=== PATIENT | female | born 1940 | race Caucasian/White ===

== ENCOUNTER 2017-05-24 10:36 | Emergency (ER) | payer OTHER, MEDICARE ==
[~2017-05-24] VITALS: Ht 160 cm; Wt 55.2 kg
[~2017-05-24 10:36] MED LIST: ACET-1311 PO; ADVIN25050 INH; ALBU1AER9 PO; ATRINSX INH; ATV/1 PO; CALC-342 PO; CRG3125 PO; LCTL45 PO; LEVA1.258 INH; LSN25 PO; MOML PO; OXGN; OXYC5TAB PO; PRED10TA PO; PRT/20 PO; SENN8.6T7 PO; TIOTCAP INH; VTMB12 PO
[2017-05-24 10:39] VITALS: TEMP 36.7; Ht 160 cm; Wt 55.2 kg
[2017-05-24] MEDS ORDERED: SODIUM CHLORIDE 0.9% 500ML 500 ML IV STA (11:38)
[2017-05-24] MEDS ORDERED: ALUMINUM/MAGNESIUM SUSP 30 ML UDC PO STA (11:38)
[2017-05-24] MEDS ORDERED: ONDANSETRON INJ 2 MG/ML 2 ML VIAL IV STA (11:38)
--- NOTE | 2017-05-24 11:39 | EMERGENCY ROOM VISIT NOTE ---
History Report prepared by Kareem: [facility] Under the Supervision of: Dr. Osiel Macdonald D.O. First contact with patient: 10:46 Chief Complaint: ABDOMINAL PAIN Stated Complaint: STOMACH PAIN - BACK PAIN - HEADACHE Nursing Triage Summary: patient with low back pain and abdominal pain with weakness and head ache for three days. denies burning but has frequency and urgnecy with urination History of Present Illness The patient is a 76 year old female who presents to the Emergency Room with complaints of an intermittent headache that began 3 days prior to arrival. The patient states that the headache was a gradual onset. She states that she is experiences headache but never this severe or this long of a duration. The patient is experiencing lower abdominal pain that radiates around to the back. She is also experiencing weakness. The patient denies urinary symptoms or taking pain medication. She is on 2 liters of oxygen at home. She has a history of GERD, chronic kidney disease, and COPD. Source of History: patient Onset: 3 days [employer] Position: head Quality: other (headache) Timing: intermittent Associated Symptoms: + abdominal pain, + back pain, + weakness, No urinary symptoms Review of Systems See HPI for pertinent positives & negatives. A total of 10 systems reviewed and were otherwise negative. Past Medical & Surgical Medical Problems: (1) Acute Pancreatitis (2) Acute Pericarditis Nos (3) Anxiety State Nos (4) Behcet's Syndrome (5) Chronic respiratory failure (6) CKD (chronic kidney disease), stage III (7) Dyskinesia Of Esophagus (8) Dysphagia (9) Emphysema Nec (10) GERD (gastroesophageal reflux disease) (11) Hiatal hernia (12) History of arteritis (13) Hx of central retinal vein occlusion (14) Hx takotsubo cardiomyopathy (15) Hypertension Nos (16) Hypoxia (17) Lumbar compression fracture (18) Lumbosacral Spondylosis (19) Old Myocardial Infarct (20) Osteoarthritis (21) Osteoporosis Nos (22) Personal History Of Peptic Ulcer Disease (23) Pulmonary fibrosis (24) Rheumatoid Arthritis (25) Tobacco Use Disorder Surgical Problems: (1) H/O colonoscopy (2) H/O esophagogastroduodenoscopy (3) History of cataract surgery (4) S/P cholecystectomy (5) S/P hysterectomy Family History FH: cancer FH: gallbladder disease FH: heart disease FH: lung disease Hypertension Social History Smoking Status: Former Smoker Alcohol Use: none Drug Use: none Marital Status: Housing Status: lives with significant other Occupation Status: retired Current/Historical Medications Scheduled Calcium Carbonate-Vitamin D (Calcium 600+D), 1 TAB PO BID Carvedilol (Coreg), 6.25 MG PO BID Cyanocobalamin (Vitamin B-12), 500 MCG PO QAM Fluticasone Prop/Salmeterol (Advair Diskus 250-50 Mcg/Dose), 1 PUFF INH AMPM Home O2 Therapy (Oxygen), 2 LITERS NA CONTINOUS Pantoprazole (Protonix), 40 MG PO DAILY Sennosides-Docusate Sodium (Senokot S), 2 TAB PO HS Tiotropium [place] (Spiriva Handihaler), 1 CAP INH QAM Scheduled PRN Albuterol Sulfate (Proair Respiclick), 2 PUFFS INH Q4 PRN for SOB/Wheezing Ipratropium [place] (Atrovent 0.02% Soln), 1 VIAL INH Q4H PRN for Wheezing Lactulose (Lactulose), 30 GM PO DAILY PRN for Constipation Levalbuterol Hcl (Levalbuterol Hcl), 1.25 MG INH Q4H PRN for Wheezing Lorazepam (Ativan), 0.5 MG PO TID PRN for Anxiety/Insomnia Oxycodone Immediate Rel Tab (Roxicodone Ir), 1-2 TAB PO Q4H PRN for Severe Pain Prednisone Tab (Prednisone), 10 MG PO DAILY PRN for rescue kit [Oxycod/Apap], 1 CAP PO Q6 PRN for Pain Allergies Coded Allergies: Ranitidine (Verified Allergy, Intermediate, HIVES., 09/01/16) Conjugated Estrogens (Verified Allergy, Mild, UNKNOWN, 05/24/17) Estrogens (Verified Allergy, Mild, IRREGULAR HEART RATE, 05/24/17) Lovastatin (Verified Allergy, Unknown, UNKNOWN, 09/01/16) Zoledronic Acid (Verified Adverse Reaction, Intermediate, MUSCLE PAIN, 09/01/16) Omeprazole (Verified Adverse Reaction, Mild, ABD PAIN, 09/01/16) Quinolones (Verified Adverse Reaction, Mild, 11/28/08--ITCHY ARM, HAS HAD IN PAST W/O RXN, 09/01/16) Sulfamethoxazole w/Trimethoprim (Verified Adverse Reaction, Mild, NAUSEA/ VOMITING, 09/01/16) Physical Exam Vital Signs Date Time Temp Pulse Resp B/P (MAP) Pulse Ox O2 Delivery O2 Flow Rate FiO2 05/24/17 14:27 64 18 155/89 93 Nasal Cannula 3.0 05/24/17 13:01 65 18 174/92 93 Nasal Cannula 3.0 05/24/17 12:06 63 05/24/17 11:22 62 20 144/101 96 Nasal Cannula 3.0 05/24/17 10:39 36.7 71 18 119/69 94 Nasal Cannula 3.0 Physical Exam GENERAL: Patient is awake, alert, and in no acute distress. Patient is resting comfortably and showing no signs of anxiety EYES: The conjunctivae are clear. The pupils are round and reactive. EARS, NOSE, MOUTH AND THROAT: The nose is without any evidence of any deformity. Mucous membranes are moist tongue is midline NECK: The neck is nontender and supple. RESPIRATORY: Diminished throughout with scattered rhonchi. No tachypnea or rales. CARDIOVASCULAR: Regular rate and rhythm noted there no murmurs rubs or gallops normal S1 normal S2 GASTROINTESTINAL: The abdomen is soft. Bowel sounds are present in all quadrants. Abdomen is nontender MUSCULOSKELETAL/EXTREMITIES: There is no evidence of gross deformity full range of motion is noted in the hips and shoulders SKIN: There is no obvious evidence of any rash. There are no petechiae, pallor or cyanosis noted. NEUROLOGIC: Patient is awake alert and oriented x3 strength is symmetric patellar reflexes are 2+ bilaterally Medical Decision & Procedures ER Provider Diagnostic Interpretation: Radiology results as stated below per my review and radiologist interpretation: KUB CLINICAL HISTORY: Epigastric pain. COMPARISON STUDY: Abdominal series September 01, 2016. FINDINGS: Dextroscoliosis of the lumbar spine is incidentally noted. Bowel gas pattern is normal. Hyperdense material is noted within multiple colonic diverticula. There is a moderate amount of stool within the rectum. IMPRESSION: 1. No evidence for a bowel obstruction. 2. Moderate amount of stool within the rectum. Electronically signed by: Uriel Byers M.D. 05/24/2017 12:17 PM Dictated Date/Time: 05/24/2017 12:[address]AST CT DOSE: 638.56 mGycm HISTORY: Mental status change KINGSLEY TECHNIQUE: Multiaxial CT images of the head were performed without the use of intravenous contrast. Comparison: 09/01/2015 Findings: The paranasal sinuses and mastoid air cells are clear. The calvarium and skull base are intact. The ventricles and sulci are within normal limits. There is no mass, hematoma, midline shift, or acute infarct. Chronic small vessel changes bilaterally considered stable. No new or interval process. Impression: Chronic and age-related change. No acute process. Electronically signed by: Ramesh Gore M.D. 05/24/2017 12:52 PM Dictated Date/Time: 05/24/2017 12:51 PM CHEST ONE VIEW PORTABLE CLINICAL HISTORY: ABDOMINAL PAIN/GI pain COMPARISON STUDY: 09/01/2016 FINDINGS: Mild stable cardia megaly. Multifocal regions of pleural thickening associated with several old rib fractures left hemithorax. Mild chronic interstitial fibrotic change unaltered. No acute infiltrative process. IMPRESSION: Chronic change. No acute process. Electronically signed by: Ramesh Gore M.D. 05/24/2017 12:08 PM Dictated Date/Time: 05/24/2017 12:07 PM Laboratory Results 05/24/17 11:30 Red Blood Count 4.23, Mean Corpuscular Volume 94.1, Mean Corpuscular Hemoglobin 30.7, Mean Corpuscular Hemoglobin Concent 32.7, Mean Platelet Volume 11.2, Neutrophils (%) (Auto) 78.8, Lymphocytes (%) (Auto) 14.5, Monocytes (%) (Auto) 5.4, Eosinophils (%) (Auto) 0.7, Basophils (%) (Auto) 0.2, Neutrophils # (Auto) 12.82, Lymphocytes # (Auto) 2.36, Monocytes # (Auto) 0.88, Eosinophils # (Auto) 0.12, Basophils # (Auto) 0.03 05/24/17 11:30 Test 05/24/17 11:30 05/24/17 12:15 White Blood Count 16.28 K/uL (4.8-10.8) Red Blood Count 4.23 M/uL (4.2-5.4) Hemoglobin 13.0 g/dL (12.0-16.0) Hematocrit 39.8 % (37-47) Mean Corpuscular Volume 94.1 fL (80-100) Mean Corpuscular Hemoglobin 30.7 pg (25-34) Mean Corpuscular Hemoglobin Concent 32.7 g/dl (32-36) Platelet Count 244 K/uL (130-400) Mean Platelet Volume 11.2 fL (7.4-10.4) Neutrophils (%) (Auto) 78.8 % Lymphocytes (%) (Auto) 14.5 % Monocytes (%) (Auto) 5.4 % Eosinophils (%) (Auto) 0.7 % Basophils (%) (Auto) 0.2 % Neutrophils # (Auto) 12.82 K/uL (1.4-6.5) Lymphocytes # (Auto) 2.36 K/uL (1.2-3.4) Monocytes # (Auto) 0.88 K/uL (0.11-0.59) Eosinophils # (Auto) 0.12 K/uL (0-0.5) Basophils # (Auto) 0.03 K/uL (0-0.2) RDW Standard Deviation 45.1 fL (36.4-46.3) RDW Coefficient of Variation 13.2 % (11.5-14.5) Immature Granulocyte % (Auto) 0.4 % Immature Granulocyte # (Auto) 0.07 K/uL (0.00-0.02) Prothrombin Time 10.7 SECONDS (9.0-12.0) Prothromb Time International Ratio 1.0 (0.9-1.1) Activated Partial Thromboplast Time 25.4 SECONDS (21.0-31.0) Partial Thromboplastin Ratio 1.0 Anion Gap 5.0 mmol/L (3-11) Est Creatinine Clear Calc Drug Dose 26.8 ml/min Estimated GFR () 39.1 Estimated GFR (Non- 33.7 BUN/Creatinine Ratio 9.1 (10-20) Calcium Level 8.7 mg/dl (8.5-10.1) Total Bilirubin 0.6 mg/dl (0.2-1) Direct Bilirubin < 0.1 mg/dl (0-0.2) Aspartate Amino Transf (AST/SGOT) 9 U/L (15-37) Alanine Aminotransferase (ALT/SGPT) 13 U/L (12-78) Alkaline Phosphatase 56 U/L (45-117) Troponin I < 0.015 ng/ml (0-0.045) Total Protein 6.6 gm/dl (6.4-8.2) Albumin 3.5 gm/dl (3.4-5.0) Lipase 251 U/L (73-393) Urine Color YELLOW Urine Appearance CLEAR (CLEAR) Urine pH 7.5 (4.5-7.5) Urine Specific Deal 1.007 (1.000-1.030) Urine Protein NEG (NEG) Urine Glucose (UA) NEG (NEG) Urine Ketones NEG (NEG) Urine Occult Blood NEG (NEG) Urine Nitrite NEG (NEG) Urine Bilirubin NEG (NEG) Urine Urobilinogen NEG (NEG) Urine Leukocyte Esterase NEG (NEG) Laboratory results per my review. Medications Administered Medications (Trade) Dose Ordered Sig/Yu Route Start Time Stop Time Status Last Admin Dose Admin Morphine Sulfate (MoRPHine SULFATE INJ) 4 mg Q15M PRN IV 05/24/17 11:45 06/07/17 11:44 05/24/17 11:46 4 MG Ondansetron HCl (Zofran Inj) 4 mg NOW STAT IV 05/24/17 11:38 05/24/17 11:40 DC 05/24/17 11:46 4 MG Sodium Chloride 500 ml @ 999 mls/hr Q31M STAT IV 05/24/17 11:38 05/24/17 12:08 DC 05/24/17 11:46 999 MLS/HR Al Hydroxide/Mg Hydroxide (Maalox Susp) 30 ml NOW STAT PO 05/24/17 11:38 05/24/17 11:41 DC 05/24/17 11:46 30 ML Lidocaine HCl (Viscous Lidocaine 2% Soln) 20 ml STK-MED ONCE .ROUTE 05/24/17 13:09 05/24/17 13:10 DC 05/24/17 13:12 10 ML Al Hydroxide/Mg Hydroxide (Maalox Susp) 30 ml STK-MED ONCE .ROUTE 05/24/17 13:09 05/24/17 13:10 DC 05/24/17 13:12 30 ML ECG Indication: abdominal pain Rate (beats per minute): 61 Rhythm: normal sinus Findings: no ectopy, other (no acute ST segment abnormalities) Change: no significant change (from 07/31/16) ED Course 1134: The patient was evaluated in room C7. A complete history and physical examination were performed. 1138: Maalox Susp 30 ml PO, Sodium Chloride 500 ml @ 999 mls/hr IV, Zofran Inj 4 mg IV. 1145: Morphine Sulfate Inj 4 mg IV. 1307: GI Cocktail 24 ml PO. 1415: Upon reevaluation, the patient is hemodynamically stable. I discussed the results and treatment plan with her. She verbalized agreement of the treatment plan. She was discharged home. Medical Decision Differential diagnosis: Etiologies such as migraine headache, meningitis, sinusitis, CO exposure, ICH, SAH, infection, tumor, headache, sinus thrombosis, arterial dissection, as well as others were entertained. Medication Reconciliation: I attest that I have personally reviewed the patient' s current medications list. Patient was found to have a slightly elevated blood pressure due to circumstances. I do not believe that the patient requires hypertension monitoring. The patient is a 76-year-old female who presented to the emergency department for an evaluation of epigastric pain as well as headache. The patient states that the main reason for her visit to the emergency department today is for the headache. She had no focal neurologic deficits. She states the headache was gradual in onset. The patient did not have meningismus or fever. She also complained of epigastric pain. A review the patient's medications does reveal that she takes prednisone and I would wonder if this was the cause of her epigastric pain. Her physical exam was not consistent with an acute surgical abdomen. She was treated with pain medication in the emergency department and reevaluated multiple times. On subsequent reevaluation she was feeling much better. I discussed the patient's laboratory and radiographic studies with her. She was encouraged to rest and avoid any strenuous activity. She was also encouraged to follow-up with her primary care physician this week for reevaluation but return to the emergency department immediately if symptoms change worsen or the need arises. The patient was started on a short course of pain medication and also had an increase in her proton pump inhibitor dose. Impression Primary Impression: Acute headache Additional Impression: Epigastric abdominal pain Scribe Attestation The scribe's documentation has been prepared under my direction and personally reviewed by me in its entirety. I confirm that the note above accurately reflects all work, treatment, procedures, and medical decision making performed by me. Departure Information Dispostion Home / Self-Care Prescriptions Oxycodone Immediate Rel Tab (ROXICODONE IR) 5 Mg Tab 1-2 TAB PO Q4H Y for Severe Pain, #24 TAB Prov: Osiel Macdonald, DO 05/24/17 Pantoprazole (Protonix) 40 Mg Tab 40 MG PO DAILY, #30 TAB Prov: Osiel Macdonald, DO 05/24/17 Referrals Javy Chong M.D.([facility]) (PCP) Forms HOME CARE DOCUMENTATION FORM, IMPORTANT VISIT INFORMATION Patient Instructions Headache Pain, [facility] Additional Instructions Call your family to schedule follow-up appointment. Drink plenty clear liquids. Increase your Protonix to 40 milligrams a day. Continue all medications as prescribed. Return to the emergency apartment immediately if symptoms change worsen or the need arises. Problem Qualifiers Primary Impression: Acute headache Headache type: unspecified Intractability: not intractable Qualified Codes : R51 - Headache
[2017-05-24] MEDS ORDERED: MoRPHine SULFATE 4 MG/ML 1 ML CARP\\VIAL IV PRN (11:45)
[2017-05-24 11:50] LABS: BASO % 0.2 %; BASO ABS # 0.03 K/uL (0-0.2); COMPLETE YES; EOS % 0.7 %; HEMATOCRIT 39.8 % (37-47); IG% 0.4 %; LYMPH % 14.5 %; LYMPH ABS # 2.36 K/uL (1.2-3.4); MEAN CELL VOLUME 94.1 fL (80-100); MEAN CORPUSCULAR HEMOGLOBIN 30.7 pg (25-34); MEAN CORPUSCULAR HGB CONC 32.7 g/dl (32-36); MEAN PLATELET VOLUME 11.2 fL (7.4-10.4); MONO % 5.4 %; NEUT % 78.8 %; PLATELET COUNT 244 K/uL (130-400); RED BLOOD COUNT 4.23 M/uL (4.2-5.4); WHITE BLOOD COUNT 16.28 K/uL (4.8-10.8)
[2017-05-24 12:00] LABS: PROTHROMBIN TIME (PATIENT) 10.7 SECONDS (9.0-12.0)
[2017-05-24 12:09] LABS: ALT/SGPT 13 U/L (12-78); BLOOD UREA NITROGEN 14 mg/dl (7-18); BUN/CREATININE RATIO 9.1 (10-20); CALCIUM 8.7 mg/dl (8.5-10.1); CARBON DIOXIDE 31 mmol/L (21-32); CHLORIDE 101 mmol/L (98-107); GLUCOSE 98 mg/dl (70-99); POTASSIUM 3.8 mmol/L (3.5-5.1); SODIUM 137 mmol/L (136-145)
--- NOTE | 2017-05-24 12:10 | DIAGNOSTIC IMAGING REPORT ---
CHEST ONE VIEW PORTABLE CLINICAL HISTORY: ABDOMINAL PAIN/GI pain COMPARISON STUDY: 09/01/2016 FINDINGS: Mild stable cardia megaly. Multifocal regions of pleural thickening associated with several old rib fractures left hemithorax. Mild chronic interstitial fibrotic change unaltered. No acute infiltrative process. IMPRESSION: Chronic change. No acute process. Electronically signed by: Ramesh Gore M.D. 05/24/2017 12:08 PM Dictated Date/Time: 05/24/2017 12:07 PM
[2017-05-24 12:14] LABS: ALKALINE PHOSPHATASE 56 U/L (45-117); AST/SGOT 9 U/L (15-37)
--- NOTE | 2017-05-24 12:18 | DIAGNOSTIC IMAGING REPORT ---
KUB CLINICAL HISTORY: Epigastric pain. COMPARISON STUDY: Abdominal series September 01, 2016. FINDINGS: Dextroscoliosis of the lumbar spine is incidentally noted. Bowel gas pattern is normal. Hyperdense material is noted within multiple colonic diverticula. There is a moderate amount of stool within the rectum. IMPRESSION: 1. No evidence for a bowel obstruction. 2. Moderate amount of stool within the rectum. Electronically signed by: Uriel Byers M.D. 05/24/2017 12:17 PM Dictated Date/Time: 05/24/2017 12:15 PM
[2017-05-24 12:32] LABS: URINE APPEARANCE CLEAR (CLEAR); URINE BILIRUBIN NEG (NEG); URINE COLOR YELLOW; URINE NITRITE NEG (NEG); URINE PH 7.5 (4.5-7.5); URINE SPECIFIC GRAVITY 1.007 (1.000-1.030); UROBILINOGEN NEG (NEG)
[2017-05-24 12:37] LABS: MANUAL MICROSCOPIC REQUIRED? NO; REVIEW REQ? NO
--- NOTE | 2017-05-24 12:53 | DIAGNOSTIC IMAGING REPORT ---
HEAD CT NONCONTRAST CT DOSE: 638.56 mGycm HISTORY: Mental status change KINGSLEY TECHNIQUE: Multiaxial CT images of the head were performed without the use of intravenous contrast. Comparison: 09/01/2015 Findings: The paranasal sinuses and mastoid air cells are clear. The calvarium and skull base are intact. The ventricles and sulci are within normal limits. There is no mass, hematoma, midline shift, or acute infarct. Chronic small vessel changes bilaterally considered stable. No new or interval process. Impression: Chronic and age-related change. No acute process. Electronically signed by: Ramesh Gore M.D. 05/24/2017 12:52 PM Dictated Date/Time: 05/24/2017 12:51 PM
[2017-05-24] MEDS ORDERED: CARV6.252 PO (12:55)
[2017-05-24] MEDS ORDERED: OXGN (12:58)
[2017-05-24] MEDS ORDERED: ATV/1 PO (13:03)
[2017-05-24] MEDS ORDERED: GI COCKTAIL PO STA (13:07)
[2017-05-24] MEDS ORDERED: ALUMINUM/MAGNESIUM SUSP 30 ML UDC ONE (13:09)
[2017-05-24] MEDS ORDERED: LIDOCAINE HCL 2% VISC SOLN 20 ML UDC ONE (13:09)
[2017-05-24] MEDS ORDERED: OXYCOD/APAP PO (13:10)
[2017-05-24] MEDS ORDERED: ALBU18002 INH (13:11)
[2017-05-24] MEDS ORDERED: SPRIN/30 INH (13:12)
[2017-05-24] MEDS ORDERED: PANT40TA PO (14:15)
[2017-05-24] MEDS ORDERED: OXYC1TAB3 PO (14:15)
[2017-05-24 14:27] VITALS: BP 155/89; PULSE 64; O2SAT 93
[2017-07-03] MEDS ORDERED: PANT20TA2 PO (11:34)
[2017-07-09] MEDS ORDERED: AZIT-60 PO (19:29)
== END 2017-05-24 15:00 | disposition home or self-care (01) ==
LOC: C.EDB 10:38 → C.EDC 15:00
DX: R51 Headache (principal); R10.13 Epigastric pain; J44.9 Chronic obstructive pulmonary disease, unspecified; I12.9 Hypertensive chronic kidney disease with stage 1 through stage 4 chronic kidney disease, or unspecified chronic kidney disease; N18.3 Chronic kidney disease, stage 3 (moderate); K21.9 Gastro-esophageal reflux disease without esophagitis; Z99.81 Dependence on supplemental oxygen; Z87.891 Personal history of nicotine dependence; Z90.49 Acquired absence of other specified parts of digestive tract; Z90.710 Acquired absence of both cervix and uterus; Z98.49 Cataract extraction status, unspecified eye; Z98.890 Other specified postprocedural states; Z82.49 Family history of ischemic heart disease and other diseases of the circulatory system; Z79.899 Other long term (current) drug therapy; I25.2 Old myocardial infarction; M19.90 Unspecified osteoarthritis, unspecified site; M81.0 Age-related osteoporosis without current pathological fracture; Z87.11 Personal history of peptic ulcer disease

== ENCOUNTER 2017-07-03 10:45 | Emergency (ER) | payer OTHER, MEDICARE ==
[~2017-07-03 10:45] MED LIST changes: -ACET-1311 PO; +ALBU18002 INH; -ALBU1AER9 PO; +CARV6.252 PO; -CRG3125 PO; -LSN25 PO; -MOML PO; +OXYC1TAB3 PO; -OXYC5TAB PO; +OXYCOD/APAP PO; +PANT40TA PO; -PRT/20 PO; +SPRIN/30 INH; -TIOTCAP INH
[2017-07-03 10:56] VITALS: TEMP 36.7; Ht 160 cm
[2017-07-03] MEDS ORDERED: MoRPHine SULFATE 2 MG/ML CARP IV STA (11:16)
[2017-07-03] MEDS ORDERED: IBUPROFEN 200 MG TAB PO STA (11:16)
[2017-07-03] MEDS ORDERED: ACETAMINOPHEN 325 MG TAB PO STA (11:16)
--- NOTE | 2017-07-03 11:17 | EMERGENCY ROOM VISIT NOTE ---
History Report prepared by Kareem: Mariam Krishna Under the Supervision of: Dr. Diomedes Weaver M.D. First contact with patient: 11:01 Chief Complaint: BACK PAIN Stated Complaint: FELL YESTERDAY, BACK PAIN History of Present Illness The patient is a 76 year old white female with a past medical history of osteoarthritis, osteoporosis, pulmonary fibrosis, RA, cholecystectomy, and acid reflux. She presents to the ED with a cc of sharp right upper back pain beginning 4 days ago. The patient states that she thought she pulled a muscle and has been taking hydrocodone and Tylenol without relief of her symptoms for an extended period of time. She notes that she had an episode of a fall 2 days ago after tripping while getting out of the recliner. She hit her face on the carpet and denies any LOC and vision changes. Positive esophagus pain that feels like her reflux, nausea, constipation, and decreased appetite. Negative increased activity, lifting, SOB, chest pain, vomiting, sweating. Pt is on 2-3L of oxygen at home. She is not on any blood thinners Source of History: patient Onset: 4 days ago Position: back (upper) Quality: sharp Timing: constant Associated Symptoms: + nausea, No LOC, No diaphoresis, No chest pain, No SOB , No vomiting Note: Positive esophagus pain that feels like her reflux, constipation, and decreased appetite. Negative increased activity, lifting, vision changes. Review of Systems See HPI for pertinent positives and negatives. A total of ten systems were reviewed and were otherwise negative. Past Medical & Surgical Medical Problems: (1) Acute Pancreatitis (2) Acute Pericarditis Nos (3) Anxiety State Nos (4) Behcet's Syndrome (5) Chronic respiratory failure (6) CKD (chronic kidney disease), stage III (7) Dyskinesia Of Esophagus (8) Dysphagia (9) Emphysema Nec (10) GERD (gastroesophageal reflux disease) (11) Hiatal hernia (12) History of arteritis (13) Hx of central retinal vein occlusion (14) Hx takotsubo cardiomyopathy (15) Hypertension Nos (16) Hypoxia (17) Lumbar compression fracture (18) Lumbosacral Spondylosis (19) Old Myocardial Infarct (20) Osteoarthritis (21) Osteoporosis Nos (22) Personal History Of Peptic Ulcer Disease (23) Pulmonary fibrosis (24) Rheumatoid Arthritis (25) Tobacco Use Disorder Surgical Problems: (1) H/O colonoscopy (2) H/O esophagogastroduodenoscopy (3) History of cataract surgery (4) S/P cholecystectomy (5) S/P hysterectomy Family History FH: cancer FH: gallbladder disease FH: heart disease FH: lung disease Hypertension Social History Smoking Status: Never Smoker Alcohol Use: none Drug Use: none Marital Status: Housing Status: lives with significant other Occupation Status: retired Current/Historical Medications Scheduled Calcium Carbonate-Vitamin D (Calcium 600+D), 1 TAB PO BID Carvedilol (Coreg), 6.25 MG PO BID Cyanocobalamin (Vitamin B-12), 500 MCG PO QAM Fluticasone Prop/Salmeterol (Advair Diskus 250-50 Mcg/Dose), 1 PUFF INH AMPM Home O2 Therapy (Oxygen), 3 LITERS NA CONTINOUS Pantoprazole Sodium (Protonix), 20 MG PO BID Prednisone Tab (Prednisone), 10 MG PO DAILY Tiotropium [place] (Spiriva Handihaler), 1 CAP INH QAM Scheduled PRN Albuterol Sulfate (Proair Respiclick), 2 PUFFS INH Q4 PRN for SOB/Wheezing Ipratropium [place] (Atrovent 0.02% Soln), 1 VIAL INH Q4H PRN for Wheezing Levalbuterol Hcl (Levalbuterol Hcl), 1.25 MG INH Q4H PRN for Wheezing Oxycodone HCl (Oxycodone HCl), 2.5 MG PO Q4 PRN for Severe Pain Senna/Docusate Sod (Senokot S), 1 TAB PO UD PRN for Constipation Tramadol (Ultram), 25 MG PO Q4H PRN for Pain Allergies Coded Allergies: Ranitidine (Verified Allergy, Intermediate, HIVES., 07/03/17) Conjugated Estrogens (Verified Allergy, Mild, UNKNOWN, 07/03/17) Estrogens (Verified Allergy, Mild, IRREGULAR HEART RATE, 07/03/17) Lovastatin (Verified Allergy, Unknown, UNKNOWN, 07/03/17) Zoledronic Acid (Verified Adverse Reaction, Intermediate, MUSCLE PAIN, 07/03) Omeprazole (Verified Adverse Reaction, Mild, ABD PAIN, 07/03/17) Quinolones (Verified Adverse Reaction, Mild, 11/28/08--ITCHY ARM, HAS HAD IN PAST W/O RXN, 07/03/17) Sulfamethoxazole w/Trimethoprim (Verified Adverse Reaction, Mild, NAUSEA/ VOMITING, 07/03/17) Physical Exam Vital Signs Date Time Temp Pulse Resp B/P (MAP) Pulse Ox O2 Delivery O2 Flow Rate FiO2 07/03/17 14:00 71 16 113/80 91 07/03/17 13:12 71 16 113/80 91 Nasal Cannula 07/03/17 10:56 36.7 68 22 137/77 94 Nasal Cannula 3.0 Physical Exam GENERAL: Awake, alert, well-appearing, NAD HENT: Area of periorbital ecchymosis over right eye, not proptotic, EOM intact and without pain. Gross vision intact with glasses. EYES: Normal conjunctiva. Sclera non-icteric. NECK: Supple. No nuchal rigidity. FROM. RESPIRATORY: CTAB, no rhonchi, wheezing, crackles CARDIAC: RRR, no MRG ABDOMEN: Soft, NTND, BS+ MSK: No chest wall TTP, no LE edema. Mild reproducible right sided upper back and shoulder tend to palp, right bruising over right posterior shoulder with skin tear. NEURO: GCS 15, CN 2-12 intact, moves all 4s on command, MUR nerves intact distally to sensation and motor of the RUE. SKIN: No rash or jaundice noted. Medical Decision & Procedures ER Provider Diagnostic Interpretation: Radiology results as stated below per my review and radiologist interpretation: RIGHT SHOULDER MIN 2 VIEWS ROUTINE DISCUSSION: The bones are osteopenic. No fractures or dislocations are visualized. There are mild degenerative changes. There is underlying interstitial lung disease. IMPRESSION: No fractures or dislocations identified. Electronically signed by: Erick Orosco M.D. 07/03/2017 12:04 PM Dictated Date/Time: 07/03/2017 12:04 PM CHEST ONE VIEW PORTABLE FINDINGS: The heart remains the upper limits of normal in size. There are old left-sided rib fractures with associated pleural reaction. There is underlying interstitial thickening, most pronounced within the right upper lung zone laterally. This remain stable. There is no failure. There is no acute parenchymal consolidation.[ IMPRESSION: Stable interstitial lung disease. Stable old left-sided rib fractures. No acute findings. Electronically signed by: Erick Orosco M.D. 07/03/2017 11:54 AM Dictated Date/Time: 07/03/2017 11:[address] HEAD WITHOUT CONTRAST (CT) FINDINGS: No intra or extra-axial mass lesions are visualized. There is no CT evidence of acute cortical infarction. There is no evidence of midline shift. There is no acute hemorrhage. No calvarial fractures are visualized. There are patchy white matter hypodensities likely on a small vessel basis. There is no evidence of pathologic ventricular dilatation. There is a right maxillary sinus air-fluid level. In the setting of trauma, this could indicate an occult fracture. There is a trace right mastoid effusion. This was present on the prior examination. IMPRESSION: 1. No acute intracranial findings 2. Interval development of a right maxillary sinus air-fluid level. In the setting of trauma, this could indicate an occult fracture. 3. Small chronic right mastoid effusion Electronically signed by: Erick Orosco M.D. 07/03/2017 12:27 PM Dictated Date/Time: 07/03/2017 12:25 PM Laboratory Results 07/03/17 11:30 Red Blood Count 4.09, Mean Corpuscular Volume 94.1, Mean Corpuscular Hemoglobin 32.5, Mean Corpuscular Hemoglobin Concent 34.5, Mean Platelet Volume 11.1, Neutrophils (%) (Auto) 81.4, Lymphocytes (%) (Auto) 11.8, Monocytes (%) (Auto) 5.6, Eosinophils (%) (Auto) 0.7, Basophils (%) (Auto) 0.2, Neutrophils # (Auto) 13.85, Lymphocytes # (Auto) 2.00, Monocytes # (Auto) 0.95, Eosinophils # (Auto) 0.12, Basophils # (Auto) 0.03 07/03/17 11:30 Test 07/03/17 11:30 White Blood Count 17.00 K/uL (4.8-10.8) Red Blood Count 4.09 M/uL (4.2-5.4) Hemoglobin 13.3 g/dL (12.0-16.0) Hematocrit 38.5 % (37-47) Mean Corpuscular Volume 94.1 fL (80-100) Mean Corpuscular Hemoglobin 32.5 pg (25-34) Mean Corpuscular Hemoglobin Concent 34.5 g/dl (32-36) Platelet Count 219 K/uL (130-400) Mean Platelet Volume 11.1 fL (7.4-10.4) Neutrophils (%) (Auto) 81.4 % Lymphocytes (%) (Auto) 11.8 % Monocytes (%) (Auto) 5.6 % Eosinophils (%) (Auto) 0.7 % Basophils (%) (Auto) 0.2 % Neutrophils # (Auto) 13.85 K/uL (1.4-6.5) Lymphocytes # (Auto) 2.00 K/uL (1.2-3.4) Monocytes # (Auto) 0.95 K/uL (0.11-0.59) Eosinophils # (Auto) 0.12 K/uL (0-0.5) Basophils # (Auto) 0.03 K/uL (0-0.2) RDW Standard Deviation 46.2 fL (36.4-46.3) RDW Coefficient of Variation 13.3 % (11.5-14.5) Immature Granulocyte % (Auto) 0.3 % Immature Granulocyte # (Auto) 0.05 K/uL (0.00-0.02) Venous Blood pH 7.40 (7.36-7.41) Venous Blood Partial Pressure CO2 52 mmHg (38.0-50.0) Venous Blood Partial Pressure O2 23 mmHg Venous Blood HCO3 31 mmol/L Venous Blood Oxygen Saturation < 60.0 % Venous Blood Base Excess 5.1 mEq/L Anion Gap 5.0 mmol/L (3-11) Estimated GFR () 36.2 Estimated GFR (Non- 31.2 BUN/Creatinine Ratio 12.3 (10-20) Calcium Level 9.6 mg/dl (8.5-10.1) Troponin I < 0.015 ng/ml (0-0.045) Laboratory results reviewed by me Medications Administered Medications (Trade) Dose Ordered Sig/Yu Route Start Time Stop Time Status Last Admin Dose Admin Morphine Sulfate (MoRPHine SULFATE INJ) 2 mg NOW STAT IV 07/03/17 11:16 07/03/17 11:20 DC 07/03/17 11:30 2 MG Ibuprofen (Advil Tab) 400 mg NOW STAT PO 07/03/17 11:16 07/03/17 11:20 DC 07/03/17 11:30 400 MG Acetaminophen (Tylenol Tab) 650 mg NOW STAT PO 07/03/17 11:16 07/03/17 11:21 DC 07/03/17 11:30 650 MG Tramadol HCl (Ultram Tab) 25 mg NOW STAT PO 07/03/17 12:40 07/03/17 12:41 DC 07/03/17 13:11 25 MG ECG Indication: back/shoulder pain Rate (beats per minute): 67 Rhythm: normal sinus Findings: other (normal OR and QRS intervals, questionable Q wave in Lead 3 but not in any contiguous leads, no other STS changes or T wave inversions) ED Course 1101: The patient was evaluated in room B12. A complete history and physical exam was performed. 1240: The patient is feeling better and still has some mild pain. I discussed nasal precautions and she will go home on a short course of antibiotics. 1342: I reevaluated and updated the patient on her results. 1347: I reevaluated the patient. Discussed results and discharge instructions: She verbalized understanding and agreement. The patient is ready for discharge. Medical Decision Differential diagnosis includes pneumonia, bronchitis, MSK pain, kidney stone, ICH, fracture, sprain, strain. The patient is a 76 year old white female with a past medical history of osteoarthritis, osteoporosis, pulmonary fibrosis, RA, cholecystectomy, and acid reflux. She presents to the ED with a cc of sharp right upper back pain beginning 4 days ago. Pt has mild leukocytosis that is unchanged from 05/24, likely related to daily prednisone.. Blood gas has CO2 retention that is chronic. No respiratory acidosis. Stable CKD and urine is clear. Patient had negative CT head as well as plain films. No consolidation within the chest. Patient's pain from her chronic COPD as well as MSK pain from her recent fall. She did not have any known fracture seen on her CT head however she did have a small fluid level within the maxillary sinus. Patient does not have much pain there was no septal hematoma noted within the nasal cavity. Patient was told to practice nasal precautions to try to not to blow her nose as well as sneezing with her mouth open. Patient's EKG was fairly benign and had a negative troponin less likely to be ACS that referred chest pain. Patient is given strict follow-up, discharge, return precautions. Patient plan of care and patient was discharged home. Medication Reconcilliation Current Medication List: was personally reviewed by me Blood Pressure Screening Patient's blood pressure: Elevated blood pressure Blood pressure disposition: Elevated BP felt to be situational Impression Primary Impression: Shoulder pain, right Additional Impressions: Back pain CKD (chronic kidney disease) Leukocytosis Scribe Attestation The scribe's documentation has been prepared under my direction and personally reviewed by me in its entirety. I confirm that the note above accurately reflects all work, treatment, procedures, and medical decision making performed by me. Departure Information Dispostion Home / Self-Care Prescriptions Tramadol (Ultram) 50 Mg Tab 25 MG PO Q4H Y for Pain, #10 TAB Prov: Diomedes Weaver M.D. 07/03/17 Referrals Javy Chong M.D.([facility]) (PCP) Forms HOME CARE DOCUMENTATION FORM, IMPORTANT VISIT INFORMATION Patient Instructions Back Pain - [place], ED Mechanical Fall, ED Prevention Fall, ED Shoulder Pain [facility], Exercises Frozen Shoulder, My [facility] Additional Instructions Please return if you have any worsening or persistent symptoms not amenable to treatment. Please follow with her primary care physician. There is no fracture detected today however please observe nasal bone precautions which include no nose blowing as well as ensure that your mouth is open when you sneeze. Please also return to emergency department if you develop a swollen eye , if you're eye is sticking out for alert, or vision changes. If you develop greenish/yellow nasal drainage please return to the ER or see her primary care physician for further management. Problem Qualifiers
[2017-07-03] MEDS ORDERED: PANT20TA PO (11:34)
[2017-07-03] MEDS ORDERED: SENN-65 PO (11:39)
[2017-07-03] MEDS ORDERED: OXYC-609 PO (11:39)
[2017-07-03 11:41] LABS: VEN BLOOD GAS BASE EXCESS 5.1 mEq/L; VENOUS BLOOD GAS PCO2 52 mmHg (38.0-50.0); VENOUS BLOOD GAS PO2 23 mmHg
[2017-07-03 11:42] LABS: BASO % 0.2 %; BASO ABS # 0.03 K/uL (0-0.2); COMPLETE YES; EOS % 0.7 %; HEMATOCRIT 38.5 % (37-47); IG% 0.3 %; LYMPH % 11.8 %; MEAN CELL VOLUME 94.1 fL (80-100); MEAN CORPUSCULAR HEMOGLOBIN 32.5 pg (25-34); MEAN CORPUSCULAR HGB CONC 34.5 g/dl (32-36); MEAN PLATELET VOLUME 11.1 fL (7.4-10.4); MONO % 5.6 %; NEUT % 81.4 %; PLATELET COUNT 219 K/uL (130-400); RED BLOOD COUNT 4.09 M/uL (4.2-5.4); VEN BLD GAS O2 SATURATION < 60.0 %
[2017-07-03 11:55] LABS: BLOOD UREA NITROGEN 20 mg/dl (7-18); BUN/CREATININE RATIO 12.3 (10-20); CALCIUM 9.6 mg/dl (8.5-10.1); CARBON DIOXIDE 32 mmol/L (21-32); CHLORIDE 97 mmol/L (98-107); GLUCOSE 103 mg/dl (70-99); POTASSIUM 3.9 mmol/L (3.5-5.1); SODIUM 134 mmol/L (136-145)
--- NOTE | 2017-07-03 11:55 | DIAGNOSTIC IMAGING REPORT ---
CHEST ONE VIEW PORTABLE CLINICAL HISTORY: Right chest wall pain COMPARISON STUDY: 05/24/2017 FINDINGS: The heart remains the upper limits of normal in size. There are old left-sided rib fractures with associated pleural reaction. There is underlying interstitial thickening, most pronounced within the right upper lung zone laterally. This remain stable. There is no failure. There is no acute parenchymal consolidation.[ IMPRESSION: Stable interstitial lung disease. Stable old left-sided rib fractures. No acute findings. Electronically signed by: Erick Orosco M.D. 07/03/2017 11:54 AM Dictated Date/Time: 07/03/2017 11:53 AM
--- NOTE | 2017-07-03 12:06 | DIAGNOSTIC IMAGING REPORT ---
RIGHT SHOULDER MIN 2 VIEWS ROUTINE CLINICAL HISTORY: Right shoulder pain. Trauma. COMPARISON: None. DISCUSSION: The bones are osteopenic. No fractures or dislocations are visualized. There are mild degenerative changes. There is underlying interstitial lung disease. IMPRESSION: No fractures or dislocations identified. Electronically signed by: Erick Orosco M.D. 07/03/2017 12:04 PM Dictated Date/Time: 07/03/2017 12:04 PM
--- NOTE | 2017-07-03 12:28 | DIAGNOSTIC IMAGING REPORT ---
CT HEAD WITHOUT CONTRAST (CT) CLINICAL HISTORY: Head trauma. Ecchymosis. COMPARISON STUDY: 05/24/2017 TECHNIQUE: Axial CT of the brain is performed from the vertex to the skull base. IV contrast was not administered for this examination. A dose lowering technique was utilized adhering to the principles of ALARA. CT DOSE: 537.48 mGy.cm FINDINGS: No intra or extra-axial mass lesions are visualized. There is no CT evidence of acute cortical infarction. There is no evidence of midline shift. There is no acute hemorrhage. No calvarial fractures are visualized. There are patchy white matter hypodensities likely on a small vessel basis. There is no evidence of pathologic ventricular dilatation. There is a right maxillary sinus air-fluid level. In the setting of trauma, this could indicate an occult fracture. There is a trace right mastoid effusion. This was present on the prior examination. IMPRESSION: 1. No acute intracranial findings 2. Interval development of a right maxillary sinus air-fluid level. In the setting of trauma, this could indicate an occult fracture. 3. Small chronic right mastoid effusion Electronically signed by: Erick Orosco M.D. 07/03/2017 12:27 PM Dictated Date/Time: 07/03/2017 12:25 PM
[2017-07-03] MEDS ORDERED: TRAMADOL HCL 50 MG TAB PO STA (12:40)
[2017-07-03] MEDS ORDERED: TRAM-10 PO (13:36)
[2017-07-03 14:00] VITALS: BP 113/80; PULSE 71; O2SAT 91
== END 2017-07-03 14:07 | disposition home or self-care (01) ==
LOC: C.EDB 10:47
DX: M25.511 Pain in right shoulder (principal); M54.6 Pain in thoracic spine; N18.3 Chronic kidney disease, stage 3 (moderate); D72.829 Elevated white blood cell count, unspecified; M81.0 Age-related osteoporosis without current pathological fracture; J84.10 Pulmonary fibrosis, unspecified; J43.9 Emphysema, unspecified; J96.10 Chronic respiratory failure, unspecified whether with hypoxia or hypercapnia; M06.9 Rheumatoid arthritis, unspecified; K21.9 Gastro-esophageal reflux disease without esophagitis; I12.9 Hypertensive chronic kidney disease with stage 1 through stage 4 chronic kidney disease, or unspecified chronic kidney disease; M19.90 Unspecified osteoarthritis, unspecified site; I25.2 Old myocardial infarction; Z87.11 Personal history of peptic ulcer disease; Z91.81 History of falling; Z90.710 Acquired absence of both cervix and uterus; Z90.49 Acquired absence of other specified parts of digestive tract; Z98.49 Cataract extraction status, unspecified eye; Z98.890 Other specified postprocedural states; Z99.81 Dependence on supplemental oxygen; Z82.49 Family history of ischemic heart disease and other diseases of the circulatory system; Z79.52 Long term (current) use of systemic steroids; Z79.899 Other long term (current) drug therapy

== ENCOUNTER 2017-07-09 18:11 | Emergency (ER) | payer OTHER, MEDICARE ==
[~2017-07-09] VITALS: Ht 160 cm; Wt 54.0 kg
[~2017-07-09 18:11] MED LIST changes: -ATV/1 PO; -LCTL45 PO; +OXYC-609 PO; -OXYC1TAB3 PO; -OXYCOD/APAP PO; +PANT20TA PO; -PANT40TA PO; +SENN-65 PO; -SENN8.6T7 PO; +TRAM-10 PO
[2017-07-09 18:17] VITALS: TEMP 36.7; Ht 160 cm; Wt 54.0 kg
[2017-07-09 18:43] VITALS: O2SAT 95
--- NOTE | 2017-07-09 19:20 | EMERGENCY ROOM VISIT NOTE ---
History First contact with patient: 19:14 Chief Complaint: COUGH Stated Complaint: COUGHING UP BLOOD Nursing Triage Summary: for about 2 weeks has had "hard" cough. today coughed up some blood and is having back pain. uses o2 at home all the time. also uses nebs. History of Present Illness The patient is a 76 year old female who presents to the Emergency Room with complaints of coughing up blood. Says she developed a cough 3 weeks ago with brown blood in the mucous over the last three days ago ~ 1 teaspoon in volume. Believes that her back pain started as a result.of the coughing and persists. Has been taking hydrocodone-acetaminophen, oxycodone (rarely), tramadol ( prescription completed) at home. No SOB, still on home baseline of 3L O2 for her COPD. States she has chronic chest discomfort in esophagus area where food gets stuck since she has an anatomical variant. Still able to swallow. No fevers, or chills. But is having sweats. No abdo pain. Some nausea - associated with pain, but no vomiting. No leg swelling. Review of Systems See HPI for pertinent positives and negatives. A total of ten systems were reviewed and were otherwise negative. Past Medical/Surgical History Medical Problems: (1) Acute Pancreatitis (2) Acute Pericarditis Nos (3) Anxiety State Nos (4) Behcet's Syndrome (5) Chronic respiratory failure (6) CKD (chronic kidney disease), stage III (7) Dyskinesia Of Esophagus (8) Dysphagia (9) Emphysema Nec (10) GERD (gastroesophageal reflux disease) (11) Hiatal hernia (12) History of arteritis (13) Hx of central retinal vein occlusion (14) Hx takotsubo cardiomyopathy (15) Hypertension Nos (16) Hypoxia (17) Lumbar compression fracture (18) Lumbosacral Spondylosis (19) Old Myocardial Infarct (20) Osteoarthritis (21) Osteoporosis Nos (22) Personal History Of Peptic Ulcer Disease (23) Pulmonary fibrosis (24) Rheumatoid Arthritis (25) Tobacco Use Disorder Surgical Problems: (1) H/O colonoscopy (2) H/O esophagogastroduodenoscopy (3) History of cataract surgery (4) S/P cholecystectomy (5) S/P hysterectomy Family History FH: cancer FH: gallbladder disease FH: heart disease FH: lung disease Hypertension Social History Smoking Status: Former Smoker Alcohol Use: none Drug Use: none Marital Status: Housing Status: lives with significant other Occupation Status: retired Current/Historical Medications Scheduled Azithromycin (Zithromax), 250 MG PO MWF Calcium Carbonate-Vitamin D (Calcium 600+D), 1 TAB PO BID Carvedilol (Coreg), 6.25 MG PO BID Cholecalciferol (Vitamin D3), 2,000 UNITS PO DAILY Cyanocobalamin (Vitamin B-12), 500 MCG PO QAM Fluticasone Prop/Salmeterol (Advair Diskus 250-50 Mcg/Dose), 1 PUFF INH AMPM Home O2 Therapy (Oxygen), 3 LITERS NA CONTINOUS Nystatin (Nystatin Suspension), 1 TSP PO QID Pantoprazole Sodium (Protonix), 40 MG PO BID Prednisone Tab (Prednisone), 10 MG PO DAILY Sertraline HCl (Sertraline HCl), 50 MG PO DAILY Tiotropium [place] (Spiriva Handihaler), 1 CAP INH QAM Scheduled PRN Albuterol Sulfate (Proair Respiclick), 2 PUFFS INH Q4 PRN for SOB/Wheezing Ipratropium-Albuterol (Duoneb), 1 TREATMENT INH Q6 PRN for SOB/Wheezing Lorazepam (Ativan), 0.5-1 MG PO Q8 PRN for Anxiety Oxycodone HCl (Oxycodone HCl), 2.5 MG PO Q4 PRN for Severe Pain Polyethylene Glycol 3350 (Miralax), 17 GM PO DAILY PRN for Constipation Tramadol (Ultram), 25 MG PO Q4H PRN for Pain Physical Exam Vital Signs Date Time Temp Pulse Resp B/P (MAP) Pulse Ox O2 Delivery O2 Flow Rate FiO2 07/09/17 22:50 77 22 189/113 97 Nasal Cannula 3.0 07/09/17 22:10 68 07/09/17 21:58 77 20 189/113 98 Nasal Cannula 3.0 07/09/17 20:42 69 18 178/110 97 Nasal Cannula 3.0 07/09/17 18:53 75 07/09/17 18:43 95 2.0 07/09/17 18:41 95 Nasal Cannula 2.0 07/09/17 18:40 95 Nasal Cannula 2.0 07/09/17 18:39 84 Room Air 8/11/17 18:17 36.7 76 18 168/99 97 Nasal Cannula 3.0 Physical Exam GENERAL: Alert, well appearing, thin, sitting in bed, no acute distress, non- toxic HEAD: NC/AT. No sinus tenderness. EYES: PERRL, EOMI, normal conjunctiva OROPHARYNX: no exudate, no erythema, lips, buccal mucosa, and tongue normal and mucous membranes are dry NECK: Supple, no adenopathy, non-tender LUNGS: Clear to auscultation. Normal chest wall mechanics, good air entry. No crepitations, crackles, or wheezes HEART: No murmurs, S1 and S2 normal CHEST: No reproducible tenderness. ABDOMEN: abdomen soft, mildly tender on left lateral upper abdomen, normo- active bowel sounds, no masses, no rebound or guarding. BACK: Back is symmetrical on inspection, no deformities, no midline tenderness, no CVA tenderness, tenderness over right medial scapula. SKIN: Warm, pink, dry. No erythema, rashes, or bruising. Healing laceration on right shoulder. UPPER EXTREMITIES: Grossly normal. No pitting edema. Calves non tender. NEURO: Alert, Ox3. No focal deficits. Cranial nerves II-XII grossly intact, normal speech. PSYCH: Mood and affect appropriate. Medical Decision & Procedures ER Provider Diagnostic Interpretation: CHEST ONE VIEW PORTABLE CLINICAL HISTORY: COUGHING UP BLOOD COMPARISON STUDY: Chest radiograph July 03, 2017. FINDINGS: Emphysema is noted. Interstitial thickening is chronic. A hiatal hernia is present. There are numerous old left-sided rib fractures. No pneumothorax or pleural effusion is present. Cardiomediastinal silhouette is stable. There is no evidence of pulmonary edema. There is a possible 1.6 cm nodular right apical opacity. This was not evident on prior exam. IMPRESSION: 1. Possible 1.8 cm right apical opacity. This could reflect minimal airspace disease. Radiographic follow-up to ensure resolution is recommended to exclude a pulmonary nodule. 2. Emphysema. 3. Hiatal hernia. CT ANGIOGRAPHY OF THE CHEST, PULMONARY EMBOLUS PROTOCOL CLINICAL HISTORY: Hemoptysis. COMPARISON STUDY: Chest CT August 02, 2016. TECHNIQUE: Following IV administration of 106 mL of Optiray-320, helical axial images of the chest were obtained utilizing the pulmonary embolus protocol. Maximal intensity projections and sagittal and coronal reformats were viewed on an independent 3D workstation. IV contrast was administered without complication. A dose lowering technique was utilized adhering to the principles of ALARA. CT DOSE: 194.75 mGy.cm FINDINGS: No pulmonary emboli are identified. The heart is mildly enlarged. There is no pericardial effusion. There is a moderate sized hiatal hernia with partially intrathoracic stomach. No pneumothorax or pleural effusion is present. Severe emphysema is noted. There is no consolidation to suggest pneumonia. No suspicious pulmonary nodules are present. There are multiple old left-sided rib fractures. A severe T7 compression fracture with minimal retropulsion is new since CT of August 02, 2016 but likely subacute to chronic. Upper abdomen is unremarkable. Central airways are patent. There is minimal mucus within the tracheobronchial tree. IMPRESSION: 1. No pulmonary emboli identified. 2. No acute intrathoracic findings. 3. Severe emphysema. 4. Severe T7 compression fracture with minimal retropulsion. This is new since CT of August 02, 2016 but likely subacute to chronic. 4. Moderate sized hiatal hernia. Laboratory Results 07/09/17 20:25 Red Blood Count 4.24, Mean Corpuscular Volume 95.0, Mean Corpuscular Hemoglobin 31.4, Mean Corpuscular Hemoglobin Concent 33.0, Mean Platelet Volume 11.7, Neutrophils (%) (Auto) 66.9, Lymphocytes (%) (Auto) 25.3, Monocytes (%) (Auto) 6.9, Eosinophils (%) (Auto) 0.4, Basophils (%) (Auto) 0.1, Neutrophils # (Auto) 9.15, Lymphocytes # (Auto) 3.46, Monocytes # (Auto) 0.95, Eosinophils # (Auto) 0.05, Basophils # (Auto) 0.01 07/09/17 20:25 Test 07/09/17 20:25 White Blood Count 13.68 K/uL (4.8-10.8) Red Blood Count 4.24 M/uL (4.2-5.4) Hemoglobin 13.3 g/dL (12.0-16.0) Hematocrit 40.3 % (37-47) Mean Corpuscular Volume 95.0 fL (80-100) Mean Corpuscular Hemoglobin 31.4 pg (25-34) Mean Corpuscular Hemoglobin Concent 33.0 g/dl (32-36) Platelet Count 298 K/uL (130-400) Mean Platelet Volume 11.7 fL (7.4-10.4) Neutrophils (%) (Auto) 66.9 % Lymphocytes (%) (Auto) 25.3 % Monocytes (%) (Auto) 6.9 % Eosinophils (%) (Auto) 0.4 % Basophils (%) (Auto) 0.1 % Neutrophils # (Auto) 9.15 K/uL (1.4-6.5) Lymphocytes # (Auto) 3.46 K/uL (1.2-3.4) Monocytes # (Auto) 0.95 K/uL (0.11-0.59) Eosinophils # (Auto) 0.05 K/uL (0-0.5) Basophils # (Auto) 0.01 K/uL (0-0.2) RDW Standard Deviation 47.4 fL (36.4-46.3) RDW Coefficient of Variation 13.6 % (11.5-14.5) Immature Granulocyte % (Auto) 0.4 % Immature Granulocyte # (Auto) 0.06 K/uL (0.00-0.02) Anion Gap 7.0 mmol/L (3-11) Est Creatinine Clear Calc Drug Dose 26.8 ml/min Estimated GFR () 39.1 Estimated GFR (Non- 33.7 BUN/Creatinine Ratio 14.0 (10-20) Calcium Level 9.4 mg/dl (8.5-10.1) Total Bilirubin 0.3 mg/dl (0.2-1) Aspartate Amino Transf (AST/SGOT) 10 U/L (15-37) Alanine Aminotransferase (ALT/SGPT) 13 U/L (12-78) Alkaline Phosphatase 66 U/L (45-117) Troponin I < 0.015 ng/ml (0-0.045) Total Protein 7.0 gm/dl (6.4-8.2) Albumin 3.4 gm/dl (3.4-5.0) Globulin 3.6 gm/dl (2.5-4.0) Albumin/Globulin Ratio 0.9 (0.9-2) Medications Administered Medications (Trade) Dose Ordered Sig/Yu Route Start Time Stop Time Status Last Admin Dose Admin Ondansetron HCl (Zofran Inj) 4 mg NOW STAT IV 07/09/17 20:17 07/09/17 20:19 DC 07/09/17 20:50 4 MG Morphine Sulfate (MoRPHine SULFATE INJ) 4 mg NOW STAT IV 07/09/17 20:17 07/09/17 20:19 DC 07/09/17 20:50 4 MG ECG Indication: other (hemoptysis) Rate (beats per minute): 77 Rhythm: normal sinus Change: no significant change (24-MAY-2017) ED Course 191: The patient was evaluated in room A2. A complete history and physical exam was performed. 2017: Ordered morphine and Zofran. 2100: Reassessed, patient states she is feeling better. Medical Decision Prior records/ancillary studies reviewed. Triage Nursing notes reviewed. Additional history obtained from patient and The patient's history was concerning for hemoptysis. Differential diagnosis: Etiologies such as cardiac ischemia, aortic dissection, pulmonary embolism, pneumonia, pneumothorax, musculoskeletal, infections, pericarditis, myocarditis , esophageal rupture, gastrointestinal, as well as others were entertained. Physical examination: As above. ER treatment provided: IV morphine and IV Zofran On reassessment the patient felt better. Diagnostic interpretation by me: The electrocardiogram was negative for pathologic change. The labs revealed elevated WBC (but decreased from last week), elevated BUN and creatinine (but unchanged from 1 week ago) Imaging studies: Chest x-ray as above. CT negative for PE, but shows subacute thoracic compression fracture Consultation: By the evaluation outlined above emergent etiologies such as cardiac ischemia, aortic dissection, pulmonary embolism, pneumonia, pneumothorax, infections, pericarditis, myocarditis, gastrointestinal, as well as others were deemed relatively unlikely. The patient and her informed about the findings as listed above. All questions were answered. Return instructions were outlined and the patient was discharged in stable condition. Outpatient prescription management: Continue Azithromycin Continue current analgesia. Warned to be wary of additional Tylenol usage Referral: The patient was referred back to her primary care physician for follow-up in 2 to 3 days for a recheck of the current condition. Impression Primary Impression: Thoracic compression fracture Additional Impressions: Bronchitis Hemoptysis Departure Information Dispostion Home / Self-Care Condition GOOD Referrals Javy Chong M.D. ([facility]) (PCP) Patient Instructions My [facility] Resident Tracking Resident Involvement: Resident Care Provided Care Provided: Adult ED Problem Qualifiers
[2017-07-09] MEDS ORDERED: NYSS/ PO (19:29)
[2017-07-09] MEDS ORDERED: IPRASOL4 INH (19:29)
[2017-07-09] MEDS ORDERED: AZIT250T5 PO (19:29)
[2017-07-09] MEDS ORDERED: LORA-741 PO (19:29)
[2017-07-09] MEDS ORDERED: CHOL20005 PO (19:29)
[2017-07-09] MEDS ORDERED: ZLF/50 PO (19:29)
[2017-07-09] MEDS ORDERED: POLY335019 PO (19:30)
[2017-07-09] MEDS ORDERED: ONDANSETRON INJ 2 MG/ML 2 ML VIAL IV STA (20:17)
[2017-07-09] MEDS ORDERED: MoRPHine SULFATE 4 MG/ML 1 ML CARP\\VIAL IV STA (20:17)
--- NOTE | 2017-07-09 21:02 | DIAGNOSTIC IMAGING REPORT ---
CHEST ONE VIEW PORTABLE CLINICAL HISTORY: COUGHING UP BLOOD COMPARISON STUDY: Chest radiograph July 03, 2017. FINDINGS: Emphysema is noted. Interstitial thickening is chronic. A hiatal hernia is present. There are numerous old left-sided rib fractures. No pneumothorax or pleural effusion is present. Cardiomediastinal silhouette is stable. There is no evidence of pulmonary edema. There is a possible 1.6 cm nodular right apical opacity. This was not evident on prior exam. IMPRESSION: 1. Possible 1.8 cm right apical opacity. This could reflect minimal airspace disease. Radiographic follow-up to ensure resolution is recommended to exclude a pulmonary nodule. 2. Emphysema. 3. Hiatal hernia. Electronically signed by: Uriel Byers M.D. 07/09/2017 9:01 PM Dictated Date/Time: 07/09/2017 8:58 PM
[2017-07-09 21:17] LABS: BASO % 0.1 %; BASO ABS # 0.01 K/uL (0-0.2); COMPLETE YES; EOS % 0.4 %; HEMATOCRIT 40.3 % (37-47); IG% 0.4 %; LYMPH % 25.3 %; LYMPH ABS # 3.46 K/uL (1.2-3.4); MEAN CORPUSCULAR HEMOGLOBIN 31.4 pg (25-34); MEAN PLATELET VOLUME 11.7 fL (7.4-10.4); MONO % 6.9 %; NEUT % 66.9 %; PLATELET COUNT 298 K/uL (130-400); RED BLOOD COUNT 4.24 M/uL (4.2-5.4); WHITE BLOOD COUNT 13.68 K/uL (4.8-10.8)
[2017-07-09 21:20] LABS: ALT/SGPT 13 U/L (12-78); BLOOD UREA NITROGEN 21 mg/dl (7-18); CALCIUM 9.4 mg/dl (8.5-10.1); CARBON DIOXIDE 32 mmol/L (21-32); CHLORIDE 104 mmol/L (98-107); GLUCOSE 106 mg/dl (70-99); POTASSIUM 4.6 mmol/L (3.5-5.1); SODIUM 143 mmol/L (136-145)
[2017-07-09 21:25] LABS: ALB/GLOB RATIO 0.9 (0.9-2); ALKALINE PHOSPHATASE 66 U/L (45-117); AST/SGOT 10 U/L (15-37)
[2017-07-09] MEDS ORDERED: OPTIRAY 320 IV PRN (22:00)
--- NOTE | 2017-07-09 22:27 | DIAGNOSTIC IMAGING REPORT ---
CT ANGIOGRAPHY OF THE CHEST, PULMONARY EMBOLUS PROTOCOL CLINICAL HISTORY: Hemoptysis. COMPARISON STUDY: Chest CT August 02, 2016. TECHNIQUE: Following IV administration of 106 mL of Optiray-320, helical axial images of the chest were obtained utilizing the pulmonary embolus protocol. Maximal intensity projections and sagittal and coronal reformats were viewed on an independent 3D workstation. IV contrast was administered without complication. A dose lowering technique was utilized adhering to the principles of ALARA. CT DOSE: 194.75 mGy.cm FINDINGS: No pulmonary emboli are identified. The heart is mildly enlarged. There is no pericardial effusion. There is a moderate sized hiatal hernia with partially intrathoracic stomach. No pneumothorax or pleural effusion is present. Severe emphysema is noted. There is no consolidation to suggest pneumonia. No suspicious pulmonary nodules are present. There are multiple old left-sided rib fractures. A severe T7 compression fracture with minimal retropulsion is new since CT of August 02, 2016 but likely subacute to chronic. Upper abdomen is unremarkable. Central airways are patent. There is minimal mucus within the tracheobronchial tree. IMPRESSION: 1. No pulmonary emboli identified. 2. No acute intrathoracic findings. 3. Severe emphysema. 4. Severe T7 compression fracture with minimal retropulsion. This is new since CT of August 02, 2016 but likely subacute to chronic. 4. Moderate sized hiatal hernia. Electronically signed by: Uriel Byers M.D. 07/09/2017 10:25 PM Dictated Date/Time: 07/09/2017 10:15 PM
[2017-07-09 22:50] VITALS: BP 189/113; PULSE 77; O2SAT 97
--- NOTE | 2017-07-10 01:06 | EMERGENCY ROOM VISIT NOTE ---
History Report prepared by Kareem: Herlinda Buckner Under the Supervision of: Dr. Nazario Castro M.D. First contact with patient: 19:05 Chief Complaint: COUGH Stated Complaint: COUGHING UP BLOOD Nursing Triage Summary: for about 2 weeks has had "hard" cough. today coughed up some blood and is having back pain. uses o2 at home all the time. also uses nebs. History of Present Illness The patient is a 76 year old female who presents to the Emergency Room with complaints of persistent cough starting several weeks ago. Over the past 3 days her cough has become productive. She is coughing up a brownish bloody sputum. She is coughing up around 2 teaspoons of blood at most in a day. She denies any SOB, chest pain, fever, headache, abdominal pain, sweats, chills, or swelling in the legs. She has a history of COPD and is on oxygen at home. She was here last week with mid back pain for 3 weeks. She finished her prescription of tramadol and states that she needs more pain medications. She has a history of GERD which causes her chest pain. She denies any history of blood clots. She is not on blood thinners. Source of History: patient Onset: several weeks Position: other (global) Quality: other (cough) Timing: other (persistent) Associated Symptoms: + back pain, No fevers, No chills, No headache, No diaphoresis, No chest pain, No SOB, No abdominal pain Note: Pt denies swelling in the legs. Review of Systems See HPI for pertinent positives & negatives. A total of 10 systems reviewed and were otherwise negative. Past Medical & Surgical Medical Problems: (1) Acute Pancreatitis (2) Acute Pericarditis Nos (3) Anxiety State Nos (4) Behcet's Syndrome (5) Chronic respiratory failure (6) CKD (chronic kidney disease), stage III (7) Dyskinesia Of Esophagus (8) Dysphagia (9) Emphysema Nec (10) GERD (gastroesophageal reflux disease) (11) Hiatal hernia (12) History of arteritis (13) Hx of central retinal vein occlusion (14) Hx takotsubo cardiomyopathy (15) Hypertension Nos (16) Hypoxia (17) Lumbar compression fracture (18) Lumbosacral Spondylosis (19) Old Myocardial Infarct (20) Osteoarthritis (21) Osteoporosis Nos (22) Personal History Of Peptic Ulcer Disease (23) Pulmonary fibrosis (24) Rheumatoid Arthritis (25) Tobacco Use Disorder Surgical Problems: (1) H/O colonoscopy (2) H/O esophagogastroduodenoscopy (3) History of cataract surgery (4) S/P cholecystectomy (5) S/P hysterectomy Old medical records were reviewed. Nurse's notes were reviewed and I agree with. Family History FH: cancer FH: gallbladder disease FH: heart disease FH: lung disease Hypertension Social History Smoking Status: Former Smoker Alcohol Use: none Drug Use: none Marital Status: Housing Status: lives with significant other Occupation Status: retired Current/Historical Medications Scheduled Azithromycin (Zithromax), 250 MG PO MWF Calcium Carbonate-Vitamin D (Calcium 600+D), 1 TAB PO BID Carvedilol (Coreg), 6.25 MG PO BID Cholecalciferol (Vitamin D3), 2,000 UNITS PO DAILY Cyanocobalamin (Vitamin B-12), 500 MCG PO QAM Fluticasone Prop/Salmeterol (Advair Diskus 250-50 Mcg/Dose), 1 PUFF INH AMPM Home O2 Therapy (Oxygen), 3 LITERS NA CONTINOUS Nystatin (Nystatin Suspension), 1 TSP PO QID Pantoprazole Sodium (Protonix), 40 MG PO BID Prednisone Tab (Prednisone), 10 MG PO DAILY Sertraline HCl (Sertraline HCl), 50 MG PO DAILY Tiotropium Buckeye (Spiriva Handihaler), 1 CAP INH QAM Scheduled PRN Albuterol Sulfate (Proair Respiclick), 2 PUFFS INH Q4 PRN for SOB/Wheezing Ipratropium-Albuterol (Duoneb), 1 TREATMENT INH Q6 PRN for SOB/Wheezing Lorazepam (Ativan), 0.5-1 MG PO Q8 PRN for Anxiety Oxycodone HCl (Oxycodone HCl), 2.5 MG PO Q4 PRN for Severe Pain Polyethylene Glycol 3350 (Miralax), 17 GM PO DAILY PRN for Constipation Tramadol (Ultram), 25 MG PO Q4H PRN for Pain Allergies Coded Allergies: Ranitidine (Verified Allergy, Intermediate, HIVES., 07/09/17) Conjugated Estrogens (Verified Allergy, Mild, UNKNOWN, 07/09/17) Estrogens (Verified Allergy, Mild, IRREGULAR HEART RATE, 07/09/17) Lovastatin (Verified Allergy, Unknown, UNKNOWN, 07/09/17) Zoledronic Acid (Verified Adverse Reaction, Intermediate, MUSCLE PAIN, 10/15) Omeprazole (Verified Adverse Reaction, Mild, ABD PAIN, 07/09/17) Quinolones (Verified Adverse Reaction, Mild, 11/28/08--ITCHY ARM, HAS HAD IN PAST W/O RXN, 07/09/17) Sulfamethoxazole w/Trimethoprim (Verified Adverse Reaction, Mild, NAUSEA/ VOMITING, 07/09/17) Physical Exam Vital Signs Date Time Temp Pulse Resp B/P (MAP) Pulse Ox O2 Delivery O2 Flow Rate FiO2 07/09/17 22:50 77 22 189/113 97 Nasal Cannula 3.0 07/09/17 22:10 68 07/09/17 21:58 77 20 189/113 98 Nasal Cannula 3.0 07/09/17 20:42 69 18 178/110 97 Nasal Cannula 3.0 07/09/17 18:53 75 07/09/17 18:43 95 2.0 07/09/17 18:41 95 Nasal Cannula 2.0 07/09/17 18:40 95 Nasal Cannula 2.0 07/09/17 18:39 84 Room Air 07/09/17 18:17 36.7 76 18 168/99 97 Nasal Cannula 3.0 Physical Exam General: Chronically ill appearing older female on baseline oxygen, no respiratory distress. Normal speech HEENT: Normal cephalic atraumatic. Pupils are equal round and reactive to light. Extraocular movements are intact. Oropharynx is pink with moist mucous membranes. No swelling of the mouth lips or tongue. Neck: Supple with a midline trachea. No meningeal signs or stiffness, no JVD or bruits. No Stridor. Chest: Clear to auscultation bilaterally. No wheezes or rhonchi. No increased work of breathing. Heart: regular rate and rhythm. Abdomen: Soft nontender, nondistended without rebound guarding or rigidity. Extremities: No cyanosis clubbing or edema. No calf tenderness or assymetry Spine/Back. Non tender to palpation. No CVA tenderness. Thoracic back pain with movement. Skin: Good turgor without rashes. Neurologic exam: Cranial nerves two through 12 are intact. Motor and sensation are intact and symmetrical throughout. Medical Decision & Procedures ER Provider Diagnostic Interpretation: X-ray results as stated below per interpretation by me and the radiologist. Radiology results as stated below per my review and radiologist interpretation: CHEST ONE VIEW PORTABLE CLINICAL HISTORY: COUGHING UP BLOOD COMPARISON STUDY: Chest radiograph July 03, 2017. FINDINGS: Emphysema is noted. Interstitial thickening is chronic. A hiatal hernia is present. There are numerous old left-sided rib fractures. No pneumothorax or pleural effusion is present. Cardiomediastinal silhouette is stable. There is no evidence of pulmonary edema. There is a possible 1.6 cm nodular right apical opacity. This was not evident on prior exam. IMPRESSION: 1. Possible 1.8 cm right apical opacity. This could reflect minimal airspace disease. Radiographic follow-up to ensure resolution is recommended to exclude a pulmonary nodule. 2. Emphysema. 3. Hiatal hernia. Electronically signed by: Uriel Byers M.D. 07/09/2017 9:01 PM Dictated Date/Time: 07/09/2017 8:[address] ANGIOGRAPHY OF THE CHEST, PULMONARY EMBOLUS PROTOCOL CLINICAL HISTORY: Hemoptysis. COMPARISON STUDY: Chest CT August 02, 2016. TECHNIQUE: Following IV administration of 106 mL of Optiray-320, helical axial images of the chest were obtained utilizing the pulmonary embolus protocol. Maximal intensity projections and sagittal and coronal reformats were viewed on an independent 3D workstation. IV contrast was administered without complication. A dose lowering technique was utilized adhering to the principles of ALARA. CT DOSE: 194.75 mGy.cm FINDINGS: No pulmonary emboli are identified. The heart is mildly enlarged. There is no pericardial effusion. There is a moderate sized hiatal hernia with partially intrathoracic stomach. No pneumothorax or pleural effusion is present. Severe emphysema is noted. There is no consolidation to suggest pneumonia. No suspicious pulmonary nodules are present. There are multiple old left-sided rib fractures. A severe T7 compression fracture with minimal retropulsion is new since CT of August 02, 2016 but likely subacute to chronic. Upper abdomen is unremarkable. Central airways are patent. There is minimal mucus within the tracheobronchial tree. IMPRESSION: 1. No pulmonary emboli identified. 2. No acute intrathoracic findings. 3. Severe emphysema. 4. Severe T7 compression fracture with minimal retropulsion. This is new since CT of August 02, 2016 but likely subacute to chronic. 4. Moderate sized hiatal hernia. Electronically signed by: Uriel Byers M.D. 07/09/2017 10:25 PM Dictated Date/Time: 07/09/2017 10:15 PM Laboratory Results 07/09/17 20:25 Red Blood Count 4.24, Mean Corpuscular Volume 95.0, Mean Corpuscular Hemoglobin 31.4, Mean Corpuscular Hemoglobin Concent 33.0, Mean Platelet Volume 11.7, Neutrophils (%) (Auto) 66.9, Lymphocytes (%) (Auto) 25.3, Monocytes (%) (Auto) 6.9, Eosinophils (%) (Auto) 0.4, Basophils (%) (Auto) 0.1, Neutrophils # (Auto) 9.15, Lymphocytes # (Auto) 3.46, Monocytes # (Auto) 0.95, Eosinophils # (Auto) 0.05, Basophils # (Auto) 0.01 07/09/17 20:25 Test 07/09/17 20:25 White Blood Count 13.68 K/uL (4.8-10.8) Red Blood Count 4.24 M/uL (4.2-5.4) Hemoglobin 13.3 g/dL (12.0-16.0) Hematocrit 40.3 % (37-47) Mean Corpuscular Volume 95.0 fL (80-100) Mean Corpuscular Hemoglobin 31.4 pg (25-34) Mean Corpuscular Hemoglobin Concent 33.0 g/dl (32-36) Platelet Count 298 K/uL (130-400) Mean Platelet Volume 11.7 fL (7.4-10.4) Neutrophils (%) (Auto) 66.9 % Lymphocytes (%) (Auto) 25.3 % Monocytes (%) (Auto) 6.9 % Eosinophils (%) (Auto) 0.4 % Basophils (%) (Auto) 0.1 % Neutrophils # (Auto) 9.15 K/uL (1.4-6.5) Lymphocytes # (Auto) 3.46 K/uL (1.2-3.4) Monocytes # (Auto) 0.95 K/uL (0.11-0.59) Eosinophils # (Auto) 0.05 K/uL (0-0.5) Basophils # (Auto) 0.01 K/uL (0-0.2) RDW Standard Deviation 47.4 fL (36.4-46.3) RDW Coefficient of Variation 13.6 % (11.5-14.5) Immature Granulocyte % (Auto) 0.4 % Immature Granulocyte # (Auto) 0.06 K/uL (0.00-0.02) Anion Gap 7.0 mmol/L (3-11) Est Creatinine Clear Calc Drug Dose 26.8 ml/min Estimated GFR () 39.1 Estimated GFR (Non- 33.7 BUN/Creatinine Ratio 14.0 (10-20) Calcium Level 9.4 mg/dl (8.5-10.1) Total Bilirubin 0.3 mg/dl (0.2-1) Aspartate Amino Transf (AST/SGOT) 10 U/L (15-37) Alanine Aminotransferase (ALT/SGPT) 13 U/L (12-78) Alkaline Phosphatase 66 U/L (45-117) Troponin I < 0.015 ng/ml (0-0.045) Total Protein 7.0 gm/dl (6.4-8.2) Albumin 3.4 gm/dl (3.4-5.0) Globulin 3.6 gm/dl (2.5-4.0) Albumin/Globulin Ratio 0.9 (0.9-2) Laboratory studies as stated above per my review. Medications Administered Medications (Trade) Dose Ordered Sig/Yu Route Start Time Stop Time Status Last Admin Dose Admin Ondansetron HCl (Zofran Inj) 4 mg NOW STAT IV 07/09/17 20:17 07/09/17 20:19 DC 07/09/17 20:50 4 MG Morphine Sulfate (MoRPHine SULFATE INJ) 4 mg NOW STAT IV 07/09/17 20:17 07/09/17 20:19 DC 07/09/17 20:50 4 MG ECG Indication: back/shoulder pain Rate (beats per minute): 77 Rhythm: normal sinus Findings: no acute ischemic change, no ectopy Comparison ECG Date: 03-Jul-2017 Change: no significant change ED Course 2010: Past medical records reviewed. The patient was evaluated in room A2, and a complete history and physical examination were performed. 2017: Morphine Sulfate 4 mg IV, Zofran Inj 4 mg IV. 2233: Upon reevaluation, the patient is feeling much better. I discussed the results and treatment plan with her. She verbalized agreement of the treatment plan. The patient was discharged home. Medical Decision Differentials include, but are not limited to; pneumonia, COPD exacerbation, pneumothorax, thoracic spine abnormality, PE. This patient comes in after having thoracic back pain and right scapular pain that has been going on for quite some time. She has been coughing and has been blood tinged at times. Her doctor started her on antibiotic yesterday. She looks well on exam except for having pain. She does wear baseline oxygen. She has no hypoxemia otherwise and appears in no respiratory distress. EKG does not suggest acute coronary syndrome or arrhythmia. She has no significant anemia. We did a CAT scan of her chest and there is no pneumonia or PE or other acute abnormality with exception of age-indeterminate compression fracture. I think this is more subacute and is causing her symptoms. There is no cavitary lesions or anything to suggest tuberculosis. I told to continue antibiotics to cover the bronchitis type picture. She also has thrush and she tells me, which could also be caused a small amount of hemoptysis. She should continue use her pain medication which she says she is using Hycodan. I warned her to be careful with this and do not take with any other Tylenol products. She was feeling better after receiving IV morphine and IV Zofran. I encourage of close follow-up with her doctor Wednesday for recheck and return to ER if: increasing pain, fever or chills, worsening of symptoms, any new problems or concerns. She was happy with plan and discharged to home. Medication Reconcilliation Current Medication List: was personally reviewed by me Blood Pressure Screening Patient's blood pressure: Elevated blood pressure Blood pressure disposition: Elevated BP felt to be situational Impression Primary Impression: Thoracic compression fracture Additional Impressions: Bronchitis Hemoptysis Scribe Attestation The scribe's documentation has been prepared under my direction and personally reviewed by me in its entirety. I confirm that the note above accurately reflects all work, treatment, procedures, and medical decision making performed by me. Departure Information Dispostion Home / Self-Care Referrals Javy Chong M.D.(JAS) (PCP) Forms HOME CARE DOCUMENTATION FORM, IMPORTANT VISIT INFORMATION Patient Instructions My [facility] Additional Instructions You were seen in the ED today for back pain and coughing up some blood. Lab work done was unchanged from labs last week, and close to your baseline on review of older records. Imaging of the chest showed a compression of the thoracic vertebrae that clinically correlates with where you are feeling pain. It was negative for pneumonia and lung clot. This was reassuring. Upon discharge, we recommend you continue your pain medication as well as your antibiotics. We urge you to follow up with your PCP with regards to your symptoms within the next week. You have been examined and treated today on an emergency basis only. This is not a substitute for, or an effort to provide, complete comprehensive medical care. It is impossible to recognize and treat all injuries or illnesses in a single emergency department visit. It is therefore important that you make a follow up with your physician for close monitoring. We urge you to return to ER if similar symptoms return or if you develop worsening or persistent dizziness, vomiting, headache, fevers, chest pains, difficulty breathing, black or bloody stools, slurred speech, numbness, weakness , visual changes, or as needed. Problem Qualifiers
== END 2017-07-09 22:55 | disposition home or self-care (01) ==
LOC: C.EDB 18:12 → C.EDA 22:55
DX: S22.060A Wedge compression fracture of T7-T8 vertebra, initial encounter for closed fracture (principal); X58.XXXA Exposure to other specified factors, initial encounter; J40 Bronchitis, not specified as acute or chronic; F41.9 Anxiety disorder, unspecified; M35.2 Behcet's disease; J96.10 Chronic respiratory failure, unspecified whether with hypoxia or hypercapnia; N18.3 Chronic kidney disease, stage 3 (moderate); J43.9 Emphysema, unspecified; K21.9 Gastro-esophageal reflux disease without esophagitis; I12.9 Hypertensive chronic kidney disease with stage 1 through stage 4 chronic kidney disease, or unspecified chronic kidney disease; I25.2 Old myocardial infarction; M19.90 Unspecified osteoarthritis, unspecified site; M81.0 Age-related osteoporosis without current pathological fracture; Z87.11 Personal history of peptic ulcer disease; M06.9 Rheumatoid arthritis, unspecified; J84.10 Pulmonary fibrosis, unspecified; Z87.891 Personal history of nicotine dependence; Z90.49 Acquired absence of other specified parts of digestive tract; Z90.710 Acquired absence of both cervix and uterus; Z98.49 Cataract extraction status, unspecified eye; Z80.9 Family history of malignant neoplasm, unspecified; Z82.49 Family history of ischemic heart disease and other diseases of the circulatory system; Z79.899 Other long term (current) drug therapy; Z99.81 Dependence on supplemental oxygen

== ENCOUNTER 2019-05-29 19:18 | Inpatient (IN) ==
[2019-05-29] MEDS ORDERED: OXYCODONE HCL IR 5 MG TAB (IMMEDIATE RELEASE) PO STA (20:31)
[2019-05-29] MEDS ORDERED: ACETAMINOPHEN 1,000 MG/100 ML VIAL IV STA (20:31)
[2019-05-29 21:07] LABS: Basophils # (auto) 0.01 K/uL (0-0.2); Basophils % (auto) 0.1 %; Eosinophils # (auto) 0.09 K/uL (0-0.5); Eosinophils % (auto) 0.9 %; Hematocrit (blood only) 33.1 % (37-47); Hemoglobin 10.9 g/dL (12.0-16.0); Immature Granulocytes # (auto) 0.05 K/uL (0.00-0.02); Immature Granulocytes % (auto) 0.5 %; Lymphocytes # (auto) 1.46 K/uL (1.2-3.4); Lymphocytes % (auto) 15.1 %; Mean Corpuscular Hgb Conc 32.9 g/dL (32-36); Mean Corpuscular Volume 92.7 fL (80-100); Monocytes # (auto) 0.99 K/uL (0.11-0.59); Monocytes % (auto) 10.2 %; Neutrophils # (auto) 7.06 K/uL (1.4-6.5); Neutrophils % (auto) 73.2 %; Platelet Count 185 K/uL (130-400); RDW Standard Deviation 50.9 fL (36.4-46.3); Red Blood Count 3.57 M/uL (4.2-5.4); White Blood Count 9.66 K/uL (4.8-10.8)
[2019-05-29 21:34] LABS: Albumin Level 2.9 gm/dl (3.4-5.0); BUN Creatinine Ratio 18.4 (10-20); Calcium 8.6 mg/dl (8.5-10.1); Creatinine Clr Calc Pharmacy 23.3 ml/min; Est GFR (African American) 38.5; Est GFR (Non-African American) 33.3; Potassium 3.7 mmol/L (3.5-5.1)
[2019-05-29 21:37] LABS: Bilirubin,Total 0.4 mg/dl (0.2-1); Globulin 2.9 gm/dl (2.5-4.0); Phosphorus 2.9 mg/dl (2.5-4.9); Total Protein 5.8 gm/dl (6.4-8.2)
--- NOTE | 2019-05-29 22:45 | CT Scan Report ---
CT OF THE ABDOMEN AND PELVIS WITHOUT CONTRAST CLINICAL HISTORY: Lower back pain, bilateral hip pain, OA COMPARISON STUDY: CT of the abdomen and pelvis March 10, 2011. Abdominal series May 24, 2017. TECHNIQUE: Axial images of the abdomen and pelvis were obtained without IV contrast. Images were revi ewed in the axial, sagittal, and coronal planes. Automated exposure control was utilized for the anastacia dy. A dose lowering technique was utilized adhering to the principles of ALARA. FINDINGS: A moderate sized hiatal hernia is noted. No pneumatosis, free air or portal venous gas is p resent. Evaluation of the abdomen and pelvis is suboptimal on this unenhanced exam. Emphysema is note d within the lower lungs with mild interlobular septal thickening. Unenhanced images of liver, spleen , adrenal glands and pancreas are unremarkable. There is no biliary ductal dilatation status post cho lecystectomy. There is no hydronephrosis. A suspected cyst within lower pole of the right kidney is n oted. There is extensive colonic diverticulosis. There is mild wall thickening with minimal adjacent infiltration of the sigmoid colon. There is no free air or abscess. Numerous lower thoracic and lumba r spine compression fractures are noted. These are age-indeterminate but probably old. No lymphadenop athy. There is evidence for pelvic floor relaxation. IMPRESSION: 1. Extensive sigmoid diverticulosis with mild wall thickening and possible minimal pericolonic infilt ration. The findings are probably chronic however mild acute sigmoid diverticulitis cannot be exclude d. No free air or abscess. No bowel obstruction. 2. Numerous lower thoracic and lumbar spine compression fractures which are age-indeterminate but pro bably old. Electronically signed by: Uriel Byers M.D. 05/29/2019 10:44 PM
[2019-05-29 22:53] LABS: Appearance Urine Clear (Clear); Bacteria Urine Automated Negative (Negative); Bilirubin Urine Negative (Negative); Blood Urine 3+ (Negative); Color Urine Yellow; Epithelial Cell Urine Auto >30 /lpf (0-5); Glucose Urine UA Negative (Negative); Ketones Urine Negative (Negative); Leukocyte Esterase Urine Negative (Negative); Nitrite Urine Negative (Negative); Protein Urine Negative (Negative); RBC Urine Automated 0-4 /hpf (0-4); Specific Gravity Urine 1.018 (1.000-1.030); Urobilinogen Urine Negative (Negative)
[2019-05-29] MEDS ORDERED: LEVOFLOXACIN/D5W 750 MG/150 ML BAG IV STA (23:02)
[2019-05-29] MEDS ORDERED: metroNIDAZOLE 500 MG/100 ML BAG IV STA (23:02)
[2019-05-29] MEDS ORDERED: SODIUM CHLORIDE 0.9% 500 ML IV ONE (23:02)
--- NOTE | 2019-05-29 23:20 | Emergency Department Note ---
Entered by Matt Randle acting as a scribe for Daniel Jiang MD History of Present Illness General Chief complaint: Hip Pain Stated complaint: HIP PAIN Time Seen by Provider: 05/29/19 19:58 Source: patient and family History of Present Illness Onset (ago): hour(s) (worsening this morning) Location: back and hip Pain Consistency: + constant Maximum Pain Intensity: 10 Exacerbated By: + other (walking) Associated symptoms: + other (shoulder and neck pain) The patient is a 78 year old female who presents to the Emergency Room with complaints of constant lower back and bilateral hip pain worsening this morning. The patient reports that yesterday she developed some pain in the back of her leg while walking down steps, and today her back and hip pain worsened. Family states that the patient is normally able to climb steps and walk around the house, but today she has been afraid to walk because attempting to do so greatly exacerbates her pain. The patient denies any falls. She also reports some pain in her shoulders and neck. She states that she did not want to take her oxycodone at home because it interferes with breathing. Home Medications Home Medications Medication Instructions Recorded Confirmed Type azithromycin 250 mg PO 3XWK 02/08/19 05/29/19 History carvedilol 6.25 mg PO BID 02/08/19 05/29/19 History cyanocobalamin (vitamin B-12) 500 mcg PO DAILY 02/08/19 05/29/19 History [Vitamin B-12] fluticasone propionate 2 spray INTRANASAL DAILY 02/08/19 05/29/19 History furosemide 20 mg PO DAILY PRN 02/08/19 05/29/19 History hydrocodone-acetaminophen 1 tab PO Q6H PRN 02/08/19 05/29/19 History ipratropium-albuterol 3 ml INHALATION Q6H PRN 02/08/19 05/29/19 History lorazepam 0.5 - 1 mg PO Q8H PRN 02/08/19 05/29/19 History magnesium citrate 120 ml PO DAILY PRN 02/08/19 05/29/19 History nystatin 5 ml PO QID PRN 02/08/19 05/29/19 History pantoprazole 40 mg PO BID 02/08/19 05/29/19 History polyethylene glycol 3350 17 g PO DAILY PRN 02/08/19 05/29/19 History potassium chloride 20 meq PO DAILY 02/08/19 05/29/19 History umeclidinium [Incruse Ellipta] 1 inh INHALATION DAILY 02/08/19 05/29/19 History Saccharomyces boulardii [Florastor] 250 mg PO BID #20 cap 05/27/19 05/29/19 Rx levofloxacin 750 mg PO DAILY 5 Days #5 tab 05/27/19 05/29/19 Rx montelukast 10 mg PO DAILY 05/27/19 05/29/19 History albuterol sulfate [ProAir HFA] 2 puff INHALATION Q4H PRN 05/29/19 05/29/19 History doxycycline hyclate See Rx Instructions .ROUTE 05/29/19 05/29/19 History .COMPLEX PRN fluticasone propion-salmeterol 1 inh INHALATION BID 05/29/19 05/29/19 History [Wixela Inhub] lidocaine [Lidoderm] 1 patch TOP DAILY PRN 05/29/19 05/29/19 History prednisone 10 mg PO DAILY 05/29/19 05/29/19 History prednisone See Rx Instructions .ROUTE 05/29/19 05/29/19 History .COMPLEX PRN Allergies Allergy/AdvReac Type Severity Reaction Status Date / Time ranitidine Allergy Intermediate HIVES. Verified 05/29/19 22:10 Estrogens Allergy Mild IRREGULAR Verified 05/29/19 22:10 HEART RATE estrogens, conjugated Allergy Mild UNKNOWN Verified 05/29/19 22:10 lovastatin Allergy Unknown UNKNOWN Verified 05/29/19 22:10 zoledronic acid AdvReac Intermediate MUSCLE PAIN Verified 05/29/19 22:10 Bactrim AdvReac Mild NAUSEA/VOMI Verified 07/09/17 19:19 TING omeprazole AdvReac Mild ABD PAIN Verified 05/29/19 22:10 Quinolones AdvReac Mild 11/28/08--ITCHY Verified 05/29/19 22:10 ARM, HAS HAD IN PAST W/O RXN sulfamethoxazole AdvReac Mild NAUSEA/VOMI Verified 05/29/19 22:10 TING trimethoprim AdvReac Mild NAUSEA/VOMI Verified 05/29/19 22:10 TING Past Med/Surg History Medical History GERD (gastroesophageal reflux disease) (Chronic) CKD (chronic kidney disease), stage III (Chronic) Osteoarthritis (Chronic) Pulmonary fibrosis (Chronic) Hx of central retinal vein occlusion (Chronic) Chronic respiratory failure (Chronic) History of arteritis (Chronic) Hiatal hernia (Chronic) Thoracic compression fracture (Acute) Chronic obstructive pulmonary disease Surgical History S/P cholecystectomy (Resolved) S/P hysterectomy (Resolved) History of cataract surgery (Chronic) H/O colonoscopy (Chronic) H/O esophagogastroduodenoscopy (Chronic) Family History Other Family history non-contributory Social History Preferred Language: Faroese Bar Manager Required: No Beliefs That Will Affect Care: None marital status: Current Living Situation: Other Current Living Situation Comment: current housemate will be moving out next month current occupational status: retired Other Information That Helps Us Care for You: No Feels Safe at Home: Yes Safety Concerns: Feels Safe At This Time Smoking Status: Former smoker Do You Dip or Chew Tobacco: No Second Hand Exposure: No Tobacco Cessation Education Requested by Patient: No Hx Alcohol Use: No Hx Substance Use: No Review of Systems See HPI for pertinent positives & negatives. and A total of 10 systems reviewed and were otherwise negative Physical Exam Vital Signs Vital Signs - 24 hr 05/29/19 19:22 05/29/19 21:18 05/29/19 21:34 Temperature 36.6 C Temperature Source Oral Sepsis Recent Fever Within 48 Hours No Sepsis New/Unexplained Change in Mental Status No Sepsis Action Taken by Nursing No Action Required Pulse Rate 80 79 Pulse Rate [Right Finger] Pulse Rate from SpO2 Sensor 76 72 Respiratory Rate 22 25 H 16 Respiratory Effort / Characteristics Non-Labored Spontaneous Respiratory Depth Respiratory Pattern Regular Blood Pressure 156/95 H 177/95 H Blood Pressure [Right Arm] Blood Pressure Mean 115 122 Blood Pressure Mean [Right Arm] Blood Pressure Position [Right Arm] Pulse Oximetry 97 97 Oxygen Delivery Method Nasal Cannula Oxygen Flow Rate 3 05/29/19 21:40 05/29/19 23:38 Temperature Temperature Source Sepsis Recent Fever Within 48 Hours Sepsis New/Unexplained Change in Mental Status Sepsis Action Taken by Nursing Pulse Rate 70 Pulse Rate [Right Finger] 75 Pulse Rate from SpO2 Sensor 70 Respiratory Rate 26 H 20 Respiratory Effort / Characteristics Non-Labored Spontaneous Respiratory Depth Normal Respiratory Pattern Regular Blood Pressure Blood Pressure [Right Arm] 180/94 H Blood Pressure Mean Blood Pressure Mean [Right Arm] 122 Blood Pressure Position [Right Arm] Lying Pulse Oximetry 98 96 Oxygen Delivery Method Nasal Cannula Oxygen Flow Rate 3 GENERAL: Awake, alert, chronically ill-appearing, in no distress HENT: Normocephalic, atraumatic. Mucous membranes dry. EYES: Normal conjunctiva. Sclera non-icteric. NECK: Supple. No nuchal rigidity. FROM. No JVD. RESPIRATORY: Scant intermittent wheeze. CARDIAC: Regular rate, normal rhythm. Extremities warm and well perfused. Pulses equal. ABDOMEN: Soft, non-distended. Mild LLQ ttp. No rebound or guarding. No masses. RECTAL: Deferred. MUSCULOSKELETAL: Chest examination reveals no tenderness. The back is symmetrical on inspection without obvious abnormality. There is no CVA tenderness to palpation. No joint edema. LOWER EXTREMITIES: Discomfort in the bilateral SI joints. Calves are equal size bilaterally and non-tender. No edema. No discoloration. NEURO: Normal sensorium. No sensory or motor deficits noted. 5/5 strength and SILT x4 extremities. Normal reflexes. No clonus. SKIN: No rash or jaundice noted. Course 2011: The patient was evaluated in room B11B. A complete history and physical examination were performed. 2300: I updated the patient on results. 0: I consulted Dr. Eliane Chou Hospitalist. The patient will be reevaluated for hospitalization. Administered Medications Piperacillin Sod/Tazobactam (Sod 4.5 gm/ Dextrose) 120 mls @ 200 mls/hr IV NOW ONE; Protocol Stop: 05/30/19 03:35 Last Admin: 05/30/19 03:24 Dose: 200 mls/hr Documented by: [id number] Discontinued Medications Acetaminophen (Ofirmev) 1,000 mg in 100 mls @ 400 mls/hr IV NOW STA Stop: 05/29/19 20:45 Last Infusion: 05/29/19 21:31 Dose: 0 mls/hr Documented by: [id number] Admin: 05/29/19 21:11 Dose: 400 mls/hr Documented by: [id number] Sodium Chloride (Nss) 500 mls @ 999 mls/hr IV .Q31M ONE Stop: 05/29/19 23:32 Last Infusion: 05/30/19 00:49 Dose: 0 mls/hr Documented by: [id number] Admin: 05/29/19 23:34 Dose: 999 mls/hr Documented by: [id number] Metronidazole (Flagyl) 500 mg in 100 mls @ 100 mls/hr IV NOW STA Stop: 05/30/19 00:01 Last Infusion: 05/30/19 00:48 Dose: 0 mls/hr Documented by: [id number] Admin: 05/29/19 23:34 Dose: 100 mls/hr Documented by: [id number] Levofloxacin/Dextrose (Levaquin/D5w) 750 mg in 150 mls @ 100 mls/hr IV NOW STA Stop: 05/30/19 00:31 Last Admin: 05/30/19 01:44 Dose: Not Given Documented by: [id number] Oxycodone HCl (Roxicodone Immediate Rel) 5 mg PO NOW STA Stop: 05/29/19 20:32 Last Admin: 05/29/19 21:11 Dose: 5 mg Documented by: [id number] Medical Decision Making Differential Diagnosis Differential diagnosis includes: musculoskeletal, disc herniation, fracture, aortic disease, metastatic disease, cord compression, discitis, infection, renal colic, gastrointestinal, acute exacerbation of chronic back pain, sciatica, cauda equina, as well as others were entertained. Medical Records Attestation: I reviewed the patient's medical records. Home Medications Current Medication List: was personally reviewed by me Laboratory Data Attestation: I reviewed the patient's lab results. Result diagrams: 05/29/19 20:55 05/29/19 20:55 Lab Results 05/29/19 05/29/19 05/29/19 Range/Units 20:55 20:55 22:37 WBC 9.66 (4.8-10.8) K/uL RBC 3.57 L (4.2-5.4) M/uL Hgb 10.9 L (12.0-16.0) g/dL Hct 33.1 L (37-47) % MCV 92.7 (80-100) fL MCH 30.5 (25-34) pg MCHC 32.9 (32-36) g/dL RDW Std Deviation 50.9 H (36.4-46.3) fL RDW Coeff of Carmencita 15.0 H (11.5-14.5) % Plt Count 185 (130-400) K/uL MPV 11.0 H (7.4-10.4) fL Immature Gran % (Auto) 0.5 % Neut % (Auto) 73.2 % Lymph % (Auto) 15.1 % Dauphin % (Auto) 10.2 % Eos % (Auto) 0.9 % Baso % (Auto) 0.1 % Immature Gran # (Auto) 0.05 H (0.00-0.02) K/uL Neut # (Auto) 7.06 H (1.4-6.5) K/uL Lymph # (Auto) 1.46 (1.2-3.4) K/uL Da[place]hin # (Auto) 0.99 H (0.11-0.59) K/uL Eos # (Auto) 0.09 (0-0.5) K/uL Baso # (Auto) 0.01 (0-0.2) K/uL Sodium 141 (136-145) mmol/L Potassium 3.7 (3.5-5.1) mmol/L Chloride 105 (98-107) mmol/L Carbon Dioxide 29 (21-32) mmol/L Anion Gap 7.0 (3-11) BUN 28 H (7-18) mg/dl Creatinine 1.50 H (0.6-1.2) mg/dl Est Cr Clr Drug Dosing 23.3 ml/min Est GFR ( Amer) 38.5 Est GFR (Non-Af Amer) 33.3 BUN/Creatinine Ratio 18.4 (10-20) Glucose 79 (70-99) mg/dl Calcium 8.6 (8.5-10.1) mg/dl Phosphorus 2.9 (2.5-4.9) mg/dl Magnesium 2.0 (1.8-2.4) mg/dl Total Bilirubin 0.4 (0.2-1) mg/dl AST 16 (15-37) U/L ALT 12 (12-78) U/L Alkaline Phosphatase 48 (45-117) U/L Total Creatine Kinase 82 (26-192) U/L Total Protein 5.8 L (6.4-8.2) gm/dl Albumin 2.9 L (3.4-5.0) gm/dl Globulin 2.9 (2.5-4.0) gm/dl Albumin/Globulin Ratio 1.0 (0.9-2) Urine Color Yellow Urine Appearance Clear (Clear) Urine pH 5.0 (4.5-7.5) Ur Specific Rombauer 1.018 (1.000-1.030) Urine Protein Negative (Negative) Urine Glucose (UA) Negative (Negative) Urine Ketones Negative (Negative) Urine Blood 3+ H (Negative) Urine Nitrite Negative (Negative) Urine Bilirubin Negative (Negative) Urine Urobilinogen Negative (Negative) Ur Leukocyte Esterase Negative (Negative) Urine WBC (Auto) 1-5 (0-5) /hpf Urine RBC (Auto) 0-4 (0-4) /hpf U Hyaline Cast (Auto) 1-5 (0-5) /lpf U Epithel Cells (Auto) >30 H (0-5) /lpf Urine Bacteria (Auto) Negative (Negative) Imaging Data Radiologist's Impression: Radiology results as stated below per my review and the radiologist's interpretation: CT OF THE ABDOMEN AND PELVIS WITHOUT CONTRAST CLINICAL HISTORY: Lower back pain, bilateral hip pain, OA COMPARISON STUDY: CT of the abdomen and pelvis March 10, 2011. Abdominal series May 24, 2017. TECHNIQUE: Axial images of the abdomen and pelvis were obtained without IV contrast. Images were reviewed in the axial, sagittal, and coronal planes. Automated exposure control was utilized for the study. A dose lowering technique was utilized adhering to the principles of ALARA. FINDINGS: A moderate sized hiatal hernia is noted. No pneumatosis, free air or portal venous gas is present. Evaluation of the abdomen and pelvis is suboptimal on this unenhanced exam. Emphysema is noted within the lower lungs with mild interlobular septal thickening. Unenhanced images of liver, spleen, adrenal glands and pancreas are unremarkable. There is no biliary ductal dilatation status post cholecystectomy. There is no hydronephrosis. A suspected cyst within lower pole of the right kidney is noted. There is extensive colonic diverticulosis. There is mild wall thickening with minimal adjacent infiltration of the sigmoid colon. There is no free air or abscess. Numerous lower thoracic and lumbar spine compression fractures are noted. These are age-indeterminate but probably old. No lymphadenopathy. There is evidence for pelvic floor relaxation. IMPRESSION: 1. Extensive sigmoid diverticulosis with mild wall thickening and possible minimal pericolonic infiltration. The findings are probably chronic however mild acute sigmoid diverticulitis cannot be excluded. No free air or abscess. No bowel obstruction. 2. Numerous lower thoracic and lumbar spine compression fractures which are age- indeterminate but probably old. Electronically signed by: Uriel Byers M.D. 05/29/2019 10:44 PM Blood Pressure Blood Pressure Findings: Elevated blood pressure Blood Pressure Disposition: further management by hospitalist SHANTELLE Narrative Patient is a pleasant 78-year-old woman with a past medical history of pulmonary fibrosis, CKD who presents emergency department with worsening lower back pain for the past day and a half per hpi. Of note the patient was seen the emergency department several days ago for COPD flare treated with Levaquin and burst of prednisone instead of her daily 10 mg of chronic prednisone. On arrival the patient is no acute distress, afebrile with stable vital signs. Patient has mild SI discomfort bilaterally with no midline CTL spine tenderness or step- offs. Mild left lower abdominal tenderness without guarding. WBC within normal limits. H/H 10.9/33.3 approximately recent values. Platelets within normal limits. Chemistry without acidosis. Creatinine 1.5 similar to recent range. BUN 28 slightly elevated from prior consistent with patient's clinically dry appearance. UA negative for infection. CT abdomen pelvis demonstrates diverticulosis with mild wall thickening and pericolonic infiltration of the sigmoid colon consistent with mild acute diverticulitis. We will continue to treat patient with Levaquin to continue pulmonary coverage and add Flagyl for diverticulitis treatment. Given the patient's pain and discomfort making it difficult for patient to ambulate reasonable to admit the patient for further management. Case was discussed with Dr. Del Rio, [facility] hospitalist, who will evaluate the patient for admission. Impression & Plan Diverticulitis Discharge Plan Visit Data *Final* Discharge Date/Time: 05/30/19 01:52 Chief Complaint: Hip Pain Stated Complaint: HIP PAIN ED Provider: Daniel Jiang Discharge Problem: Diverticulitis Patient Disposition: Admitted As Inpatient Discharge Instructions Interventions: ED Discharge Assessment Last Done: 05/30/19 01:52 The scribe's documentation has been prepared under my direction and personally reviewed by me in its entirety. I confirm that the note above accurately reflects all work, treatment, procedures, and medical decision making performed by me.
[2019-05-30] MEDS ORDERED: ALBUTEROL HFA 8 GM INHALER INH PRN (02:37)
[2019-05-30] MEDS ORDERED: ONDANSETRON INJ 2 MG/ML 2 ML VIAL IV PRN (02:37)
[2019-05-30] MEDS ORDERED: FUROSEMIDE 20 MG TAB PO PRN (02:37)
[2019-05-30] MEDS ORDERED: ACETAMINOPHEN 325 MG TAB PO PRN (02:37)
[2019-05-30] MEDS ORDERED: HYDROCODONE/ACETAMOPHEN 5/325MG TAB PO PRN (02:37)
[2019-05-30] MEDS ORDERED: POLYETHYLENE (MIRALAX) 17 GM PACK PO PRN (02:37)
[2019-05-30] MEDS ORDERED: ALBUT/IPRATROP 3MG/0.5MG NEB 3 ML VIAL INH PRN (02:37)
[2019-05-30] MEDS ORDERED: PIPERACILL/TAZOBAC CONSULT ACTIVE PRN (02:37)
[2019-05-30] MEDS ORDERED: LORazepam 1 MG TAB PO PRN (02:37)
[2019-05-30] MEDS ORDERED: LIDOCAINE 5% 1 PATCH TD PRN (02:37)
[2019-05-30] MEDS ORDERED: PIPERACILLIN/TAZOBACTAM 4.5 GM in DEXTROSE 5% 100 ML IV ONE (03:00)
[2019-05-30 03:40] LABS: INR 1.1 (0.9-1.1); Prothrombin Time 10.9 Seconds (9.0-12.0)
--- NOTE | 2019-05-30 04:02 | History and Physical Report ---
DATE OF ADMISSION: 05/29/2019 CHIEF COMPLAINT: Fever, back pain. HISTORY OF PRESENT ILLNESS: This is a 78-year-old female with past medical history significant for COPD, interstitial lung disease, pulmonary hypertension, chronic respiratory failure on oxygen all the time, diastolic CHF, hypertension, GERD, chronic kidney stage III, generalized osteoarthritis, rheumatoid arthritis involving multiple joints, statin intolerance, history of vertebral fracture, long-term use of steroids, presents with severe back pain in both the buttock regions. The patient was seen in the ER on 05/27/2019 with shortness of breath, cough with some fever. She was treated with IV steroids and started on Levaquin and patient felt better and she wanted to go home. She was discharged on p.o. Levaquin and she was put on prednisone 60mg daily for 4 days. Generally, she is chronically on prednisone 10 mg daily. She says her shortness of breath and cough improved, but she still gets short of breath on exertion, and still has some dry cough. Denies any fever or chills. 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 She ambulates without any help, but she holds on things in the house. Last night, she could not sleep well and she was feeling weak and tired and today she felt a lot of pain in both the buttock regions, having difficulty ambulating, so she came to the ER. She has history of compression fractures, but imaging study showed nothing new, but CAT scan of the abdomen and pelvis is showing possible mild acute sigmoid diverticulitis. The patient is somewhat constipated, but denies any black or blood in the stools. She says since last couple of months she is having lower abdominal pain after she eats. Denies any nausea or vomiting. Normal bladder movements. No burning micturition. She says she had some swelling in the right leg but that has improved now. Denies any headaches, no blurred vision, no runny nose, no sore throat. She had some difficulty swallowing. She has to be careful with the chicken and whenever it gets stuck in throat she drinks tea to gulp it down. Currently, resting comfortably and hemodynamically stable. She was given some pain medications in the ER and currently she does not have any pain. ALLERGIES: ZANTAC, ESTROGEN, LOVASTATIN, ZOLEDRONIC ACID, BACTRIM, OMEPRAZOLE, QUINOLONES CAUSES ITCHING IN ARM BUT HAS HAD IN THE PAST WITHOUT ANY REACTION. PAST MEDICAL HISTORY: As mentioned above. PAST SURGICAL HISTORY: Colonoscopy, EGD with biopsy, injection of the eye, laparoscopic cholecystectomy with cholangiography, cataract surgeries, total hysterectomy. MEDICATIONS: The patient is on Flonase 2 sprays daily, Singulair 10 mg p.o. daily, hydrocodone/acetaminophen 5/325 mg one tablet p.o. q. 6 hours p.r.n., doxycycline rescue kit, prednisone 10 mg p.o. daily, Advair Diskus 250/50 one puff b.i.d., Incruse Ellipta 62.5 mcg inhalation 1 dose daily, Lidoderm patch daily, Ativan 0.5-1 mg p.r.n., Protonix 40 mg p.o. b.i.d., Coreg 6.25 mg p.o. b.i.d., azithromycin on Wednesday, Wednesday and Wednesday for COPD maintenance, Lasix 20 mg p.o. daily p.r.n., potassium chloride 20 mEq p.o. daily, mag citrate p.r.n., oxygen 2 liters 24 hours a day, MiraLax 17 grams p.o. daily p.r.n., cyanocobalamin 500 mcg p.o. daily, DuoNebs every 6 hours p.r.n., albuterol 2 puffs every 4 hours p.r.n. FAMILY HISTORY: Significant for father had glaucoma and lung disorder. Mother had hypertension and arthritis. Brother has arthritis and has hypertension. SOCIAL HISTORY: , recently her spouse and she is living with a woman procurement forester. Former smoker, quit in 2012, smoked average 1 pack a day for 50 years. No alcohol use, no drug use. REVIEW OF SYMPTOMS: As per HPI. Rest of review of systems negative. PHYSICAL EXAMINATION: GENERAL: The patient is old and frail, not in acute distress. VITAL SIGNS: Temperature 36.6, pulse 65, respiratory rate 18, blood pressure 114/66, oxygen 97% on 3 liters. HEENT: No pallor, no icterus. Pupils equal, round, and reactive to light. NECK: No JVD, no neck masses, no carotid bruit. CARDIOVASCULAR: S1, S2 heard, regular rate and rhythm, no murmur, no gallop. RESPIRATORY SYSTEM: Normal AP diameter. No accessory muscle use. No wheezing, no crackles. ABDOMEN: Soft, bowel sounds present. Nontender. No distention. CENTRAL NERVOUS SYSTEM: Cranial nerves II-XII grossly intact. Nonfocal. EXTREMITIES: Trace pedal edema present, more on the right side. LABORATORY DATA: WBC 9.6, hemoglobin 10.9, hematocrit 33.1, platelets 185. Sodium 141, potassium 3.7, chloride 105, bicarbonate 29, BUN 28, creatinine 1.5, serum glucose 79, calcium 8.6, phosphorus 2.9, magnesium 2, total bilirubin 0.4, AST 16, ALT 12, alkaline phosphatase 48, total creatine kinase 82. Urinalysis unremarkable. CT of abdomen and pelvis shows extensive sigmoid diverticulosis with mild wall thickening and possible minimal pericolonic infiltration. These findings are probably chronic. However, mild acute sigmoid diverticulitis, currently excluded. No free air or abscess. No bowel obstruction. Chest x-ray done on 05/27/2019 shows no acute findings. ASSESSMENT AND PLAN: This is a 78-year-old female who presents with severe back pain and found to have diverticulitis. 1.Extensive sigmoid diverticulosis on the CAT scan and possible mild diverticulitis. Currently, the patient does not have any abdominal pain, nausea, vomiting. We will place her on clear liquid diet, IV Zosyn. We will monitor medical floor and consult surgery for further recommendations. 2. Back pain. The patient's pain is mostly in the buttock regions. The patient has history of thoracic and lumbar spine compression fractures, probably old. Pain control, PT, OT. 3. History of rheumatoid arthritis on chronic prednisone. 4. History of chronic obstructive pulmonary disease, interstitial lung disease followed with pulmonary. Continue home inhalers and the patient recently was in the ER for possible chronic obstructive pulmonary disease exacerbation. The patient was discharged on high dose prednisone and Levaquin. We will change antibiotic to doxycycline and on Zosyn for diverticulitis and continue her home nebs and inhalers and also continue home dose prednisone. 5. History of diastolic congestive heart failure, on Lasix p.r.n. Currently stable. 6. Right lower extremity slight edema. We will get a Doppler to rule out a deep venous thrombosis disease. 7. Gastroesophageal reflux disease. Continue PPI. 8. Hypertension. Continue Coreg with holding parameters. 9. Chronic respiratory failure on 24 hours stay-on oxygen, 10. Chronic kidney disease stage III. Baseline creatinine around 1.5. We will follow the labs. 11. Deep venous thrombosis prophylaxis, heparin subcutaneously. 12. Disposition: Closely monitor on the medical floor. Level 1, full code. pt/ot prior to dischaerge MTDD
[2019-05-30] MEDS: INCRUSE ELLIPTA~ORDER AWAITING ACTION SCH ×3 (07:06→23:40)
[2019-05-30 07:11] LABS: Basophils # (auto) 0.01 K/uL (0-0.2); Basophils % (auto) 0.1 %; Eosinophils # (auto) 0.15 K/uL (0-0.5); Eosinophils % (auto) 1.9 %; Hematocrit (blood only) 33.1 % (37-47); Hemoglobin 10.8 g/dL (12.0-16.0); Immature Granulocytes # (auto) 0.03 K/uL (0.00-0.02); Immature Granulocytes % (auto) 0.4 %; Lymphocytes # (auto) 1.49 K/uL (1.2-3.4); Lymphocytes % (auto) 18.4 %; Mean Corpuscular Hgb Conc 32.6 g/dL (32-36); Mean Corpuscular Volume 92.2 fL (80-100); Mean Platelet Volume 10.9 fL (7.4-10.4); Monocytes # (auto) 0.76 K/uL (0.11-0.59); Monocytes % (auto) 9.4 %; Neutrophils # (auto) 5.65 K/uL (1.4-6.5); Neutrophils % (auto) 69.8 %; Platelet Count 171 K/uL (130-400); Red Blood Count 3.59 M/uL (4.2-5.4); White Blood Count 8.09 K/uL (4.8-10.8)
[2019-05-30 07:37] LABS: BUN Creatinine Ratio 16.5 (10-20); Calcium 8.5 mg/dl (8.5-10.1); Creatinine Clr Calc Pharmacy 25.1 ml/min; Est GFR (African American) 39.2; Est GFR (Non-African American) 33.8; Potassium 3.5 mmol/L (3.5-5.1)
[2019-05-30] MEDS: DOXYCYCLINE HYCLATE 100 MG CAP PO SCH ×2 (08:59→20:58)
[2019-05-30] MEDS: CARVEDILOL 6.25 MG TAB PO SCH ×2 (08:59→21:01)
[2019-05-30] MEDS: SACCHAROMYCES BOULARDII 250 MG CAP PO SCH ×2 (08:59→20:59)
[2019-05-30] MEDS: predniSONE 10 MG TABLET PO SCH (08:59)
[2019-05-30] MEDS: PIPERACILLIN/TAZOBACTAM 3.375 GM in DEXTROSE 5% 100 ML IV SCH ×3 (08:59→23:41)
[2019-05-30] MEDS: POTASSIUM CHLORIDE 20 MEQ TABCR PO SCH (08:59)
[2019-05-30] MEDS: PANTOprazole 40 MG TAB PO SCH ×2 (08:59→20:59)
[2019-05-30] MEDS: MONTELUKAST SODIUM 10 MG TABLET PO SCH (08:59)
[2019-05-30] MEDS: CYANOCOBALAMIN 500 MCG TABLET (VITAMIN B-12) PO SCH (09:00)
[2019-05-30] MEDS: FLUTICASONE PROPIONATE NA SPR 16 GM BTL SCH (09:00)
[2019-05-30] MEDS: FLUTICASONE/SALMETEROL 250/50 (ADVAIR) 14 PUFF/1 INHALER INH SCH ×2 (09:00→21:00)
[2019-05-30] MEDS: HEPARIN SOD 5,000 UNIT/0.5 ML VIAL SQ SCH ×2 (09:15→21:01)
--- NOTE | 2019-05-30 13:48 | Ultrasound Report ---
US venous doppler LE BI CLINICAL HISTORY: Leg swelling. Pain. COMPARISON STUDY: 11/19/2010 FINDINGS: Real-time and color flow Doppler imaging were performed. Flow was seen within the femoral, popliteal and calf veins with no intraluminal thrombus demonstrated. The saphenous vein is patent. IMPRESSION: No evidence of lower extremity DVT. Electronically signed by: Erick Orosco M.D. 05/30/2019 1:47 PM
--- NOTE | 2019-05-30 15:22 | Hospitalist Progress Note ---
Date of Service May 30, 2019 Assessment & Plan (1) Diverticulitis: CT abdomen /pelvis shows sigmoid diverticulitis no WBC , no fever or chills abdominal pain has resolved no diarreha or blood in stool appreciate input from Surgery recommends cont IV Abx /no indication for surgery diet advanced to full liquid today advance to low fiber diet in am as tolerated (2) Lumbar compression fracture: chronic CT of abdominal pelvis shows no acute change cont pain control PT/OT (3) CKD (chronic kidney disease), stage III: cr at baseline follow CODE STATUS : FULL CODE DISPOSITION ; medical managent in progress advance diet as tolerated Abx can be changed to oral in next 24-48 hrs as clinically improves PT/OT eval prior to DC Subjective no complain of abdominal pain no nausea no fever or chills no diarrhea or blood in stool Physical Exam Physical Exam: GENERAL: No sign of distress, HEENT: Sclera nonicteric, pink-purple bilateral equal reactive to light extraocular muscle intact Normal oral mucosa, neck: No JVD, no thyromegaly, trachea midline Lungs: Clear to auscultate, no wheeze or rales Cardiovascular: Regular S1 and S2, no murmur or gallop, no JVD, no lower extremity edema Abdomen: Soft, nontender, bowel sounds active, no hepatosplenomegaly Extremities: No rash or deformity, normal joint, Neuro: No focal neurological deficit, no dysarthria, no facial droop Psych: Alert awake oriented x3: Euthymic Skin: No rash LYMPH NODES: No cervical lymphadenopathy Results & Data Vital Signs (Past 12 Hours) Vital Signs Temp Pulse Resp BP Pulse Ox 05/30/19 15:21 37.3 C 67 20 144/78 H 98 05/30/19 07:42 36.7 C 78 18 167/87 H 95
--- NOTE | 2019-05-30 18:34 | Surgery Consultation ---
Date of Consultation May 30, 2019 Assessment & Plan (1) Diverticulitis: pt is a 78 year-old female who has been dx sigmoid diverticulitis, no abscess, now WBC, pt is doing better, IMP: sigmoid diverticulitis, agree with medical treatment, no surgical indication now, will F/U History of Present Illness Attending Physician: CHIEF COMPLAINT: Fever, back pain. HISTORY OF PRESENT ILLNESS: This is a 78-year-old female with past medical history significant for COPD, interstitial lung disease, pulmonary hypertension, chronic respiratory failure on oxygen all the time, diastolic CHF, hypertension, GERD, chronic kidney stage III, generalized osteoarthritis, rheumatoid arthritis involving multiple joints, statin intolerance, history of vertebral fracture, long-term use of steroids, presents with severe back pain in both the buttock regions. The patient was seen in the ER on 05/27/2019 with shortness of breath, cough with some fever. She was treated with IV steroids and started on Levaquin and patient felt better and she wanted to go home. She was discharged on p.o. Levaquin and she was put on prednisone 60mg daily for 4 days. Generally, she is chronically on prednisone 10 mg daily. She says her shortness of breath and cough improved, but she still gets short of breath on exertion, and still has some dry cough. Denies any fever or chills. 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 She ambulates without any help, but she holds on things in the house. Last night, she could not sleep well and she was feeling weak and tired and today she felt a lot of pain in both the buttock regions, having difficulty ambulating, so she came to the ER. She has history of compression fractures, but imaging study showed nothing new, but CAT scan of the abdomen and pelvis is showing possible mild acute sigmoid diverticulitis. The patient is somewhat constipated, but denies any black or blood in the stools. She says since last couple of months she is having lower abdominal pain after she eats. Denies any nausea or vomiting. Normal bladder movements. No burning micturition. She says she had some swelling in the right leg but that has improved now. Denies any headaches, no blurred vision, no runny nose, no sore throat. She had some difficulty swallowing. She has to be careful with the chicken and whenever it gets stuck in throat she drinks tea to gulp it down. Currently, resting comfortably and hemodynamically stable. She was given some pain medications in the ER and currently she does not have any pain. I ( Yves Fraga MD ) got a call for consult sigmoid diverticulitis, I reviewed pt's H/P with pt, now, pt said she feels better, less abdominal pain, no nausea, no vomiting, she tolerated clear diet, Allergies Allergy/AdvReac Type Severity Reaction Status Date / Time ranitidine Allergy Intermediate HIVES. Verified 05/29/19 22:10 Estrogens Allergy Mild IRREGULAR Verified 05/29/19 22:10 HEART RATE estrogens, conjugated Allergy Mild UNKNOWN Verified 05/29/19 22:10 lovastatin Allergy Unknown UNKNOWN Verified 05/29/19 22:10 zoledronic acid AdvReac Intermediate MUSCLE PAIN Verified 05/29/19 22:10 Bactrim AdvReac Mild NAUSEA/VOMI Verified 07/09/17 19:19 TING omeprazole AdvReac Mild ABD PAIN Verified 05/29/19 22:10 Quinolones AdvReac Mild 11/28/08--ITCHY Verified 05/29/19 22:10 ARM, HAS HAD IN PAST W/O RXN sulfamethoxazole AdvReac Mild NAUSEA/VOMI Verified 05/29/19 22:10 TING trimethoprim AdvReac Mild NAUSEA/VOMI Verified 05/29/19 22:10 TING Home Medications Home Medications Medication Instructions Recorded Confirmed Type azithromycin 250 mg PO 3XWK 02/08/19 05/29/19 History carvedilol 6.25 mg PO BID 02/08/19 05/29/19 History cyanocobalamin (vitamin B-12) 500 mcg PO DAILY 02/08/19 05/29/19 History [Vitamin B-12] fluticasone propionate 2 spray INTRANASAL DAILY 02/08/19 05/29/19 History furosemide 20 mg PO DAILY PRN 02/08/19 05/29/19 History hydrocodone-acetaminophen 1 tab PO Q6H PRN 02/08/19 05/29/19 History ipratropium-albuterol 3 ml INHALATION Q6H PRN 02/08/19 05/29/19 History lorazepam 0.5 - 1 mg PO Q8H PRN 02/08/19 05/29/19 History magnesium citrate 120 ml PO DAILY PRN 02/08/19 05/29/19 History nystatin 5 ml PO QID PRN 02/08/19 05/29/19 History pantoprazole 40 mg PO BID 02/08/19 05/29/19 History polyethylene glycol 3350 17 g PO DAILY PRN 02/08/19 05/29/19 History potassium chloride 20 meq PO DAILY 02/08/19 05/29/19 History umeclidinium [Incruse Ellipta] 1 inh INHALATION DAILY 02/08/19 05/29/19 History Saccharomyces boulardii [Florastor] 250 mg PO BID #20 cap 05/27/19 05/29/19 Rx levofloxacin 750 mg PO DAILY 5 Days #5 tab 05/27/19 05/29/19 Rx montelukast 10 mg PO DAILY 05/27/19 05/29/19 History albuterol sulfate [ProAir HFA] 2 puff INHALATION Q4H PRN 05/29/19 05/29/19 History doxycycline hyclate See Rx Instructions .ROUTE 05/29/19 05/29/19 History .COMPLEX PRN fluticasone propion-salmeterol 1 inh INHALATION BID 05/29/19 05/29/19 History [Wixela Inhub] lidocaine [Lidoderm] 1 patch TOP DAILY PRN 05/29/19 05/29/19 History prednisone 10 mg PO DAILY 05/29/19 05/29/19 History prednisone See Rx Instructions .ROUTE 05/29/19 05/29/19 History .COMPLEX PRN Patient History Medical History GERD (gastroesophageal reflux disease) (Chronic) CKD (chronic kidney disease), stage III (Chronic) Osteoarthritis (Chronic) Pulmonary fibrosis (Chronic) Hx of central retinal vein occlusion (Chronic) Chronic respiratory failure (Chronic) History of arteritis (Chronic) Hiatal hernia (Chronic) Thoracic compression fracture (Acute) Chronic obstructive pulmonary disease Surgical History S/P cholecystectomy (Resolved) S/P hysterectomy (Resolved) History of cataract surgery (Chronic) H/O colonoscopy (Chronic) H/O esophagogastroduodenoscopy (Chronic) Family History Other Family history non-contributory Social History Preferred Language: Greek [employer] Clergy Required: No Beliefs That Will Affect Care: None marital status: Current Living Situation: Other Current Living Situation Comment: current housemate will be moving out next month current occupational status: retired Other Information That Helps Us Care for You: No Feels Safe at Home: Yes Safety Concerns: Feels Safe At This Time Smoking Status: Former smoker Do You Dip or Chew Tobacco: No Second Hand Exposure: No Tobacco Cessation Education Requested by Patient: No Hx Alcohol Use: No Hx Substance Use: No Review of Systems Constitutional: as per Subjective / HPI Ear, Nose, Mouth, Throat: as per Subjective / HPI Respiratory: as per Subjective / HPI Cardiovascular: as per Subjective / HPI Gastrointestinal: S/P cholecystectomy Genitourinary: as per Subjective / HPI Neurologic: as per Subjective / HPI Psychiatric: as per Subjective / HPI Endocrine: as per Subjective / HPI Physical Exam Constitutional: WD/WN, vitals as above well developed and well nourished ENMT: external ear and nose normal, oropharynx normal Neck: trachea midline, no thyromegaly Respiratory: normal respiratory effort, lungs clear to auscultation Cardiovascular: RRR, no murmur, no edema Rate/Rhythm: regular rate and regular rhythm Gastrointestinal (Abdomen): soft, slightly tenderness at RLQ, no rebound pain, BS+, no distend Neurologic: patellar DTR's 2+ bilat, sensation intact Psychiatric: A+Ox3, euthymic affect Orientation: alert and oriented x 3 Results & Data Vital Signs (Past 12 Hours) Vital Signs Temp Pulse Resp BP Pulse Ox 05/30/19 15:21 37.3 C 67 20 144/78 H 98 05/30/19 07:42 36.7 C 78 18 167/87 H 95 Laboratory Results Abnormal lab results 05/29/19 05/29/19 05/29/19 Range/Units 20:55 20:55 22:37 RBC 3.57 L (4.2-5.4) M/uL Hgb 10.9 L (12.0-16.0) g/dL Hct 33.1 L (37-47) % RDW Std Deviation 50.9 H (36.4-46.3) fL RDW Coeff of Carmencita 15.0 H (11.5-14.5) % MPV 11.0 H (7.4-10.4) fL Immature Gran # (Auto) 0.05 H (0.00-0.02) K/uL Neut # (Auto) 7.06 H (1.4-6.5) K/uL [place] # (Auto) 0.99 H (0.11-0.59) K/uL BUN 28 H (7-18) mg/dl Creatinine 1.50 H (0.6-1.2) mg/dl Total Protein 5.8 L (6.4-8.2) gm/dl Albumin 2.9 L (3.4-5.0) gm/dl Urine Blood 3+ H (Negative) U Epithel Cells (Auto) >30 H (0-5) /lpf 05/30/19 05/30/19 Range/Units 06:59 06:59 RBC 3.59 L (4.2-5.4) M/uL Hgb 10.8 L (12.0-16.0) g/dL Hct 33.1 L (37-47) % RDW Std Deviation 51.0 H (36.4-46.3) fL RDW Coeff of Carmencita 15.0 H (11.5-14.5) % MPV 10.9 H (7.4-10.4) fL Immature Gran # (Auto) 0.03 H (0.00-0.02) K/uL Neut # (Auto) (1.4-6.5) K/uL [place] # (Auto) 0.76 H (0.11-0.59) K/uL BUN 24 H (7-18) mg/dl Creatinine 1.48 H (0.6-1.2) mg/dl Total Protein (6.4-8.2) gm/dl Albumin (3.4-5.0) gm/dl Urine Blood (Negative) U Epithel Cells (Auto) (0-5) /lpf Diagnostic Findings CT OF THE ABDOMEN AND PELVIS WITHOUT CONTRAST CLINICAL HISTORY: Lower back pain, bilateral hip pain, OA COMPARISON STUDY: CT of the abdomen and pelvis March 10, 2011. Abdominal series May 24, 2017. TECHNIQUE: Axial images of the abdomen and pelvis were obtained without IV contrast. Images were reviewed in the axial, sagittal, and coronal planes. Automated exposure control was utilized for the study. A dose lowering technique was utilized adhering to the principles of ALARA. FINDINGS: A moderate sized hiatal hernia is noted. No pneumatosis, free air or portal venous gas is present. Evaluation of the abdomen and pelvis is suboptimal on this unenhanced exam. Emphysema is noted within the lower lungs with mild interlobular septal thickening. Unenhanced images of liver, spleen, adrenal glands and pancreas are unremarkable. There is no biliary ductal dilatation status post cholecystectomy. There is no hydronephrosis. A suspected cyst within lower pole of the right kidney is noted. There is extensive colonic diverticulosis. There is mild wall thickening with minimal adjacent infiltration of the sigmoid colon. There is no free air or abscess. Numerous lower thoracic and lumbar spine compression fractures are noted. These are age-indeterminate but probably old. No lymphadenopathy. There is evidence for pelvic floor relaxation. IMPRESSION: 1. Extensive sigmoid diverticulosis with mild wall thickening and possible minimal pericolonic infiltration. The findings are probably chronic however mild acute sigmoid diverticulitis cannot be excluded. No free air or abscess. No bowel obstruction. 2. Numerous lower thoracic and lumbar spine compression fractures which are age- indeterminate but probably old.
[2019-05-31] MEDS: INCRUSE ELLIPTA~ORDER AWAITING ACTION SCH ×2 (07:35→15:08)
[2019-05-31] MEDS: CARVEDILOL 6.25 MG TAB PO SCH ×2 (08:17→21:11)
[2019-05-31] MEDS: SACCHAROMYCES BOULARDII 250 MG CAP PO SCH ×2 (08:17→21:11)
[2019-05-31] MEDS: FLUTICASONE/SALMETEROL 250/50 (ADVAIR) 14 PUFF/1 INHALER INH SCH ×2 (08:17→21:10)
[2019-05-31] MEDS: MONTELUKAST SODIUM 10 MG TABLET PO SCH (08:17)
[2019-05-31] MEDS: FLUTICASONE PROPIONATE NA SPR 16 GM BTL SCH (08:17)
[2019-05-31] MEDS: predniSONE 10 MG TABLET PO SCH (08:17)
[2019-05-31] MEDS: CYANOCOBALAMIN 500 MCG TABLET (VITAMIN B-12) PO SCH (08:17)
[2019-05-31] MEDS: PIPERACILLIN/TAZOBACTAM 3.375 GM in DEXTROSE 5% 100 ML IV SCH ×2 (08:17→16:03)
[2019-05-31] MEDS: POTASSIUM CHLORIDE 20 MEQ TABCR PO SCH (08:18)
[2019-05-31] MEDS: PANTOprazole 40 MG TAB PO SCH ×2 (08:18→21:12)
[2019-05-31] MEDS: HEPARIN SOD 5,000 UNIT/0.5 ML VIAL SQ SCH ×3 (08:18→21:17)
[2019-05-31] MEDS: DOXYCYCLINE HYCLATE 100 MG CAP PO SCH ×2 (08:18→21:10)
--- NOTE | 2019-05-31 11:25 | Surgery Progress Note ---
Date of Service pt is doing fine, no abdominal pain, no nausea, no vomiting, no fever, May 31, 2019 Assessment & Plan (1) Diverticulitis: pt is a 78 year-old female who has been dx sigmoid diverticulitis, no abscess, now WBC, pt is doing better, IMP: sigmoid diverticulitis, agree with medical treatment, no surgical indication now, will F/U 05/31/2019 11:24am doing fine, no abdominal pain, sign off today, please call with questions, Follow up me in 2 weeks in my clinic, [place], Subjective no complain of abdominal pain no nausea no fever or chills no diarrhea or blood in stool Physical Exam Constitutional: WD/WN, vitals as above well developed and well nourished ENMT: external ear and nose normal, oropharynx normal Neck: trachea midline, no thyromegaly Respiratory: normal respiratory effort, lungs clear to auscultation Cardiovascular: RRR, no murmur, no edema Rate/Rhythm: regular rate and regular rhythm Gastrointestinal (Abdomen): Percussion/Palpation: abdomen soft NT, ND BS +, Neurologic: patellar DTR's 2+ bilat, sensation intact Psychiatric: A+Ox3, euthymic affect Orientation: alert and oriented x 3 Results & Data Vital Signs (Past 12 Hours) Vital Signs Temp Pulse Resp BP Pulse Ox 05/31/19 07:36 36.8 C 72 18 142/98 H 97
[2019-05-31] MEDS: OXYCODONE HCL IR 5 MG TAB (IMMEDIATE RELEASE) PO PRN (12:13)
--- NOTE | 2019-05-31 17:15 | Hospitalist Progress Note ---
Date of Service May 31, 2019 Assessment & Plan (1) Diverticulitis: CT abdomen /pelvis shows sigmoid diverticulitis remains afebrile no abdominal pain continue Zosyn (+) 2 LBMs check C diff if persistent tonight possible d/c home tomorrow if stable (2) Lumbar compression fracture: chronic CT of abdominal pelvis shows no acute change cont pain control PT/OT (3) CKD (chronic kidney disease), stage III: cr at baseline follow CODE STATUS : FULL CODE DISPOSITION ; medical managent in progress advance diet as tolerated Abx can be changed to oral in next 24-48 hrs as clinically improves PT/OT eval Subjective ff up for diverticulitis seen sitting up in bed, comfortable states she feels better overall today denies abdominal pain, nausea/vomiting, fever/chills (+) 2 loose BMs back pain has resolved had right shoulder pain, resolved Review of Systems Review of Systems: All systems reviewed & are unremarkable except as noted in HPI & below Physical Exam Physical Exam: General- oriented x 3, not in distress, speaks in sentences with no effort or accessory muscle use Head- atraumatic Eyes- PERRL, EOMI, anicteric ENT- oropharynx clear Neck- supple, no JVD, no adenopathy, no thyromegaly; carotids +2/2, no bruits appreciated Lungs- clear to auscultation bilaterally, no rales/wheezes Heart- normal rate, regular rhythm; no murmur, no gallop, no rub appreciated Abdomen- normal bowel sounds, nondistended, soft, nontender, no masses or hepatosplenomegaly Extremities- no pretibial edema, no calf tenderness; peripheral pulses intact Neuro- alert, oriented x 3; CN 2-12 grossly intact; motor 5/5 bilaterally;sensation 100% on all extremities; no other gross focal neurologic deficits Skin- warm & dry Results & Data Vital Signs (Past 12 Hours) Vital Signs Temp Pulse Resp BP BP Pulse Ox Pulse Ox 05/31/19 15:10 36.7 C 65 18 120/70 95 05/31/19 11:12 94 05/31/19 07:36 36.8 C 72 18 142/98 H 97
[2019-06-01] MEDS: PIPERACILLIN/TAZOBACTAM 3.375 GM in DEXTROSE 5% 100 ML IV SCH ×4 (00:11→23:39)
[2019-06-01] MEDS: INCRUSE ELLIPTA~ORDER AWAITING ACTION SCH ×4 (01:04→23:07)
[2019-06-01 07:39] LABS: Creatinine Clr Calc Pharmacy 21.4 ml/min; Est GFR (African American) 32.2; Est GFR (Non-African American) 27.8
[2019-06-01] MEDS: POTASSIUM CHLORIDE 20 MEQ TABCR PO SCH (09:14)
[2019-06-01] MEDS: FLUTICASONE/SALMETEROL 250/50 (ADVAIR) 14 PUFF/1 INHALER INH SCH ×2 (09:14→20:46)
[2019-06-01] MEDS: CARVEDILOL 6.25 MG TAB PO SCH ×2 (09:15→20:47)
[2019-06-01] MEDS: FLUTICASONE PROPIONATE NA SPR 16 GM BTL SCH (09:15)
[2019-06-01] MEDS: SACCHAROMYCES BOULARDII 250 MG CAP PO SCH ×2 (09:16→20:46)
[2019-06-01] MEDS: HEPARIN SOD 5,000 UNIT/0.5 ML VIAL SQ SCH ×2 (09:16→20:55)
[2019-06-01] MEDS: PANTOprazole 40 MG TAB PO SCH ×2 (09:18→20:54)
[2019-06-01] MEDS: predniSONE 10 MG TABLET PO SCH (09:18)
[2019-06-01] MEDS: DOXYCYCLINE HYCLATE 100 MG CAP PO SCH ×2 (09:19→20:45)
[2019-06-01] MEDS: MONTELUKAST SODIUM 10 MG TABLET PO SCH (09:19)
[2019-06-01] MEDS: CYANOCOBALAMIN 500 MCG TABLET (VITAMIN B-12) PO SCH (09:19)
--- NOTE | 2019-06-01 11:16 | Hospitalist Progress Note ---
Date of Service June 01, 2019 Assessment & Plan (1) Diverticulitis: 78-year-old female with history of chronic respiratory failure, COPD, lumbar compression fracture, CKD stage III presenting with bilateral buttock pain. CT abdomen /pelvis shows sigmoid diverticulitis remains afebrile no abdominal pain continue Zosyn Stools described to be as soft not exactly loose or runny Check stool for C. difficile bowel movements become loose Will need total of 10-day course of antibiotics, and to transition to Augmentin on discharge day (2) Dysphagia: History of dysphasia in the setting of tortuous esophagus Follows with GI, last visit 2016 Will order barium swallow for initial work-up Speech therapy consultation Monitor (3) Lumbar compression fracture: chronic CT of abdominal pelvis shows no acute change cont pain control PT/OT (4) CKD (chronic kidney disease), stage III: cr at baseline follow CODE STATUS : FULL CODE DVT prophylaxis: Heparin every 12 DISPOSITION Anticipate discharge to home when medically stable Subjective Follow-up for acute diverticulitis Seen resting in bed, not in distress Denies abdominal pain, nausea or vomiting Does report dysphagia with pills today and some solid foods, 2 soft bowel movements yesterday, one so far today Denies fever chills No other symptoms Review of Systems Review of Systems: All systems reviewed & are unremarkable except as noted in HPI & below Physical Exam Physical Exam: General- oriented x 3, not in distress, speaks in sentences with no effort or accessory muscle use Eyes- anicteric Neck- no JVD Lungs- clear BS BL Heart- normal rate, regular rhythm; no murmurs Abdomen- normal bowel sounds, nondistended, soft, nontender Extremities- no pretibial edema, no calf tenderness Neuro- alert, oriented x 3; no gross focal neurologic deficits Skin- warm & dry Results & Data Vital Signs (Past 12 Hours) Vital Signs Temp Pulse Resp BP Pulse Ox 06/01/19 07:32 36.9 C 65 18 174/96 H 97
[2019-06-01] MEDS: SODIUM CHLORIDE 0.9% 1000ML 1,000 ML IV SCH (20:47)
[2019-06-01] MEDS ORDERED: HydrALAZINE HCL 20 MG/ML VIAL IV STA (21:10)
[2019-06-01 21:32] LABS: Basophils # (auto) 0.01 K/uL (0-0.2); Basophils % (auto) 0.1 %; Eosinophils % (auto) 1.1 %; Hematocrit (blood only) 32.8 % (37-47); Hemoglobin 10.8 g/dL (12.0-16.0); Immature Granulocytes # (auto) 0.03 K/uL (0.00-0.02); Immature Granulocytes % (auto) 0.3 %; Lymphocytes # (auto) 1.25 K/uL (1.2-3.4); Lymphocytes % (auto) 13.9 %; Mean Corpuscular Hgb Conc 32.9 g/dL (32-36); Mean Corpuscular Volume 93.7 fL (80-100); Mean Platelet Volume 11.1 fL (7.4-10.4); Monocytes # (auto) 0.58 K/uL (0.11-0.59); Monocytes % (auto) 6.5 %; Neutrophils # (auto) 7.01 K/uL (1.4-6.5); Neutrophils % (auto) 78.1 %; Platelet Count 196 K/uL (130-400); RDW Standard Deviation 51.2 fL (36.4-46.3); White Blood Count 8.98 K/uL (4.8-10.8)
[2019-06-01 21:49] LABS: BUN Creatinine Ratio 12.9 (10-20); Calcium 8.7 mg/dl (8.5-10.1); Creatinine Clr Calc Pharmacy 23.1 ml/min; Est GFR (African American) 35.4; Est GFR (Non-African American) 30.5; Magnesium 1.9 mg/dl (1.8-2.4); Potassium 3.7 mmol/L (3.5-5.1)
[2019-06-01] MEDS ORDERED: AMLODIPINE BESYLATE 5 MG TAB PO ONE (23:49)
--- NOTE | 2019-06-01 23:50 | Hospitalist Progress Note ---
Date of Service June 01, 2019 Subjective BP noted to be elevated overnight. SBP 190-210s as per RN. Cardiac rate 60s. Patient asymptomatic. AP Hypertensive urgency Add Amlodipine to Coreg. Will relay to AM provider. Results & Data Vital Signs (Past 12 Hours) Vital Signs Temp Pulse Resp BP BP Pulse Ox 06/01/19 23:03 36.9 C 57 L 18 191/74 H 98 06/01/19 22:16 172/85 H 06/01/19 21:00 66 211/103 H
[2019-06-02 05:52] LABS: Hematocrit (blood only) 33.4 % (37-47); Hemoglobin 10.9 g/dL (12.0-16.0); Mean Corpuscular Hgb Conc 32.6 g/dL (32-36); Mean Corpuscular Volume 91.5 fL (80-100); Mean Platelet Volume 11.3 fL (7.4-10.4); Platelet Count 198 K/uL (130-400); RDW Standard Deviation 50.7 fL (36.4-46.3); Red Blood Count 3.65 M/uL (4.2-5.4); White Blood Count 9.08 K/uL (4.8-10.8)
[2019-06-02 06:23] LABS: Creatinine Clr Calc Pharmacy 24.5 ml/min; Est GFR (African American) 37.9; Est GFR (Non-African American) 32.7
[2019-06-02] MEDS: PIPERACILLIN/TAZOBACTAM 3.375 GM in DEXTROSE 5% 100 ML IV SCH ×3 (08:14→23:56)
[2019-06-02] MEDS: FLUTICASONE/SALMETEROL 250/50 (ADVAIR) 14 PUFF/1 INHALER INH SCH ×2 (08:15→20:39)
[2019-06-02] MEDS: FLUTICASONE PROPIONATE NA SPR 16 GM BTL SCH (08:15)
[2019-06-02] MEDS: INCRUSE ELLIPTA~ORDER AWAITING ACTION SCH ×3 (08:20→23:51)
[2019-06-02] MEDS: DOXYCYCLINE HYCLATE 100 MG CAP PO SCH ×2 (08:20→20:43)
[2019-06-02] MEDS: POTASSIUM CHLORIDE 20 MEQ TABCR PO SCH (08:20)
[2019-06-02] MEDS: CARVEDILOL 6.25 MG TAB PO SCH ×2 (08:21→20:41)
[2019-06-02] MEDS: MONTELUKAST SODIUM 10 MG TABLET PO SCH (08:21)
[2019-06-02] MEDS: CYANOCOBALAMIN 500 MCG TABLET (VITAMIN B-12) PO SCH (08:21)
[2019-06-02] MEDS: PANTOprazole 40 MG TAB PO SCH ×2 (08:21→20:42)
[2019-06-02] MEDS: predniSONE 10 MG TABLET PO SCH (08:21)
[2019-06-02] MEDS: SACCHAROMYCES BOULARDII 250 MG CAP PO SCH ×2 (08:21→20:41)
[2019-06-02] MEDS: HEPARIN SOD 5,000 UNIT/0.5 ML VIAL SQ SCH ×2 (08:23→20:42)
--- NOTE | 2019-06-02 09:46 | Fluoroscopy Report ---
FL barium swallow CLINICAL HISTORY: dyshagiadysphagia COMPARISON STUDY: 09/08/2016 FLUOROSCOPY TIME: 1.2 minutes NUMBER OF FLUOROSCOPIC IMAGES: 23 FINDINGS: The patient initiated swallow function well. Severe spasm on mid to distal esophagus. Signi ficant hiatal hernia. Mild gastroesophageal reflux. The barium tablet did not pass the distal esophagus IMPRESSION: . 1. Severe esophageal dysmotility and/or spasm distally. 2. Hiatal hernia. 3. Mild gastroesophageal reflux. 4. Barium tablet did not pass the region of spasm of the distal esophagus. The above report was generated using voice recognition software. It may contain grammatical, syntax or spelling errors. Electronically signed by: Ramesh Gore M.D. 06/02/2019 9:45 AM
[2019-06-02] MEDS ORDERED: Nursing to Pharmacy Communication ONE (12:14)
--- NOTE | 2019-06-02 12:59 | Gastrointestinal Consultation ---
Date of Consultation June 02, 2019 Assessment & Plan (1) Dysphagia: Unable to perform EGD today as pt is currently eating. However because the barium tablet did not pass, she does need eventual EGD which she refused. For now, agree with speech recommendations for slippery diet, eat slowly, chew thoroughly. Present on Admission?: Yes (2) Diverticulitis: Because most recent colonoscopy 2013, pt should undergo colonoscopy in 6-8 weeks. Present on Admission?: Yes Supervising Physician Co-Signing Physician Notes I performed a history and physical examination of the patient, including specifically on physical exam - soft, nontender abdomen. I have discussed the patient's management with Efe. Please refer to the nurse practitioner's note for the documented findings and plan of care. 78 female admitted with back and leg pain, had CT scan abdomen which incidentally showed ? mild sigmoid diverticulitis, no abdominal pain. She reports chronic dysphagia and Hx of esophageal stricture which was dilated and injected with Botox in the past. She ate her breakfast today as she is refusing EGD. After I discussed with her that she will really benefit from WGD with dilation, she agreed for it to be done as OP. She completely refused colonoscopy. PPI for now with soft mechanical diet. Will schedule EGD next week as OP. Recall GI if needed. History of Present Illness Reason for Consultation: Dysphagia, esophageal dysmotility. Requesting Physician: Dr. Locke Attending Physician: Jean Locke MD History of Present Illness Ms. Rosemarie Lay is a 78 yr old female pt of Dr. Chong with a hx of COPD, pulmonary fibrosis, CKD-3, rheumatoid arthritis on chronic steroids with hx of vertebral fractures, marked kyphosis/scoliosis. She presented to [facility] for weakness and leg pain on 05/30 and was admitted for tx of diverticulitis because CT abd/pelvis suggested possible mild diverticulitis. GI is consulted for dysphagia, esophageal dysmotility. The pt tells me that she has had this for years and in the past it "got better." Records show that and EGD was initially completed in 2005 for dysphagia and that she was empirically dilated. In 2012, Dr. Back found a GE junction ring with he cut and dilated then provided a Botox injection. She underwent barium esophagram during this admission with severe esophageal dysmotility or distal spasm and hiatal hernia. The pt describes her symptoms as pain in the lower chest/upper abdomen area after swallowing. She also tells me that she has a feeling of food, "coming back up," if she lays flat, so instead, she props her upper body and head to sleep. She tells me that she does not want an EGD. Allergies Allergy/AdvReac Type Severity Reaction Status Date / Time ranitidine Allergy Intermediate HIVES. Verified 05/29/19 22:10 Estrogens Allergy Mild IRREGULAR Verified 05/29/19 22:10 HEART RATE estrogens, conjugated Allergy Mild UNKNOWN Verified 05/29/19 22:10 lovastatin Allergy Unknown UNKNOWN Verified 05/29/19 22:10 zoledronic acid AdvReac Intermediate MUSCLE PAIN Verified 05/29/19 22:10 Bactrim AdvReac Mild NAUSEA/VOMI Verified 07/09/17 19:19 TING omeprazole AdvReac Mild ABD PAIN Verified 05/29/19 22:10 Quinolones AdvReac Mild 11/28/08--ITCHY Verified 05/29/19 22:10 ARM, HAS HAD IN PAST W/O RXN sulfamethoxazole AdvReac Mild NAUSEA/VOMI Verified 05/29/19 22:10 TING trimethoprim AdvReac Mild NAUSEA/VOMI Verified 05/29/19 22:10 TING Home Medications Home Medications Medication Instructions Recorded Confirmed Type azithromycin 250 mg PO 3XWK 02/08/19 05/29/19 History carvedilol 6.25 mg PO BID 02/08/19 05/29/19 History cyanocobalamin (vitamin B-12) 500 mcg PO DAILY 02/08/19 05/29/19 History [Vitamin B-12] fluticasone propionate 2 spray INTRANASAL DAILY 02/08/19 05/29/19 History furosemide 20 mg PO DAILY PRN 02/08/19 05/29/19 History hydrocodone-acetaminophen 1 tab PO Q6H PRN 02/08/19 05/29/19 History ipratropium-albuterol 3 ml INHALATION Q6H PRN 02/08/19 05/29/19 History lorazepam 0.5 - 1 mg PO Q8H PRN 02/08/19 05/29/19 History magnesium citrate 120 ml PO DAILY PRN 02/08/19 05/29/19 History nystatin 5 ml PO QID PRN 02/08/19 05/29/19 History pantoprazole 40 mg PO BID 02/08/19 05/29/19 History polyethylene glycol 3350 17 g PO DAILY PRN 02/08/19 05/29/19 History potassium chloride 20 meq PO DAILY 02/08/19 05/29/19 History umeclidinium [Incruse Ellipta] 1 inh INHALATION DAILY 02/08/19 05/29/19 History Saccharomyces boulardii [Florastor] 250 mg PO BID #20 cap 05/27/19 05/29/19 Rx montelukast 10 mg PO DAILY 05/27/19 05/29/19 History albuterol sulfate [ProAir HFA] 2 puff INHALATION Q4H PRN 05/29/19 05/29/19 History doxycycline hyclate See Rx Instructions .ROUTE 05/29/19 05/29/19 History .COMPLEX PRN fluticasone propion-salmeterol 1 inh INHALATION BID 05/29/19 05/29/19 History [Wixela Inhub] lidocaine [Lidoderm] 1 patch TOP DAILY PRN 05/29/19 05/29/19 History prednisone 10 mg PO DAILY 05/29/19 05/29/19 History prednisone See Rx Instructions .ROUTE 05/29/19 05/29/19 History .COMPLEX PRN Patient History Medical History GERD (gastroesophageal reflux disease) (Chronic) CKD (chronic kidney disease), stage III (Chronic) Osteoarthritis (Chronic) Pulmonary fibrosis (Chronic) Hx of central retinal vein occlusion (Chronic) Chronic respiratory failure (Chronic) History of arteritis (Chronic) Hiatal hernia (Chronic) Thoracic compression fracture (Acute) Chronic obstructive pulmonary disease Surgical History S/P cholecystectomy (Resolved) S/P hysterectomy (Resolved) History of cataract surgery (Chronic) H/O colonoscopy (Chronic) H/O esophagogastroduodenoscopy (Chronic) Family History Other Family history non-contributory Social History Preferred Language: Kosovan Manager Change Required: No Beliefs That Will Affect Care: None marital status: Current Living Situation: Other Current Living Situation Comment: current housemate will be moving out next month current occupational status: retired Other Information That Helps Us Care for You: No Feels Safe at Home: Yes Safety Concerns: Feels Safe At This Time Smoking Status: Former smoker Do You Dip or Chew Tobacco: No Second Hand Exposure: No Tobacco Cessation Education Requested by Patient: No Hx Alcohol Use: No Hx Substance Use: No Review of Systems Constitutional: + body aches ("legs, then abdomen, then back, legs again") and + weakness (chronically debilitated but able to live independently with a roomate; uses a walker. ); no fever and no weight loss Eyes: no problem reported Ear, Nose, Mouth, Throat: no ear pain, no tinnitus and no dizziness Respiratory: + cough (chronic, not worsened) On O2 Cardiovascular: + chest pain (lower chest, after swallowing, no other chest pain); no palpitations and no syncope Gastrointestinal: + abdominal pain (some epigastric discomfort after swallowing but more of a lower chest discomfort); no bloating, no nausea and no vomiting Musculoskeletal: + back pain (chronic) Integumentary: no rash Neurologic: no tremor(s), no seizure-like activity and no confusion Psychiatric: no behavioral changes, no depression and no change in appetite Hematologic / Lymphatic: no easy bleeding and no easy bruising Allergy / Immunological: no GI upset with certain foods Physical Exam Constitutional: WD/WN, vitals as above + ill appearing Eyes: PERRL, conjunctivae normal, anicteric sclerae ENMT: external ear and nose normal, oropharynx normal Neck: trachea midline, no thyromegaly Respiratory: normal respiratory effort, lungs clear to auscultation Cardiovascular: RRR, no murmur, no edema Gastrointestinal (Abdomen): normal bowel sounds, soft, nontender, no hepatosplenomegaly Skin: no rashes, warm and dry Neurologic: PERRL, EOMI, accommodation nl, no face palsy, no dysarthria Psychiatric: A+Ox3, euthymic affect Lymphatic: no cervical or axillary lymphadenopathy Results & Data Vital Signs (Past 12 Hours) Vital Signs Temp Pulse Resp BP Pulse Ox 06/02/19 07:00 36.8 C 61 20 195/91 H 97 Laboratory Results WBC 9, Hb 10, Hct 33, Platelets 198. BUN 21, Cr 1.6. Diagnostic Findings Barium Swallow 06/02/19: 1. . Severe esophageal dysmotility and/or spasm distally. 2. Hiatal hernia. 3. Mild gastroesophageal reflux. 4. Barium tablet did not pass the region of spasm of the distal esophagus. Non contrast CT abd/pelvis on 05/29/19: 1. Extensive sigmoid diverticulosis with mild wall thickening and possible minimal pericolonic infiltration. The findings are probably chronic however mild acute sigmoid diverticulitis cannot be excluded. No free air or abscess. No bowel obstruction. 2. Numerous lower thoracic and lumbar spine compression fractures which are age- indeterminate but probably old.
--- NOTE | 2019-06-02 15:45 | Hospitalist Progress Note ---
Date of Service June 02, 2019 Assessment & Plan (1) Diverticulitis: 78-year-old female with history of chronic respiratory failure, COPD, lumbar compression fracture, CKD stage III presenting with bilateral buttock pain. CT abdomen /pelvis shows sigmoid diverticulitis No fever x2 days continue Zosyn Dissipate to transition to Augmentin on discharge Having 2 loose bowel movements a day C. difficile strategy tests ordered Will need total of 10-day course of antibiotics, and to transition to Augmentin on discharge day (2) Dysphagia: History of dysphasia in the setting of tortuous esophagus Follows with GI, last visit 2015 Barium swallow ordered: IMPRESSION: . 1. Severe esophageal dysmotility and/or spasm distally. 2. Hiatal hernia. 3. Mild gastroesophageal reflux. 4. Barium tablet did not pass the region of spasm of the distal esophagus. Speech therapist consulted: Recommend slippery soft diet GI consulted, awaiting recommendations Dysphagia improving today, monitor (3) Hypertension: Uncontrolled blood pressure overnight Amlodipine 2.5 mg p.o. ordered Blood pressure improving Continue to monitor (4) Lumbar compression fracture: chronic CT of abdominal pelvis shows no acute change cont pain control PT/OT (5) CKD (chronic kidney disease), stage III: cr at baseline follow CODE STATUS : FULL CODE DVT prophylaxis: Heparin every 12 DISPOSITION Anticipate discharge to home when medically stable Case discussed with patient and her son at the bedside, They are understanding comfortable plan of care Subjective Follow-up for diverticulitis Seen resting in bed, having breakfast, comfortable, not in distress Reports 2 loose bowel movements today Also having some epigastric pain, less dysphagia today Denies chest pain, headache, shortness of breath Blood pressure elevated overnight, given amlodipine this morning, blood pressure improving No other symptoms Review of Systems Review of Systems: All systems reviewed & are unremarkable except as noted in HPI & below Physical Exam Physical Exam: General- oriented x 3, not in distress, speaks in sentences with no effort or accessory muscle use Eyes- anicteric Neck- no JVD Lungs- clear breath sounds bilaterally, crackles, no wheezing Heart- normal rate, regular rhythm; no murmurs Abdomen- normal bowel sounds, nondistended, soft, nontender Extremities- no pretibial edema, no calf tenderness Neuro- alert, oriented x 3; no gross focal neurologic deficits Skin- warm & dry Results & Data Vital Signs (Past 12 Hours) Vital Signs Temp Pulse Resp BP Pulse Ox 07/05/19 07:00 36.8 C 61 20 195/91 H 97 Laboratory Results Laboratory Results - last 24 hr 06/01/19 06/01/19 06/02/19 21:22 21:22 05:26 WBC 8.98 9.08 RBC 3.50 L 3.65 L Hgb 10.8 L 10.9 L Hct 32.8 L 33.4 L MCV 93.7 91.5 MCH 30.9 29.9 MCHC 32.9 32.6 RDW Std Deviation 51.2 H 50.7 H RDW Coeff of Carmencita 15.0 H 15.0 H Plt Count 196 198 MPV 11.1 H 11.3 H Immature Gran % (Auto) 0.3 Neut % (Auto) 78.1 Lymph % (Auto) 13.9 Bollinger % (Auto) 6.5 Eos % (Auto) 1.1 Baso % (Auto) 0.1 Immature Gran # (Auto) 0.03 H Neut # (Auto) 7.01 H Lymph # (Auto) 1.25 Bollinger # (Auto) 0.58 Eos # (Auto) 0.10 Baso # (Auto) 0.01 Sodium 141 Potassium 3.7 Chloride 105 Carbon Dioxide 27 Anion Gap 8.0 BUN 21 H Creatinine 1.61 H Est Cr Clr Drug Dosing 23.1 Est GFR ( Amer) 35.4 Est GFR (Non-Af Amer) 30.5 BUN/Creatinine Ratio 12.9 Glucose 139 H Calcium 8.7 Magnesium 1.9 Stl C. diff Tox B Gene 06/02/19 06/02/19 05:26 11:05 WBC RBC Hgb Hct MCV MCH MCHC RDW Std Deviation RDW Coeff of Carmencita Plt Count MPV Immature Gran % (Auto) Neut % (Auto) Lymph % (Auto) Bollinger % (Auto) Eos % (Auto) Baso % (Auto) Immature Gran # (Auto) Neut # (Auto) Lymph # (Auto) Bollinger # (Auto) Eos # (Auto) Baso # (Auto) Sodium Potassium Chloride Carbon Dioxide Anion Gap BUN Creatinine 1.52 H Est Cr Clr Drug Dosing 24.5 Est GFR ( Amer) 37.9 Est GFR (Non-Af Amer) 32.7 BUN/Creatinine Ratio Glucose Calcium Magnesium Stl C. diff Tox B Gene Negative Cdiff Gene
[2019-06-02] MEDS: SODIUM CHLORIDE 0.9% 1000ML 1,000 ML IV SCH (19:10)
[2019-06-03] MEDS ORDERED: AMLODIPINE BESYLATE 5 MG TAB PO SCH ×2 (00:30→09:00)
[2019-06-03 06:25] LABS: Creatinine Clr Calc Pharmacy 26.6 ml/min; Est GFR (African American) 41.9; Est GFR (Non-African American) 36.2
[2019-06-03] MEDS: INCRUSE ELLIPTA~ORDER AWAITING ACTION SCH ×2 (08:03→17:26)
[2019-06-03] MEDS: CARVEDILOL 6.25 MG TAB PO SCH ×2 (08:03→21:29)
[2019-06-03] MEDS: PIPERACILLIN/TAZOBACTAM 3.375 GM in DEXTROSE 5% 100 ML IV SCH ×3 (08:03→23:58)
[2019-06-03] MEDS: MONTELUKAST SODIUM 10 MG TABLET PO SCH (08:03)
[2019-06-03] MEDS: PANTOprazole 40 MG TAB PO SCH ×2 (08:03→21:30)
[2019-06-03] MEDS: CYANOCOBALAMIN 500 MCG TABLET (VITAMIN B-12) PO SCH (08:03)
[2019-06-03] MEDS: POTASSIUM CHLORIDE 20 MEQ TABCR PO SCH ×2 (08:03→08:29)
[2019-06-03] MEDS: DOXYCYCLINE HYCLATE 100 MG CAP PO SCH ×2 (08:04→21:30)
[2019-06-03] MEDS: HEPARIN SOD 5,000 UNIT/0.5 ML VIAL SQ SCH ×2 (08:04→21:29)
[2019-06-03] MEDS: FLUTICASONE/SALMETEROL 250/50 (ADVAIR) 14 PUFF/1 INHALER INH SCH ×2 (08:04→21:23)
[2019-06-03] MEDS: SACCHAROMYCES BOULARDII 250 MG CAP PO SCH ×2 (08:04→21:29)
[2019-06-03] MEDS: predniSONE 10 MG TABLET PO SCH (08:04)
[2019-06-03] MEDS: FLUTICASONE PROPIONATE NA SPR 16 GM BTL SCH (08:04)
[2019-06-03] MEDS ORDERED: LOPERAMIDE HCL 2 MG CAP PO PRN (09:07)
--- NOTE | 2019-06-03 09:08 | Hospitalist Progress Note ---
Date of Service June 03, 2019 Assessment & Plan (1) Diverticulitis: 78-year-old female with history of chronic respiratory failure, COPD, lumbar compression fracture, CKD stage III presenting with bilateral buttock pain. CT abdomen /pelvis shows sigmoid diverticulitis Remains afebrile continue Zosyn Anticipate to transition to Augmentin on discharge Has been having loose/soft stools C. difficile test negative Imodium ordered. Will need total of 10-day course of antibiotics, and to transition to Augmentin on discharge day (2) Dysphagia: Secondary to esophageal spasms Follows with GI, last visit 2015 Barium swallow ordered: IMPRESSION: . 1. Severe esophageal dysmotility and/or spasm distally. 2. Hiatal hernia. 3. Mild gastroesophageal reflux. 4. Barium tablet did not pass the region of spasm of the distal esophagus. Speech therapist consulted: Recommend slippery soft diet GI consulted, upon discussion with patient yesterday, the patient has declined inpatient EGD and would like to pursue this as an outpatient This morning, patient had an episode of vomiting with breakfast Discussed EGD with patient again and she is agreeable to have the procedure performed in the hospital Discussed with GI service, Dr. Bullock, he recommends trial of diltiazem 30 mg p.o. twice daily at this point If without improvement, may consider EGD Patient comfortable with this plan Continue slippery diet, speech therapy recommendations (3) Hypertension: Blood pressure still not at goal overnight Amlodipine increased to 5 mg p.o. daily Dyazide 30 mg twice daily ordered for esophageal spasm, will DC amlodipine at this time Continue to monitor (4) Lumbar compression fracture: chronic CT of abdominal pelvis shows no acute change cont pain control PT/OT (5) CKD (chronic kidney disease), stage III: cr at baseline follow CODE STATUS : FULL CODE DVT prophylaxis: Heparin every 12 hours DISPOSITION Anticipate discharge to home when medically stable Case discussed with patient in detail and at length, she is understanding, agreeable and comfortable with plan of care (6) Large hiatal hernia: Protonix 40 mg twice daily, will need to be closely followed Subjective Follow-up for dysphagia, acute diverticulitis Noted to have one episode of emesis today after breakfast Was able to tolerate p.o. meds this morning Seen sitting sitting up, not in distress States she is having some some nausea today, confirmed episode of emesis after breakfast States to continue with her medications helps to keep her pills down Has soft stools today, no fevers or chills, no abdominal pain Denies headache, chest pain, shortness of breath, palpitations, dizziness No other symptoms Review of Systems Review of Systems: All systems reviewed & are unremarkable except as noted in HPI & below Physical Exam Physical Exam: General- oriented x 3, not in distress, speaks in sentences with no effort or accessory muscle use Eyes- anicteric Neck- no JVD Lungs- clear BS, no rales no wheezing bilaterally Heart- normal rate, regular rhythm; no murmurs Abdomen- normal bowel sounds, nondistended, soft, nontender Extremities- no pretibial edema, no calf tenderness Neuro- alert, oriented x 3; no gross focal neurologic deficits Skin- warm & dry Results & Data Vital Signs (Past 12 Hours) Vital Signs Temp Pulse Resp BP Pulse Ox 06/03/19 07:41 36.5 C 72 20 182/90 H 99 06/02/19 23:39 36.9 C 66 20 172/81 H 95 Laboratory Results Laboratory Results - last 24 hr 06/03/19 05:31 Creatinine 1.40 H Est Cr Clr Drug Dosing 26.6 Est GFR ( Amer) 41.9 Est GFR (Non-Af Amer) 36.2
[2019-06-03] MEDS: dilTIAZem HCL 30 MG TAB PO SCH ×2 (11:07→21:25)
--- NOTE | 2019-06-03 11:09 | Gastroenterology Progress Note ---
Date of Service June 03, 2019 Assessment & Plan (1) Dysphagia: Dysphasia clearly secondary to esophageal spasm as exhibited on barium swallow as well as prior manometry. EGD probably has little to no role in utility of correcting her problem. I would initiate therapy with calcium channel blockers and diltiazem and see if that improves her esophageal spasm symptoms. If it does not then will consider EGD versus outpatient manometry repeat and consideration of POEM procedure. Subjective Patient sitting in room, eating a banana, apparently had chest pain and threw up some of her breakfast this morning. Family is considering EGD at this point. Patient says this is similar complaints that she has had for at least 7 to 8 years. Physical Exam Physical Exam: Chronically ill-appearing Diminished breath sounds bilaterally with bilateral rhonchi Normal active soft nontender No distress Frail Results & Data Vital Signs (Past 12 Hours) Vital Signs Temp Pulse Resp BP Pulse Ox 06/03/19 07:41 36.5 C 72 20 182/90 H 99 06/02/19 23:39 36.9 C 66 20 172/81 H 95
[2019-06-03] MEDS: OXYCODONE HCL IR 5 MG TAB (IMMEDIATE RELEASE) PO PRN (17:42)
[2019-06-04] MEDS ORDERED: ALBUT/IPRATROP 3MG/0.5MG NEB 3 ML VIAL NEB STA (02:23)
[2019-06-04] MEDS ORDERED: ALBUT/IPRATROP 3MG/0.5MG NEB 3 ML VIAL INH PRN (02:28)
[2019-06-04] MEDS ORDERED: methylPREDNISolone 20 MG in SYRINGE 0 ML IV ONE (02:30)
[2019-06-04] MEDS ORDERED: FUROSEMIDE 20 MG in SYRINGE 0 ML IV ONE (02:30)
[2019-06-04] MEDS ORDERED: FUROSEMIDE 40 MG in SYRINGE 0 ML IV ONE (03:00)
[2019-06-04] MEDS ORDERED: MAGNESIUM SULFATE / D5W 1 GM/100 ML BAG IV ONE (03:00)
[2019-06-04 03:03] LABS: Basophils # (auto) 0.03 K/uL (0-0.2); Basophils % (auto) 0.2 %; Eosinophils # (auto) 0.41 K/uL (0-0.5); Eosinophils % (auto) 2.7 %; Hematocrit (blood only) 32.4 % (37-47); Hemoglobin 10.7 g/dL (12.0-16.0); Immature Granulocytes # (auto) 0.07 K/uL (0.00-0.02); Immature Granulocytes % (auto) 0.5 %; Lymphocytes # (auto) 2.14 K/uL (1.2-3.4); Lymphocytes % (auto) 14.1 %; Mean Corpuscular Volume 91.5 fL (80-100); Mean Platelet Volume 11.4 fL (7.4-10.4); Monocytes # (auto) 1.88 K/uL (0.11-0.59); Monocytes % (auto) 12.4 %; Neutrophils # (auto) 10.65 K/uL (1.4-6.5); Neutrophils % (auto) 70.1 %; Platelet Count 196 K/uL (130-400); RDW Coefficient of Variation 15.2 % (11.5-14.5); RDW Standard Deviation 51.3 fL (36.4-46.3); Red Blood Count 3.54 M/uL (4.2-5.4); White Blood Count 15.18 K/uL (4.8-10.8)
[2019-06-04 03:06] LABS: Base Excess ABG 0.5 mEq/L (-9-1.8); HCO3 ABG 25 mmol/L (19-24); Oxygen Saturation ABG 91.3 % (90-95); PCO2 ABG 39 mmHg (35-46); PO2 ABG 62 mm/Hg (80-95); pH ABG 7.43 (7.35-7.45)
[2019-06-04 03:07] LABS: Allen Test POS (Pos)
[2019-06-04 03:13] LABS: Partial Thromboplastin Ratio 1.2; Partial Thromboplastin Time 33.8 Seconds (21.0-31.0)
[2019-06-04 03:20] LABS: BUN Creatinine Ratio 14.7 (10-20); Calcium 8.5 mg/dl (8.5-10.1); Est GFR (African American) 44.6; Est GFR (Non-African American) 38.5; Magnesium 1.7 mg/dl (1.8-2.4); Potassium 3.7 mmol/L (3.5-5.1)
--- NOTE | 2019-06-04 03:26 | Gastroenterology Progress Note ---
Date of Service June 04, 2019 Assessment & Plan (1) Esophageal spasm: Patient with symptoms consistent with esophageal spasm as well as on barium esophagram. Calcium channel heaven initiated yesterday at a very low dose, certainly we have room for up titration, continue with that trial of therapy throughout the day today. Can tentatively make n.p.o. after midnight and can evaluate for EGD tomorrow. I did alert her that I am not sure how helpful it would be in the setting of spasm. Please evaluate for other causes of nausea such as metabolic and including urinary tract infection please Subjective Patient states she did not want to eat dinner last night, did tolerate some food. Feels nauseated Physical Exam Physical Exam: Frail appearing Thin skin Crackles at bilateral bases Regular rate Normal active soft nontender nondistended Results & Data Vital Signs (Past 12 Hours) Vital Signs Temp Pulse Resp BP Pulse Ox 06/04/19 02:37 70 20 91 06/03/19 23:51 36.9 C 65 20 149/81 H 90 06/03/19 23:40 78 20 95 06/03/19 21:20 78 173/91 H
[2019-06-04] MEDS ORDERED: POTASSIUM CHLORIDE 20 MEQ TABCR PO ONE (04:30)
[2019-06-04] MEDS: LEVALBUTEROL 1.25MG/0.5ML NEB INH SCH ×3 (06:48→19:21)
[2019-06-04] MEDS: IPRATROPIUM BROMIDE NEB SOLN 0.02% 2.5 ML VIAL INH SCH ×3 (06:48→19:23)
--- NOTE | 2019-06-04 07:56 | XRay Report ---
XR chest 1V portable HISTORY: 78 years-old Female low o2 acute acute hypoxia COMPARISON: Chest radiograph 05/27/2019, CTA of the chest 2016. TECHNIQUE: Portable AP view of the chest FINDINGS: Cardiac silhouette is enlarged, unchanged. Pulmonary vascular congestion. Severe emphysema with chron ic interstitial coarsening. There are mildly worsened bilateral interstitial opacities. Small pleural effusions with right greater than left bibasilar opacities. Hiatal hernia. Degenerative changes of t he shoulders and spine. IMPRESSION: 1. Severe emphysema with chronic fibrosis. 2. Cardiomegaly with pulmonary vascular congestion and progressively worsened interstitial opacities suggestive of pulmonary edema. 3. Small pleural effusions with right greater than left bibasilar opacities suggestive of atelectasis or pneumonitis. 4. Hiatal hernia. The above report was generated using voice recognition software. It may contain grammatical, syntax o r spelling errors. Electronically signed by: Hemanth Marcano M.D. 06/04/2019 7:55 AM
[2019-06-04] MEDS ORDERED: XOPENEX/ATROVENT 1.25mg/0.5MG NEB COMBO NEB SCH (08:00)
[2019-06-04] MEDS: POTASSIUM CHLORIDE 20 MEQ TABCR PO SCH ×2 (08:17→08:21)
[2019-06-04] MEDS: DOXYCYCLINE HYCLATE 100 MG CAP PO SCH (08:17)
[2019-06-04] MEDS: CYANOCOBALAMIN 500 MCG TABLET (VITAMIN B-12) PO SCH (08:17)
[2019-06-04] MEDS: predniSONE 10 MG TABLET PO SCH (08:17)
[2019-06-04] MEDS: PANTOprazole 40 MG TAB PO SCH ×2 (08:17→20:37)
[2019-06-04] MEDS: CARVEDILOL 6.25 MG TAB PO SCH ×2 (08:17→20:37)
[2019-06-04] MEDS: INCRUSE ELLIPTA~ORDER AWAITING ACTION SCH ×3 (08:18→15:34)
[2019-06-04] MEDS: MONTELUKAST SODIUM 10 MG TABLET PO SCH (08:18)
[2019-06-04] MEDS: dilTIAZem HCL 30 MG TAB PO SCH ×2 (08:18→20:38)
[2019-06-04] MEDS: SACCHAROMYCES BOULARDII 250 MG CAP PO SCH ×2 (08:18→20:38)
[2019-06-04] MEDS: PIPERACILLIN/TAZOBACTAM 3.375 GM in DEXTROSE 5% 100 ML IV SCH ×2 (08:18→15:28)
[2019-06-04] MEDS: HEPARIN SOD 5,000 UNIT/0.5 ML VIAL SQ SCH ×3 (08:19→20:39)
[2019-06-04] MEDS: FLUTICASONE PROPIONATE NA SPR 16 GM BTL SCH (08:19)
[2019-06-04 12:28] LABS: Appearance Urine Clear (Clear); Bacteria Urine Automated Negative (Negative); Bilirubin Urine Negative (Negative); Blood Urine Negative (Negative); Color Urine Yellow; Epithelial Cell Urine Auto >30 /lpf (0-5); Glucose Urine UA Negative (Negative); Ketones Urine Negative (Negative); Leukocyte Esterase Urine Trace (Negative); Nitrite Urine Negative (Negative); Protein Urine Negative (Negative); RBC Urine Automated 0-4 /hpf (0-4); Specific Gravity Urine 1.016 (1.000-1.030); Urobilinogen Urine Negative (Negative)
--- NOTE | 2019-06-04 13:30 | XRay Report ---
XR chest 1V portable HISTORY: 78 years-old Female ff up pulmonary edema acute shortness of breath with pulmonary edema COMPARISON: Chest radiograph 06/04/2019, CTA chest 11 2016 TECHNIQUE: Portable AP view of the chest FINDINGS: Cardiac silhouette is enlarged, unchanged. Severe the with chronic fibrotic changes. Decreased pulmon sandra edema. Small pleural effusions with bibasilar opacities. No pneumothorax or definite overt pulmon sandra edema. Hiatal hernia. Ill-defined opacities about the lateral left midlung redemonstrated. Sugges tion changes of the shoulders and spine. IMPRESSION: 1. Cardiomegaly with decreased pulmonary edema. 2. Small bilateral pleural effusions with persistent bibasilar opacities. 3. Ill-defined opacities about the lateral left midlung may reflect fibrosis versus superimposed pneu monitis. Attention at follow-up recommended. The above report was generated using voice recognition software. It may contain grammatical, syntax o r spelling errors. Electronically signed by: Hemanth Marcano M.D. 06/04/2019 1:28 PM
--- NOTE | 2019-06-04 16:41 | Hospitalist Progress Note ---
Date of Service June 04, 2019 Assessment & Plan (1) Diverticulitis: 78-year-old female with history of chronic respiratory failure, COPD, lumbar compression fracture, CKD stage III presenting with bilateral buttock pain. CT abdomen /pelvis shows sigmoid diverticulitis Remains afebrile continue Zosyn Anticipate to transition to Augmentin on discharge Has been having loose/soft stools C. difficile test negative Imodium ordered. Diarrhea resolved Will need total of 10-day course of antibiotics, and to transition to Augmentin on discharge day (2) Dysphagia: Secondary to esophageal spasms Follows with GI, last visit 2015 Barium swallow ordered: IMPRESSION: . 1. Severe esophageal dysmotility and/or spasm distally. 2. Hiatal hernia. 3. Mild gastroesophageal reflux. 4. Barium tablet did not pass the region of spasm of the distal esophagus. Speech therapist consulted: Recommend slippery soft diet GI consulted, initially, the patient has declined inpatient EGD and would like to pursue this as an outpatient Patient the next day had an episode of vomiting with her breakfast Discussed EGD with patient again and she is agreeable to have the procedure performed in the hospital Discussed with GI service, Dr. Bullock, he recommends trial of diltiazem 30 mg p.o. twice daily at this point If without improvement, may consider EGD Today, no problems with swallowing food or medications Continue diltiazem 30 mg p.o. twice daily, will keep n.p.o. after midnight pending evaluation of GI service tomorrow for possible EGD Continue slippery diet, speech therapy recommendations (3) Hypertension: Blood pressure still not at goal overnight Amlodipine increased to 5 mg p.o. daily Diltiazem 30 mg twice daily ordered for esophageal spasm, will DC amlodipine at this time Continue to monitor (4) Lumbar compression fracture: chronic CT of abdominal pelvis shows no acute change cont pain control PT/OT (5) Large hiatal hernia: Protonix 40 mg twice daily, will need to be closely followed (6) Pulmonary edema: Likely secondary to IV fluids, IV antibiotics Chest x-ray: Positive pulmonary edema, pulmonary fibrosis, emphysema Given Lasix 40 mg IV 1 dose, Solu-Medrol IV 1 dose with improvement On 5 L of oxygen by nasal cannula, continue to wean off to baseline 2 L No signs and symptoms of pneumonia Continue to monitor (7) CKD (chronic kidney disease), stage III: cr at baseline follow CODE STATUS : FULL CODE DVT prophylaxis: Heparin every 12 hours DISPOSITION Anticipate discharge to home when medically stable Case discussed with patient in detail and at length, she is understanding, agreeable and comfortable with plan of care Subjective Follow-up for acute diverticulitis, dysphagia Events overnight noted, Lasix given, patient reports increased urination through the night and this morning Seen sitting up in bed, having her lunch next Comfortable, nondistressed States she feels better today No problems with swallowing food or medications today No abdominal pain Denies headache, dizziness, chest pain, shortness of breath, cough, fevers chills, sputum production No other symptoms Review of Systems Review of Systems: All systems reviewed & are unremarkable except as noted in HPI & below Physical Exam Physical Exam: General- oriented x 3, not in distress, speaks in sentences with no effort or accessory muscle use Eyes- anicteric Neck- no JVD Lungs- clear breath sounds bilaterally, no crackles, no wheezing on auscultation Heart- normal rate, regular rhythm; no murmurs Abdomen- normal bowel sounds, nondistended, soft, nontender Extremities- no pretibial edema, no calf tenderness Neuro- alert, oriented x 3; no gross focal neurologic deficits Skin- warm & dry Results & Data Vital Signs (Past 12 Hours) Vital Signs Temp Pulse Pulse Resp BP Pulse Ox 06/04/19 16:00 36.8 C 64 18 162/94 H 97 06/04/19 14:02 18 93 06/04/19 08:00 36.9 C 67 22 145/89 H 95 06/04/19 06:50 79 18 95 Laboratory Results Laboratory Results - last 24 hr 06/04/19 06/04/19 06/04/19 02:45 02:45 02:45 WBC 15.18 H RBC 3.54 L Hgb 10.7 L Hct 32.4 L MCV 91.5 MCH 30.2 MCHC 33.0 RDW Std Deviation 51.3 H RDW Coeff of Carmencita 15.2 H Plt Count 196 MPV 11.4 H Immature Gran % (Auto) 0.5 Neut % (Auto) 70.1 Lymph % (Auto) 14.1 [place] % (Auto) 12.4 Eos % (Auto) 2.7 Baso % (Auto) 0.2 Immature Gran # (Auto) 0.07 H Neut # (Auto) 10.65 H Lymph # (Auto) 2.14 [place] # (Auto) 1.88 H Eos # (Auto) 0.41 Baso # (Auto) 0.03 APTT 33.8 H PTT Ratio 1.2 ABG pH ABG pCO2 ABG pO2 ABG HCO3 ABG O2 Saturation ABG Base Excess Grant Test Barometric Pressure Oxygen Given Sodium 139 Potassium 3.7 Chloride 104 Carbon Dioxide 29 Anion Gap 6.0 BUN 20 H Creatinine 1.33 H Est Cr Clr Drug Dosing 28.0 Est GFR ( Amer) 44.6 Est GFR (Non-Af Amer) 38.5 BUN/Creatinine Ratio 14.7 Glucose 95 Calcium 8.5 Magnesium 1.7 L Urine Color Urine Appearance Urine pH Ur Specific [place] Urine Protein Urine Glucose (UA) Urine Ketones Urine Blood Urine Nitrite Urine Bilirubin Urine Urobilinogen Ur Leukocyte Esterase Urine WBC (Auto) Urine RBC (Auto) U Hyaline Cast (Auto) U Epithel Cells (Auto) Urine Bacteria (Auto) 06/04/19 06/04/19 02:52 12:02 WBC RBC Hgb Hct MCV MCH MCHC RDW Std Deviation RDW Coeff of Carmencita Plt Count MPV Immature Gran % (Auto) Neut % (Auto) Lymph % (Auto) [place] % (Auto) Eos % (Auto) Baso % (Auto) Immature Gran # (Auto) Neut # (Auto) Lymph # (Auto) [place] # (Auto) Eos # (Auto) Baso # (Auto) APTT PTT Ratio ABG pH 7.43 ABG pCO2 39 ABG pO2 62 L ABG HCO3 25 H ABG O2 Saturation 91.3 ABG Base Excess 0.5 Grant Test POS Barometric Pressure 730.2 Oxygen Given 5 LITERS Sodium Potassium Chloride Carbon Dioxide Anion Gap BUN Creatinine Est Cr Clr Drug Dosing Est GFR ( Amer) Est GFR (Non-Af Amer) BUN/Creatinine Ratio Glucose Calcium Magnesium Urine Color Yellow Urine Appearance Clear Urine pH 5.0 Ur Specific [place] 1.016 Urine Protein Negative Urine Glucose (UA) Negative Urine Ketones Negative Urine Blood Negative Urine Nitrite Negative Urine Bilirubin Negative Urine Urobilinogen Negative Ur Leukocyte Esterase Trace H Urine WBC (Auto) 1-5 Urine RBC (Auto) 0-4 U Hyaline Cast (Auto) 1-5 U Epithel Cells (Auto) >30 H Urine Bacteria (Auto) Negative
[2019-06-05] MEDS: PIPERACILLIN/TAZOBACTAM 3.375 GM in DEXTROSE 5% 100 ML IV SCH ×2 (00:12→07:48)
[2019-06-05] MEDS: INCRUSE ELLIPTA~ORDER AWAITING ACTION SCH ×3 (00:39→11:30)
[2019-06-05] MEDS: IPRATROPIUM BROMIDE NEB SOLN 0.02% 2.5 ML VIAL INH SCH ×3 (02:05→13:56)
[2019-06-05] MEDS: LEVALBUTEROL 1.25MG/0.5ML NEB INH SCH ×3 (02:06→13:56)
[2019-06-05] MEDS: FLUTICASONE PROPIONATE NA SPR 16 GM BTL SCH (07:44)
[2019-06-05] MEDS: dilTIAZem HCL 30 MG TAB PO SCH (07:45)
[2019-06-05] MEDS: PANTOprazole 40 MG TAB PO SCH (07:45)
[2019-06-05] MEDS: predniSONE 10 MG TABLET PO SCH (07:45)
[2019-06-05] MEDS: CARVEDILOL 6.25 MG TAB PO SCH (07:45)
[2019-06-05 08:15] LABS: BUN Creatinine Ratio 18.4 (10-20); Calcium 9.4 mg/dl (8.5-10.1); Creatinine Clr Calc Pharmacy 22.3 ml/min; Est GFR (African American) 33.9; Est GFR (Non-African American) 29.2; Potassium 3.8 mmol/L (3.5-5.1)
[2019-06-05] MEDS: CYANOCOBALAMIN 500 MCG TABLET (VITAMIN B-12) PO SCH (11:28)
[2019-06-05] MEDS: POTASSIUM CHLORIDE 20 MEQ TABCR PO SCH (11:29)
[2019-06-05] MEDS: MONTELUKAST SODIUM 10 MG TABLET PO SCH (11:29)
[2019-06-05] MEDS: SACCHAROMYCES BOULARDII 250 MG CAP PO SCH (11:29)
[2019-06-05] MEDS: HEPARIN SOD 5,000 UNIT/0.5 ML VIAL SQ SCH (11:30)
--- NOTE | 2019-06-05 12:56 | Gastroenterology Progress Note ---
Date of Service June 05, 2019 Assessment & Plan (1) Esophageal spasm: Pt is a 78y/o female seen for esophageal spasms, evident on barium esophagram. Improved symptoms after started Cardizem 30mg BID. - Continue Cardizem at currently dose but can titrate to TID if symptoms recur. - No plans for EGD - Outpt f/u w Dr. Back to consider repeat EGD w Botox vs med management if symptoms recure. Supervising Physician Co-Signing Physician Notes Attending attestation I have seen, examined this patient, and agree with the findings and above by our mid-level provider Ms.Leonie Hanley, with the following additions Swallowing well with addition of dilt Outpt f/u Recall GI if needed Subjective Pt is eating and swallowing pills better w/o chocking or pain,denies n/v, abd pain Review of Systems Review of Systems: All systems reviewed & are unremarkable except as noted in HPI & below Physical Exam Constitutional: WD/WN, vitals as above well groomed, cooperative and comfortable Eyes: PERRL, conjunctivae normal, anicteric sclerae ENMT: external ear and nose normal, oropharynx normal Respiratory: normal respiratory effort, lungs clear to auscultation Cardiovascular: RRR, no murmur, no edema Gastrointestinal (Abdomen): normal bowel sounds, soft, nontender, no hepatosplenomegaly Skin: no rashes, warm and dry no jaundice Psychiatric: A+Ox3, euthymic affect Lymphatic: no lymphedema Results & Data Vital Signs (Past 12 Hours) Vital Signs Temp Pulse Pulse Resp BP Pulse Ox 06/05/19 07:32 36.7 C 62 18 136/68 95 06/05/19 06:57 67 16 90
[2019-06-05] MEDS ORDERED: FUROSEMIDE 20 MG in SYRINGE 0 ML IV ONE (13:49)
[2019-06-05] MEDS ORDERED: XOPENEX/ATROVENT 0.63mg/0.5MG NEB COMBO NEB STA (13:49)
[2019-06-05] MEDS ORDERED: methylPREDNISolone 20 MG in SYRINGE 0 ML IV STA (14:01)
[2019-06-05] MEDS ORDERED: IPRATROPIUM BROMIDE NEB SOLN 0.02% 2.5 ML VIAL INH STA (14:04)
[2019-06-05] MEDS ORDERED: LEVALBUTEROL HCL 0.63 MG/3 ML NEB NEB STA (14:04)
--- NOTE | 2019-06-05 14:08 | Hospitalist Progress Note ---
Date of Service June 05, 2019 Assessment & Plan (1) Diverticulitis: 78-year-old female with history of chronic respiratory failure, COPD, lumbar compression fracture, CKD stage III presenting with bilateral buttock pain. CT abdomen /pelvis shows sigmoid diverticulitis Remains afebrile continue Zosyn Anticipate to transition to Augmentin on discharge Has been having loose/soft stools C. difficile test negative Imodium ordered. Diarrhea resolved Will need 3 more days of Augmentin 500 mg twice daily x3 days to complete 10-day course of antibiotics Follow-up with primary care physician Dr. Chong on , June 08, 2019 (2) Dysphagia: Secondary to esophageal spasms Follows with GI, last visit 2015 Barium swallow ordered: IMPRESSION: . 1. Severe esophageal dysmotility and/or spasm distally. 2. Hiatal hernia. 3. Mild gastroesophageal reflux. 4. Barium tablet did not pass the region of spasm of the distal esophagus. Speech therapist consulted: Recommend slippery soft diet GI consulted, initially, the patient has declined inpatient EGD and would like to pursue this as an outpatient Patient the next day had an episode of vomiting with her breakfast Discussed EGD with patient again and she is agreeable to have the procedure performed in the hospital Discussed with GI service, Dr. Bullock, he recommends trial of diltiazem 30 mg p.o. twice daily After initiation of diltiazem, dysphagia improved, no problems with swallowing food or medications Continue diltiazem 30 mg p.o. twice daily Continue slippery diet, speech therapy recommendations If without improvement, may consider EGD as an outpatient Follow-up with GI in 2 weeks (3) Hypertension: Blood pressure elevated while admitted, up to systolic 190s Initially amlodipine was started, transition to diltiazem for esophageal spasms Diltiazem 30 mg twice daily ordered, blood pressure improved, BP 136/68 on discharge day Continue to monitor blood pressure as an outpatient (4) Large hiatal hernia: Protonix 40 mg twice daily, will need to be closely followed (5) Pulmonary edema: Likely secondary to IV fluids, IV antibiotics Chest x-ray: Positive pulmonary edema, pulmonary fibrosis, emphysema Given Lasix 40 mg IV 1 dose, Solu-Medrol IV 1 dose with improvement Two-step exercise test performed, patient will need 4 L of nasal cannula with ambulation, 3 L at rest Ordered Solu-Medrol 20 mg IV 1 dose, Lasix 20 mg IV 1 dose, and neb treatment prior to discharge No signs and symptoms of pneumonia Continue to monitor and follow-up with PCP this coming (6) CKD (chronic kidney disease), stage III: Creatinine baseline is 1.4-1.7 Creatinine on discharge today 1.67 Please repeat basic metabolic profile on follow-up with primary care physician this CODE STATUS : FULL CODE DVT prophylaxis: Heparin every 12 hours given DISPOSITION Discharge to home with home health services today Follow-up with primary care physician on , June 08, 2019 Dr. Chong 10:45 AM Follow-up with GI clinic in 2 weeks Subjective ff up for acute diverticulitis, dysphagia Seen sitting up in bed, having lunch, not in distress, comfortable States she feels much improved today, feels fine overall Denies shortness of breath, coughing, phlegm, fevers or chills No nausea or vomiting, tolerating her pills and food since yesterday quite well denies abdominal pain, problems with urination or bowel movement Denies any symptoms States she is ready and requesting for discharge today Review of Systems Review of Systems: All systems reviewed & are unremarkable except as noted in HPI & below Physical Exam Physical Exam: General- oriented x 3, not in distress, speaks in sentences with no effort or accessory muscle use Eyes- anicteric Neck- no JVD Lungs-faint wheeze bilateral bases right more than left, good air entry bilaterally, no crackles Heart- normal rate, regular rhythm; no murmurs Abdomen- normal bowel sounds, nondistended, soft, nontender Extremities- no pretibial edema, no calf tenderness Neuro- alert, oriented x 3; no gross focal neurologic deficits Skin- warm & dry Results & Data Vital Signs (Past 12 Hours) Vital Signs Temp Pulse Pulse Resp BP Pulse Ox Pulse Ox 06/05/19 13:26 89 26 H 91 06/05/19 07:32 36.7 C 62 18 136/68 95 06/05/19 06:57 67 16 90 Laboratory Results Laboratory Results - last 24 hr 06/05/19 07:27 Sodium 140 Potassium 3.8 Chloride 103 Carbon Dioxide 31 Anion Gap 7.0 BUN 31 H D Creatinine 1.67 H D Est Cr Clr Drug Dosing 22.3 Est GFR ( Amer) 33.9 Est GFR (Non-Af Amer) 29.2 BUN/Creatinine Ratio 18.4 Glucose 79 Calcium 9.4
--- NOTE | 2019-06-06 18:49 | Discharge Summary ---
Date of Service June 06, 2019 Admission HPI Per Admitting Provider CHIEF COMPLAINT: Fever, back pain. HISTORY OF PRESENT ILLNESS: This is a 78-year-old female with past medical history significant for COPD, interstitial lung disease, pulmonary hypertension, chronic respiratory failure on oxygen all the time, diastolic CHF, hypertension, GERD, chronic kidney stage III, generalized osteoarthritis, rheumatoid arthritis involving multiple joints, statin intolerance, history of vertebral fracture, long-term use of steroids, presents with severe back pain in both the buttock regions. The patient was seen in the ER on 05/27/2019 with shortness of breath, cough with some fever. She was treated with IV steroids and started on Levaquin and patient felt better and she wanted to go home. She was discharged on p.o. Levaquin and she was put on prednisone 60mg daily for 4 days. Generally, she is chronically on prednisone 10 mg daily. She says her shortness of breath and cough improved, but she still gets short of breath on exertion, and still has some dry cough. Denies any fever or chills. 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 She ambulates without any help, but she holds on things in the house. Last night, she could not sleep well and she was feeling weak and tired and today she felt a lot of pain in both the buttock regions, having difficulty ambulating, so she came to the ER. She has history of compression fractures, but imaging study showed nothing new, but CAT scan of the abdomen and pelvis is showing possible mild acute sigmoid diverticulitis. The patient is somewhat constipated, but denies any black or blood in the stools. She says since last couple of months she is having lower abdominal pain after she eats. Denies any nausea or vomiting. Normal bladder movements. No burning micturition. She says she had some swelling in the right leg but that has improved now. Denies any headaches, no blurred vision, no runny nose, no sore throat. She had some difficulty swallowing. She has to be careful with the chicken and whenever it gets stuck in throat she drinks tea to gulp it down. Currently, resting comfortably and hemodynamically stable. She was given some pain medications in the ER and currently she does not have any pain. ALLERGIES: ZANTAC, ESTROGEN, LOVASTATIN, ZOLEDRONIC ACID, BACTRIM, OMEPRAZOLE, QUINOLONES CAUSES ITCHING IN ARM BUT HAS HAD IN THE PAST WITHOUT ANY REACTION. PAST MEDICAL HISTORY: As mentioned above. PAST SURGICAL HISTORY: Colonoscopy, EGD with biopsy, injection of the eye, laparoscopic cholecystectomy with cholangiography, cataract surgeries, total hysterectomy. MEDICATIONS: The patient is on Flonase 2 sprays daily, Singulair 10 mg p.o. daily, hydrocodone/acetaminophen 5/325 mg one tablet p.o. q. 6 hours p.r.n., doxycycline rescue kit, prednisone 10 mg p.o. daily, Advair Diskus 250/50 one puff b.i.d., Incruse Ellipta 62.5 mcg inhalation 1 dose daily, Lidoderm patch daily, Ativan 0.5-1 mg p.r.n., Protonix 40 mg p.o. b.i.d., Coreg 6.25 mg p.o. b.i.d., azithromycin on Wednesday, Wednesday and Wednesday for COPD maintenance, Lasix 20 mg p.o. daily p.r.n., potassium chloride 20 mEq p.o. daily, mag citrate p.r.n., oxygen 2 liters 24 hours a day, MiraLax 17 grams p.o. daily p.r.n., cyanocobalamin 500 mcg p.o. daily, DuoNebs every 6 hours p.r.n., albuterol 2 puffs every 4 hours p.r.n. FAMILY HISTORY: Significant for father had glaucoma and lung disorder. Mother had hypertension and arthritis. Brother has arthritis and has hypertension. 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 Former smoker, quit in 2012, smoked average 1 pack a day for 50 years. No alcohol use, no drug use. REVIEW OF SYMPTOMS: As per HPI. Rest of review of systems negative. Admission Exam Per Admitting Provider PHYSICAL EXAMINATION: GENERAL: The patient is old and frail, not in acute distress. VITAL SIGNS: Temperature 36.6, pulse 65, respiratory rate 18, blood pressure 114/66, oxygen 97% on 3 liters. HEENT: No pallor, no icterus. Pupils equal, round, and reactive to light. NECK: No JVD, no neck masses, no carotid bruit. CARDIOVASCULAR: S1, S2 heard, regular rate and rhythm, no murmur, no gallop. RESPIRATORY SYSTEM: Normal AP diameter. No accessory muscle use. No wheezing, no crackles. ABDOMEN: Soft, bowel sounds present. Nontender. No distention. CENTRAL NERVOUS SYSTEM: Cranial nerves II-XII grossly intact. Nonfocal. EXTREMITIES: Trace pedal edema present, more on the right side. Principal Diagnosis ACUTE DIVERTICULITIS, DYSPHAGIA Discharge Exam General- oriented x 3, not in distress, speaks in sentences with no effort or accessory muscle use Eyes- anicteric Neck- no JVD Lungs-faint wheeze bilateral bases right more than left, good air entry bilaterally, no crackles Heart- normal rate, regular rhythm; no murmurs Abdomen- normal bowel sounds, nondistended, soft, nontender Extremities- no pretibial edema, no calf tenderness Neuro- alert, oriented x 3; no gross focal neurologic deficits Skin- warm & dry Discharge Data Allergies Allergy/AdvReac Type Severity Reaction Status Date / Time ranitidine Allergy Intermediate HIVES. Verified 05/29/19 22:10 Estrogens Allergy Mild IRREGULAR Verified 05/29/19 22:10 HEART RATE estrogens, conjugated Allergy Mild UNKNOWN Verified 05/29/19 22:10 lovastatin Allergy Unknown UNKNOWN Verified 05/29/19 22:10 zoledronic acid AdvReac Intermediate MUSCLE PAIN Verified 05/29/19 22:10 Bactrim AdvReac Mild NAUSEA/VOMI Verified 07/09/17 19:19 TING omeprazole AdvReac Mild ABD PAIN Verified 05/29/19 22:10 Quinolones AdvReac Mild 11/28/08--ITCHY Verified 05/29/19 22:10 ARM, HAS HAD IN PAST W/O RXN sulfamethoxazole AdvReac Mild NAUSEA/VOMI Verified 05/29/19 22:10 TING trimethoprim AdvReac Mild NAUSEA/VOMI Verified 05/29/19 22:10 TING Consultations 05/29/19 23:02 ED Decision to Admit Stat 05/30/19 02:37 Consult Case Management - Discharge Planning Routine 05/30/19 08:00 Consult General Surgery Routine 06/02/19 10:34 Consult Gastroenterology Routine Ordered Studies 05/29/19 20:29 CT abd pelvis wo con Stat CT OF THE ABDOMEN AND PELVIS WITHOUT CONTRAST CLINICAL HISTORY: Lower back pain, bilateral hip pain, OA COMPARISON STUDY: CT of the abdomen and pelvis March 10, 2011. Abdominal series May 24, 2017. TECHNIQUE: Axial images of the abdomen and pelvis were obtained without IV contrast. Images were reviewed in the axial, sagittal, and coronal planes. Automated exposure control was utilized for the study. A dose lowering technique was utilized adhering to the principles of ALARA. FINDINGS: A moderate sized hiatal hernia is noted. No pneumatosis, free air or portal venous gas is present. Evaluation of the abdomen and pelvis is suboptimal on this unenhanced exam. Emphysema is noted within the lower lungs with mild interlobular septal thickening. Unenhanced images of liver, spleen, adrenal glands and pancreas are unremarkable. There is no biliary ductal dilatation status post cholecystectomy. There is no hydronephrosis. A suspected cyst within lower pole of the right kidney is noted. There is extensive colonic diverticulosis. There is mild wall thickening with minimal adjacent infiltration of the sigmoid colon. There is no free air or abscess. Numerous lower thoracic and lumbar spine compression fractures are noted. These are age-indeterminate but probably old. No lymphadenopathy. There is evidence for pelvic floor relaxation. IMPRESSION: 1. Extensive sigmoid diverticulosis with mild wall thickening and possible minimal pericolonic infiltration. The findings are probably chronic however mild acute sigmoid diverticulitis cannot be excluded. No free air or abscess. No bowel obstruction. 2. Numerous lower thoracic and lumbar spine compression fractures which are age- indeterminate but probably old. 05/30/19 08:44 US venous doppler LE Urgent IMPRESSION: No evidence of lower extremity DVT. 06/02/19 09:00 FL barium swallow Routine Hospital Course (1) Diverticulitis: 78-year-old female with history of chronic respiratory failure, COPD, lumbar compression fracture, CKD stage III presenting with bilateral buttock pain. CT abdomen /pelvis shows sigmoid diverticulitis given Zosyn IV x 7 days Remains afebrile, abdominal pain resolved Will need 3 more days of Augmentin 500 mg twice daily x3 days to complete 10-day course of antibiotics Follow-up with primary care physician Dr. Chong on , June 08, 2019 Has been having loose/soft stools C. difficile test negative Imodium ordered. Diarrhea resolved (2) Dysphagia: Secondary to esophageal spasms Follows with GI, last visit 2015 Barium swallow ordered: IMPRESSION: . 1. Severe esophageal dysmotility and/or spasm distally. 2. Hiatal hernia. 3. Mild gastroesophageal reflux. 4. Barium tablet did not pass the region of spasm of the distal esophagus. Speech therapist consulted: Recommend slippery soft diet GI consulted, initially, the patient has declined inpatient EGD and would like to pursue this as an outpatient Patient the next day had an episode of vomiting with her breakfast Discussed EGD with patient again and she is agreeable to have the procedure performed in the hospital Discussed with GI service, Dr. Bullock, he recommends trial of diltiazem 30 mg p.o. twice daily After initiation of diltiazem, dysphagia improved, no problems with swallowing food or medications Continue diltiazem 30 mg p.o. twice daily Continue slippery diet, speech therapy recommendations If without improvement, may consider EGD as an outpatient Follow-up with GI in 2 weeks (3) Hypertension: Blood pressure elevated while admitted, up to systolic 190s Initially amlodipine was started, transitioned to diltiazem for esophageal spasms Diltiazem 30 mg twice daily ordered, blood pressure improved, BP 136/68 on discharge day Continue to monitor blood pressure as an outpatient (4) Large hiatal hernia: Protonix 40 mg twice daily, will need to be closely followed (5) Pulmonary edema: Likely secondary to IV fluids, IV antibiotics Chest x-ray: Positive pulmonary edema, pulmonary fibrosis, emphysema Given Lasix 40 mg IV 1 dose, Solu-Medrol IV 1 dose with improvement Two-step exercise test performed, patient will need 4 L of nasal cannula with ambulation, 3 L at rest Ordered Solu-Medrol 20 mg IV 1 dose, Lasix 20 mg IV 1 dose, and neb treatment prior to discharge No signs and symptoms of pneumonia Continue to monitor and follow-up with PCP this coming (6) CKD (chronic kidney disease), stage III: Creatinine baseline is 1.4-1.7 Creatinine on discharge today 1.67 Please repeat basic metabolic profile on follow-up with primary care physician this DISPOSITION Discharge to home with home health services Follow-up with primary care physician on May Dr. Chong 10:45 AM Follow-up with GI clinic in 2 weeks Total Time Total Time Spent Total Time Spent (In Minutes): 50 mins Discharge Plan Discharge Items Patient Disposition: Home - Home Health Services Reason For Visit: BACK PAIN, WEAKNESS Discharge Diagnosis: ACUTE DIVERTICULITIS, ESOPHAGEAL SPASMS Discharge Goals: Diagnostic testing and Therapeutic intervention Activity: As commented below Activity Comment: Resume activity gradually as tolerated, use 4 L of oxygen while ambulating Lifting: Wait until after follow-up appointment Exercise/Sports: Wait until after follow-up appointment Driving/Machine Use Comment: No driving until reevaluation by primary care physician Non-emergency contact: Primary Care Provider Call non-emergency contact if: you have any medication questions, your symptoms worsen, your pain is not controlled, your pain is worsening and you have a fever Follow-up/Referrals: Javy Chong MD [Primary Care Provider] - 06/08/19 10:45 am Diet: Heart Healthy Diet Comment: Slippery diet Addtl Provider Instructions: Please review your new medication list and follow instructions carefully. Please call your primary care physician or return to the ER immediately if with worsening of symptoms, Increasing shortness of breath/wheezing, cough, sputum production, fevers or chills, leg swelling, abdominal pain, difficulty with swallowing, nausea or vomi ting. Do not take pain medications under the class of NSAIDs including ibuprofen, naproxen, etc. Always stay well-hydrated. Use 4 L of oxygen by nasal cannula while ambulating and 3 L while resting. Please follow speech therapy recommendations: Avoid foods that are dry, thick, pasty, doughy. Add condiments to foods to keep them moist. Aspiration reflux precautions: Alternate solids and liquids Single bites/small sips/slow rate Always be upright when having meals, at least 30 minutes after Small frequent meals Prescriptions: New diltiazem HCl 30 mg Tablet 30 mg PO BID 30 Days Qty: 60 RF: 2 amoxicillin-pot clavulanate [Augmentin] 500-125 mg tablet 1 tab PO BID 3 Days Qty: 6 RF: 0 Continued fluticasone propion-salmeterol [Wixela Inhub] 250-50 mcg/dose blister with device 1 inh inhalation BID RF: 0 prednisone 10 mg tablet 10 mg PO DAILY RF: 0 albuterol sulfate [ProAir HFA] 90 mcg/actuation Hfa Aerosol Inhaler 2 puff INHALATION Q4H PRN (Reason: Cough/SOB or Wheezing) RF: 0 prednisone 20 mg tablet See Rx Instructions .ROUTE .COMPLEX PRN (Reason: COPD Rescue) RF: 0 lidocaine [Lidoderm] 5 % adhesive patch,medicated 1 patch TOP DAILY PRN (Reason: Pain) RF: 0 carvedilol 6.25 mg tablet 6.25 mg PO BID RF: 0 azithromycin 250 mg tablet 250 mg PO 3XWK RF: 0 hydrocodone-acetaminophen 5-325 mg tablet 1 tab PO Q6H PRN (Reason: Pain, Severe) RF: 0 cyanocobalamin (vitamin B-12) [Vitamin B-12] 500 mcg Tablet 500 mcg PO DAILY RF: 0 furosemide 20 mg Tablet 20 mg PO DAILY PRN (Reason: Edema) RF: 0 lorazepam 1 mg Tablet 0.5 - 1 mg PO Q8H PRN (Reason: Anxiety) RF: 0 fluticasone propionate 50 mcg/actuation spray,suspension 2 spray Intranasal DAILY RF: 0 Incruse Ellipta 62.5 mcg/actuation blister with device 1 inh Inhalation DAILY RF: 0 nystatin 100,000 unit/mL Suspension 5 ml PO QID PRN (Reason: Thrush) RF: 0 polyethylene glycol 3350 17 gram Powder In Packet 17 g PO DAILY PRN (Reason: Constipation) RF: 0 pantoprazole 40 mg tablet,delayed release (DR/EC) 40 mg PO BID RF: 0 potassium chloride 20 mEq Tablet Extended Release 20 meq PO DAILY RF: 0 magnesium citrate Solution 120 ml PO DAILY PRN (Reason: Severe Constipation) RF: 0 ipratropium-albuterol 0.5 mg-3 mg(2.5 mg base)/3 mL Solution For Nebulization 3 ml INHALATION Q6H PRN (Reason: Cough/SOB or Wheezing) RF: 0 montelukast 10 mg tablet 10 mg PO DAILY RF: 0 Florastor 250 mg capsule 250 mg PO BID Qty: 20 RF: 0 Discontinued doxycycline hyclate 100 mg capsule See Rx Instructions .ROUTE .COMPLEX PRN (Reason: COPD Rescue) RF: 0 Stand-Alone Forms: [facility] [place] Discharge Orders: Discharge Order (Routine); Ordered 06/05/19 Ordered By: Jean Locke Admission Data Admit Date/Time: 05/30/19 01:31 Attending Provider: Jean Locke Admit Provider: Axel Del Rio Primary Care Provider: Javy Chong Other Providers: Axel Del Rio ; Ramesh Connor John C. ; Yesi De La Garza ; Reese Dang Service: Medical Other Interventions: Discharge Summary Assessment (RN) Last Done: 06/05/19 14:55 DC Date/Time DO NOT enter until pt leaves facility: 06/05/19 17:00
== END 2019-06-05 17:00 | disposition home health service (06) | DRG 391 ==
LOC: ED 19:18 → 4E 05-30 01:31 → SUATTDRO 05-30 01:31 → 4E 05-30 01:52

== ENCOUNTER 2019-11-05 10:14 | Inpatient (IN) ==
[2019-11-05] MEDS ORDERED: SODIUM CHLORIDE 0.9% 500 ML IV ONE (10:57)
[2019-11-05 11:04] LABS: Basophils # (auto) 0.02 K/uL (0-0.2); Basophils % (auto) 0.2 %; Eosinophils # (auto) 0.13 K/uL (0-0.5); Hemoglobin 12.6 g/dL (12.0-16.0); Immature Granulocytes # (auto) 0.07 K/uL (0.00-0.02); Immature Granulocytes % (auto) 0.6 %; Lymphocytes # (auto) 3.35 K/uL (1.2-3.4); Lymphocytes % (auto) 26.9 %; Mean Corpuscular Hemoglobin 30.9 pg (25-34); Mean Corpuscular Hgb Conc 32.3 g/dL (32-36); Mean Corpuscular Volume 95.6 fL (80-100); Mean Platelet Volume 11.1 fL (7.4-10.4); Monocytes # (auto) 1.26 K/uL (0.11-0.59); Monocytes % (auto) 10.1 %; Neutrophils # (auto) 7.62 K/uL (1.4-6.5); Neutrophils % (auto) 61.2 %; Platelet Count 310 K/uL (130-400); RDW Coefficient of Variation 14.2 % (11.5-14.5); RDW Standard Deviation 49.9 fL (36.4-46.3); Red Blood Count 4.08 M/uL (4.2-5.4); White Blood Count 12.45 K/uL (4.8-10.8)
[2019-11-05 11:13] LABS: Alanine Aminotransferase 12 U/L (12-78); Albumin Level 3.1 gm/dl (3.4-5.0); Aspartate Aminotransferase 9 U/L (15-37); BUN Creatinine Ratio 13.9 (10-20); Blood Urea Nitrogen 20 mg/dl (7-18); Calcium 8.7 mg/dl (8.5-10.1); Carbon Dioxide 29 mmol/L (21-32); Chloride 102 mmol/L (98-107); Est GFR (African American) 40.9; Est GFR (Non-African American) 35.3; Glucose 84 mg/dl (70-99); Lipase 434 U/L (73-393); Potassium 3.6 mmol/L (3.5-5.1); Sodium 138 mmol/L (136-145)
[2019-11-05] MEDS ORDERED: DEXAMETHASONE SOD PHOSPHATE 10 MG in SYRINGE 0 ML IV STA (11:16)
[2019-11-05] MEDS ORDERED: ALBUT/IPRATROP 3MG/0.5MG NEB 3 ML VIAL NEB STA (11:16)
[2019-11-05 11:18] LABS: Albumin Globulin Ratio 0.8 (0.9-2); Alkaline Phosphatase 130 U/L (45-117); Bilirubin,Total 0.4 mg/dl (0.2-1); Globulin 3.8 gm/dl (2.5-4.0); Total Protein 6.9 gm/dl (6.4-8.2); Troponin I < 0.015 ng/ml (0-0.045)
--- NOTE | 2019-11-05 11:35 | XRay Report ---
XR chest 1V portable HISTORY: 79 years-old Female Chest Pain acute atypical chest pain COMPARISON: Chest radiograph 06/04/2019 TECHNIQUE: Portable AP view of the chest FINDINGS: Cardiac silhouette is enlarged, unchanged. Mild pulmonary vascular congestion without overt pulmonary edema. Chronic interstitial coarsening. No pneumothorax or large pleural effusion. Ill-defined opaci ties of the lateral left midlung are redemonstrated, possibly reflective of scarring or summation den sity with adjacent remote rib fractures. Mild bibasilar opacities with chronic costophrenic angle galina nting. Degenerative changes of the shoulders and spine. IMPRESSION: Chronic findings as above without acute process. The above report was generated using voice recognition software. It may contain grammatical, syntax o r spelling errors. Electronically signed by: Hemanth Marcano M.D. 11/05/2019 11:34 AM
[2019-11-05 12:05] LABS: Influenza A virus by PCR Neg for Influ A (Neg); Influenza B virus by PCR Neg for Influ B (Neg)
[2019-11-05] MEDS ORDERED: DOXYCYCLINE HYCLATE 100 MG in DEXTROSE 5% 100 ML IV STA (12:51)
--- NOTE | 2019-11-05 14:20 | History & Physical Report ---
Date of Service November 05, 2019 Assessment & Plan (1) Rheumatoid arthritis: Pt is 79 y/o F with PMH interstitial lung disease, COPD, on 2-3L oxygen via [place], pulmonary hypertension, diastolic heart failure, HTN, GERD, CKD III, RA presented to ER with complaint of generalized weakness, chronic bilateral shoulder pain. Possible arthritis flare -In ER patient given dexamethasone 10 IV -Increased prednisone from 10 mg to 20 mg daily -Scheduled Tylenol -Increase patient's chronic oxycodone from 5 mg to 7.5 mg (2) Weakness: Generalized weakness for past 2 weeks Probable secondary to recent sinusitis/bronchitis/COPD exacerbation, RA flare -PT/OT eval (3) COPD exacerbation: 2 weeks ago started with nasal congestion, sinus pressure, postnasal drip. Patient reports chronic cough of white sputum however 2 weeks had increased cough and white sputum production which has since improved. She is on chronic azithromycin 250 mg on Wednesday and Fridays and chronic prednisone 10 mg daily. -No infiltrate noted on chest x-ray, WBC: 12. Negative influenza swab -In ER given albuterol neb, doxycycline IV, 500 mL bolus NSS -Currently no significant wheezing on exam. No significant sinus tenderness on exam -Continue Flonase -Mucinex twice daily -DuoNebs -Increasing oral prednisone as above -Continue chronic oxygen 2-3 L with goal of 89 to 94% pulse ox -Change azithromycin to daily instead of her chronic Wednesday schedule (4) Chest wall pain: Reported anterior chest discomfort with movement for the past 2-week CXR: Chronic findings without acute process Reproducible tenderness to palpation along the sternal border bilaterally on exam. Initial troponin negative, no acute EKG changes. Suspect musculoskeletal etiology -Pain control as above (5) Hypertension: -Continue carvedilol (6) CKD (chronic kidney disease), stage III: Cr: 1.4. Baseline 1.2-1.5 -Monitor renal functions -Avoid nephrotoxic agents when possible (7) GERD (gastroesophageal reflux disease): -Continue PPI DVT Prophylaxis -Heparin SQ DNR/DNI as per discussion with pt Follows with Dr Chong for routine care Pt was seen and care coordinated with Dr Molina. See addendum History of Present Illness Chief Complaint: Weakness Primary Care Provider: Javy Chong MD Pt is 79 y/o F with PMH interstitial lung disease, COPD, on 2-3L oxygen via [place], pulmonary hypertension, diastolic heart failure, HTN, GERD, CKD III, RA presented to ER with complaint of generalized weakness. Patient states past 2 weeks has had been having generalized weakness in past 2 days has felt "wiped out". Patient states 2 weeks ago started with nasal congestion, sinus pressure, postnasal drip. Patient reports chronic cough of white sputum. States 2 weeks had increased cough and white sputum production. She is on chronic azithromycin 250 mg on Wednesday and Fridays and chronic prednisone 10 mg daily. Patient states that she was taking Mucinex however discontinued. She reports she has not been using her Flonase as she thought that may cause increased nasal congestion. Patient states past couple of days feels like she has had improvement of sinus and respiratory symptoms and has not been coughing as much and has had decreased nasal congestion. Patient complaining intermittent anterior chest pain for past 2 weeks. Pain described as aching and occurs with movement. patient states last week had BLE edema and was going to use Lasix however edema improved prior to Lasix use. Patient states last week started with sore tongue and sore throat and suspected she had thrush and started nystatin swish and swallow with improvement and stopped using yesterday. Patient reports chronic bilateral shoulder and back pain. Has oxycodone to use as needed however reports causes constipation so usually she uses sparingly. States when she did take the oxycodone it relieved the chest pain. Pt also reports past couple of weeks intermittent lower abdominal pain. Patient is unsure of any aggravating or alleviating factors. Denies any pain yesterday or today. Patient reports had 1 large BM yesterday and one this morning. Reports has had decreased appetite but has been trying to drink fluids. Denies fever/chills, diaphoresis, N/V, KINGSLEY, dizziness, syncope, vision changes, neck pain, orthopnea, palpitations, hemoptysis, choking, otalgia, paresthesias, weakness, extremity weakness, rashes, urinary symptoms. Allergies Allergy/AdvReac Type Severity Reaction Status Date / Time ranitidine Allergy Intermediate Hives Verified 11/05/19 11:24 Estrogens Allergy Mild IRREGULAR Verified 11/05/19 11:24 HEART RATE lovastatin Allergy Unknown UNKNOWN Verified 11/05/19 11:24 zoledronic acid AdvReac Intermediate MUSCLE PAIN Verified 11/05/19 11:24 Bactrim AdvReac Mild NAUSEA/VOMI Verified 07/09/17 19:19 TING omeprazole AdvReac Mild ABD PAIN Verified 11/05/19 11:24 Quinolones AdvReac Mild 11/28/08--ITCHY Verified 11/05/19 11:24 ARM, HAS HAD IN PAST W/O RXN sulfamethoxazole AdvReac Mild NAUSEA/VOMI Verified 11/05/19 11:24 TING trimethoprim AdvReac Mild NAUSEA/VOMI Verified 11/05/19 11:24 TING Home Medications Home Medications Medication Instructions Recorded Confirmed Type Incruse Ellipta 1 inh INHALATION BID 02/08/19 11/05/19 History azithromycin 250 mg PO MOWEFR 02/08/19 11/05/19 History carvedilol 6.25 mg PO BID 02/08/19 11/05/19 History cyanocobalamin (vitamin B-12) 500 mcg PO QAM 02/08/19 11/05/19 History [Vitamin B-12] fluticasone propionate 2 spray INTRANASAL QAM 02/08/19 11/05/19 History ipratropium-albuterol 3 ml INHALATION Q6H 02/08/19 11/05/19 History pantoprazole 40 mg PO BID 02/08/19 11/05/19 History polyethylene glycol 3350 17 g PO DAILY PRN 02/08/19 11/05/19 History Florastor 250 mg PO BID #20 cap 05/27/19 11/05/19 Rx albuterol sulfate [ProAir HFA] 2 puff INHALATION Q4H PRN 05/29/19 11/05/19 History prednisone 10 mg PO QAM 05/29/19 11/05/19 History fluticasone propion-salmeterol 1 inh INHALATION BID 06/15/19 11/05/19 History [Advair Diskus] nystatin 5 ml PO QID 11/05/19 11/05/19 History oxycodone 5 mg PO QID PRN 11/05/19 11/05/19 History Past Med/Surg History Medical History (Updated 11/05/19 @ 20:10 by Ayde Estevez PA-C) Anxiety Chronic obstructive pulmonary disease Chronic respiratory failure (Chronic) Chronic steroid use CKD (chronic kidney disease), stage III (Chronic) Congestive heart failure hx of Degenerative disc disease Depression Diverticulitis (Acute) GERD (gastroesophageal reflux disease) (Chronic) Hearing deficit Hiatal hernia (Chronic) Hx of central retinal vein occlusion (Chronic) Hyperlipidemia Hypertension On home oxygen therapy 3L N/C at all times Osteoarthritis (Chronic) Pulmonary fibrosis (Chronic) pt denies Rheumatoid arthritis Surgical History H/O colonoscopy (Chronic) H/O esophagogastroduodenoscopy (Chronic) History of bilateral cataract extraction History of dilatation and curettage History of left breast biopsy benign History of tooth extraction History of total hysterectomy with bilateral salpingo-oophorectomy (BSO) S/P cholecystectomy (Resolved) Family History Other Family history non-contributory No family history of adverse response to anesthesia Social History Preferred Language: Sammarinese Communication Ability: Effective Manager Marketing Sales Required: No Beliefs That Will Affect Care: None marital status: Current Living Situation: Alone Current Living Situation Comment: Has a caregiver that lives with her current occupational status: retired Other Information That Helps Us Care for You: No Feels Safe at Home: Yes Safety Concerns: Feels Safe At This Time Smoking Status: Former smoker Second Hand Exposure: No ; Hx Alcohol Use: No Hx Substance Use: No Review of Systems Review of Systems: All systems reviewed & are unremarkable except as noted in HPI & below Physical Exam Physical Exam: General: no acute distress, thin elderly female Head: normocephalic, atraumatic Eyes: PERRL, EOM's intact, conjunctiva non-injected, anicteric ENT: normal inspection external ears, nose, mucous membranes moist; no maxillary or frontal sinus tenderness to palpation Neck: supple, trachea midline, non-tender Lungs: no respiratory distress on 3L O2 via [place], Lung sounds diminished throughout without no wheezing/rhonchi/rales CV: RRR, no murmur, no pretibial edema Chest: no rashes, +tenderness to palpation bilateral upper sternal border without crepitus Back: +kyphosis, no spinous process tenderness to palpation, no discoloration Abd: normal BS, soft, non-tender to palpation Ext: no cyanosis, no calf tenderness; bilateral anterior and posterior shoulders with tenderness to palpation without erythema; bilateral hands with fingers with ulnar deviation at MCP joints without any erythema Neuro: A&O x 3, no focal deficits noted, normal affect Skin: warm, dry Results & Data Vital Signs (Past 12 Hours) Vital Signs Temp Pulse Pulse Resp BP Pulse Ox 11/05/19 13:31 72 21 97 11/05/19 13:30 20 157/88 H 97 11/05/19 13:01 70 22 98 11/05/19 13:00 72 20 172/98 H 98 11/05/19 12:31 71 22 95 11/05/19 12:30 74 22 186/89 H 92 11/05/19 12:01 74 17 97 11/05/19 12:00 69 18 162/81 H 97 11/05/19 11:31 66 66 20 97 11/05/19 11:30 66 22 156/76 H 97 11/05/19 11:01 69 19 98 11/05/19 11:00 69 21 121/77 98 11/05/19 10:59 99 11/05/19 10:44 71 20 98 11/05/19 10:36 70 25 H 141/76 H 98 11/05/19 10:27 99 11/05/19 10:20 36.5 C 80 20 124/87 100 Laboratory Results Short CBC 11/05/19 Range/Units 10:36 WBC 12.45 H (4.8-10.8) K/uL Hgb 12.6 (12.0-16.0) g/dL Hct 39.0 (37-47) % Plt Count 310 (130-400) K/uL BMP 11/05/19 10:36 Sodium 138 Potassium 3.6 Chloride 102 Carbon Dioxide 29 BUN 20 H Creatinine 1.42 H Glucose 84 Calcium 8.7 Cardiac Enzymes 11/05/19 Range/Units 10:36 Troponin I < 0.015 (0-0.045) ng/ml Liver Function 11/05/19 Range/Units 10:36 Total Bilirubin 0.4 (0.2-1) mg/dl AST 9 L (15-37) U/L ALT 12 (12-78) U/L Alkaline Phosphatase 130 H (45-117) U/L Albumin 3.1 L (3.4-5.0) gm/dl Diagnostic Findings CXR: IMPRESSION: Chronic findings as above without acute process. ECG Rate (beats per minute): 72 Rhythm: sinus rhythm Findings: + PAC Code Status & VTE Plan VTE Prophylaxis Plan VTE Prophylaxis will be ordered: Yes Supervising Physician Co-Signing Physician Notes I have seen and examined the patient and have discussed the case with the provider above. I agree with the assessment and plan as stated with the following exceptions. She is a 79 yo F who presents with significant generalized weakness for the last two weeks. Although she is reporting a resolution of cough and denies SOB, she feels she still has congestion in her ear and nose wagner on the left side of her head. She is mainly concerned with her L shoulder pain and states that this is where she has RA flares when they occur. She is on chronic prednisone 10mg and was increased to 20mg daily. In the meantime, will start that tomorrow and will give some solumedrol now for fast effect. On exam her shoulders appear symmetric and she has normal ROM of her L shoulder with some restriction in external rotation only. There is significant TTP of her lower neck and paraspinal muscles. She has ulnar deviation in her hands bilaterally. Heart and lung exam is normal. She is elderly and frail and in moderate distress 2/2 pain that is not well-controlled despite having oxycodone 5mg PO one hour ago. Continue good pain control efforts as above, continue mucinex and flonase to help with cranial congestion, cont daily azithromycin and nebulizer therapies as above. PT/OT to evaluate for safety prior to returning home. DO Jesse
[2019-11-05] MEDS ORDERED: ACETAMINOPHEN 325 MG TAB PO PRN (15:22)
[2019-11-05] MEDS ORDERED: POLYETHYLENE (MIRALAX) 17 GM PACK PO PRN (15:22)
[2019-11-05] MEDS ORDERED: ALBUT/IPRATROP 3MG/0.5MG NEB 3 ML VIAL NEB PRN (15:27)
[2019-11-05] MEDS ORDERED: OXYCODONE HCL IR 5 MG TAB (IMMEDIATE RELEASE) PO PRN ×2 (15:32→20:07)
--- NOTE | 2019-11-05 16:58 | Emergency Department Note ---
Entered by Holli Adler acting as a scribe for Daniel Jiang MD History of Present Illness General Chief complaint: Chest Pain Stated complaint: CHEST PAIN, NUMBNESS LEFT SIDE OF FACE Time Seen by Provider: 11/05/19 10:57 Source: patient Mode of arrival: ambulatory Limitations: no limitations History of Present Illness Onset (ago): week(s) 2 Location: chest Radiation: non-radiation Pain Consistency: + intermittent Maximum Pain Intensity: 7 Current Pain Intensity: 7 Relieved By: + none Exacerbated By: + none Associated symptoms: + cough and + other (+numbness in left side of face, +yellow nasal congestion) Treatments prior to arrival: none The patient is a 79 year old female who presents to the ED with complaints of intermittent chest pain for the past 2 weeks. She rates her discomfort as a 7/10 in severity. She also complains of numbness and "fullness" in the left side of her face for the past 2 weeks as well. She admits to yellow colored nasal d ischarge when she blows her nose. She has also experienced a junky cough. She does take daily Prednisone. Home Medications Home Medications Medication Instructions Recorded Confirmed Type Incruse Ellipta 1 inh INHALATION BID 02/08/19 11/05/19 History azithromycin 250 mg PO MOWEFR 02/08/19 11/05/19 History carvedilol 6.25 mg PO BID 02/08/19 11/05/19 History cyanocobalamin (vitamin B-12) 500 mcg PO QAM 02/08/19 11/05/19 History [Vitamin B-12] fluticasone propionate 2 spray INTRANASAL QAM 02/08/19 11/05/19 History ipratropium-albuterol 3 ml INHALATION Q6H 02/08/19 11/05/19 History pantoprazole 40 mg PO BID 02/08/19 11/05/19 History polyethylene glycol 3350 17 g PO DAILY PRN 02/08/19 11/05/19 History Florastor 250 mg PO BID #20 cap 05/27/19 11/05/19 Rx albuterol sulfate [ProAir HFA] 2 puff INHALATION Q4H PRN 05/29/19 11/05/19 History prednisone 10 mg PO QAM 05/29/19 11/05/19 History fluticasone propion-salmeterol 1 inh INHALATION BID 06/15/19 11/05/19 History [Advair Diskus] nystatin 5 ml PO QID 11/05/19 11/05/19 History oxycodone 5 mg PO QID PRN 11/05/19 11/05/19 History Allergies Allergy/AdvReac Type Severity Reaction Status Date / Time ranitidine Allergy Intermediate Hives Verified 11/05/19 11:24 Estrogens Allergy Mild IRREGULAR Verified 11/05/19 11:24 HEART RATE lovastatin Allergy Unknown UNKNOWN Verified 11/05/19 11:24 zoledronic acid AdvReac Intermediate MUSCLE PAIN Verified 11/05/19 11:24 Bactrim AdvReac Mild NAUSEA/VOMI Verified 07/09/17 19:19 TING omeprazole AdvReac Mild ABD PAIN Verified 11/05/19 11:24 Quinolones AdvReac Mild 11/28/08--ITCHY Verified 11/05/19 11:24 ARM, HAS HAD IN PAST W/O RXN sulfamethoxazole AdvReac Mild NAUSEA/VOMI Verified 11/05/19 11:24 TING trimethoprim AdvReac Mild NAUSEA/VOMI Verified 11/05/19 11:24 TING Past Med/Surg History Medical History Anxiety Chronic obstructive pulmonary disease Chronic respiratory failure (Chronic) Chronic steroid use CKD (chronic kidney disease), stage III (Chronic) Congestive heart failure hx of Degenerative disc disease Depression Diverticulitis (Acute) GERD (gastroesophageal reflux disease) (Chronic) Hearing deficit Hiatal hernia (Chronic) Hx of central retinal vein occlusion (Chronic) Hyperlipidemia Hypertension On home oxygen therapy 3L N/C at all times Osteoarthritis (Chronic) Pulmonary fibrosis (Chronic) pt denies Rheumatoid arthritis Surgical History H/O colonoscopy (Chronic) H/O esophagogastroduodenoscopy (Chronic) History of bilateral cataract extraction History of dilatation and curettage History of left breast biopsy benign History of tooth extraction History of total hysterectomy with bilateral salpingo-oophorectomy (BSO) S/P cholecystectomy (Resolved) Family History Other Family history non-contributory No family history of adverse response to anesthesia Social History Preferred Language: Vincentian Communication Ability: Effective Infection Prevention Coordinator Required: No Beliefs That Will Affect Care: None marital status: Current Living Situation: Alone Current Living Situation Comment: Has a caregiver that lives with her current occupational status: retired Other Information That Helps Us Care for You: No Feels Safe at Home: Yes Safety Concerns: Feels Safe At This Time Smoking Status: Former smoker Second Hand Exposure: No ; Hx Alcohol Use: No Hx Substance Use: No Review of Systems See HPI for pertinent positives & negatives. and A total of 10 systems reviewed and were otherwise negative Physical Exam Vital Signs Vital Signs - 24 hr 11/05/19 10:20 11/05/19 10:27 11/05/19 10:36 Temperature 36.5 C Temperature Source Oral Pulse Rate 80 70 Pulse Rate [Left Finger] Pulse Rate from SpO2 Sensor 70 Respiratory Rate 20 25 H Respiratory Effort / Characteristics Blood Pressure 124/87 141/76 H Blood Pressure Mean 99 95 Pulse Oximetry 100 99 98 Oxygen Delivery Method Nasal Cannula Nasal Cannula Oxygen Flow Rate 3 2 Sepsis Recent Fever Within 48 Hours No Sepsis Action Taken by Nursing No Action Required 11/05/19 10:44 11/05/19 10:59 11/05/19 11:00 Temperature Temperature Source Pulse Rate 71 69 Pulse Rate [Left Finger] Pulse Rate from SpO2 Sensor 71 69 Respiratory Rate 20 21 Respiratory Effort / Characteristics Blood Pressure 121/77 Blood Pressure Mean 99 Pulse Oximetry 98 99 98 Oxygen Delivery Method Nasal Cannula Oxygen Flow Rate 2 Sepsis Recent Fever Within 48 Hours Sepsis Action Taken by Nursing 11/05/19 11:01 11/05/19 11:30 11/05/19 11:31 Temperature Temperature Source Pulse Rate 69 66 66 Pulse Rate [Left Finger] 66 Pulse Rate from SpO2 Sensor 70 66 66 Respiratory Rate 19 22 20 Respiratory Effort / Characteristics Non-Labored Spontaneous Blood Pressure 156/76 H Blood Pressure Mean 96 Pulse Oximetry 98 97 97 Oxygen Delivery Method Nasal Cannula Nasal Cannula Oxygen Flow Rate 2 2 Sepsis Recent Fever Within 48 Hours Sepsis Action Taken by Nursing 11/05/19 12:00 11/05/19 12:01 11/05/19 12:30 Temperature Temperature Source Pulse Rate 69 74 74 Pulse Rate [Left Finger] Pulse Rate from SpO2 Sensor 67 66 75 Respiratory Rate 18 17 22 Respiratory Effort / Characteristics Blood Pressure 162/81 H 186/89 H Blood Pressure Mean 105 121 Pulse Oximetry 97 97 92 Oxygen Delivery Method Oxygen Flow Rate Sepsis Recent Fever Within 48 Hours Sepsis Action Taken by Nursing 11/05/19 12:31 11/05/19 13:00 11/05/19 13:01 Temperature Temperature Source Pulse Rate 71 72 70 Pulse Rate [Left Finger] Pulse Rate from SpO2 Sensor 70 72 70 Respiratory Rate 22 20 22 Respiratory Effort / Characteristics Blood Pressure 172/98 H Blood Pressure Mean 119 Pulse Oximetry 95 98 98 Oxygen Delivery Method Oxygen Flow Rate Sepsis Recent Fever Within 48 Hours Sepsis Action Taken by Nursing 11/05/19 13:30 11/05/19 13:31 11/05/19 14:00 Temperature Temperature Source Pulse Rate 72 76 Pulse Rate [Left Finger] Pulse Rate from SpO2 Sensor 74 72 77 Respiratory Rate 20 21 18 Respiratory Effort / Characteristics Blood Pressure 157/88 H 183/97 H Blood Pressure Mean 96 132 Pulse Oximetry 97 97 95 Oxygen Delivery Method Oxygen Flow Rate Sepsis Recent Fever Within 48 Hours Sepsis Action Taken by Nursing 11/05/19 14:01 Temperature Temperature Source Pulse Rate 79 Pulse Rate [Left Finger] Pulse Rate from SpO2 Sensor 78 Respiratory Rate 23 Respiratory Effort / Characteristics Blood Pressure Blood Pressure Mean Pulse Oximetry 96 Oxygen Delivery Method Oxygen Flow Rate Sepsis Recent Fever Within 48 Hours Sepsis Action Taken by Nursing GENERAL: Awake, alert, uncomfortable-appearing, in no distress HENT: Normocephalic, atraumatic. Oropharynx with dry mucous membranes and otherwise unremarkable. EYES: Normal conjunctiva. Sclera non-icteric. NECK: Supple. No nuchal rigidity. FROM. No JVD. RESPIRATORY: Scattered wheezes and rhonchi. CARDIAC: Regular rate, normal rhythm. Extremities warm and well perfused. Pulses equal. CHEST: Mild reproducible anterior chest wall discomfort without discrete tenderness. ABDOMEN: Soft, non-distended. No tenderness to palpation. No rebound or guarding. No masses. RECTAL: Deferred. MUSCULOSKELETAL: Chest examination reveals no tenderness. The back is symmetrical on inspection without obvious abnormality. There is no CVA tenderness to palpation. No joint edema. LOWER EXTREMITIES: Calves are equal size bilaterally and non-tender. No edema. No discoloration. NEURO: Normal sensorium. No sensory or motor deficits noted. SKIN: No rash or jaundice noted. Course Course 1113: The patient was evaluated in room C7 and a complete history and physical were performed. 1257: I discussed the patients case with Ayde Estevez PA-C, [facility] [address] Hospitalist. The patient will be further evaluated. 1305: I reevaluated the patient. She is resting comfortably. I discussed her re sults and my recommendation she remain in the hospital for further evaluation and management and she is agreeable with the plan. Administered Medications Acetaminophen (Tylenol) 1,000 mg PO Q8 ALEX Stop: 12/05/19 20:59 Last Admin: 11/06/19 14:01 Dose: 1,000 mg Documented by: [id number] Admin: 11/06/19 06:15 Dose: Not Given Documented by: [id number] Admin: 11/05/19 21:28 Dose: 1,000 mg Documented by: [id number] Albuterol (Duoneb) 3 ml NEB QIDR ALEX Stop: 12/05/19 15:21 Last Admin: 11/06/19 14:48 Dose: 3 ml Documented by: [id number] Admin: 11/06/19 11:12 Dose: 3 ml Documented by: [id number] Admin: 11/06/19 07:01 Dose: 3 ml Documented by: [id number] Admin: 11/05/19 22:27 Dose: Not Given Documented by: [id number] Admin: 11/05/19 22:27 Dose: Not Given Documented by: [id number] Admin: 11/05/19 19:20 Dose: 3 ml Documented by: [id number] Azithromycin (Zithromax) 250 mg PO QAM [facility] Stop: 11/12/19 15:59 Last Admin: 11/06/19 11:55 Dose: Not Given Documented by: [id number] Admin: 11/05/19 17:05 Dose: 250 mg Documented by: [id number] Carvedilol (Coreg) 6.25 mg PO BID [facility] Stop: 12/05/19 20:59 Last Admin: 11/06/19 08:50 Dose: 6.25 mg Documented by: [id number] Admin: 11/05/19 21:28 Dose: 6.25 mg Documented by: [id number] Cyanocobalamin (Vitamin B-12) 500 mcg PO QAM [facility] Stop: 12/06/19 08:59 Last Admin: 11/06/19 08:51 Dose: 500 mcg Documented by: [id number] Doxycycline Hyclate (Vibramycin) 100 mg PO BID [facility] Stop: 11/13/19 08:59 Last Admin: 11/06/19 11:54 Dose: 100 mg Documented by: [id number] Fluticasone Propionate (Flonase) 2 sprays PHILLIP TREADWE[facility] Stop: 12/06/19 08:59 Last Admin: 11/06/19 08:50 Dose: 2 sprays Documented by: [id number] Guaifenesin (Mucinex) 600 mg PO Q12 [facility] Stop: 12/05/19 20:59 Last Admin: 11/06/19 08:50 Dose: 600 mg Documented by: [id number] Admin: 11/05/19 21:28 Dose: 600 mg Documented by: [id number] Heparin Sodium (Porcine) (Heparin Sodium (Porcine)) 5,000 units SQ Q12 [facility] Stop: 12/05/19 20:59 Last Admin: 11/06/19 08:51 Dose: 5,000 units Documented by: [id number] Cosigned by: [id number] Admin: 11/05/19 21:28 Dose: 5,000 units Documented by: [id number] Cosigned by: [id number] Miscellaneous (Order Awaiting Action) 1 ea N/A QS [facility] Stop: 12/05/19 15:59 Last Admin: 11/06/19 09:05 Dose: Not Given Documented by: [id number] Admin: 11/06/19 00:12 Dose: Not Given Documented by: [id number] Admin: 11/05/19 17:06 Dose: Not Given Documented by: [id number] Oxycodone HCl (Roxicodone Immediate Rel) 7.5 mg PO Q4H PRN PRN Reason: Pain Stop: 11/19/19 20:06 Last Admin: 11/06/19 09:04 Dose: 7.5 mg Documented by: [id number] Pantoprazole Sodium (Protonix) 40 mg PO BID [facility] Stop: 12/05/19 20:59 Last Admin: 11/06/19 08:51 Dose: 40 mg Documented by: [id number] Admin: 11/05/19 21:29 Dose: 40 mg Documented by: [id number] Prednisone (Prednisone) 20 mg PO DAILY [facility] Stop: 12/06/19 08:59 Last Admin: 11/06/19 08:50 Dose: 20 mg Documented by: [id number] Saccharomyces Boulardii (Florastor) 250 mg PO BID [facility] Stop: 12/05/19 20:59 Last Admin: 11/06/19 08:50 Dose: 250 mg Documented by: [id number] Admin: 11/05/19 21:28 Dose: 250 mg Documented by: [id number] Fluticasone/Salmeterol (Advair Diskus 250/50) 1 puffs INH BID ALEX Stop: 12/05/19 20:59 Last Admin: 11/06/19 08:49 Dose: 1 puffs Documented by: [id number] Admin: 11/05/19 21:50 Dose: 1 puffs Documented by: [id number] Discontinued Medications Albuterol (Duoneb) 3 ml NEB NOW STA Stop: 11/05/19 11:17 Last Admin: 11/05/19 11:31 Dose: 3 ml Documented by: [id number] Sodium Chloride (Nss) 500 mls @ 999 mls/hr IV .Q31M ONE Stop: 11/05/19 11:27 Last Infusion: 11/05/19 11:54 Dose: 0 mls/hr Documented by: [id number] Admin: 11/05/19 11:25 Dose: 999 mls/hr Documented by: [id number] Dexamethasone Sodium Phosphate (10 mg/ Syringe) 2.5 mls @ 1 mls/min IV NOW STA Stop: 11/05/19 11:18 Last Admin: 11/05/19 11:52 Dose: 1 mls/min Documented by: [id number] Doxycycline Hyclate 100 mg/ (Dextrose) 110 mls @ 50 mls/hr IV NOW STA Stop: 11/05/19 15:02 Last Infusion: 11/05/19 15:08 Dose: 0 mls/hr Documented by: [id number] Admin: 11/05/19 13:20 Dose: 50 mls/hr Documented by: [id number] Methylprednisolone 40 mg/ (Syringe) 0.64 mls @ 1.5 mls/min IV NOW STA Stop: 11/05/19 23:37 Last Admin: 11/06/19 00:11 Dose: 1.5 mls/min Documented by: [id number] Oxycodone HCl (Roxicodone Immediate Rel) 5 mg PO QID PRN PRN Reason: Pain Stop: 11/19/19 15:31 Last Admin: 11/05/19 18:10 Dose: 5 mg Documented by: [id number] Medical Decision Making Differential Diagnosis Differential diagnoses includes but is not limited to acute coronary syndrome, myocardial infarction, pericarditis, pulmonary embolus, aortic dissection, pneumonia, pneumothorax, musculoskeletal, shingles, esophageal. Medical Records Attestation: I reviewed the patient's medical records. Home Medications Current Medication List: was personally reviewed by me Laboratory Data Attestation: I reviewed the patient's lab results. Result diagrams: 11/05/19 10:36 11/05/19 10:36 Lab Results 11/05/19 11/05/19 11/05/19 Range/Units 10:36 10:36 10:36 WBC 12.45 H (4.8-10.8) K/uL RBC 4.08 L (4.2-5.4) M/uL Hgb 12.6 (12.0-16.0) g/dL Hct 39.0 (37-47) % MCV 95.6 (80-100) fL MCH 30.9 (25-34) pg MCHC 32.3 (32-36) g/dL RDW Std Deviation 49.9 H (36.4-46.3) fL RDW Coeff of Carmencita 14.2 (11.5-14.5) % Plt Count 310 (130-400) K/uL MPV 11.1 H (7.4-10.4) fL Immature Gran % (Auto) 0.6 % Neut % (Auto) 61.2 % Lymph % (Auto) 26.9 % [place] % (Auto) 10.1 % Eos % (Auto) 1.0 % Baso % (Auto) 0.2 % Immature Gran # (Auto) 0.07 H (0.00-0.02) K/uL Neut # (Auto) 7.62 H (1.4-6.5) K/uL Lymph # (Auto) 3.35 (1.2-3.4) K/uL [place] # (Auto) 1.26 H (0.11-0.59) K/uL Eos # (Auto) 0.13 (0-0.5) K/uL Baso # (Auto) 0.02 (0-0.2) K/uL Sodium 138 (136-145) mmol/L Potassium 3.6 (3.5-5.1) mmol/L Chloride 102 (98-107) mmol/L Carbon Dioxide 29 (21-32) mmol/L Anion Gap 7.0 (3-11) BUN 20 H (7-18) mg/dl Creatinine 1.42 H (0.6-1.2) mg/dl Est Cr Clr Drug Dosing Not Reportable Est GFR ( Amer) 40.9 Est GFR (Non-Af Amer) 35.3 BUN/Creatinine Ratio 13.9 (10-20) Glucose 84 (70-99) mg/dl Calcium 8.7 (8.5-10.1) mg/dl Phosphorus 3.0 Cancelled (2.5-4.9) mg/dl Magnesium 2.0 Cancelled (1.8-2.4) mg/dl Total Bilirubin 0.4 (0.2-1) mg/dl AST 9 L (15-37) U/L ALT 12 (12-78) U/L Alkaline Phosphatase 130 H (45-117) U/L Troponin I < 0.015 (0-0.045) ng/ml Total Protein 6.9 (6.4-8.2) gm/dl Albumin 3.1 L (3.4-5.0) gm/dl Globulin 3.8 (2.5-4.0) gm/dl Albumin/Globulin Ratio 0.8 L (0.9-2) Lipase 434 H (73-393) U/L Influenza Type A (PCR) (Neg) Influenza Type B (PCR) (Neg) 11/05/19 Range/Units 11:23 WBC (4.8-10.8) K/uL RBC (4.2-5.4) M/uL Hgb (12.0-16.0) g/dL Hct (37-47) % MCV (80-100) fL MCH (25-34) pg MCHC (32-36) g/dL RDW Std Deviation (36.4-46.3) fL RDW Coeff of Carmencita (11.5-14.5) % Plt Count (130-400) K/uL MPV (7.4-10.4) fL Immature Gran % (Auto) % Neut % (Auto) % Lymph % (Auto) % [place] % (Auto) % Eos % (Auto) % Baso % (Auto) % Immature Gran # (Auto) (0.00-0.02) K/uL Neut # (Auto) (1.4-6.5) K/uL Lymph # (Auto) (1.2-3.4) K/uL [place] # (Auto) (0.11-0.59) K/uL Eos # (Auto) (0-0.5) K/uL Baso # (Auto) (0-0.2) K/uL Sodium (136-145) mmol/L Potassium (3.5-5.1) mmol/L Chloride (98-107) mmol/L Carbon Dioxide (21-32) mmol/L Anion Gap (3-11) BUN (7-18) mg/dl Creatinine (0.6-1.2) mg/dl Est Cr Clr Drug Dosing Est GFR ( Amer) Est GFR (Non-Af Amer) BUN/Creatinine Ratio (10-20) Glucose (70-99) mg/dl Calcium (8.5-10.1) mg/dl Phosphorus (2.5-4.9) mg/dl Magnesium (1.8-2.4) mg/dl Total Bilirubin (0.2-1) mg/dl AST (15-37) U/L ALT (12-78) U/L Alkaline Phosphatase (45-117) U/L Troponin I (0-0.045) ng/ml Total Protein (6.4-8.2) gm/dl Albumin (3.4-5.0) gm/dl Globulin (2.5-4.0) gm/dl Albumin/Globulin Ratio (0.9-2) Lipase (73-393) U/L Influenza Type A (PCR) Neg for Influ A (Neg) Influenza Type B (PCR) Neg for Influ B (Neg) Imaging Data Radiologist's Impression: Radiology results as stated below per my review and th e radiologist's interpretation: XR chest 1V portable HISTORY: 79 years-old Female Chest Pain acute atypical chest pain COMPARISON: Chest radiograph 06/04/2019 TECHNIQUE: Portable AP view of the chest FINDINGS: Cardiac silhouette is enlarged, unchanged. Mild pulmonary vascular congestion without overt pulmonary edema. Chronic interstitial coarsening. No pneumothorax or large pleural effusion. Ill-defined opacities of the lateral left midlung are redemonstrated, possibly reflective of scarring or summation density with adjacent remote rib fractures. Mild bibasilar opacities with chronic cost ophrenic angle blunting. Degenerative changes of the shoulders and spine. IMPRESSION: Chronic findings as above without acute process. The above report was generated using voice recognition software. It may contain grammatical, syntax or spelling errors. Electronically signed by: Hemanth Marcano M.D. 11/05/2019 11:34 AM ECG Data Attestation: I personally reviewed and interpreted this ECG as follows: Indication: + chest pain Rate (beats per minute): 72 Rhythm: + normal sinus ECG Intervals/blocks: + Normal QRS (QRS is 84) and + Normal QT-c (QTC is 409) ECG [place]: + Normal ECG ST segments: no ST elevation ECG Findings: + PACs MDM Narrative The patient is a pleasant 79-year-old woman with a past medical history of pulmonary fibrosis/COPD, CKD, hypertension who presents emergency department with worsening cough congestion with thick sputum production and chest pain over the past 2 weeks per HPI. On arrival the patient is chronically ill-appearing but no acute distress, afebrile stable vital signs. She is on her chronic 2 L nasal cannula saturating normally. She has diffuse wheezes and rhonchi and periodically will expectorate thick sputum. EKG without overt acute ischemia. Chest x-ray negative for acute cardiopulmonary process and otherwise chronic findings. WBC 12.4, nonspecific. H/H and platelets within normal limits. Chemistry without acidosis. Creatinine 1.4 within patient's baseline range of values in the setting of her CKD. Electrolytes and LFTs unremarkable. Troponin negative/undetectable. Flu negative. Patient was feeling improved after IV fluid hydration, dexamethasone and DuoNeb. However, still feeling unwell from her baseline. Given the patient's severe lung disease in the setting of her worsening respiratory symptoms over the past couple of weeks reasonable to admit the patient for further management of likely COPD flare/bronchitis. Will treat for now with doxycycline. Case was discussed with Rosanna Estevez, [facility] [address] PAC, who evaluate the patient for admission. Continuous Cardiac Monitoring: Indication: Chest pain / Dyspnea Rhythm: NSR Rate: 61 bpm Other: 98% 3L NC Impression & Plan COPD exacerbation, Chest wall pain, Shortness of breath, CKD (chronic kidney disease), O2 dependent Discharge Plan Visit Data *Final* Discharge Date/Time: 11/05/19 15:00 Chief Complaint: Chest Pain Stated Complaint: CHEST PAIN, NUMBNESS LEFT SIDE OF FACE ED Provider: Daniel Jiang Discharge Problem: COPD exacerbation, Chest wall pain, Shortness of breath, CKD (chronic kidney disease), O2 dependent Patient Disposition: Admitted As Inpatient Discharge Instructions Interventions: ED Discharge Assessment Last Done: 11/05/19 15:00 The scribe's documentation has been prepared under my direction and personally reviewed by me in its entirety. I confirm that the note above accurately reflects all work, treatment, procedures, and medical decision making performed by me.
[2019-11-05] MEDS: AZITHROMYCIN 250 MG TAB PO SCH (17:05)
[2019-11-05] MEDS: ALBUT/IPRATROP 3MG/0.5MG NEB 3 ML VIAL NEB SCH ×2 (19:20→22:27)
[2019-11-05] MEDS: ACETAMINOPHEN SOLN 160 MG/5 ML BTL PO SCH (21:28)
[2019-11-05] MEDS: HEPARIN SOD 5,000 UNIT/0.5 ML VIAL SQ SCH (21:28)
[2019-11-05] MEDS: guaiFENesin 600 MG TABCR PO SCH (21:28)
[2019-11-05] MEDS: SACCHAROMYCES BOULARDII 250 MG CAP PO SCH (21:28)
[2019-11-05] MEDS: carvediloL 6.25 MG TAB PO SCH (21:28)
[2019-11-05] MEDS: PANTOprazole 40 MG TAB PO SCH (21:29)
[2019-11-05] MEDS: FLUTICASONE/SALMETEROL 250/50 (ADVAIR) 14 PUFF/1 INHALER INH SCH (21:50)
[2019-11-05] MEDS ORDERED: HYDROmorphone INJ 0.5 MG/0.5 ML SYR IV PRN (22:19)
[2019-11-05] MEDS ORDERED: methylPREDNISolone 40 MG in SYRINGE 0 ML IV STA (23:36)
[2019-11-06] MEDS: ACETAMINOPHEN SOLN 160 MG/5 ML BTL PO SCH ×3 (06:15→20:46)
[2019-11-06] MEDS: ALBUT/IPRATROP 3MG/0.5MG NEB 3 ML VIAL NEB SCH ×3 (07:01→14:48)
[2019-11-06] MEDS: FLUTICASONE/SALMETEROL 250/50 (ADVAIR) 14 PUFF/1 INHALER INH SCH ×2 (08:49→20:45)
[2019-11-06] MEDS: carvediloL 6.25 MG TAB PO SCH ×2 (08:50→20:44)
[2019-11-06] MEDS: FLUTICASONE PROPIONATE NA SPR 16 GM BTL NAE SCH (08:50)
[2019-11-06] MEDS: guaiFENesin 600 MG TABCR PO SCH ×2 (08:50→20:40)
[2019-11-06] MEDS: predniSONE 20 MG TAB PO SCH (08:50)
[2019-11-06] MEDS: SACCHAROMYCES BOULARDII 250 MG CAP PO SCH ×2 (08:50→20:43)
[2019-11-06] MEDS: CYANOCOBALAMIN 500 MCG TABLET (VITAMIN B-12) PO SCH (08:51)
[2019-11-06] MEDS: HEPARIN SOD 5,000 UNIT/0.5 ML VIAL SQ SCH ×2 (08:51→20:44)
[2019-11-06] MEDS: PANTOprazole 40 MG TAB PO SCH ×2 (08:51→20:44)
[2019-11-06] MEDS ORDERED: predniSONE 10 MG TABLET PO SCH (09:00)
[2019-11-06] MEDS: OXYCODONE HCL IR 5 MG TAB (IMMEDIATE RELEASE) PO PRN ×2 (09:04→20:59)
[2019-11-06] MEDS ORDERED: ALUMINUM/MAGNESIUM/SIMETH (MAALOX MAX) 30 ML UDC PO PRN (10:35)
[2019-11-06] MEDS: DOXYCYCLINE HYCLATE 100 MG CAP PO SCH ×2 (11:54→20:45)
--- NOTE | 2019-11-06 11:54 | XRay Report ---
XR sinus <3V CLINICAL HISTORY: Sinus Congestion dyspnea COMPARISON STUDY: No previous studies for comparison. FINDINGS: Normal sinuses. All major sinuses are clear. No significant mucosal thickening. IMPRESSION: Normal sinus series. Electronically signed by: Ramesh Gore M.D. 11/06/2019 11:53 AM
[2019-11-06] MEDS: AZITHROMYCIN 250 MG TAB PO SCH (11:55)
[2019-11-06] MEDS ORDERED: AMLODIPINE BESYLATE 5 MG TAB PO ONE ×2 (17:41→23:58)
--- NOTE | 2019-11-06 17:43 | Hospitalist Progress Note ---
Date of Service November 06, 2019 Assessment & Plan (1) Rheumatoid arthritis: Patient is a 79 yr female with H/O Interstitial lung disease, COPD, on 2-3L oxygen via NC, pulmonary hypertension, diastolic heart failure, HTN, GERD, CKD III, RA presented to ER with complaint of generalized weakness, chronic bilateral shoulder pain. Rheumatoid arthritis Shoulder pain likely due to arthritis flare Continue prednisone at 20 mg daily Pain control Consider imaging studies if no improvement (2) Weakness: Generalized weakness for past 2 weeks Probable secondary to recent sinusitis/bronchitis/COPD exacerbation, RA flare PT/OT eval (3) COPD exacerbation: Mild COPD exacerbation Chronic respiratory failure with oxygen dependency CXR:Chronic findings as above without acute process. Negative influenza swab Started on doxycycline Continue prednisone, nebs, home inhalers Continue supplemental oxygen Hold suppressive azithromycin for now (4) Chest wall pain: Reported anterior chest discomfort with movement for the past 2-week CXR: Chronic findings without acute process Reproducible tenderness on exam Cardiac enzymes negative Normal acute EKG changes Improving with prednisone (5) Hypertension: -Continue carvedilol (6) CKD (chronic kidney disease), stage III: Baseline 1.2-1.5 Monitor renal functions Avoid nephrotoxic agents when possible (7) GERD (gastroesophageal reflux disease): Continue PPI DVT Px Heparin SQ Code Status DNR/DNI Disposition PT/OT prior to discharge Follows with Dr Chong for routine care Subjective Patient is seen and examined at bedside States right shoulder pain is slightly better but still has left shoulder pain Chest discomfort is improving Reports cough with expectoration Denies any shortness of breath, dizziness, nausea, abdominal pain Discussed with patient's son in detail Review of Systems Review of Systems: All systems reviewed & are unremarkable except as noted in HPI & below Physical Exam Physical Exam: Physical Exam: Vitals signs as noted above General Appearance:Thin, Frail, no apparent distress Head: normocephalic, Atraumatic Eyes: normal inspection, EOMI Neck: supple, Trachea midline Respiratory/Chest: Decreased breath sounds, CTA Cardiovascular: S1, S2, No murmur Abdomen/GI:Soft, Non tender, Bowel sounds present Extremities/Musculoskelatal:normal inspection, no edema, +RA changes noted No shoulder swelling, redness, non tender on exam Neurologic/Psych:AAOX3, grossly no focal neurological deficits Skin: normal color, warm Results & Data Vital Signs (Past 12 Hours) Vital Signs Temp Pulse Pulse Resp BP Pulse Ox 11/06/19 16:21 71 11/06/19 15:30 36.6 C 66 19 160/83 H 98 11/06/19 14:50 61 18 98 11/06/19 11:54 36.5 C 68 20 169/84 H 98 11/06/19 11:42 36.3 C L 67 20 137/79 93 11/06/19 11:13 78 18 96 11/06/19 10:07 78 11/06/19 07:53 36.9 C 61 18 173/84 H 98 11/06/19 07:01 98 H 18 96
[2019-11-07] MEDS: ACETAMINOPHEN SOLN 160 MG/5 ML BTL PO SCH ×3 (06:49→21:40)
[2019-11-07] MEDS: ALBUT/IPRATROP 3MG/0.5MG NEB 3 ML VIAL NEB SCH ×4 (07:04→19:48)
[2019-11-07 07:35] LABS: Hematocrit (blood only) 34.6 % (37-47); Hemoglobin 11.2 g/dL (12.0-16.0); Mean Corpuscular Hemoglobin 30.6 pg (25-34); Mean Corpuscular Hgb Conc 32.4 g/dL (32-36); Mean Corpuscular Volume 94.5 fL (80-100); Mean Platelet Volume 10.8 fL (7.4-10.4); Platelet Count 292 K/uL (130-400); RDW Coefficient of Variation 14.2 % (11.5-14.5); RDW Standard Deviation 49.4 fL (36.4-46.3); Red Blood Count 3.66 M/uL (4.2-5.4); White Blood Count 12.85 K/uL (4.8-10.8)
[2019-11-07] MEDS: DOXYCYCLINE HYCLATE 100 MG CAP PO SCH ×2 (07:38→21:35)
[2019-11-07] MEDS: predniSONE 20 MG TAB PO SCH (07:38)
[2019-11-07] MEDS: PANTOprazole 40 MG TAB PO SCH ×2 (07:38→21:34)
[2019-11-07] MEDS: HEPARIN SOD 5,000 UNIT/0.5 ML VIAL SQ SCH ×2 (07:38→21:34)
[2019-11-07] MEDS: CYANOCOBALAMIN 500 MCG TABLET (VITAMIN B-12) PO SCH (07:38)
[2019-11-07] MEDS: guaiFENesin 600 MG TABCR PO SCH ×2 (07:38→21:34)
[2019-11-07] MEDS: FLUTICASONE PROPIONATE NA SPR 16 GM BTL NAE SCH (07:39)
[2019-11-07] MEDS: FLUTICASONE/SALMETEROL 250/50 (ADVAIR) 14 PUFF/1 INHALER INH SCH ×2 (07:39→21:29)
[2019-11-07] MEDS: SACCHAROMYCES BOULARDII 250 MG CAP PO SCH ×2 (07:39→21:32)
[2019-11-07] MEDS: carvediloL 6.25 MG TAB PO SCH ×2 (07:39→21:31)
[2019-11-07 08:04] LABS: BUN Creatinine Ratio 18.4 (10-20); Calcium 9.5 mg/dl (8.5-10.1); Creatinine Clr Calc Pharmacy 25.2 ml/min; Est GFR (African American) 42.3; Est GFR (Non-African American) 36.5; Magnesium 2.1 mg/dl (1.8-2.4)
[2019-11-07] MEDS ORDERED: AMLODIPINE BESYLATE 5 MG TAB PO SCH (09:00)
--- NOTE | 2019-11-07 14:47 | Hospitalist Progress Note ---
Date of Service November 07, 2019 Assessment & Plan (1) Rheumatoid arthritis: Patient is a 79 yr female with H/O Interstitial lung disease, COPD, on 2-3L oxygen via [place], pulmonary hypertension, diastolic heart failure, HTN, GERD, CKD III, RA presented to ER with complaint of generalized weakness, chronic bilateral shoulder pain. Rheumatoid arthritis Shoulder pain likely due to arthritis flare Continue prednisone at 20 mg daily Shoulder pain improved Taper down steroids as able (2) Weakness: Generalized weakness for past 2 weeks Probable secondary to recent sinusitis/bronchitis/COPD exacerbation, RA flare PT/OT eval completed (3) COPD exacerbation: Mild COPD exacerbation Chronic respiratory failure with oxygen dependency CXR:Chronic findings as above without acute process. Negative influenza swab Continue doxycycline Day #2 Continue prednisone, nebs, home inhalers Continue supplemental oxygen Hold chronic suppressive azithromycin for now while on doxycycline Cough much improved (4) Chest wall pain: Reported anterior chest discomfort with movement for the past 2-week CXR: Chronic findings without acute process Reproducible tenderness on exam Cardiac enzymes negative Normal acute EKG changes Improved with prednisone (5) Hypertension: -Continue carvedilol (6) CKD (chronic kidney disease), stage III: Baseline 1.2-1.5 Monitor renal functions Avoid nephrotoxic agents when possible (7) GERD (gastroesophageal reflux disease): Continue PPI DVT Px Heparin SQ Code Status DNR/DNI Disposition PT/OT prior to discharge Follows with Dr Chong for routine care Subjective Patient is seen and examined at bedside Complains of nausea and had an episode of vomiting this morning Shoulder pain much improved Cough has improved as well Denies any chest pain, shortness of breath, dizziness, abdominal pain Review of Systems Review of Systems: All systems reviewed & are unremarkable except as noted in HPI & below Physical Exam Physical Exam: Physical Exam: Vitals signs as noted above General Appearance:Thin, Frail, no apparent distress Head: normocephalic, Atraumatic Eyes: normal inspection, EOMI Neck: supple, Trachea midline Respiratory/Chest: Decreased breath sounds, CTA Cardiovascular: S1, S2, No murmur Abdomen/GI:Soft, Non tender, Bowel sounds present Extremities/Musculoskelatal:normal inspection, no edema, +RA changes noted No shoulder swelling, redness, non tender on exam Neurologic/Psych:AAOX3, grossly no focal neurological deficits Skin: normal color, warm Results & Data Vital Signs (Past 12 Hours) Vital Signs Temp Pulse Resp BP Pulse Ox 11/07/19 11:24 37.1 C 60 16 131/71 97 11/07/19 11:21 66 16 96 11/07/19 07:12 36.4 C L 70 16 170/91 H 96 11/07/19 07:08 72 20 96 11/07/19 03:15 36.9 C 72 20 158/79 H 96 Laboratory Results Short CBC 11/07/19 Range/Units 06:56 WBC 12.85 H (4.8-10.8) K/uL Hgb 11.2 L (12.0-16.0) g/dL Hct 34.6 L (37-47) % Plt Count 292 (130-400) K/uL BMP 11/07/19 06:56 Sodium 139 Potassium 4.0 Chloride 106 Carbon Dioxide 28 BUN 25 H Creatinine 1.38 H Glucose 80 Calcium 9.5
[2019-11-08] MEDS: ACETAMINOPHEN SOLN 160 MG/5 ML BTL PO SCH (05:48)
[2019-11-08] MEDS: ALBUT/IPRATROP 3MG/0.5MG NEB 3 ML VIAL NEB SCH ×2 (07:26→11:20)
[2019-11-08] MEDS: guaiFENesin 600 MG TABCR PO SCH (07:37)
[2019-11-08] MEDS: DOXYCYCLINE HYCLATE 100 MG CAP PO SCH (07:37)
[2019-11-08] MEDS: predniSONE 20 MG TAB PO SCH (07:37)
[2019-11-08] MEDS: SACCHAROMYCES BOULARDII 250 MG CAP PO SCH (07:37)
[2019-11-08] MEDS: CYANOCOBALAMIN 500 MCG TABLET (VITAMIN B-12) PO SCH (07:37)
[2019-11-08] MEDS: PANTOprazole 40 MG TAB PO SCH (07:37)
[2019-11-08] MEDS: carvediloL 6.25 MG TAB PO SCH (07:38)
[2019-11-08] MEDS: FLUTICASONE/SALMETEROL 250/50 (ADVAIR) 14 PUFF/1 INHALER INH SCH (07:38)
[2019-11-08] MEDS: HEPARIN SOD 5,000 UNIT/0.5 ML VIAL SQ SCH (07:38)
[2019-11-08] MEDS: FLUTICASONE PROPIONATE NA SPR 16 GM BTL NAE SCH (07:38)
[2019-11-08 07:45] LABS: Hematocrit (blood only) 34.3 % (37-47); Mean Corpuscular Hemoglobin 30.4 pg (25-34); Mean Corpuscular Hgb Conc 32.1 g/dL (32-36); Mean Corpuscular Volume 94.8 fL (80-100); Mean Platelet Volume 10.6 fL (7.4-10.4); Platelet Count 262 K/uL (130-400); RDW Coefficient of Variation 14.3 % (11.5-14.5); RDW Standard Deviation 49.7 fL (36.4-46.3); Red Blood Count 3.62 M/uL (4.2-5.4); White Blood Count 11.11 K/uL (4.8-10.8)
[2019-11-08 08:25] LABS: BUN Creatinine Ratio 17.9 (10-20); Calcium 9.5 mg/dl (8.5-10.1); Creatinine Clr Calc Pharmacy 24.1 ml/min; Est GFR (African American) 39.5; Est GFR (Non-African American) 34.1
[2019-11-08] MEDS ORDERED: AMLODIPINE BESYLATE 5 MG TAB PO SCH (09:00)
--- NOTE | 2019-11-08 09:55 | Hospitalist Progress Note ---
Date of Service November 08, 2019 Assessment & Plan (1) Rheumatoid arthritis: Patient is a 79 yr female with H/O Interstitial lung disease, COPD, on 2-3L oxygen via [place], pulmonary hypertension, diastolic heart failure, HTN, GERD, CKD III, RA presented to ER with complaint of generalized weakness, chronic bilateral shoulder pain. Rheumatoid arthritis Shoulder pain likely due to arthritis flare Continue prednisone at 20 mg daily for 3 more days and transition to home dose of 10 mg daily Shoulder pain improved (2) Weakness: Generalized weakness for past 2 weeks Probable secondary to recent sinusitis/bronchitis/COPD exacerbation, RA flare PT/OT eval completed (3) COPD exacerbation: Mild COPD exacerbation Chronic respiratory failure with oxygen dependency CXR:Chronic findings as above without acute process. Negative influenza swab Continue doxycycline Day #3 Continue prednisone, nebs, home inhalers Continue supplemental oxygen Hold chronic suppressive azithromycin for now while on doxycycline Clinically improved (4) Chest wall pain: Reported anterior chest discomfort with movement for the past 2-week CXR: Chronic findings without acute process Reproducible tenderness on exam Cardiac enzymes negative Normal acute EKG changes Resolved (5) Hypertension: -Continue carvedilol (6) CKD (chronic kidney disease), stage III: Baseline 1.2-1.5 Monitor renal functions Avoid nephrotoxic agents when possible (7) GERD (gastroesophageal reflux disease): Continue PPI DVT Px Heparin SQ Code Status DNR/DNI Disposition Plan to discharge home today Follows with Dr Chong for routine care Subjective Patient is seen and examined at bedside Cough almost resolved Doing much better today Shoulder pain continues to improve Denies any chest pain, shortness of breath, dizziness, abdominal pain Offers no other complaints Review of Systems Review of Systems: All systems reviewed & are unremarkable except as noted in HPI & below Physical Exam Physical Exam: Physical Exam: Vitals signs as noted above General Appearance:Thin, Frail, no apparent distress Head: normocephalic, Atraumatic Eyes: normal inspection, EOMI Neck: supple, Trachea midline Respiratory/Chest: Decreased breath sounds, CTA Cardiovascular: S1, S2, No murmur Abdomen/GI:Soft, Non tender, Bowel sounds present Extremities/Musculoskelatal:normal inspection, no edema, +RA changes noted No shoulder swelling, redness, non tender on exam Neurologic/Psych:AAOX3, grossly no focal neurological deficits Skin: normal color, warm Results & Data Vital Signs (Past 12 Hours) Vital Signs Temp Pulse Resp BP BP Pulse Ox 11/08/19 07:26 71 16 98 11/08/19 07:19 36.6 C 69 16 174/80 H 97 11/08/19 02:58 36.8 C 68 18 173/83 H 98 11/07/19 23:33 36.8 C 69 19 178/88 H 98 Laboratory Results Short CBC 11/08/19 Range/Units 07:20 WBC 11.11 H (4.8-10.8) K/uL Hgb 11.0 L (12.0-16.0) g/dL Hct 34.3 L (37-47) % Plt Count 262 (130-400) K/uL BMP 11/08/19 07:20 Sodium 139 Potassium 4.0 Chloride 106 Carbon Dioxide 28 BUN 26 H Creatinine 1.46 H Glucose 81 Calcium 9.5
--- NOTE | 2019-11-08 10:03 | Discharge Summary ---
Date of Service November 08, 2019 Admission HPI Per Admitting Provider Pt is 79 y/o F with PMH interstitial lung disease, COPD, on 2-3L oxygen via [place], pulmonary hypertension, diastolic heart failure, HTN, GERD, CKD III, RA presented to ER with complaint of generalized weakness. Patient states past 2 weeks has had been having generalized weakness in past 2 days has felt "wiped out". Patient states 2 weeks ago started with nasal congestion, sinus pressure, postnasal drip. Patient reports chronic cough of white sputum. States 2 weeks had increased cough and white sputum production. She is on chronic azithromycin 250 mg on Wednesday and Fridays and chronic prednisone 10 mg daily. Patient states that she was taking Mucinex however discontinued. She reports she has not been using her Flonase as she thought that may cause increased nasal congestion. Patient states past couple of days feels like she has had improvement of sinus and respiratory symptoms and has not been coughing as much and has had decreased nasal congestion. Patient complaining intermittent anteri or chest pain for past 2 weeks. Pain described as aching and occurs with movement. patient states last week had BLE edema and was going to use Lasix however edema improved prior to Lasix use. Patient states last week started with sore tongue and sore throat and suspected she had thrush and started nystatin swish and swallow with improvement and stopped using yesterday. Patient reports chronic bilateral shoulder and back pain. Has oxycodone to use as needed however reports causes constipation so usually she uses sparingly. States when she did take the oxycodone it relieved the chest pain. Pt also reports past couple of weeks intermittent lower abdominal pain. Patient is unsure of any aggravating or alleviating factors. Denies any pain yesterday or today. Patient reports had 1 large BM yesterday and one this morning. Reports has had decreased appetite but has been trying to drink fluids. Denies fever/chills, diaphoresis, N/V, KINGSLEY, dizziness, syncope, vision changes, neck pain, orthopnea, palpitations, hemoptysis, choking, otalgia, paresthesias, weakness, extremity weakness, rashes, urinary symptoms. Admission Exam Per Admitting Provider General: no acute distress, thin elderly female Head: normocephalic, atraumatic Eyes: PERRL, EOM's intact, conjunctiva non-injected, anicteric ENT: normal inspection external ears, nose, mucous membranes moist; no maxillary or frontal sinus tenderness to palpation Neck: supple, trachea midline, non-tender Lungs: no respiratory distress on 3L O2 via [place], Lung sounds diminished throughout without no wheezing/rhonchi/rales CV: RRR, no murmur, no pretibial edema Chest: no rashes, +tenderness to palpation bilateral upper sternal border without crepitus Back: +kyphosis, no spinous process tenderness to palpation, no discoloration Abd: normal BS, soft, non-tender to palpation Ext: no cyanosis, no calf tenderness; bilateral anterior and posterior shoulders with tenderness to palpation without erythema; bilateral hands with fingers with ulnar deviation at MCP joints without any erythema Neuro: A&O x 3, no focal deficits noted, normal affect Skin: warm, dry Principal Diagnosis Rheumatoid arthritis flare Mild COPD exacerbation Uncontrolled hypertension Discharge Data Allergies Allergy/AdvReac Type Severity Reaction Status Date / Time ranitidine Allergy Intermediate Hives Verified 11/05/19 11:24 Estrogens Allergy Mild IRREGULAR Verified 11/05/19 11:24 HEART RATE lovastatin Allergy Unknown UNKNOWN Verified 11/05/19 11:24 zoledronic acid AdvReac Intermediate MUSCLE PAIN Verified 11/05/19 11:24 Bactrim AdvReac Mild NAUSEA/VOMI Verified 07/09/17 19:19 TING omeprazole AdvReac Mild ABD PAIN Verified 11/05/19 11:24 Quinolones AdvReac Mild 11/28/08--ITCHY Verified 11/05/19 11:24 ARM, HAS HAD IN PAST W/O RXN sulfamethoxazole AdvReac Mild NAUSEA/VOMI Verified 11/05/19 11:24 TING trimethoprim AdvReac Mild NAUSEA/VOMI Verified 11/05/19 11:24 TING Consultations 11/05/19 12:51 ED Decision to Admit Stat 11/05/19 15:22 Consult Case Management - Discharge Planning Routine Procedures Performed CXR: Chronic findings as above without acute process. Sinus X ray: Normal sinus series. Hospital Course (1) Rheumatoid arthritis: Patient is a 79 yr female with H/O Interstitial lung disease, COPD, on 2-3L oxygen via [place], pulmonary hypertension, diastolic heart failure, HTN, GERD, CKD III, RA presented to ER with complaint of generalized weakness, chronic bilateral shoulder pain. Rheumatoid arthritis Shoulder pain likely due to arthritis flare Continue prednisone at 20 mg daily for 3 more days and transition to home dose of 10 mg daily Shoulder pain improved (2) Weakness: Generalized weakness for past 2 weeks Probable secondary to recent sinusitis/bronchitis/COPD exacerbation, RA flare PT/OT eval completed (3) COPD exacerbation: Mild COPD exacerbation Chronic respiratory failure with oxygen dependency CXR:Chronic findings as above without acute process. Negative influenza swab Continue doxycycline Day #3 Continue prednisone, nebs, home inhalers Continue supplemental oxygen Hold chronic suppressive azithromycin for now while on doxycycline Clinically improved (4) Chest wall pain: Reported anterior chest discomfort with movement for the past 2-week CXR: Chronic findings without acute process Reproducible tenderness on exam Cardiac enzymes negative Normal acute EKG changes Resolved (5) Hypertension: -Continue carvedilol (6) CKD (chronic kidney disease), stage III: Baseline 1.2-1.5 Monitor renal functions Avoid nephrotoxic agents when possible (7) GERD (gastroesophageal reflux disease): Continue PPI DVT Px Heparin SQ Code Status DNR/DNI Disposition Plan to discharge home today Follows with Dr Chong for routine care Total Time Total Time Spent Total Time Spent (In Minutes): 37 minutes Total Time Includes: Examination of the Patient, Discharge Planning, Medication Reconciliation, Communication With Other Providers and Other Discharge Plan Discharge Items Patient Disposition: Home - Self-Care Reason For Visit: WEAKNESS Discharge Diagnosis: Rheumatoid arthritis flare Mild COPD exacerbation Activity: Resume your previous activity Exercise/Sports: Gradually increase as tolerated Non-emergency contact: Primary Care Provider Call non-emergency contact if: you have any medication questions, your symptoms worsen, your pain is not controlled, your pain is worsening, your pain is unusual for you, your pain is concerning for you and you have a fever Follow-up/Referrals: Javy Chong MD [Primary Care Provider] - Diet: Heart Healthy Addtl Attending Provider Instructions: Follow-up with your primary care physician Dr. Chong on November 10, 2019 at 12:15 PM Medication Changes Continue prednisone 20 mg daily for 3 more days and then switch to your home dose of 10 mg daily Continue doxycycline 100 mg twice a day for 3 more days and STOP Resume home azithromycin 3 times a week after completion of doxycycline course You are started on amlodipine 10 mg daily for better control of her blood pressure. Further recommendations as per your primary care physician. Seek immediate medical attention if your symptoms reoccur or worsen Pending Studies at Discharge: No Stand-Alone Forms: [facility], Smoking Cessation Medications and DC Order Prescriptions: New doxycycline hyclate 100 mg Capsule 100 mg PO BID Qty: 6 RF: 0 amlodipine 10 mg tablet 10 mg PO DAILY Qty: 30 RF: 0 Continued prednisone 10 mg tablet 10 mg PO QAM RF: 0 albuterol sulfate [ProAir HFA] 90 mcg/actuation Hfa Aerosol Inhaler 2 puff INHALATION Q4H PRN (Reason: Cough/SOB or Wheezing) RF: 0 carvedilol 6.25 mg tablet 6.25 mg PO BID RF: 0 azithromycin 250 mg tablet 250 mg PO MOWEFR RF: 0 cyanocobalamin (vitamin B-12) [Vitamin B-12] 500 mcg Tablet 500 mcg PO QAM RF: 0 fluticasone propionate 50 mcg/actuation spray,suspension 2 spray Intranasal QAM RF: 0 Incruse Ellipta 62.5 mcg/actuation blister with device 1 inh Inhalation BID RF: 0 polyethylene glycol 3350 17 gram Powder In Packet 17 g PO DAILY PRN (Reason: Constipation) RF: 0 pantoprazole 40 mg tablet,delayed release (DR/EC) 40 mg PO BID RF: 0 ipratropium-albuterol 0.5 mg-3 mg(2.5 mg base)/3 mL Solution For Nebulization 3 ml INHALATION Q6H RF: 0 Florastor 250 mg capsule 250 mg PO BID Qty: 20 RF: 0 fluticasone propion-salmeterol [Advair Diskus] 250-50 mcg/dose Blister With Device 1 inh INHALATION BID RF: 0 nystatin 100,000 unit/mL suspension 5 ml PO QID RF: 0 oxycodone 5 mg tablet 5 mg PO QID PRN (Reason: Pain) RF: 0 Discharge Orders: Discharge Order (Routine); Ordered 11/08/19 Ordered By: Yobany Camarillo Admission Data Admit Date/Time: 11/05/19 14:17 Attending Provider: Yobany Camarillo Admit Provider: Maribel Molina Primary Care Provider: Javy Chong Other Providers: Maribel Molina
== END 2019-11-08 12:50 | disposition home health service (06) | DRG 546 ==
LOC: ED 10:14 → 2N 14:17 → SUATTDRO 14:17 → 2N 15:00

== ENCOUNTER 2019-12-28 06:43 | Inpatient (IN) ==
[2019-12-28] MEDS ORDERED: NITROGLYCERIN SL 0.4 MG/TAB TAB SL STA (07:01)
[2019-12-28 07:11] LABS: Basophils # (auto) 0.03 K/uL (0-0.2); Basophils % (auto) 0.3 %; Eosinophils # (auto) 0.12 K/uL (0-0.5); Eosinophils % (auto) 1.1 %; Hematocrit (blood only) 37.8 % (37-47); Hemoglobin 12.2 g/dL (12.0-16.0); Immature Granulocytes # (auto) 0.03 K/uL (0.00-0.02); Immature Granulocytes % (auto) 0.3 %; Lymphocytes # (auto) 3.08 K/uL (1.2-3.4); Lymphocytes % (auto) 28.3 %; Mean Corpuscular Hemoglobin 31.2 pg (25-34); Mean Corpuscular Hgb Conc 32.3 g/dL (32-36); Mean Corpuscular Volume 96.7 fL (80-100); Mean Platelet Volume 11.4 fL (7.4-10.4); Monocytes # (auto) 1.18 K/uL (0.11-0.59); Monocytes % (auto) 10.8 %; Neutrophils # (auto) 6.46 K/uL (1.4-6.5); Neutrophils % (auto) 59.2 %; Platelet Count 259 K/uL (130-400); RDW Coefficient of Variation 14.6 % (11.5-14.5); RDW Standard Deviation 51.4 fL (36.4-46.3); Red Blood Count 3.91 M/uL (4.2-5.4)
[2019-12-28 07:28] LABS: Alanine Aminotransferase 13 U/L (12-78); Aspartate Aminotransferase 8 U/L (15-37); Blood Urea Nitrogen 20 mg/dl (7-18); Calcium 9.2 mg/dl (8.5-10.1); Carbon Dioxide 31 mmol/L (21-32); Chloride 104 mmol/L (98-107); Creatinine Clr Calc Pharmacy 34.7 ml/min; Est GFR (African American) 55.7; Est GFR (Non-African American) 48.1; Glucose 87 mg/dl (70-99); Lipase 597 U/L (73-393); Partial Thromboplastin Ratio 0.9; Potassium 4.2 mmol/L (3.5-5.1); Prothrombin Time 10.3 Seconds (9.0-12.0); Sodium 138 mmol/L (136-145)
--- NOTE | 2019-12-28 07:32 | XRay Report ---
XR chest 1V portable HISTORY: 79 years-old Female Chest Pain acute atypical chest pain COMPARISON: Chest radiograph 11/05/2019 TECHNIQUE: Portable AP view of the chest FINDINGS: Cardiomegaly. Chronic interstitial coarsening with unchanged blunting of the costophrenic angles. The re is no pneumothorax or overt pulmonary edema. Multiple remote appearing left-sided rib fractures. D egenerative changes of the shoulders and spine. Moderate hiatal hernia. IMPRESSION: 1. Cardiomegaly without overt pulmonary edema. 2. Chronic interstitial coarsening. 3. Moderate hiatal hernia. ACT 112: Negative or not required by law. The above report was generated using voice recognition software. It may contain grammatical, syntax o r spelling errors. Electronically signed by: Hemanth Marcano M.D. 12/28/2019 7:31 AM
[2019-12-28 07:33] LABS: Albumin Globulin Ratio 0.9 (0.9-2); Alkaline Phosphatase 104 U/L (45-117); Bilirubin,Total 0.5 mg/dl (0.2-1); Creatine Kinase 17 U/L (26-192); Creatine Kinase MB < 1.0 ng/ml (0.5-3.6); Globulin 3.5 gm/dl (2.5-4.0); NT Pro B Type Natriuretic Pept 1014 pg/ml (0-1800); Total Protein 6.5 gm/dl (6.4-8.2); Troponin I < 0.015 ng/ml (0-0.045)
[2019-12-28] MEDS ORDERED: OPTIRAY 320 125ml IV PRN (07:46)
--- NOTE | 2019-12-28 08:11 | CT Scan Report ---
CT angio chest dissec wo/w con CT DOSE: 483.31 mGy.cm HISTORY: Pain Pt c/o severe back pain TECHNIQUE: Multiaxial CT images of the chest, abdomen, and pelvis were performed both before and afte r the intravenous administration of contrast to evaluate the aorta. Maximal intensity projection imag es were also obtained. A dose lowering technique was utilized adhering to the principles of ALARA. COMPARISON STUDY: Thoracic spine 07/09/2017 FINDINGS: All compression deformities of T6 as well as several low thoracic and upper lumbar spine ve rtebral bodies. These appear to be similar as compared to the prior study. Atherosclerotic change thoracic aorta. No evidence for aneurysm or dissection. The pulmonary vasculat ure enhances appropriately. No major filling defects are appreciated. No significant hilar or mediast inal adenopathy. Lungs are grossly clear. IMPRESSION: 1. 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 2. Hiatal hernia. 3. Mild bibasilar atelectatic change. 4. Degenerative change thoracic spine with several compression deformities considered pre-existing an d/or old. ACT 112: Negative or not required by law. The above report was generated using voice recognition software. It may contain grammatical, syntax or spelling errors. Electronically signed by: Ramesh Gore M.D. 12/28/2019 8:10 AM
--- NOTE | 2019-12-28 08:15 | CT Scan Report ---
CT thoracic spine wo con CT DOSE: HISTORY: Pain Pt c/o severe back pain TECHNIQUE: Multiaxial CT images of the thoracic spine were performed and reformatted in the sagittal and coronal plane without the use of contrast. A dose lowering technique was utilized adhering to th e principles of ALARA. COMPARISON: Thoracic spine 02/08/2019 FINDINGS: Considerable degenerative change throughout the entire thoracic and upper lumbar region. Compression deformities of T7 T9 T12, L1, L2, and L3. These are similar/slightly progressive as marcelina red to the prior study. The possibility of may be a slight degree of progression of the compression d eformities. No significant compromise of the spinal canal. Generalized osteoporosis. IMPRESSION: 1. Generalized osteoporosis. 2. Multiple compression deformities of the mid to lower thoracic region as well as upper lumbar regio n. 3. These are considered stable/minimally progressive compared to the prior study. 4. No major compromise of the spinal canal. ACT 112: Negative or not required by law. The above report was generated using voice recognition software. It may contain grammatical, syntax or spelling errors. Electronically signed by: Ramesh Gore M.D. 12/28/2019 8:14 AM
[2019-12-28] MEDS ORDERED: methylPREDNISolone 125 MG/2 ML VIAL IV STA (08:34)
[2019-12-28] MEDS ORDERED: ALBUT/IPRATROP 3MG/0.5MG NEB 3 ML VIAL NEB ONE (08:34)
[2019-12-28] MEDS ORDERED: MAGNESIUM SULFATE / D5W 1 GM/100 ML BAG IV ONE (08:34)
[2019-12-28 08:42] LABS: Appearance Urine Clear (Clear); Bacteria Urine Automated Negative (Negative); Bilirubin Urine Negative (Negative); Blood Urine Negative (Negative); Cast Urine Automated 0 /lpf (0-5); Color Urine Yellow; Epithelial Cell Urine Auto 20-30 /lpf (0-5); Glucose Urine UA Negative (Negative); Ketones Urine Negative (Negative); Leukocyte Esterase Urine Trace (Negative); Nitrite Urine Negative (Negative); Protein Urine Negative (Negative); Specific Gravity Urine 1.016 (1.000-1.030); Urobilinogen Urine Negative (Negative); WBC Urine Automated 0 /hpf (0-5)
[2019-12-28] MEDS ORDERED: ONDANSETRON INJ 2 MG/ML 2 ML VIAL IV STA (08:55)
--- NOTE | 2019-12-28 10:46 | History & Physical Report ---
Date of Service December 28, 2019 Assessment & Plan (1) Acute back pain: Has history of multiple compression fracture of the vertebrae Woke up with acute midthoracic pain without any radiation and without any rash Pain is relieved to some extent with oxycodone 5 mg that she has been taking for a long time Thoracic spine CT scan did not show any significant change compared with prior and no spinal cord compression We will try lidocaine patch locally and continue with current dose of pain m edications PT and OT evaluation (2) Chest wall pain: Complaint to have some chest pain anteriorly associated with the back pain EKG and initial troponin unremarkable We will get serial serial cardiac troponins Doubt any ACS (3) COPD exacerbation: Has history of COPD doubt any acute exacerbation We will give a short course of prednisone that will help osteoporotic pain and COPD Continue bronchodilators and other medications as before (4) Rheumatoid arthritis: Severe rheumatoid changes involving the IP extremities mostly the hands No acute arthritis in any joints (5) Hypertension: Blood pressure is controlled and will continue current medications (6) Pulmonary fibrosis: History of interstitial lung disease complicated by COPD and 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 Has been on home oxygen We will continue current oxygen Other medical conditions including chronic kidney disease,, history of dysphagia and GERD remain stable DVT prophylaxis Subcu heparin CODE STATUS DNR History of Present Illness Chief Complaint: Sudden severe mid back pain at 3 AM today Primary Care Provi odilia: Javy Chong MD She is a 79-year-old female with significant past medical history of rheumatoid arthritis, interstitial lung disease with COPD on home oxygen, chronic kidney disease, hypertension and chronic back pain from multiple compression deformities of the spine has been complaining of sudden midthoracic pain around 3 AM today. He woke up with the pain which is associated with some chest compression pressure without any radiation of the pain. She did not have any fever and/or chills, recent cough or phlegm, recent increasing shortness of breath, no problem with her urine and her bowel habit, and no numbness or tingling involving any of the extremities. The pain is here about half an hour to an hour and relieved to some extent with use of hydrocodone that she has been using before. Remained reasonably free of pain in the emergency room when she is not moving. Upon investigation including thoracic spine CT and CTA did not show any significant change compared to prior and no history of pulmonary embolism and/or aortic dissection. The chest x-ray did not show any pneumonia. She was admitted to medical telemetry unit for continuation of care. Allergies Allergy/AdvReac Type Severity Reaction Status Date / Time ranitidine Allergy Intermediate Hives Verified 12/28/19 07:21 Estrogens Allergy Mild IRREGULAR Verified 12/28/19 07:21 HEART RATE lovastatin Allergy Unknown UNKNOWN Verified 12/28/19 07:21 zoledronic acid AdvReac Intermediate MUSCLE PAIN Verified 12/28/19 07:21 Bactrim AdvReac Mild NAUSEA/VOMI Verified 07/09/17 19:19 TING omeprazole AdvReac Mild ABD PAIN Verified 12/28/19 07:21 Quinolones AdvReac Mild 11/28/08--ITCHY Verified 12/28/19 07:21 ARM, HAS HAD IN PAST W/O RXN sulfamethoxazole AdvReac Mild NAUSEA/VOMI Verified 12/28/19 07:21 TING trimethoprim AdvReac Mild NAUSEA/VOMI Verified 12/28/19 07:21 TING Home Medications Home Medications Medication Instructions Recorded Confirmed Type Incruse Ellipta 1 inh INHALATION BID 02/08/19 12/28/19 History azithromycin 250 mg PO MOWEFR 02/08/19 12/28/19 History carvedilol 6.25 mg PO BID 02/08/19 12/28/19 History cyanocobalamin (vitamin B-12) 500 mcg PO QAM 02/08/19 12/28/19 History [Vitamin B-12] fluticasone propionate 2 spray INTRANASAL QAM 02/08/19 12/28/19 History ipratropium-albuterol 3 ml INHALATION Q6H 02/08/19 12/28/19 History pantoprazole 40 mg PO BID 02/08/19 12/28/19 History polyethylene glycol 3350 17 g PO DAILY PRN 02/08/19 12/28/19 History Florastor 250 mg PO BID #20 cap 05/27/19 12/28/19 Rx albuterol sulfate [ProAir HFA] 2 puff INHALATION Q4H PRN 05/29/19 12/28/19 History prednisone 10 mg PO QAM 05/29/19 12/28/19 History fluticasone propion-salmeterol 1 inh INHALATION BID 06/15/19 12/28/19 History [Advair Diskus] oxycodone 5 mg PO QID PRN 11/05/19 12/28/19 History amlodipine 10 mg PO DAILY #30 tab 11/08/19 12/28/19 Rx Past Med/Surg History Medical History Anxiety Chronic obstructive pulmonary disease Chronic respiratory failure (Chronic) Chronic steroid use CKD (chronic kidney disease), stage III (Chronic) Congestive heart failure hx of Degenerative disc disease Depression Diverticulitis (Acute) GERD (gastroesophageal reflux disease) (Chronic) Hearing deficit Hiatal hernia (Chronic) Hx of central retinal vein occlusion (Chronic) Hyperlipidemia Hypertension On home oxygen therapy 3L N/C at all times Osteoarthritis (Chronic) Pulmonary fibrosis (Chronic) pt denies Rheumatoid arthritis Surgical History H/O colonoscopy (Chronic) H/O esophagogastroduodenoscopy (Chronic) History of bilateral cataract extraction History of dilatation and curettage History of left breast biopsy benign History of tooth extraction History of total hysterectomy with bilateral salpingo-oophorectomy (BSO) S/P cholecystectomy (Resolved) Family History Other Family history non-contributory No family history of adverse response to anesthesia Social History Preferred Language: Greek Communication Ability: Effective Blacksmith Supervisor Required: No Beliefs That Will Affect Care: None marital status: Current Living Situation: Other Current Living Situation Comment: friend current occupational status: retired Other Information That Helps Us Care for You: No Feels Safe at Home: Yes Safety Concerns: Feels Safe At This Time Smoking Status: Former smoker Second Hand Exposure: No ; Hx Alcohol Use: No Hx Substance Use: No Review of Systems Review of Systems: All systems reviewed & are unremarkable except as noted in HPI & below Respiratory: + dyspnea on exertion; no cough and no wheezing Musculoskeletal: + back pain (Without any radiation of pain) Physical Exam Physical Exam: Lying in bed without any acute symptoms Constitutional: + ill appearing and + thin; no acute distress Eyes: PERRL, conjunctivae normal, anicteric sclerae ENMT: external ear and nose normal, oropharynx normal Neck: trachea midline, no thyromegaly Respiratory: normal respiratory effort Auscultation: + diminished lung sounds and + crackles (Bibasilar crackles); no wheezes Cardiovascular: Rate/Rhythm: regular rate and regular rhythm Heart Sounds: no murmur Gastrointestinal (Abdomen): Inspection/Auscultation: abdomen normal to inspection and normal bowel sounds Percussion/Palpation: abdomen soft; abdomen nontender Musculoskeletal: Localized tenderness at the mid thoracic area. No rash noted on either side, no acute arthritis in any of the joints but does have severe rheumatoid arthritis changes in the hands Neurologic: moves all extremities; no focal motor deficits Lymphatic: no cervical or axillary lymphadenopathy Results & Data Vital Signs (Past 12 Hours) Vital Signs Temp Pulse Pulse Resp BP Pulse Ox 12/28/19 10:01 67 22 100 12/28/19 10:00 66 18 148/94 H 100 12/28/19 09:31 65 16 100 12/28/19 09:30 65 22 143/83 H 100 12/28/19 09:01 73 17 100 12/28/19 09:00 63 16 157/86 H 100 12/28/19 08:45 69 22 95 12/28/19 08:31 66 15 95 12/28/19 08:30 63 16 159/91 H 96 12/28/19 08:15 72 19 175/86 H 90 12/28/19 08:05 71 22 98 12/28/19 07:31 67 17 93 12/28/19 07:30 66 18 168/91 H 93 12/28/19 07:20 69 22 92 12/28/19 07:14 66 18 156/92 H 93 12/28/19 07:00 17 90 12/28/19 06:52 80 21 12/28/19 06:48 36.7 C 80 21 150/89 H 93 12/28/19 06:46 16 150/89 H Laboratory Results Short CBC 12/28/19 Range/Units 06:55 WBC 10.90 H (4.8-10.8) K/uL Hgb 12.2 (12.0-16.0) g/dL Hct 37.8 (37-47) % Plt Count 259 (130-400) K/uL BMP 12/28/19 06:55 Sodium 138 Potassium 4.2 Chloride 104 Carbon Dioxide 31 BUN 20 H Creatinine 1.10 Glucose 87 Calcium 9.2 Cardiac Enzymes 12/28/19 Range/Units 06:55 Total Creatine Kinase 17 L (26-192) U/L CK-MB (CK-2) < 1.0 (0.5-3.6) ng/ml Troponin I < 0.015 (0-0.045) ng/ml Liver Function 12/28/19 Range/Units 06:55 Total Bilirubin 0.5 (0.2-1) mg/dl AST 8 L (15-37) U/L ALT 13 (12-78) U/L Alkaline Phosphatase 104 (45-117) U/L Albumin 3.0 L (3.4-5.0) gm/dl Urine 12/28/19 Range/Units 08:16 Urine Color Yellow Urine Appearance Clear (Clear) Urine pH 8.0 H (4.5-7.5) Ur Specific [place] 1.016 (1.000-1.030) Urine Protein Negative (Negative) Urine Glucose (UA) Negative (Negative) Medications Administered Current Inpatient Medications Heparin Sodium (Porcine) (Heparin Sodium (Porcine)) 5,000 units SQ Q12 [facility] Stop: 01/27/20 20:59 Ioversol (Optiray 320 125ml) 120 ml IV ONCE PRN PRN Reason: Interaction Checking Stop: 01/01/20 07:45 Last Admin: 12/28/19 07:46 Dose: 120 ml Documented by: Lidocaine (Lidoderm 5%) 1 patch TD QAM [facility] Stop: 01/27/20 10:44 Miscellaneous (Remove Lidoderm Patch) 1 ea N/A DAILY@2100 [facility] Stop: 01/27/20 20:59 Code Status & VTE Plan VTE Prophylaxis Plan VTE Prophylaxis will be ordered: Yes
[2019-12-28] MEDS ORDERED: POLYETHYLENE (MIRALAX) 17 GM PACK PO PRN (12:35)
[2019-12-28] MEDS ORDERED: ALBUTEROL HFA INHALER 8.5 GM INH PRN (13:02)
[2019-12-28] MEDS: ALBUT/IPRATROP 3MG/0.5MG NEB 3 ML VIAL INH SCH ×2 (13:10→19:22)
[2019-12-28] MEDS: LIDOCAINE 5% 1 PATCH TD SCH ×2 (13:57→15:55)
[2019-12-28] MEDS: carvediloL 6.25 MG TAB PO SCH ×2 (14:01→16:10)
[2019-12-28] MEDS: FLUTICASONE/VILANTEROL 100/25MCG 14 PUFFS/INHALER INH SCH (14:02)
[2019-12-28] MEDS: SACCHAROMYCES BOULARDII 250 MG CAP PO SCH ×2 (14:02→20:12)
[2019-12-28] MEDS: FLUTICASONE PROPIONATE NA SPR 16 GM BTL SCH (14:02)
--- NOTE | 2019-12-28 15:35 | Emergency Department Note ---
Entered by Jennifer Naylor acting as a scribe for History of Present Illness General Chief complaint: Back Injury/Pain Stated complaint: BACK PAIN Time Seen by Provider: 12/28/19 06:48 Source: patient and family Mode of arrival: EMS History of Present Illness Onset (ago): hour(s) (0300 today) Location: back Pain Consistency: + other (episode) Maximum Pain Intensity: 4 Quality: + sharp and + other (shooting) Relieved By: not by medication (Oxycodone) Exacerbated By: not by other (deep breathing) Associated symptoms: + other (back pain) Treatments prior to arrival: aspirin and other (Toradol, albuterol treatment) The patient is a 79 year old female presenting to the Emergency Department via EMS complaining of an episode of back pain starting at 0300 this morning. The patient reports that she awoke from her sleep with severe back pain. She describes this pain as sharp and shooting. She states that she has never experienced this pain before. She notes that deep breathing doesnt worsen her pain. She adds that she took Oxycodone at 0430 that didnt relieve her pain. The patient reports that she received 4 Aspirin, Toradol and an albuterol treatment from EMS that did relieve her pain. She states that she no longer is experiencing this severe back pain. The patients family notes that the patient has chronic back pain but that this pain seemed different than her normal back pain. They add that the patient has osteoporosis, rheumatoid arthritis and hairline cracks in her spine. Home Medications Home Medications Medication Instructions Recorded Confirmed Type Incruse Ellipta 1 inh INHALATION BID 02/08/19 12/28/19 History azithromycin 250 mg PO MOWEFR 02/08/19 12/28/19 History carvedilol 6.25 mg PO BID 02/08/19 12/28/19 History cyanocobalamin (vitamin B-12) 500 mcg PO QAM 02/08/19 12/28/19 History [Vitamin B-12] fluticasone propionate 2 spray INTRANASAL QAM 02/08/19 12/28/19 History ipratropium-albuterol 3 ml INHALATION Q6H 02/08/19 12/28/19 History pantoprazole 40 mg PO BID 02/08/19 12/28/19 History polyethylene glycol 3350 17 g PO DAILY PRN 02/08/19 12/28/19 History Florastor 250 mg PO BID #20 cap 05/27/19 12/28/19 Rx albuterol sulfate [ProAir HFA] 2 puff INHALATION Q4H PRN 05/29/19 12/28/19 History prednisone 10 mg PO QAM 05/29/19 12/28/19 History fluticasone propion-salmeterol 1 inh INHALATION BID 06/15/19 12/28/19 History [Advair Diskus] oxycodone 5 mg PO QID PRN 11/05/19 12/28/19 History amlodipine 10 mg PO DAILY #30 tab 11/08/19 12/28/19 Rx Allergies Allergy/AdvReac Type Severity Reaction Status Date / Time ranitidine Allergy Intermediate Hives Verified 12/28/19 07:21 Estrogens Allergy Mild IRREGULAR Verified 12/28/19 07:21 HEART RATE lovastatin Allergy Unknown UNKNOWN Verified 12/28/19 07:21 zoledronic acid AdvReac Intermediate MUSCLE PAIN Verified 12/28/19 07:21 Bactrim AdvReac Mild NAUSEA/VOMI Verified 07/09/17 19:19 TING omeprazole AdvReac Mild ABD PAIN Verified 12/28/19 07:21 Quinolones AdvReac Mild 11/28/08--ITCHY Verified 12/28/19 07:21 ARM, HAS HAD IN PAST W/O RXN sulfamethoxazole AdvReac Mild NAUSEA/VOMI Verified 12/28/19 07:21 TING trimethoprim AdvReac Mild NAUSEA/VOMI Verified 12/28/19 07:21 TING Past Med/Surg History Medical History Anxiety Chronic obstructive pulmonary disease Chronic respiratory failure (Chronic) Chronic steroid use CKD (chronic kidney disease), stage III (Chronic) Congestive heart failure hx of Degenerative disc disease Depression Diverticulitis (Acute) GERD (gastroesophageal reflux disease) (Chronic) Hearing deficit Hiatal hernia (Chronic) Hx of central retinal vein occlusion (Chronic) Hyperlipidemia Hypertension On home oxygen therapy 3L N/C at all times Osteoarthritis (Chronic) Pulmonary fibrosis (Chronic) pt denies Rheumatoid arthritis Surgical History H/O colonoscopy (Chronic) H/O esophagogastroduodenoscopy (Chronic) History of bilateral cataract extraction History of dilatation and curettage History of left breast biopsy benign History of tooth extraction History of total hysterectomy with bilateral salpingo-oophorectomy (BSO) S/P cholecystectomy (Resolved) Family History Other Family history non-contributory No family history of adverse response to anesthesia Social History Preferred Language: Danish Communication Ability: Effective Skiver Machine Required: No Beliefs That Will Affect Care: None marital status: Current Living Situation: Other Current Living Situation Comment: friend current occupational status: retired Other Information That Helps Us Care for You: No Feels Safe at Home: Yes Safety Concerns: Feels Safe At This Time Smoking Status: Former smoker Second Hand Exposure: No ; Hx Alcohol Use: No Hx Substance Use: No Review of Systems See HPI for pertinent positives & negatives. and A total of 10 systems reviewed and were otherwise negative Physical Exam Vital Signs Vital Signs - 24 hr 12/28/19 06:46 12/28/19 06:48 12/28/19 06:52 Temperature 36.7 C Temperature Source Oral Pulse Rate 80 80 Pulse Rate [Apical] Pulse Rate from SpO2 Sensor Pulse Rhythm Regular Pulse Strength Normal Respiratory Rate 16 21 21 Respiratory Effort / Characteristics Non-Labored Spontaneous Respiratory Depth Normal Respiratory Pattern Regular Blood Pressure 150/89 H 150/89 H Blood Pressure Mean 128 109 Blood Pressure Position Lying Pulse Oximetry 93 Oxygen Delivery Method Nasal Cannula Oxygen Flow Rate 3 Sepsis Recent Fever Within 48 Hours No Sepsis New/Unexplained Change in Mental Status No Sepsis Action Taken by Nursing No Action Required 12/28/19 07:00 12/28/19 07:14 12/28/19 07:20 Temperature Temperature Source Pulse Rate 66 69 Pulse Rate [Apical] Pulse Rate from SpO2 Sensor 72 65 Pulse Rhythm Pulse Strength Respiratory Rate 17 18 22 Respiratory Effort / Characteristics Respiratory Depth Respiratory Pattern Blood Pressure 156/92 H Blood Pressure Mean 114 Blood Pressure Position Pulse Oximetry 90 93 92 Oxygen Delivery Method Nasal Cannula Nasal Cannula Nasal Cannula Oxygen Flow Rate 3 3 3 Sepsis Recent Fever Within 48 Hours Sepsis New/Unexplained Change in Mental Status Sepsis Action Taken by Nursing 12/28/19 07:30 12/28/19 07:31 12/28/19 08:05 Temperature Temperature Source Pulse Rate 66 67 71 Pulse Rate [Apical] Pulse Rate from SpO2 Sensor 66 66 70 Pulse Rhythm Pulse Strength Respiratory Rate 18 17 22 Respiratory Effort / Characteristics Respiratory Depth Respiratory Pattern Blood Pressure 168/91 H Blood Pressure Mean 116 Blood Pressure Position Pulse Oximetry 93 93 98 Oxygen Delivery Method Nasal Cannula Nasal Cannula Nasal Cannula Oxygen Flow Rate 3 3 3 Sepsis Recent Fever Within 48 Hours Sepsis New/Unexplained Change in Mental Status Sepsis Action Taken by Nursing 12/28/19 08:15 12/28/19 08:30 12/28/19 08:31 Temperature Temperature Source Pulse Rate 72 63 66 Pulse Rate [Apical] Pulse Rate from SpO2 Sensor 72 64 65 Pulse Rhythm Pulse Strength Respiratory Rate 19 16 15 Respiratory Effort / Characteristics Respiratory Depth Respiratory Pattern Blood Pressure 175/86 H 159/91 H Blood Pressure Mean 123 123 Blood Pressure Position Pulse Oximetry 90 96 95 Oxygen Delivery Method Nasal Cannula Nasal Cannula Nasal Cannula Oxygen Flow Rate 3 3 3 Sepsis Recent Fever Within 48 Hours Sepsis New/Unexplained Change in Mental Status Sepsis Action Taken by Nursing 12/28/19 08:45 12/28/19 09:00 12/28/19 09:01 Temperature Temperature Source Pulse Rate 63 73 Pulse Rate [Apical] 69 Pulse Rate from SpO2 Sensor 63 72 Pulse Rhythm Pulse Strength Respiratory Rate 22 16 17 Respiratory Effort / Characteristics Spontaneous Respiratory Depth Respiratory Pattern Blood Pressure 157/86 H Blood Pressure Mean 119 Blood Pressure Position Pulse Oximetry 95 100 100 Oxygen Delivery Method Nasal Cannula Nebulizer Nebulizer Oxygen Flow Rate 3 Sepsis Recent Fever Within 48 Hours Sepsis New/Unexplained Change in Mental Status Sepsis Action Taken by Nursing 12/28/19 09:30 12/28/19 09:31 12/28/19 10:00 Temperature Temperature Source Pulse Rate 65 65 66 Pulse Rate [Apical] Pulse Rate from SpO2 Sensor 65 65 66 Pulse Rhythm Pulse Strength Respiratory Rate 22 16 18 Respiratory Effort / Characteristics Respiratory Depth Respiratory Pattern Blood Pressure 143/83 H 148/94 H Blood Pressure Mean 107 113 Blood Pressure Position Pulse Oximetry 100 100 100 Oxygen Delivery Method Nebulizer Nebulizer Nebulizer Oxygen Flow Rate Sepsis Recent Fever Within 48 Hours Sepsis New/Unexplained Change in Mental Status Sepsis Action Taken by Nursing 12/28/19 10:01 Temperature Temperature Source Pulse Rate 67 Pulse Rate [Apical] Pulse Rate from SpO2 Sensor 67 Pulse Rhythm Pulse Strength Respiratory Rate 22 Respiratory Effort / Characteristics Respiratory Depth Respiratory Pattern Blood Pressure Blood Pressure Mean Blood Pressure Position Pulse Oximetry 100 Oxygen Delivery Method Oxygen Flow Rate Sepsis Recent Fever Within 48 Hours Sepsis New/Unexplained Change in Mental Status Sepsis Action Taken by Nursing GENERAL: Cachectic in appearance. Awake, alert, in no acute distress HENT: Normocephalic, atraumatic. Oropharynx unremarkable. EYES: Normal conjunctiva. Sclera non-icteric. NECK: Supple. No nuchal rigidity. FROM. No JVD. RESPIRATORY: Distant breath sounds. CARDIAC: Regular rate, normal rhythm. Extremities warm and well perfused. Pulses equal. ABDOMEN: Soft, non-distended. No tenderness to palpation. No rebound or guarding. No masses. RECTAL: Deferred. MUSCULOSKELETAL: Pain is non reproducible. Chest examination reveals no tenderness. The back is symmetrical on inspection without obvious abnormality. There is no CVA tenderness to palpation. No joint edema. LOWER EXTREMITIES: Calves are equal size bilaterally and non-tender. No edema. No discoloration. NEURO: Normal sensorium. No sensory or motor deficits noted. SKIN: No rash or jaundice noted. Course Course 0655: The patient was evaluated in room B5, and a complete history and physical examination were performed. 0750: I reevaluated the patient at this time. 0853: I discussed the patients case with Lida Warren PA-C. Dr. Willy Chou hospitalist will evaluate the patient for further management. Administered Medications Discontinued Medications Albuterol (Duoneb) 12 ml NEB ONE ONE Stop: 12/28/19 08:35 Last Admin: 12/28/19 08:41 Dose: 12 ml Documented by: [id number] Albuterol (Duoneb) 3 ml INH Q6R ALEX Stop: 01/27/20 12:59 Last Admin: 12/30/19 13:16 Dose: 3 ml Documented by: [id number] Admin: 12/30/19 06:55 Dose: 3 ml Documented by: [id number] Admin: 12/30/19 01:07 Dose: Not Given Documented by: [id number] Admin: 12/29/19 19:47 Dose: 3 ml Documented by: [id number] Admin: 12/29/19 13:20 Dose: 3 ml Documented by: [id number] Admin: 12/29/19 07:07 Dose: 3 ml Documented by: [id number] Admin: 12/29/19 01:16 Dose: Not Given Documented by: [id number] Admin: 12/28/19 19:22 Dose: 3 ml Documented by: [id number] Admin: 12/28/19 13:10 Dose: 3 ml Documented by: [id number] Amlodipine Besylate (Norvasc) 10 mg PO DAILY [facility] Stop: 01/28/20 08:59 Last Admin: 12/30/19 09:11 Dose: 10 mg Documented by: [id number] Admin: 12/29/19 08:45 Dose: 10 mg Documented by: [id number] Calcium Carbonate (Tums) 500 mg PO Q6H PRN PRN Reason: Heartburn Stop: 01/28/20 01:54 Last Admin: 12/29/19 02:06 Dose: 500 mg Documented by: [id number] Carvedilol (Coreg) 6.25 mg PO BIDM [facility] Stop: 01/27/20 13:14 Last Admin: 12/30/19 17:49 Dose: 6.25 mg Documented by: [id number] Admin: 12/30/19 09:08 Dose: 6.25 mg Documented by: [id number] Admin: 12/29/19 17:36 Dose: 6.25 mg Documented by: [id number] Admin: 12/29/19 08:45 Dose: 6.25 mg Documented by: [id number] Admin: 12/28/19 16:10 Dose: Not Given Documented by: [id number] Admin: 12/28/19 14:01 Dose: 6.25 mg Documented by: [id number] Cyanocobalamin (Vitamin B-12) 500 mcg PO QAM [facility] Stop: 01/28/20 08:59 Last Admin: 12/30/19 09:11 Dose: 500 mcg Documented by: [id number] Admin: 12/29/19 08:46 Dose: 500 mcg Documented by: [id number] Fluticasone Propionate (Flonase) 2 sprays NA QAM [facility] Stop: 01/27/20 13:59 Last Admin: 12/30/19 09:09 Dose: 2 sprays Documented by: [id number] Admin: 12/29/19 08:48 Dose: 2 sprays Documented by: [id number] Admin: 12/28/19 14:02 Dose: 2 sprays Documented by: [id number] Fluticasone/Vilanterol (Breo Ellipta 100/25 Mcg Inh) 1 puffs INH DAILY [facility]; Protocol Stop: 01/27/20 13:59 Last Admin: 12/30/19 09:08 Dose: 1 puffs Documented by: [id number] Admin: 12/29/19 08:47 Dose: 1 puffs Documented by: [id number] Admin: 12/28/19 14:02 Dose: 1 puffs Documented by: [id number] Heparin Sodium (Porcine) (Heparin Sodium (Porcine)) 5,000 units SQ Q12 [facility] Stop: 01/27/20 20:59 Last Admin: 12/30/19 09:08 Dose: Not Given Documented by: [id number] Admin: 12/29/19 20:09 Dose: Not Given Documented by: [id number] Admin: 12/29/19 08:48 Dose: 5,000 units Documented by: [id number] Cosigned by: [id number] Admin: 12/28/19 20:12 Dose: 5,000 units Documented by: [id number] Cosigned by: [id number] Magnesium Sulfate/Dextrose (Magnesium Sulfate / D5w) 1 gm in 100 mls @ 100 m ls/hr IV ONE ONE Stop: 12/28/19 09:33 Last Infusion: 12/28/19 09:47 Dose: 0 mls/hr Documented by: [id number] Admin: 12/28/19 08:40 Dose: 100 mls/hr Documented by: [id number] Ioversol (Optiray 320 125ml) 120 ml IV ONCE PRN PRN Reason: Interaction Checking Stop: 01/01/20 07:45 Last Admin: 12/28/19 07:46 Dose: 120 ml Documented by: [id number] Lidocaine (Lidoderm 5%) 1 patch TD QAM [facility] Stop: 01/27/20 10:44 Last Admin: 12/30/19 09:06 Dose: 1 patch Documented by: [id number] Admin: 12/29/19 08:47 Dose: 1 patch Documented by: [id number] Admin: 12/28/19 15:55 Dose: 1 patch Documented by: [id number] Admin: 12/28/19 13:57 Dose: Not Given Documented by: [id number] Methylprednisolone (Solumedrol) 60 mg IV NOW STA Stop: 12/28/19 08:35 Last Admin: 12/28/19 08:39 Dose: 60 mg Documented by: [id number] Miscellaneous (Remove Lidoderm Patch) 1 ea N/A DAILY@2100 ALEX Stop: 01/27/20 22:59 Last Admin: 12/29/19 20:10 Dose: 1 ea Documented by: [id number] Admin: 12/28/19 22:18 Dose: 1 ea Documented by: [id number] Nitroglycerin (Nitrostat) 0.4 mg SL NOW STA Stop: 12/28/19 07:02 Last Admin: 12/28/19 12:36 Dose: Not Given Documented by: [id number] Ondansetron HCl (Zofran) 4 mg IV NOW STA Stop: 12/28/19 08:56 Last Admin: 12/28/19 08:57 Dose: Not Given Documented by: [id number] Oxycodone HCl (Roxicodone Immediate Rel) 5 mg PO QID PRN PRN Reason: Pain Stop: 01/11/20 13:10 Last Admin: 12/30/19 09:49 Dose: 5 mg Documented by: [id number] Admin: 12/29/19 07:51 Dose: 5 mg Documented by: [id number] Pantoprazole Sodium (Protonix) 40 mg PO BID [facility] Stop: 01/27/20 20:59 Last Admin: 12/30/19 09:10 Dose: 40 mg Documented by: [id number] Admin: 12/29/19 20:09 Dose: 40 mg Documented by: [id number] Admin: 12/29/19 08:47 Dose: 40 mg Documented by: [id number] Admin: 12/28/19 20:11 Dose: 40 mg Documented by: [id number] Prednisone (Prednisone) 40 mg PO DAILY [facility] Stop: 01/28/20 08:59 Last Admin: 12/30/19 09:10 Dose: 40 mg Documented by: [id number] Admin: 12/29/19 08:46 Dose: 40 mg Documented by: [id number] Prednisone (Prednisone) 10 mg PO QAM [facility] Stop: 01/28/20 08:59 Last Admin: 12/30/19 09:10 Dose: 10 mg Documented by: [id number] Admin: 12/29/19 08:46 Dose: 10 mg Documented by: [id number] Saccharomyces Boulardii (Florastor) 250 mg PO BID [facility] Stop: 01/27/20 13:29 Last Admin: 12/30/19 09:09 Dose: 250 mg Documented by: [id number] Admin: 12/29/19 20:10 Dose: 250 mg Documented by: [id number] Admin: 12/29/19 08:46 Dose: 250 mg Documented by: [id number] Admin: 01/30/20 20:12 Dose: 250 mg Documented by: [id number] Admin: 12/28/19 14:02 Dose: 250 mg Documented by: [id number] Umeclidinium [place] (Incruse Ellipta) 1 puffs INH BID [facility] Stop: 01/27/20 20:59 Last Admin: 12/30/19 09:09 Dose: 1 puffs Documented by: [id number] Admin: 12/29/19 20:09 Dose: 1 puffs Documented by: [id number] Admin: 12/29/19 08:47 Dose: 1 puffs Documented by: [id number] Admin: 12/28/19 20:10 Dose: 1 puffs Documented by: [id number] Medical Decision Making Differential Diagnosis Differential diagnosis: Etiologies such as musculoskeletal, disc herniation, fracture, aortic disease, metastatic disease, cord compression, discitis, infection, renal colic, gastrointestinal, acute exacerbation of chronic back pain, sciatica, cauda equina, as well as others were entertained. Medical Records Attestation: I reviewed the patient's medical records. Home Medications Current Medication List: was personally reviewed by me Laboratory Data Attestation: I reviewed the patient's lab results. Result diagrams: 12/29/19 05:34 12/29/19 05:34 Lab Results 12/28/19 12/28/19 12/28/19 Range/Units 06:55 06:55 06:55 WBC 10.90 H (4.8-10.8) K/uL RBC 3.91 L (4.2-5.4) M/uL Hgb 12.2 (12.0-16.0) g/dL Hct 37.8 (37-47) % MCV 96.7 (80-100) fL MCH 31.2 (25-34) pg MCHC 32.3 (32-36) g/dL RDW Std Deviation 51.4 H (36.4-46.3) fL RDW Coeff of Carmencita 14.6 H (11.5-14.5) % Plt Count 259 (130-400) K/uL MPV 11.4 H (7.4-10.4) fL Immature Gran % (Auto) 0.3 % Neut % (Auto) 59.2 % Lymph % (Auto) 28.3 % [place] % (Auto) 10.8 % Eos % (Auto) 1.1 % Baso % (Auto) 0.3 % Immature Gran # (Auto) 0.03 H (0.00-0.02) K/uL Neut # (Auto) 6.46 (1.4-6.5) K/uL Lymph # (Auto) 3.08 (1.2-3.4) K/uL [place] # (Auto) 1.18 H (0.11-0.59) K/uL Eos # (Auto) 0.12 (0-0.5) K/uL Baso # (Auto) 0.03 (0-0.2) K/uL PT 10.3 (9.0-12.0) Seconds INR 1.0 (0.9-1.1) APTT 24.0 (21.0-31.0) Seconds PTT Ratio 0.9 Sodium 138 (136-145) mmol/L Potassium 4.2 (3.5-5.1) mmol/L Chloride 104 (98-107) mmol/L Carbon Dioxide 31 (21-32) mmol/L Anion Gap 3.0 (3-11) BUN 20 H (7-18) mg/dl Creatinine 1.10 (0.6-1.2) mg/dl Est Cr Clr Drug Dosing 34.7 ml/min Est GFR ( Amer) 55.7 Est GFR (Non-Af Amer) 48.1 BUN/Creatinine Ratio 18.0 (10-20) Glucose 87 (70-99) mg/dl Calcium 9.2 (8.5-10.1) mg/dl Total Bilirubin 0.5 (0.2-1) mg/dl AST 8 L (15-37) U/L ALT 13 (12-78) U/L Alkaline Phosphatase 104 (45-117) U/L Total Creatine Kinase 17 L (26-192) U/L CK-MB (CK-2) < 1.0 (0.5-3.6) ng/ml CK/CKMB % Calc TNP Troponin I < 0.015 (0-0.045) ng/ml NT-Pro-B Natriuret Pep 1014 (0-1800) pg/ml Total Protein 6.5 (6.4-8.2) gm/dl Albumin 3.0 L (3.4-5.0) gm/dl Globulin 3.5 (2.5-4.0) gm/dl Albumin/Globulin Ratio 0.9 (0.9-2) Lipase 597 H (73-393) U/L Urine Color Urine Appearance (Clear) Urine pH (4.5-7.5) Ur Specific [place] (1.000-1.030) Urine Protein (Negative) Urine Glucose (UA) (Negative) Urine Ketones (Negative) Urine Blood (Negative) Urine Nitrite (Negative) Urine Bilirubin (Negative) Urine Urobilinogen (Negative) Ur Leukocyte Esterase (Negative) Urine WBC (Auto) (0-5) /hpf Urine RBC (Auto) (0-4) /hpf U Hyaline Cast (Auto) (0-5) /lpf U Epithel Cells (Auto) (0-5) /lpf Urine Bacteria (Auto) (Negative) 12/28/19 Range/Units 08:16 WBC (4.8-10.8) K/uL RBC (4.2-5.4) M/uL Hgb (12.0-16.0) g/dL Hct (37-47) % MCV (80-100) fL MCH (25-34) pg MCHC (32-36) g/dL RDW Std Deviation (36.4-46.3) fL RDW Coeff of Carmencita (11.5-14.5) % Plt Count (130-400) K/uL MPV (7.4-10.4) fL Immature Gran % (Auto) % Neut % (Auto) % Lymph % (Auto) % [place] % (Auto) % Eos % (Auto) % Baso % (Auto) % Immature Gran # (Auto) (0.00-0.02) K/uL Neut # (Auto) (1.4-6.5) K/uL Lymph # (Auto) (1.2-3.4) K/uL [place] # (Auto) (0.11-0.59) K/uL Eos # (Auto) (0-0.5) K/uL Baso # (Auto) (0-0.2) K/uL PT (9.0-12.0) Seconds INR (0.9-1.1) APTT (21.0-31.0) Seconds PTT Ratio Sodium (136-145) mmol/L Potassium (3.5-5.1) mmol/L Chloride (98-107) mmol/L Carbon Dioxide (21-32) mmol/L Anion Gap (3-11) BUN (7-18) mg/dl Creatinine (0.6-1.2) mg/dl Est Cr Clr Drug Dosing ml/min Est GFR ( Amer) Est GFR (Non-Af Amer) BUN/Creatinine Ratio (10-20) Glucose (70-99) mg/dl Calcium (8.5-10.1) mg/dl Total Bilirubin (0.2-1) mg/dl AST (15-37) U/L ALT (12-78) U/L Alkaline Phosphatase (45-117) U/L Total Creatine Kinase (26-192) U/L CK-MB (CK-2) (0.5-3.6) ng/ml CK/CKMB % Calc Troponin I (0-0.045) ng/ml NT-Pro-B Natriuret Pep (0-1800) pg/ml Total Protein (6.4-8.2) gm/dl Albumin (3.4-5.0) gm/dl Globulin (2.5-4.0) gm/dl Albumin/Globulin Ratio (0.9-2) Lipase (73-393) U/L Urine Color Yellow Urine Appearance Clear (Clear) Urine pH 8.0 H (4.5-7.5) Ur Specific [place] 1.016 (1.000-1.030) Urine Protein Negative (Negative) Urine Glucose (UA) Negative (Negative) Urine Ketones Negative (Negative) Urine Blood Negative (Negative) Urine Nitrite Negative (Negative) Urine Bilirubin Negative (Negative) Urine Urobilinogen Negative (Negative) Ur Leukocyte Esterase Trace H (Negative) Urine WBC (Auto) 0 (0-5) /hpf Urine RBC (Auto) 5-10 H (0-4) /hpf U Hyaline Cast (Auto) 0 (0-5) /lpf U Epithel Cells (Auto) 20-30 H (0-5) /lpf Urine Bacteria (Auto) Negative (Negative) Imaging Data Radiologist's Impression: Radiology results as stated below per my review and the radiologist's interpretation: CT angio chest dissec wo/w con CT DOSE: 483.31 mGy.cm HISTORY: Pain Pt c/o severe back pain TECHNIQUE: Multiaxial CT images of the chest, abdomen, and pelvis were performed both before and after the intravenous administration of contrast to evaluate the aorta. Maximal intensity projection images were also obtained. A dose lowering technique was utilized adhering to the principles of ALARA. COMPARISON STUDY: Thoracic spine 07/09/2017 FINDINGS: All compression deformities of T6 as well as several low thoracic and upper lumbar spine vertebral bodies. These appear to be similar as compared to the prior study. Atherosclerotic change thoracic aorta. No evidence for aneurysm or dissection. The pulmonary vasculature enhances appropriately. No major filling defects are appreciated. No significant hilar or mediastinal adenopathy. Lungs are grossly clear. IMPRESSION: 1. 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 2. Hiatal hernia. 3. Mild bibasilar atelectatic change. 4. Degenerative change thoracic spine with several compression deformities considered pre-existing and/or old. ACT 112: Negative or not required by law. The above report was generated using voice recognition software. It may contain grammatical, syntax or spelling errors. Electronically signed by: Ramesh Gore M.D. 12/28/2019 8:[address] thoracic spine wo con CT DOSE: HISTORY: Pain Pt c/o severe back pain TECHNIQUE: Multiaxial CT images of the thoracic spine were performed and reformatted in the sagittal and coronal plane without the use of contrast. A dose lowering technique was utilized adhering to the principles of ALARA. COMPARISON: Thoracic spine 02/08/2019 FINDINGS: Considerable degenerative change throughout the entire thoracic and upper lumbar region. Compression deformities of T7 T9 T12, L1, L2, and L3. These are similar/slightly progressive as compared to the prior study. The possibility of may be a slight degree of progression of the compression deformities. No significant compromise of the spinal canal. Generalized osteoporosis. IMPRESSION: 1. Generalized osteoporosis. 2. Multiple compression deformities of the mid to lower thoracic region as well as upper lumbar region. 3. These are considered stable/minimally progressive compared to the prior study. 4. No major compromise of the spinal canal. ACT 112: Negative or not required by law. The above report was generated using voice recognition software. It may contain grammatical, syntax or spelling errors. Electronically signed by: Ramesh Gore M.D. 12/28/2019 8:14 AM XR chest 1V portable HISTORY: 79 years-old Female Chest Pain acute atypical chest pain COMPARISON: Chest radiograph 11/05/2019 TECHNIQUE: Portable AP view of the chest FINDINGS: Cardiomegaly. Chronic interstitial coarsening with unchanged blunting of the costophrenic angles. There is no pneumothorax or overt pulmonary edema. Multiple remote appearing left-sided rib fractures. Degenerative changes of the shoulders and spine. Moderate hiatal hernia. IMPRESSION: 1. Cardiomegaly without overt pulmonary edema. 2. Chronic interstitial coarsening. 3. Moderate hiatal hernia. ACT 112: Negative or not required by law. The above report was generated using voice recognition software. It may contain grammatical, syntax or spelling errors. Electronically signed by: Hemanth Marcano M.D. 12/28/2019 7:31 AM ECG Data Attestation: I personally reviewed and interpreted this ECG as follows: Indication: + back/shoulder pain Rate (beats per minute): 86 Rhythm: + normal sinus ECG Intervals/blocks: + Normal QT-c (QT-c 485.) ECG [place]: + Normal ECG ST segments: no ST depression and no ST elevation Blood Pressure Blood Pressure Findings: Elevated blood pressure Blood Pressure Disposition: further management by hospitalist SHANTELLE Narrative This is a 79-year-old female who presents emergency department complaining of thoracic back pain. Patient notes she has a large amount of thoracic compression fractures however states that this pain feels different. Based on this patient was sent for CAT scan of the chest as well as her spine. EKG as well as cardiac enzymes were obtained. She was given Dilaudid for her pain. Repeat examination revealed improvement the patient symptoms. Impression & Plan Thoracic compression fracture, Acute back pain Discharge Plan Visit Data *Final* Discharge Date/Time: 12/28/19 11:26 Chief Complaint: Back Injury/Pain Stated Complaint: BACK PAIN ED Provider: Mata Curry Discharge Problem: Thoracic compression fracture, Acute back pain Patient Disposition: Admitted As Inpatient Discharge Instructions Interventions: ED Discharge Assessment Last Done: 12/28/19 11:26 Discharge Problem: Thoracic compression fracture Qualifiers: Encounter type: subsequent encounter Thoracic vertebra fracture level: unspecified thoracic vertebra Fracture healing: with routine healing Qualified Code(s): S22.000D - Wedge compression fracture of unspecified thoracic vertebra, subsequent encounter for fracture with routine healing Acute back pain Qualifiers: Back pain location: thoracic back pain Back pain laterality: midline Qualified Code(s): M54.6 - Pain in thoracic spine The scribe's documentation has been prepared under my direction and personally reviewed by me in its entirety. I confirm that the note above accurately reflects all work, treatment, procedures, and medical decision making performed by me.
--- NOTE | 2019-12-28 17:26 | Electrocardiogram Report ---
Test Reason : Blood Pressure : / mmHG Vent. Rate : 086 BPM Atrial Rate : 067 BPM P-R Int : 144 ms QRS Dur : 084 ms QT Int : 406 ms P-R-T Axes : 000 -05 030 degrees QTc Int : 485 ms Poor data quality, interpretation may be adversely affected Sinus rhythm Confirmed by Brad De La Cruz ([id number]) on 12/28/2019 5:26:26 PM Referred By: REFERRED SELF Confirmed By:Lucio De La Cruz
--- NOTE | 2019-12-28 17:45 | Electrocardiogram Report ---
Test Reason : Blood Pressure : / mmHG Vent. Rate : 086 BPM Atrial Rate : 086 BPM P-R Int : 140 ms QRS Dur : 080 ms QT Int : 356 ms P-R-T Axes : 012 -18 016 degrees QTc Int : 426 ms Normal sinus rhythm Normal ECG When compared with ECG of 28-DEC-2019 06:54, (unconfirmed) Premature ventricular complexes are no longer Present QT has shortened Confirmed by Brad De La Cruz ([id number]) on 12/28/2019 5:44:41 PM Referred By: REFERRED SELF Confirmed By:Lucio De La Cruz
[2019-12-28] MEDS: UMECLIDINIUM BROMIDE 62.5MCG/BLISTER 7 PUFFS/INHALER INH SCH (20:10)
[2019-12-28] MEDS: PANTOprazole 40 MG TAB PO SCH (20:11)
[2019-12-28] MEDS: HEPARIN SOD 5,000 UNIT/0.5 ML VIAL SQ SCH (20:12)
[2019-12-29] MEDS: ALBUT/IPRATROP 3MG/0.5MG NEB 3 ML VIAL INH SCH ×4 (01:16→19:47)
[2019-12-29] MEDS ORDERED: CALCIUM CARBONATE 500 MG CHEWABLE TAB PO PRN (01:55)
[2019-12-29 05:48] LABS: Basophils # (auto) 0.01 K/uL (0-0.2); Basophils % (auto) 0.1 %; Eosinophils # (auto) 0.01 K/uL (0-0.5); Eosinophils % (auto) 0.1 %; Hematocrit (blood only) 32.1 % (37-47); Hemoglobin 10.3 g/dL (12.0-16.0); Immature Granulocytes # (auto) 0.03 K/uL (0.00-0.02); Immature Granulocytes % (auto) 0.3 %; Lymphocytes # (auto) 2.19 K/uL (1.2-3.4); Lymphocytes % (auto) 22.1 %; Mean Corpuscular Hemoglobin 30.5 pg (25-34); Mean Corpuscular Hgb Conc 32.1 g/dL (32-36); Mean Platelet Volume 10.4 fL (7.4-10.4); Monocytes # (auto) 1.09 K/uL (0.11-0.59); Neutrophils # (auto) 6.58 K/uL (1.4-6.5); Neutrophils % (auto) 66.4 %; Platelet Count 228 K/uL (130-400); RDW Coefficient of Variation 14.5 % (11.5-14.5); RDW Standard Deviation 49.7 fL (36.4-46.3); Red Blood Count 3.38 M/uL (4.2-5.4); White Blood Count 9.91 K/uL (4.8-10.8)
[2019-12-29 06:14] LABS: BUN Creatinine Ratio 17.2 (10-20); Calcium 8.9 mg/dl (8.5-10.1); Creatinine Clr Calc Pharmacy 28.6 ml/min; Est GFR (African American) 52.8; Est GFR (Non-African American) 45.5; Magnesium 2.4 mg/dl (1.8-2.4); Phosphorus 4.2 mg/dl (2.5-4.9); Potassium 4.9 mmol/L (3.5-5.1)
[2019-12-29] MEDS: OXYCODONE HCL IR 5 MG TAB (IMMEDIATE RELEASE) PO PRN (07:51)
[2019-12-29] MEDS: carvediloL 6.25 MG TAB PO SCH ×2 (08:45→17:36)
[2019-12-29] MEDS: AMLODIPINE BESYLATE 5 MG TAB PO SCH (08:45)
[2019-12-29] MEDS: SACCHAROMYCES BOULARDII 250 MG CAP PO SCH ×2 (08:46→20:10)
[2019-12-29] MEDS: CYANOCOBALAMIN 500 MCG TABLET (VITAMIN B-12) PO SCH (08:46)
[2019-12-29] MEDS: predniSONE 10 MG TABLET PO SCH (08:46)
[2019-12-29] MEDS: predniSONE 20 MG TAB PO SCH (08:46)
[2019-12-29] MEDS: UMECLIDINIUM BROMIDE 62.5MCG/BLISTER 7 PUFFS/INHALER INH SCH ×2 (08:47→20:09)
[2019-12-29] MEDS: LIDOCAINE 5% 1 PATCH TD SCH (08:47)
[2019-12-29] MEDS: FLUTICASONE/VILANTEROL 100/25MCG 14 PUFFS/INHALER INH SCH (08:47)
[2019-12-29] MEDS: PANTOprazole 40 MG TAB PO SCH ×2 (08:47→20:09)
[2019-12-29] MEDS: HEPARIN SOD 5,000 UNIT/0.5 ML VIAL SQ SCH ×2 (08:48→20:09)
[2019-12-29] MEDS: FLUTICASONE PROPIONATE NA SPR 16 GM BTL SCH (08:48)
--- NOTE | 2019-12-29 12:29 | Hospitalist Progress Note ---
Date of Service December 29, 2019 Assessment & Plan (1) Dysphagia: GI service and speech therapy consulted EGD not recommended at this point Speech therapist recommending minced and moist diet Continue to monitor (2) Acute back pain: Per admitting service notes: Has history of multiple compression fracture of the vertebrae Woke up with acute midthoracic pain without any radiation and without any rash Pain is relieved to some extent with oxycodone 5 mg that she has been taking for a long time Thoracic spine CT scan did not show any significant change compared with prior and no spinal cord compression We will try lidocaine patch locally and continue with current dose of pain medications PT and OT evaluation --Resolved, continue short prednisone course, Lidoderm patch (3) Chest wall pain: Complaint to have some chest pain anteriorly associated with the back pain Opponents x3- EKG no signs of acute ischemia or infarct Acute coronary syndrome ruled out (4) COPD exacerbation: No signs of exacerbation at this time Continue bronchodilators (5) Rheumatoid arthritis: Stable (6) Hypertension: Stable (7) Pulmonary fibrosis: History of interstitial lung disease complicated by COPD and 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 Exacerbation continue usual home oxygen supplement Other medical conditions including chronic kidney disease,, history of dysphagia and GERD remain stable DVT prophylaxis Subcu heparin CODE STATUS DNR Disposition Anticipate discharge to home tomorrow when medically stable Patient would benefit from hold home health services and nursing visits Subjective Follow-up for back pain, chest pain Seen sitting up in bedside chair, having lunch Patient was actively coughing, coughing up previously ingested coffee She states that she has intermittent dysphagia at home but seems to have worsened this afternoon Reports back pain and chest pain have resolved Denies other symptoms Review of Systems Review of Systems: All systems reviewed & are unremarkable except as noted in HPI & below Physical Exam Physical Exam: General- oriented x 3, not in distress but uncomfortable secondary to dysphagia and coughing, speaks in sentences with no effort or accessory muscle use Head- atraumatic Eyes- PERRL, EOMI, anicteric ENT- oropharynx clear Neck- supple, no JVD, no adenopathy, no thyromegaly; carotids +2/2, no bruits appreciated Lungs- clear to auscultation bilaterally, no rales/wheezes Heart- normal rate, regular rhythm; no murmur, no gallop, no rub appreciated Abdomen- normal bowel sounds, nondistended, soft, nontender, no masses or hepatosplenomegaly Extremities- no pretibial edema, no calf tenderness; peripheral pulses intact Back-kyphosis, no tenderness Neuro- alert, oriented x 3; CN 2-12 grossly intact; motor 5/5 bilaterally;sensation 100% on all extremities; no other gross focal neurologic deficits Skin- warm & dry Results & Data ([facility]) Vital Signs (Past 12 Hours) Vital Signs Temp Pulse Pulse Resp BP Pulse Ox 12/29/19 11:38 36.9 C 65 16 119/67 94 12/29/19 07:33 36.7 C 61 16 153/76 H 98 12/29/19 07:08 59 L 12/29/19 07:07 77 19 98 12/29/19 03:45 36.8 C 63 18 160/83 H 98 Laboratory Results Laboratory Results - last 24 hr 12/29/19 12/29/19 12/29/19 05:34 05:34 05:34 WBC 9.91 RBC 3.38 L Hgb 10.3 L Hct 32.1 L MCV 95.0 MCH 30.5 MCHC 32.1 RDW Std Deviation 49.7 H RDW Coeff of Carmencita 14.5 Plt Count 228 MPV 10.4 Immature Gran % (Auto) 0.3 Neut % (Auto) 66.4 Lymph % (Auto) 22.1 [place] % (Auto) 11.0 Eos % (Auto) 0.1 Baso % (Auto) 0.1 Immature Gran # (Auto) 0.03 H Neut # (Auto) 6.58 H Lymph # (Auto) 2.19 [place] # (Auto) 1.09 H Eos # (Auto) 0.01 Baso # (Auto) 0.01 Sodium 138 Potassium 4.9 D Chloride 105 Carbon Dioxide 32 Anion Gap 1.0 L BUN 20 H Creatinine 1.15 Est Cr Clr Drug Dosing 28.6 Est GFR ( Amer) 52.8 Est GFR (Non-Af Amer) 45.5 BUN/Creatinine Ratio 17.2 Glucose 88 Calcium 8.9 Phosphorus 4.2 Magnesium 2.4 Vit D 1,25-Dihyd Total Pending 1,25 Dihydroxy Vit D2 Pending 1,25 Dihydroxy Vit D3 Pending
--- NOTE | 2019-12-29 14:33 | Gastrointestinal Consultation ---
Date of Consultation December 29, 2019 Assessment & Plan (1) Dysphagia: Continue slippery diet, lavelle foods with liquids. Would defer repeat EGD or other GI imaging, as symptoms are unchanged. May consider changing BP meds to a CCB as they are somewhat effective for lowering the lower esophageal sphincter pressure but would defer to Dr. Back who follows her in the OP setting. Consider arranging OP GI f/u appt with Dr. Back if not already scheduled. Present on Admission?: Yes Supervising Physician Co-Signing Physician Notes I have seen, examined this patient, and agree with the findings and above by our mid-level provider SHAHNAZ Brian, with the following additions -Eating crackers with peanut butter during our interview -Does not want additional testing -outpt f/u with Dr. Brooks to discuss botox vs repeat mano History of Present Illness Reason for Consultation: Dysphagia Requesting Physician: Dr. Locke Attending Physician: Jean Locke MD History of Present Illness Ms. Rosemarie Lay is a79 yr old female pt of Dr. Simmons with a hx of COPD/pulmonary fibrosis,rheumatoid arthritis, osteoporosis, lumbar compression fractures, large hiatal hernia, GERD, CKD-3 who was admitted yesterday for COPD exacerbation and GI is consulted for dysphagia. Ms. Lay tells us that she is able to swallow, in fact at the time of the interview/exam, she is eating peanut butter crackers. She describes being able to follow but feels that foods "move slowly." she describes sipping on water after each swallow which works for her. She mentions that there is mucous in her throat and after she clears her throat, swallowing is improved. She tells us that she has had these symptoms for years without recent worsening. She follows with Dr. Back for dysphagia. Most recent EGD by Dr. Tillman on for dysphagia : large hiatal hernia, tortorous esophagus. he underwent high resolution manometry in 2012 with find ings of LES hypertension but no achalasia. Allergies Allergy/AdvReac Type Severity Reaction Status Date / Time ranitidine Allergy Intermediate Hives Verified 12/28/19 07:21 Estrogens Allergy Mild IRREGULAR Verified 12/28/19 07:21 HEART RATE lovastatin Allergy Unknown UNKNOWN Verified 01/30/20 07:21 zoledronic acid AdvReac Intermediate MUSCLE PAIN Verified 12/28/19 07:21 Bactrim AdvReac Mild NAUSEA/VOMI Verified 07/09/17 19:19 TING omeprazole AdvReac Mild ABD PAIN Verified 12/28/19 07:21 Quinolones AdvReac Mild 11/28/08--ITCHY Verified 12/28/19 07:21 ARM, HAS HAD IN PAST W/O RXN sulfamethoxazole AdvReac Mild NAUSEA/VOMI Verified 12/28/19 07:21 TING trimethoprim AdvReac Mild NAUSEA/VOMI Verified 12/28/19 07:21 TING Home Medications Home Medications Medication Instructions Recorded Confirmed Type Incruse Ellipta 1 inh INHALATION BID 02/08/19 12/28/19 History azithromycin 250 mg PO MOWEFR 02/08/19 12/28/19 History carvedilol 6.25 mg PO BID 02/08/19 12/28/19 History cyanocobalamin (vitamin B-12) 500 mcg PO QAM 02/08/19 12/28/19 History [Vitamin B-12] fluticasone propionate 2 spray INTRANASAL QAM 02/08/19 12/28/19 History ipratropium-albuterol 3 ml INHALATION Q6H 02/08/19 12/28/19 History pantoprazole 40 mg PO BID 02/08/19 12/28/19 History polyethylene glycol 3350 17 g PO DAILY PRN 02/08/19 12/28/19 History Florastor 250 mg PO BID #20 cap 05/27/19 12/28/19 Rx albuterol sulfate [ProAir HFA] 2 puff INHALATION Q4H PRN 05/29/19 12/28/19 History prednisone 10 mg PO QAM 05/29/19 12/28/19 History fluticasone propion-salmeterol 1 inh INHALATION BID 06/15/19 12/28/19 History [Advair Diskus] oxycodone 5 mg PO QID PRN 11/05/19 12/28/19 History amlodipine 10 mg PO DAILY #30 tab 11/08/19 12/28/19 Rx Patient History Medical History Anxiety Chronic obstructive pulmonary disease Chronic respiratory failure (Chronic) Chronic steroid use CKD (chronic kidney disease), stage III (Chronic) Congestive heart failure hx of Degenerative disc disease Depression Diverticulitis (Acute) GERD (gastroesophageal reflux disease) (Chronic) Hearing deficit Hiatal hernia (Chronic) Hx of central retinal vein occlusion (Chronic) Hyperlipidemia Hypertension On home oxygen therapy 3L N/C at all times Osteoarthritis (Chronic) Pulmonary fibrosis (Chronic) pt denies Rheumatoid arthritis Surgical History H/O colonoscopy (Chronic) H/O esophagogastroduodenoscopy (Chronic) History of bilateral cataract extraction History of dilatation and curettage History of left breast biopsy benign History of tooth extraction History of total hysterectomy with bilateral salpingo-oophorectomy (BSO) S/P cholecystectomy (Resolved) Family History Other Family history non-contributory No family history of adverse response to anesthesia Social History Preferred Language: Slovak Communication Ability: 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 Beliefs That Will Affect Care: None marital status: Current Living Situation: Other Current Living Situation Comment: friend current occupational status: retired Other Information That Helps Us Care for You: No Feels Safe at Home: Yes Safety Concerns: Feels Safe At This Time Smoking Status: Former smoker Second Hand Exposure: No ; Hx Alcohol Use: No Hx Substance Use: No Review of Systems Review of Systems: ROS: Gen: Denies weakness, fevers, weight loss Eyes: No eye redness, or pain, no recent vision changes Resp: No SOB, no cough Cardio: No palpitations/irregular beats, no chest pain GI: See HPI, otherwise 9-0 : Denies pain on urination Skin: No jaundice, itching or new rashes M/S + back pain Physical Exam Constitutional: well developed, well nourished and + thin kyphosis Eyes: PERRL, conjunctivae normal, anicteric sclerae ENMT: external ear and nose normal, oropharynx normal Neck: trachea midline, no thyromegaly Respiratory: normal respiratory effort, lungs clear to auscultation Cardiovascular: RRR, no murmur, no edema Gastrointestinal (Abdomen): normal bowel sounds, soft, nontender, no hepatosplenomegaly Skin: no rashes, warm and dry Neurologic: PERRL, EOMI, accommodation nl, no face palsy, no dysarthria Psychiatric: A+Ox3, euthymic affect Lymphatic: no cervical or axillary lymphadenopathy Results & Data Vital Signs (Past 12 Hours) Vital Signs Temp Pulse Pulse Resp BP Pulse Ox 12/29/19 13:20 81 18 95 12/29/19 11:38 36.9 C 65 16 119/67 94 12/29/19 07:33 36.7 C 61 16 153/76 H 98 12/29/19 07:08 59 L 12/29/19 07:07 77 19 98 12/29/19 03:45 36.8 C 63 18 160/83 H 98 Diagnostic Findings CTA chest: 1. 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 2. Hiatal hernia. 3. Mild bibasilar atelectatic change. 4. Degenerative change thoracic spine with several compression deformities considered pre-existing and/or old.
[2019-12-30] MEDS: ALBUT/IPRATROP 3MG/0.5MG NEB 3 ML VIAL INH SCH ×3 (01:07→13:16)
[2019-12-30] MEDS: LIDOCAINE 5% 1 PATCH TD SCH (09:06)
[2019-12-30] MEDS: HEPARIN SOD 5,000 UNIT/0.5 ML VIAL SQ SCH (09:08)
[2019-12-30] MEDS: FLUTICASONE/VILANTEROL 100/25MCG 14 PUFFS/INHALER INH SCH (09:08)
[2019-12-30] MEDS: carvediloL 6.25 MG TAB PO SCH ×2 (09:08→17:49)
[2019-12-30] MEDS: FLUTICASONE PROPIONATE NA SPR 16 GM BTL SCH (09:09)
[2019-12-30] MEDS: UMECLIDINIUM BROMIDE 62.5MCG/BLISTER 7 PUFFS/INHALER INH SCH (09:09)
[2019-12-30] MEDS: SACCHAROMYCES BOULARDII 250 MG CAP PO SCH (09:09)
[2019-12-30] MEDS: predniSONE 10 MG TABLET PO SCH (09:10)
[2019-12-30] MEDS: predniSONE 20 MG TAB PO SCH (09:10)
[2019-12-30] MEDS: PANTOprazole 40 MG TAB PO SCH (09:10)
[2019-12-30] MEDS: AMLODIPINE BESYLATE 5 MG TAB PO SCH (09:11)
[2019-12-30] MEDS: CYANOCOBALAMIN 500 MCG TABLET (VITAMIN B-12) PO SCH (09:11)
[2019-12-30] MEDS: OXYCODONE HCL IR 5 MG TAB (IMMEDIATE RELEASE) PO PRN (09:49)
--- NOTE | 2019-12-30 15:48 | Hospitalist Progress Note ---
Date of Service delayed entry date of service noted below December 30, 2019 Assessment & Plan (1) Dysphagia: GI service and speech therapy consulted EGD not recommended at this point Speech therapist recommending minced and moist diet -- dysphagia resolved continue to monitor as outpatient -- GI, Speech recommendations outlined in Discharge Instructions (2) Acute back pain: Per admitting service notes: Has history of multiple compression fracture of the vertebrae Woke up with acute midthoracic pain without any radiation and without any rash Pain is relieved to some extent with oxycodone 5 mg that she has been taking for a long time Thoracic spine CT scan did not show any significant change compared with prior and no spinal cord compression We will try lidocaine patch locally and continue with current dose of pain medications PT and OT evaluation --Resolved, continue short prednisone course, Lidoderm patch -- ff up with PCP in 1 week (3) Chest wall pain: Complaint to have some chest pain anteriorly associated with the back pain Troponins x 3 EKG no signs of acute ischemia or infarct Acute coronary syndrome ruled out (4) COPD exacerbation: No signs of exacerbation at this time Continue bronchodilators (5) Rheumatoid arthritis: Stable (6) Hypertension: Stable (7) Pulmonary fibrosis: History of interstitial lung disease complicated by COPD and 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 Exacerbation continue usual home oxygen supplement Other medical conditions including chronic kidney disease,, history of dysphagia and GERD remain stable DVT prophylaxis Subcu heparin CODE STATUS DNR Disposition d/c to home with home health services ff up with PCP in 1 week Subjective ff up for back pain, dysphagia seen resting in bed, comfortable not in distress states back and chest pain resolved no problems with current diet no other symptoms states she is ready and would like to be discharged Review of Systems Review of Systems: All systems reviewed & are unremarkable except as noted in HPI & below Physical Exam Physical Exam: General- oriented x 3, not in distress, speaks in sentences with no effort or accessory muscle use Eyes- anicteric Neck- no JVD Lungs- clear breath sounds bilaterally no rales no wheezing Heart- normal rate, regular rhythm; no murmurs Abdomen- normal bowel sounds, nondistended, soft, nontender Extremities- no pretibial edema, no calf tenderness Neuro- alert, oriented x 3; no gross focal neurologic deficits Skin- warm & dry Results & Data ([facility]) Vital Signs (Past 12 Hours) Vital Signs Temp Pulse Resp BP Pulse Ox 12/30/19 14:43 36.9 C 73 18 115/72 96 12/30/19 13:17 61 18 93 12/30/19 06:56 65 19 100 12/30/19 05:01 36.3 C L 61 18 149/69 H 97 Laboratory Results noted and reviewed
[2020-01-03 01:58] LABS: Vitamin D 1,25 35 pg/mL (18-72); Vitamin D3,1,25 35 pg/mL
--- NOTE | 2020-01-03 07:40 | Discharge Summary ---
Date of Service January 03, 2020 Admission HPI Per Admitting Provider She is a 79-year-old female with significant past medical history of rheumatoid arthritis, interstitial lung disease with COPD on home oxygen, chronic kidney disease, hypertension and chronic back pain from multiple compression deformities of the spine has been complaining of sudden midthoracic pain around 3 AM today. He woke up with the pain which is associated with some chest compression pressure without any radiation of the pain. She did not have any fever and/or chills, recent cough or phlegm, recent increasing shortness of breath, no problem with her urine and her bowel habit, and no numbness or tingling involving any of the extremities. The pain is here about half an hour to an hour and relieved to some extent with use of hydrocodone that she has been using before. Remained reasonably free of pain in the emergency room when she is not moving. Upon investigation including thoracic spine CT and CTA did not show any significant change compared to prior and no history of pulmonary embolism and/or aortic dissection. The chest x-ray did not show any pneumonia. She was admitted to medical telemetry unit for continuation of care. Admission Exam Per Admitting Provider Physical Exam: Lying in bed without any acute symptoms Constitutional: + ill appearing and + thin; no acute distress Eyes: PERRL, conjunctivae normal, anicteric sclerae ENMT: external ear and nose normal, oropharynx normal Neck: trachea midline, no thyromegaly Respiratory: normal respiratory effort Auscultation: + diminished lung sounds and + crackles (Bibasilar crackles); no wheezes Cardiovascular: Rate/Rhythm: regular rate and regular rhythm Heart Sounds: no murmur Gastrointestinal (Abdomen): Inspection/Auscultation: abdomen normal to inspection and normal bowel sounds Percussion/Palpation: abdomen soft; abdomen nontender Musculoskeletal: Localized tenderness at the mid thoracic area. No rash noted on either side, no acute arthritis in any of the joints but does have severe rheumatoid arthritis changes in the hands Neurologic: moves all extremities; no focal motor deficits Lymphatic: no cervical or axillary lymphadenopathy Principal Diagnosis BACK AND CHEST PAIN, ACUTE CORONARY SYNDROME RULED OUT Discharge Exam General- oriented x 3, not in distress, speaks in sentences with no effort or accessory muscle use Eyes- anicteric Neck- no JVD Lungs- clear breath sounds bilaterally no rales no wheezing Heart- normal rate, regular rhythm; no murmurs Abdomen- normal bowel sounds, nondistended, soft, nontender Extremities- no pretibial edema, no calf tenderness Neuro- alert, oriented x 3; no gross focal neurologic deficits Skin- warm & dry Discharge Data Allergies Allergy/AdvReac Type Severity Reaction Status Date / Time ranitidine Allergy Intermediate Hives Verified 12/28/19 07:21 Estrogens Allergy Mild IRREGULAR Verified 12/28/19 07:21 HEART RATE lovastatin Allergy Unknown UNKNOWN Verified 12/28/19 07:21 zoledronic acid AdvReac Intermediate MUSCLE PAIN Verified 12/28/19 07:21 Bactrim AdvReac Mild NAUSEA/VOMI Verified 07/09/17 19:19 TING omeprazole AdvReac Mild ABD PAIN Verified 12/28/19 07:21 Quinolones AdvReac Mild 11/28/08--ITCHY Verified 12/28/19 07:21 ARM, HAS HAD IN PAST W/O RXN sulfamethoxazole AdvReac Mild NAUSEA/VOMI Verified 12/28/19 07:21 TING trimethoprim AdvReac Mild NAUSEA/VOMI Verified 12/28/19 07:21 TING Consultations 12/28/19 08:56 ED Decision to Admit Stat 12/29/19 12:29 Consult Gastroenterology Routine Ordered Studies 12/28/19 07:01 CT angio chest dissec wo/w con Stat FINDINGS: All compression deformities of T6 as well as several low thoracic and upper lumbar spine vertebral bodies. These appear to be similar as compared to the prior study. Atherosclerotic change thoracic aorta. No evidence for aneurysm or dissection. The pulmonary vasculature enhances appropriately. No major filling defects are appreciated. No significant hilar or mediastinal adenopathy. Lungs are grossly clear. IMPRESSION: 1. 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 2. Hiatal hernia. 3. Mild bibasilar atelectatic change. 4. Degenerative change thoracic spine with several compression deformities considered pre-existing and/or old. CT [phone] Report Patient: BRI BARRIENTOS Date: 12/28/19 MR#: [id number] [address] [facility] Acct ID:[id number]: Date: 1940[facility] Zip: [place] [id number] Age: 79Location: ED Sex: F Room/Bed: Att Phy:Diagnosis: BACK PAIN Lindsey Phy: Javy Chong MD(JAS)Service Date: 12/28/19 [facility] Phy:Interpreting Phy: Ramesh Gore MD Admit Phy: Ordering Phy: Mata Curry MD cc: ~ CT thoracic spine wo con CT DOSE: HISTORY: Pain Pt c/o severe back pain TECHNIQUE: Multiaxial CT images of the thoracic spine were performed and reformatted in the sagittal and coronal plane without the use of contrast. A dose lowering technique was utilized adhering to the principles of ALARA. COMPARISON: Thoracic spine 02/08/2019 FINDINGS: Considerable degenerative change throughout the entire thoracic and u pper lumbar region. Compression deformities of T7 T9 T12, L1, L2, and L3. These are similar/slightly progressive as compared to the prior study. The possibility of may be a slight degree of progression of the compression deformities. No significant compromise of the spinal canal. Generalized osteoporosis. IMPRESSION: 1. Generalized osteoporosis. 2. Multiple compression deformities of the mid to lower thoracic region as well as upper lumbar region. 3. These are considered stable/minimally progressive compared to the prior study. 4. No major compromise of the spinal canal. Hospital Course (1) Acute back pain: Per admitting service notes: Has history of multiple compression fracture of the vertebrae Woke up with acute midthoracic pain without any radiation and without any rash Pain is relieved to some extent with oxycodone 5 mg that she has been taking for a long time Thoracic spine CT scan did not show any significant change compared with prior and no spinal cord compression We will try lidocaine patch locally and continue with current dose of pain medications PT and OT evaluation --Resolved, continue short prednisone course, Lidoderm patch -- ff up with PCP in 1 week (2) Chest wall pain: Complaint to have some chest pain anteriorly associated with the back pain Troponins x 3 EKG no signs of acute ischemia or infarct Acute coronary syndrome ruled out (3) Dysphagia: GI service and speech therapy consulted EGD not recommended at this point Speech therapist recommending minced and moist diet -- dysphagia resolved continue to monitor as outpatient -- GI, Speech recommendations outlined in Discharge Instructions (4) COPD exacerbation: No signs of exacerbation at this time Continue bronchodilators (5) Rheumatoid arthritis: Stable (6) Hypertension: Stable (7) Pulmonary fibrosis: History of interstitial lung disease complicated by COPD and 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 Exacerbation continue usual home oxygen supplement Other medical conditions including chronic kidney disease,, history of dysphagia and GERD remain stable DVT prophylaxis Subcu heparin CODE STATUS DNR Disposition d/c to home with home health services ff up with PCP in 1 week Total Time Total Time Spent Total Time Spent (In Minutes): 40 MINS Discharge Plan Discharge Items Patient Disposition: Home - Home Health Services Reason For Visit: ACUTE BACK PAIN, ILD Discharge Diagnosis: ACUTE BACK PAIN Activity: As commented below Activity Comment: RESUME ACTIVITY GRADUALLY TOLERATED Lifting: Wait until after follow-up appointment Exercise/Sports: Wait until after follow-up appointment Driving/Machine Use: NO DRIVING Non-emergency contact: Primary Care Provider Call non-emergency contact if: you have any medication questions, your symptoms worsen, your pain is not controlled, your pain is worsening, your pain is unusual for you, your pain is concerning for you and you have a fever Follow-up/Referrals: Javy Chong MD [Primary Care Provider] - Diet: Heart Healthy Addtl Attending Provider Instructions: TAKE PRENDISONE 20MG DAILY X 2 DAYS, THEN RESUME USUAL 10MG DAILY CALL PRIMARY CARE PHYSICIAN IMMEDIATELY IF WITH WORSENING OF SYMPTOMS. PLEASE FOLLOW SPEECH THERAPIST RECOMMENDATIONS: Alternate solids and liquids Single bites/Small sips/Slow rate Always stay upright when eating, and at least 30minutes after Small frequent meals Minced, moist, slippery diet Avoid foods that are dry, thick, pasty, doughy Add extra broth to foods to keep it moist Pending Studies at Discharge: No Stand-Alone Forms: My [facility], Smoking Cessation Medications and DC Order Prescriptions: Continued prednisone 10 mg tablet 10 mg PO QAM RF: 0 albuterol sulfate [ProAir HFA] 90 mcg/actuation Hfa Aerosol Inhaler 2 puff INHALATION Q4H PRN (Reason: Cough/SOB or Wheezing) RF: 0 carvedilol 6.25 mg tablet 6.25 mg PO BID RF: 0 azithromycin 250 mg tablet 250 mg PO MOWEFR RF: 0 cyanocobalamin (vitamin B-12) [Vitamin B-12] 500 mcg Tablet 500 mcg PO QAM RF: 0 fluticasone propionate 50 mcg/actuation spray,suspension 2 spray Intranasal QAM RF: 0 Incruse Ellipta 62.5 mcg/actuation blister with device 1 inh Inhalation BID RF: 0 polyethylene glycol 3350 17 gram Powder In Packet 17 g PO DAILY PRN (Reason: Constipation) RF: 0 pantoprazole 40 mg tablet,delayed release (DR/EC) 40 mg PO BID RF: 0 ipratropium-albuterol 0.5 mg-3 mg(2.5 mg base)/3 mL Solution For Nebulization 3 ml INHALATION Q6H RF: 0 Florastor 250 mg capsule 250 mg PO BID Qty: 20 RF: 0 fluticasone propion-salmeterol [Advair Diskus] 250-50 mcg/dose Blister With Device 1 inh INHALATION BID RF: 0 oxycodone 5 mg tablet 5 mg PO QID PRN (Reason: Pain) RF: 0 amlodipine 10 mg tablet 10 mg PO DAILY Qty: 30 RF: 0 Discharge Orders: Discharge Order (Routine); Ordered 12/30/19 Ordered By: Jean Locke Admission Data Admit Date/Time: 12/28/19 10:30 Attending Provider: Jean Locke Admit Provider: Greta Lim Primary Care Provider: Javy Chong Other Providers: Jean Locke ; Greta Lim ; [facility] ; Rell Salas Other Interventions: Discharge Summary Assessment (RN) Last Done: 12/30/19 17:02 DC Date/Time DO NOT enter until pt leaves facility: 12/30/19 18:46
== END 2019-12-30 18:46 | disposition home health service (06) | DRG 543 ==
LOC: ED 06:43 → 2N 10:30 → SUATTDRO 10:30 → 2N 11:26

== ENCOUNTER 2021-03-12 15:31 | Inpatient (IN) ==
--- NOTE | 2021-03-12 16:47 | Emergency Department Note ---
History of Present Illness General Chief complaint: Syncope Stated complaint: WEAKNESS, SYNCOPE Time Seen by Provider: 03/12/21 16:25 Source: patient, family (Son who is at the bedside) and old records reviewed Mode of arrival: EMS Limitations: no limitations History of Present Illness This patient comes in after the family had not heard from her in the morning she usually gets her pills and apparently had not taken her morning pills. She said nobody had checked on her and they want to find her and she was found unresponsive she seemed confused. She does have chronic pain from fractures and says she hurts all over and feels numb everywhere. She saw her doctor on Wednesday and was started on long-acting morphine as well as baclofen and takes oxycodone as needed for pain her son says she does have a lot of pain she also has history of COPD. She had a chronic cough is gotten increasing mucus. No fever no chest pain. No definite fall or trauma. No known Covid. Home Medications Medication Instructions Recorded Confirmed Type azithromycin 250 mg PO 3XWK 02/08/19 03/12/21 History cyanocobalamin (vitamin B-12) 500 mcg PO QAM 02/08/19 03/12/21 History [Vitamin B-12] fluticasone propionate 2 spray INTRANASAL QAM 02/08/19 03/12/21 History pantoprazole 40 mg PO BID 02/08/19 03/12/21 History albuterol sulfate [ProAir HFA] 2 puff INHALATION Q4H PRN 05/29/19 03/12/21 History prednisone 10 mg PO QAM 05/29/19 03/12/21 History Lactobacillus acidophilus 10,000 mmu cells PO DIRECTED 02/20/21 03/12/21 History [Probiotic] [id number]-[id number]-lmuxhcnf 1 inh INHALATION DAILY 02/20/21 03/12/21 History [Trelegy Ellipta] furosemide 20 mg PO DAILY PRN 02/20/21 03/12/21 History metoprolol succinate 12.5 mg PO QPM 02/20/21 03/12/21 History oxycodone 5 mg PO BID PRN 02/20/21 03/12/21 History prednisone See Rx Instructions .ROUTE 02/20/21 03/12/21 History .COMPLEX PRN sertraline 25 mg PO QPM 02/20/21 03/12/21 History Bacillus coagulan-calcium carb 1 cap PO QAM 03/12/21 03/12/21 History [Digestive Advantage Probiotic] albuterol sulfate 2.5 mg INHALATION TID 03/12/21 03/12/21 History baclofen 10 mg PO TID 03/12/21 03/12/21 History morphine 15 mg PO Q12H 03/12/21 03/12/21 History sennosides 8.6 mg PO DAILY 03/12/21 03/12/21 History Allergies Allergy/AdvReac Type Severity Reaction Status Date / Time ranitidine Allergy Intermediate Hives Verified 03/12/21 17:54 Estrogens Allergy Mild IRREGULAR Verified 03/12/21 17:54 HEART RATE lovastatin Allergy Unknown UNKNOWN Verified 03/12/21 17:54 zoledronic acid AdvReac Intermediate MUSCLE PAIN Verified 03/12/21 17:54 omeprazole AdvReac Mild ABD PAIN Verified 03/12/21 17:54 Quinolones AdvReac Mild 11/28/08--ITCHY Verified 03/12/21 17:54 ARM, HAS HAD IN PAST W/O RXN sulfamethoxazole AdvReac Mild NAUSEA/VOMI Verified 03/12/21 17:54 TING trimethoprim AdvReac Mild NAUSEA/VOMI Verified 03/12/21 17:54 TING Past Med/Surg History Medical History (Updated 03/12/21 @ 18:22 by Nazario Castro MD) Anxiety Chronic obstructive pulmonary disease Chronic respiratory failure Chronic steroid use CKD (chronic kidney disease), stage III Congestive heart failure hx of Degenerative disc disease Depression Diverticulitis GERD (gastroesophageal reflux disease) Hearing deficit Hiatal hernia Hx of central retinal vein occlusion Hyperlipidemia Hypertension On home oxygen therapy 3L N/C at all times Osteoarthritis Pulmonary fibrosis pt denies Rheumatoid arthritis Surgical History H/O colonoscopy H/O esophagogastroduodenoscopy History of bilateral cataract extraction History of dilatation and curettage History of left breast biopsy benign History of tooth extraction History of total hysterectomy with bilateral salpingo-oophorectomy (BSO) S/P cholecystectomy Family History Other Family history non-contributory No family history of adverse response to anesthesia Social History Smoking Status: Former smoker Tobacco Type: Cigarettes Second Hand Exposure: No; Hx Alcohol Use: No Hx Substance Use: No Preferred Language: Gambian Communication Ability: Effective Distribution Engineer Required: No Beliefs That Will Affect Care: None marital status: Current Living Situation: Other Current Living Situation Comment: friend current occupational status: retired Feels Safe at Home: Yes Assistive Devices: Oxygen - Continuous and Walker Review of Systems A total of 10 systems reviewed and were otherwise negative Physical Exam Vital Signs Vital Signs - 24 hr 03/12/21 15:45 Temperature 36.8 C Temperature Source Oral Pulse Rate 68 Pulse Rate [Right Finger] 69 Pulse Rhythm [Right Finger] Regular Pulse Strength [Right Finger] Normal Respiratory Rate 18 Respiratory Effort / Characteristics Non-Labored Respiratory Depth Normal Blood Pressure 136/88 Blood Pressure Mean 104 Blood Pressure Position Lying Blood Pressure Position [Right Arm] Semi-fowlers Pulse Oximetry 97 Oxygen Delivery Method Oxymask Oxygen Flow Rate 5 Sepsis Recent Fever Within 48 Hours No Sepsis New/Unexplained Change in Mental Status No Sepsis Action Taken by Nursing No Action Required Oxygen Flow Rate - Titration 7 Pulse Oximetry Post Tiitration 99 General: Well developed well nourished cachectic older female who is wearing an oxygen mask but appears in no acute distress, breathing comfortably the supplemental oxygen. She is hard of hearing and soft-spoken but appears to have normal speech HEENT: Normal cephalic atraumatic. Pupils are equal round and reactive to light. Extraocular movements are intact. Oropharynx is pink with moist mucous membranes. No swelling of the mouth lips or tongue. Neck: Supple with a midline trachea. No meningeal signs or stiffness, no JVD or bruits. No Stridor. Chest: Clear to auscultation bilaterally. No wheezes or rhonchi. No increased work of breathing. Heart: Regular rate and rhythm without murmurs or gallops. Abdomen: Soft nontender, nondistended without rebound guarding or rigidity. Extremities: No cyanosis clubbing or edema. No calf tenderness or assymetry Spine/Back. Non tender to palpation. No CVA tenderness Skin: Good turgor without rashes. Neurologic exam: Cranial nerves two through 12 are intact. Motor and sensation are intact and symmetrical throughout. Medical Decision Making Differential Diagnosis Covid, COPD, medication side effect/overdose, CO2 retention, cardiac disease, pulmonary disease, anemia, infection, sepsis, pneumothorax, Medical Records Attestation: I reviewed the patient's medical records. Home Medications Current Medication List: was personally reviewed by me Laboratory Data Attestation: I reviewed the patient's lab results. Result diagrams: 03/12/21 16:53 03/12/21 16:53 Lab Results 03/12/21 03/12/21 03/12/21 Range/Units 16:53 16:53 16:53 WBC 13.25 H (4.8-10.8) K/uL RBC 4.05 L (4.2-5.4) M/uL Hgb 12.5 (12.0-16.0) g/dL Hct 39.4 (37-47) % MCV 97.3 (80-100) fL MCH 30.9 (25-34) pg MCHC 31.7 L (32-36) g/dL Plt Count 233 (130-400) K/uL Immature Gran % (Auto) 0.4 % Neut % (Auto) 70.2 % Lymph % (Auto) 17.9 % [place] % (Auto) 9.4 % Eos % (Auto) 1.9 % Baso % (Auto) 0.2 % Neut # (Auto) 9.32 H (1.4-6.5) K/uL Lymph # (Auto) 2.37 (1.2-3.4) K/uL [place] # (Auto) 1.24 H (0.11-0.59) K/uL Eos # (Auto) 0.25 (0-0.5) K/uL Baso # (Auto) 0.02 (0-0.2) K/uL Immature Gran # (Auto) 0.05 H (0.00-0.02) K/uL RBC Morphology Unremarkable VBG pH 7.32 L (7.36-7.41) VBG pCO2 62 H (38-50) mmHg VBG pO2 26 mmHg VBG HCO3 32 mmol/L VBG O2 Saturation < 60.0 % VBG Base Excess 3.9 mEq/L Barometric Pressure 729.2 mm/Hg Sodium 142 (136-145) mmol/L Potassium 4.2 (3.5-5.1) mmol/L Chloride 108 H (98-107) mmol/L Carbon Dioxide 29 (21-32) mmol/L Anion Gap 5.0 (3-11) BUN 14 (7-18) mg/dl Creatinine 1.29 H (0.6-1.2) mg/dl Est Cr Clr Drug Dosing Not Reportable Est GFR ( Amer) 45.6 Est GFR (Non-Af Amer) 39.4 BUN/Creatinine Ratio 10.5 (10-20) Glucose 87 (70-99) mg/dl Calcium 8.5 (8.5-10.1) mg/dl Total Bilirubin 0.5 (0.2-1) mg/dl AST 16 (15-37) U/L ALT 11 L (12-78) U/L Alkaline Phosphatase 101 (45-117) U/L Troponin I < 0.015 (0-0.045) ng/ml Total Protein 5.8 L (6.4-8.2) gm/dl Albumin 2.9 L (3.4-5.0) gm/dl Globulin 2.9 (2.5-4.0) gm/dl Albumin/Globulin Ratio 1.0 (0.9-2) TSH 2.770 (0.300-4.500) uIu/ml COVID-19 Eval Order SARS-CoV-2 (PCR) (Negative) Influenza Type A (PCR) (Neg) Influenza Type B (PCR) (Neg) RSV (RT-PCR) (Neg) 03/12/21 03/12/21 Range/Units Unknown Unknown WBC (4.8-10.8) K/uL RBC (4.2-5.4) M/uL Hgb (12.0-16.0) g/dL Hct (37-47) % MCV (80-100) fL MCH (25-34) pg MCHC (32-36) g/dL Plt Count (130-400) K/uL Immature Gran % (Auto) % Neut % (Auto) % Lymph % (Auto) % [place] % (Auto) % Eos % (Auto) % Baso % (Auto) % Neut # (Auto) (1.4-6.5) K/uL Lymph # (Auto) (1.2-3.4) K/uL [place] # (Auto) (0.11-0.59) K/uL Eos # (Auto) (0-0.5) K/uL Baso # (Auto) (0-0.2) K/uL Immature Gran # (Auto) (0.00-0.02) K/uL RBC Morphology VBG pH (7.36-7.41) VBG pCO2 (38-50) mmHg VBG pO2 mmHg VBG HCO3 mmol/L VBG O2 Saturation % VBG Base Excess mEq/L Barometric Pressure mm/Hg Sodium (136-145) mmol/L Potassium (3.5-5.1) mmol/L Chloride (98-107) mmol/L Carbon Dioxide (21-32) mmol/L Anion Gap (3-11) BUN (7-18) mg/dl Creatinine (0.6-1.2) mg/dl Est Cr Clr Drug Dosing Est GFR ( Amer) Est GFR (Non-Af Amer) BUN/Creatinine Ratio (10-20) Glucose (70-99) mg/dl Calcium (8.5-10.1) mg/dl Total Bilirubin (0.2-1) mg/dl AST (15-37) U/L ALT (12-78) U/L Alkaline Phosphatase (45-117) U/L Troponin I (0-0.045) ng/ml Total Protein (6.4-8.2) gm/dl Albumin (3.4-5.0) gm/dl Globulin (2.5-4.0) gm/dl Albumin/Globulin Ratio (0.9-2) TSH (0.300-4.500) uIu/ml COVID-19 Eval Order [facility]FluRsv at [facility] SARS-CoV-2 (PCR) NEGATIVE (Negative) Influenza Type A (PCR) Negative (Neg) Influenza Type B (PCR) Negative (Neg) RSV (RT-PCR) Negative (Neg) Imaging Data Attestation: I personally reviewed and interpreted this imaging study as follows: My Impression: Chest x-raychronic lung findings, no acute infiltrate, failure, or pneumothorax seen. She does have several rib fractures on the left Radiologist's Impression: Chest X-Ray 03/12/21 16:39 XR chest 1V portable CLINICAL HISTORY: weakness COMPARISON STUDY: Chest radiograph and chest CT December 28, 2019. FINDINGS: A hiatal hernia is noted. Cardiomegaly is unchanged. Interstitial thickening suggests mild pulmonary edema. There is a trace left pleural effusion. Multiple left-sided rib fractures are incidentally noted. There is no pneumothorax. IMPRESSION: 1. Mild interstitial edema. 2. Trace left pleural effusion. 3. Cardiomegaly. ACT 112: Negative or not required by law. Electronically signed by: Uriel Byers M.D. 03/12/2021 5:33 PM ECG Data Attestation: I personally reviewed and interpreted this ECG as follows: Indication: + SOB/dyspnea and + weakness Rate (beats per minute): 57 Rhythm: + normal sinus and + other (Poor baseline) ECG Intervals/blocks: + Normal QRS, + Normal QT and + Normal [place] ECG [place]: + Normal ECG ST segments: + Normal ST segments ECG Findings: no PACs and no PVCs Comparison ECG Date: from (12/28/19) Change: the following changes noted (T waves appear more nonspecific) MDM Narrative This patient comes in as described above. She was placed on a cardiac rehabilitation specialist in room C5. She had an episode where she was unresponsive. She appears stable on oxygen and is in no distress. IV access established and blood work was obtained. Chest x-ray and EKG were obtained she was Covid swabbed. She was reassessed frequently. She seems to be doing much better. Her CO2 on her VBG was mild to moderately elevated at 62 but when going to recheck her she is awake and talking and looks great. I do not think this is likely from retaining CO2. She does have some rib fracture seen on x-ray and when I press on her chest she is not significantly tender these may be old. Her Covid testing was negative. EKG does not suggest acute coronary syndrome or arrhythmia. She has no significant lecture light or metabolic abnormalities. This may have been from COPD or may have been from her medications or cardiac event and I do think she needs to be admitted/observe for further treatment and evaluation and have consulted the [facility] for these measures. Continuous cardiac monitoring: Due to her chief complaint of altered mental status and shortness of breath, order was placed in the EMR for continuous c ardiac monitoring. The patient was noted to be in normal sinus rhythm pulse of 65. Impression & Plan Episode of altered consciousness, Hypoxemia, COPD (chronic obstructive pulmonary disease), Lab test negative for COVID-19 virus, Chronic pain Discharge Plan Visit Data Chief Complaint: Syncope Stated Complaint: WEAKNESS, SYNCOPE ED Provider: Nazario Castro Discharge Problem: Episode of altered consciousness, Hypoxemia, COPD (chronic obstructive pulmonar y disease), Lab test negative for COVID-19 virus, Chronic pain Forms Stand Alone Forms: My [facility] flaregames Prescriptions Prescriptions: No Action prednisone 10 mg tablet 10 mg PO QAM RF: 0 albuterol sulfate [ProAir HFA] 90 mcg/actuation Hfa Aerosol Inhaler 2 puff INHALATION Q4H PRN (Reason: Cough/SOB or Wheezing) RF: 0 azithromycin 250 mg tablet 250 mg PO 3XWK RF: 0 cyanocobalamin (vitamin B-12) [Vitamin B-12] 500 mcg Tablet 500 mcg PO QAM RF: 0 fluticasone propionate 50 mcg/actuation spray,suspension 2 spray Intranasal QAM RF: 0 pantoprazole 40 mg tablet,delayed release (DR/EC) 40 mg PO BID RF: 0 sertraline 25 mg tablet 25 mg PO QPM RF: 0 furosemide 20 mg tablet 20 mg PO DAILY PRN (Reason: Edema) RF: 0 metoprolol succinate 25 mg tablet extended release 24 hr 12.5 mg PO QPM RF: 0 oxycodone 5 mg tablet 5 mg PO BID PRN (Reason: Pain, Severe) RF: 0 Trelegy Ellipta 100-62.5-25 mcg blister with device 1 inh INHALATION DAILY RF: 0 prednisone 20 mg tablet See Rx Instructions .ROUTE .COMPLEX PRN (Reason: COPD Rescue) RF: 0 Probiotic 10 billion cell Capsule 10,000 mmu cells PO DIRECTED RF: 0 albuterol sulfate 2.5 mg /3 mL (0.083 %) Solution For Nebulization 2.5 mg INHALATION TID RF: 0 baclofen 10 mg Tablet 10 mg PO TID RF: 0 morphine 15 mg Tablet Extended Release 15 mg PO Q12H RF: 0 sennosides 8.6 mg Capsule 8.6 mg PO DAILY RF: 0 Digestive Advantage Probiotic 2 billion cell- 140 mg Capsule 1 cap PO QAM RF: 0 Discharge Problem: COPD (chronic obstructive pulmonary disease) Qualifiers: COPD type: unspecified COPD Qualified Code(s): J44.9 - Chronic obstructive pulm onary disease, unspecified Chronic pain Qualifiers: Chronic pain type: other chronic pain Qualified Code(s): G89.29 - Other chronic pain
[2021-03-12 17:22] LABS: Alanine Aminotransferase 11 U/L (12-78); Albumin Level 2.9 gm/dl (3.4-5.0); Aspartate Aminotransferase 16 U/L (15-37); BUN Creatinine Ratio 10.5 (10-20); Blood Urea Nitrogen 14 mg/dl (7-18); Calcium 8.5 mg/dl (8.5-10.1); Carbon Dioxide 29 mmol/L (21-32); Chloride 108 mmol/L (98-107); Est GFR (African American) 45.6; Est GFR (Non-African American) 39.4; Glucose 87 mg/dl (70-99); Potassium 4.2 mmol/L (3.5-5.1); Sodium 142 mmol/L (136-145)
[2021-03-12 17:27] LABS: Base Excess VBG 3.9 mEq/L; HCO3 VBG 32 mmol/L; PCO2 VBG 62 mmHg (38-50); PO2 VBG 26 mmHg; pH VBG 7.32 (7.36-7.41)
[2021-03-12 17:29] LABS: Oxygen Saturation VBG < 60.0 %
[2021-03-12 17:31] LABS: Basophils # (auto) 0.02 K/uL (0-0.2); Basophils % (auto) 0.2 %; Eosinophils # (auto) 0.25 K/uL (0-0.5); Eosinophils % (auto) 1.9 %; Hematocrit (blood only) 39.4 % (37-47); Hemoglobin 12.5 g/dL (12.0-16.0); Immature Granulocytes # (auto) 0.05 K/uL (0.00-0.02); Immature Granulocytes % (auto) 0.4 %; Lymphocytes # (auto) 2.37 K/uL (1.2-3.4); Lymphocytes % (auto) 17.9 %; Mean Corpuscular Hemoglobin 30.9 pg (25-34); Mean Corpuscular Hgb Conc 31.7 g/dL (32-36); Mean Corpuscular Volume 97.3 fL (80-100); Monocytes # (auto) 1.24 K/uL (0.11-0.59); Monocytes % (auto) 9.4 %; Neutrophils # (auto) 9.32 K/uL (1.4-6.5); Neutrophils % (auto) 70.2 %; Platelet Count 233 K/uL (130-400); RBC Morphology Unremarkable; Red Blood Count 4.05 M/uL (4.2-5.4); White Blood Count 13.25 K/uL (4.8-10.8)
[2021-03-12 17:32] LABS: Alkaline Phosphatase 101 U/L (45-117); Bilirubin,Total 0.5 mg/dl (0.2-1); Globulin 2.9 gm/dl (2.5-4.0); Total Protein 5.8 gm/dl (6.4-8.2); Troponin I < 0.015 ng/ml (0-0.045)
--- NOTE | 2021-03-12 17:34 | XRay Report ---
XR chest 1V portable CLINICAL HISTORY: weakness COMPARISON STUDY: Chest radiograph and chest CT December 28, 2019. FINDINGS: A hiatal hernia is noted. Cardiomegaly is unchanged. Interstitial thickening suggests mild pulmonary edema. There is a trace left pleural effusion. Multiple left-sided rib fractures are incide ntally noted. There is no pneumothorax. IMPRESSION: 1. Mild interstitial edema. 2. Trace left pleural effusion. 3. Cardiomegaly. ACT 112: Negative or not required by law. Electronically signed by: Uriel Byers M.D. 03/12/2021 5:33 PM
[2021-03-12 17:46] LABS: Influenza A virus by PCR Negative (Neg); Influenza B virus by PCR Negative (Neg); RSV by PCR Negative (Neg); SARS CoV2 RNA(COVID-19) InHosp NEGATIVE (Negative)
--- NOTE | 2021-03-12 19:02 | CT Scan Report ---
CT OF THE HEAD WITHOUT CONTRAST CLINICAL HISTORY: Altered mental status. COMPARISON STUDY: Head CT July 03, 2017. CT DOSE: 614.27 mGy.cm TECHNIQUE: Helical axial images of the head were obtained without IV contrast. Automated exposure con trol was utilized for the study. A dose lowering technique was utilized adhering to the principles o f ALARA. FINDINGS: This exam is mildly compromised by artifact. No acute intracranial hemorrhage, midline shif t or mass effect is present. Ventricular system is unremarkable. Basal cisterns are patent. White mat ter hypodensity suggests small vessel disease. There are no findings to suggest acute dural sinus thr ombosis or acute territorial infarct. There is no calvarial fracture. Left mastoid air cells are larg santi opacified. A small right mastoid effusion is present. IMPRESSION: 1. No acute intracranial findings. 2. Largely opacified left mastoid air cells. A few opacified right mastoid air cells. ACT 112: Negative or not required by law. Electronically signed by: Uriel Byers M.D. 03/12/2021 7:01 PM
--- NOTE | 2021-03-12 19:58 | History & Physical Report ---
Date of Service March 12, 2021 Assessment & Plan (1) Altered mental status: Pt is Pt is 79 y/o F with PMH interstitial lung disease, COPD, on 3L oxygen via NC, pulmonary hypertension, diastolic heart failure, HTN, GERD, CKD III, RA, chronic back pain presented to ER for altered mental status today. DDX: metabolic encephalopathy secondary to medications vs hypoxia In ER pt afebrile P: 68, R: 20, BP: 136/88. Initially was reported 82% on 5L NC and pt was initially placed on non-rebreather with sats up to 100% then placed on oxymask at 5L with sat 97% and has been weaned to 2.5L oxymask with sat 94% WBC: 13. VBG: pH: 7.3, CO2: 62, HCO3: 32 CT Head: no acute changes ABG pending R/O underlying infection. UA pending. Blood cultures pending Drug screen pending Hold home sedating medications - morphine, oxycodone, baclofen NPO for now fall precautions, aspiration precautions Neuro checks Ammonia level pending Speech eval. Prior pt needed minced and moist PT/OT eval when improved If no improvement may need to consider neuro consult CBC, BMP in am HYPOXIA COPD Pt wears 3L O2 via NC chronically. Is on chronic prednisone 10mg daily and azithromycin on MWF schedule. Initially was reported 82% on 5L NC and pt was initially placed on non- rebreather with sats up to 100% then placed on oxymask at 5L with sat 97% and has been weaned to 2.5L oxymask with sat 94% Pt son reports chronic cough of clear sputum however past 3 weeks with noted increased cough. CXR: Mild interstitial edema. Trace left pleural effusion. WBC: 13. May be secondary to chronic steroid use. Negative influenza swab. negative COVID 19 PCR Currently no significant wheezing on exam DuoNebs Hold chronic prednisone and start solumedrol 20mg IV daily Continue chronic oxygen 3 L with O2 sat goal of 89 to 94% Hold oral azithromycin currently, plan to resume when pt able to swallow CHRONIC BACK PAIN/FRACTURES RA Holding narcotics and baclofen at this time secondary to AMS Converting prednisone to solumedrol daily HTN BP stable Hold oral metoprolol succinate for now while NPO, Will put prn lopressor IV. P precious to resume oral metoprolol when more alert and can swallow CKD III: Cr: 1.29. Was 1.4 in 01/2021 Monitor renal functions MALNUTRITION Pt cachectic Aboriginal Education Teacher consult GERD Hold oral PPI for now while NPO Will place for protonix IV for tomorrow and then re-evaluate pt's swallowing abilities DVT Prophylaxis -Heparin SQ DNR/DNI as per discussion with pt's son Follows with Dr Campos for routine care Pt was seen and care coordinated with Dr Camarillo. See addendum History of Present Illness Chief Complaint: AMS Primary Care Provider: Carroll Campos, Pt is Pt is 79 y/o F with PMH interstitial lung disease, COPD, on 3L oxygen via NC, pulmonary hypertension, diastolic heart failure, HTN, GERD, CKD III, RA, chronic back pain presented to ER for altered mental status. History obtained from pt's son as unable to obtain from pt currently. Pt's son reports that pt has a student career development specialist that lives with her who helps get pt out of bed and gives pt her medications. Today son was contacted by caregiver around 1PM that pt did not get out of bed today and when she checked on pt this afternoon pt seemed confused. Reported that pt did not take her medications today. Son reports that student career development specialist lays out pts meds and pt doesn't have access to her medications. He reports at baseline pt is weak and doesn't ambulate much and when does she holds on to furniture. Reports pt is oriented at baseline. on 03/10/21 pt had PCP visit and morphine 15mg BID was started. First dose taken evening of 03/10/21 and twice yesterday. Denies any morphine being given today or any other medications today. Pt's son reports that when he arrived pt was confused and did not know him. She was wearing her oxygen. States while in ER pt became more alert and seemed to recognize him however later during ER course was back to being confused and lethargic. He states yesterday pt was at her baseline. Does notice increased cough from her chronic cough over the past 3 weeks. Chronic clear sputum production. Unaware of any wheezing or noted respiratory distress. Is unaware if pt had any extremity edema. Pt has had poor appetite and hasn't been eating. He reports she drinks water. No known fever/chills, vomiting, diarrhea. Allergies Allergy/AdvReac Type Severity Reaction Status Date / Time ranitidine Allergy Intermediate Hives Verified 03/12/21 17:54 Estrogens Allergy Mild IRREGULAR Verified 03/12/21 17:54 HEART RATE lovastatin Allergy Unknown UNKNOWN Verified 03/12/21 17:54 zoledronic acid AdvReac Intermediate MUSCLE PAIN Verified 03/12/21 17:54 omeprazole AdvReac Mild ABD PAIN Verified 03/12/21 17:54 Quinolones AdvReac Mild 11/28/08--ITCHY Verified 03/12/21 17:54 ARM, HAS HAD IN PAST W/O RXN sulfamethoxazole AdvReac Mild NAUSEA/VOMI Verified 03/12/21 17:54 TING trimethoprim AdvReac Mild NAUSEA/VOMI Verified 03/12/21 17:54 TING Home Medications Medication Instructions Recorded Confirmed Type azithromycin 250 mg PO 3XWK 02/08/19 03/12/21 History cyanocobalamin (vitamin B-12) 500 mcg PO QAM 02/08/19 03/12/21 History [Vitamin B-12] fluticasone propionate 2 spray INTRANASAL QAM 02/08/19 03/12/21 History pantoprazole 40 mg PO BID 02/08/19 03/12/21 History albuterol sulfate [ProAir HFA] 2 puff INHALATION Q4H PRN 05/29/19 03/12/21 History prednisone 10 mg PO QAM 05/29/19 03/12/21 History Lactobacillus acidophilus 10,000 mmu cells PO DIRECTED 02/20/21 03/12/21 History [Probiotic] ozsteoipips-mvegsviki-drlmgbjs 1 inh INHALATION DAILY 02/20/21 03/12/21 History [Trelegy Ellipta] furosemide 20 mg PO DAILY PRN 02/20/21 03/12/21 History metoprolol succinate 12.5 mg PO QPM 02/20/21 03/12/21 History oxycodone 5 mg PO BID PRN 02/20/21 03/12/21 History prednisone See Rx Instructions .ROUTE 02/20/21 03/12/21 History .COMPLEX PRN sertraline 25 mg PO QPM 02/20/21 03/12/21 History Bacillus coagulan-calcium carb 1 cap PO QAM 03/12/21 03/12/21 History [Digestive Advantage Probiotic] albuterol sulfate 2.5 mg INHALATION TID 03/12/21 03/12/21 History baclofen 10 mg PO TID 03/12/21 03/12/21 History morphine 15 mg PO Q12H 03/12/21 03/12/21 History sennosides 8.6 mg PO DAILY 03/12/21 03/12/21 History Past Med/Surg History Medical History (Updated 03/12/21 @ 20:14 by Ayde Estevez PA-C) Anxiety Chronic obstructive pulmonary disease Chronic respiratory failure Chronic steroid use CKD (chronic kidney disease), stage III Congestive heart failure hx of Degenerative disc disease Depression Diverticulitis GERD (gastroesophageal reflux disease) Hearing deficit Hiatal hernia Hx of central retinal vein occlusion Hyperlipidemia Hypertension On home oxygen therapy 3L N/C at all times Osteoarthritis Pulmonary fibrosis pt denies Rheumatoid arthritis Surgical History H/O colonoscopy H/O esophagogastroduodenoscopy History of bilateral cataract extraction History of dilatation and curettage History of left breast biopsy benign History of tooth extraction History of total hysterectomy with bilateral salpingo-oophorectomy (BSO) S/P cholecystectomy Family History Other Family history non-contributory No family history of adverse response to anesthesia Social History Smoking Status: Former smoker Tobacco Type: Cigarettes Second Hand Exposure: No; Hx Alcohol Use: No Hx Substance Use: No Preferred Language: Divehi Communication Ability: Effective K9 Handler Required: No Beliefs That Will Affect Care: None marital status: Current Living Situation: Other Current Living Situation Comment: friend current occupational status: retired Feels Safe at Home: Yes Assistive Devices: Oxygen - Continuous and Walker Review of Systems Review of Systems: Unobtainable due to cognitive status Physical Exam Physical Exam: General: no acute distress, cachectic elderly female, pt does complain of pain upon palpation of chest, back, abdomen. No pain at rest (chronic back pain) Head: normocephalic, atraumatic Eyes: PERRL (approx 3mm diameter), limited EOM's testing secondary to pt's participation but appear intact, conjunctiva non-injected, anicteric ENT: normal inspection external ears, nose, mucous membranes moist Neck: supple, trachea midline Lungs: on 2.5L oxygen via mask with O2 sat 94%, R: 18 and non-labored, poor pt participation with deep inspiration, and lungs appear clear, no wheezing/rhonchi/rales noted at this time CV: RRR, no murmur, +trace edema ankles Abd: normal BS, soft, non-tender Ext: no cyanosis or erythema Neuro: Alert. Limited participation in exam. Initially pt stated in hospital and stated her first name. Is unaware of year, town, birthday. She was unable to say who her son was (who was in room at the time). +lethargic, generalized weakness, unable to do full testing Skin: warm, dry Results & Data Results & Data ([facility]) Vital Signs (Past 12 Hours) Vital Signs Temp Pulse Pulse Resp BP BP Pulse Ox 03/12/21 19:10 70 18 125/80 96 03/12/21 18:00 71 20 126/101 H 96 03/12/21 16:39 78 20 170/102 H 96 03/12/21 15:45 36.8 C 68 69 18 136/88 97 Laboratory Results Short CBC 03/12/21 Range/Units 16:53 WBC 13.25 H (4.8-10.8) K/uL Hgb 12.5 (12.0-16.0) g/dL Hct 39.4 (37-47) % Plt Count 233 (130-400) K/uL BMP 03/12/21 16:53 Sodium 142 Potassium 4.2 Chloride 108 H Carbon Dioxide 29 BUN 14 Creatinine 1.29 H Glucose 87 Calcium 8.5 Cardiac Enzymes 03/12/21 Range/Units 16:53 Troponin I < 0.015 (0-0.045) ng/ml Liver Function 03/12/21 Range/Units 16:53 Total Bilirubin 0.5 (0.2-1) mg/dl AST 16 (15-37) U/L ALT 11 L (12-78) U/L Alkaline Phosphatase 101 (45-117) U/L Albumin 2.9 L (3.4-5.0) gm/dl Diagnostic Findings Chest X-Ray 03/12/21 16:39 XR chest 1V portable CLINICAL HISTORY: weakness COMPARISON STUDY: Chest radiograph and chest CT December 28, 2019. FINDINGS: A hiatal hernia is noted. Cardiomegaly is unchanged. Interstitial thickening suggests mild pulmonary edema. There is a trace left pleural effusion. Multiple left-sided rib fractures are incidentally noted. There is no pneumothorax. IMPRESSION: 1. Mild interstitial edema. 2. Trace left pleural effusion. 3. Cardiomegaly. ACT 112: Negative or not required by law. Electronically signed by: Uriel Byers M.D. 03/12/2021 5:[address] 03/12/21 18:05 CT OF THE HEAD WITHOUT CONTRAST CLINICAL HISTORY: Altered mental status. COMPARISON STUDY: Head CT July 03, 2017. CT DOSE: 614.27 mGy.cm TECHNIQUE: Helical axial images of the head were obtained without IV contrast. Automated exposure control was utilized for the study. A dose lowering technique was utilized adhering to the principles of ALARA. FINDINGS: This exam is mildly compromised by artifact. No acute intracranial hemorrhage, midline shift or mass effect is present. Ventricular system is unremarkable. Basal cisterns are patent. White matter hypodensity suggests small vessel disease. There are no findings to suggest acute dural sinus thrombosis or acute territorial infarct. There is no calvarial fracture. Left mastoid air cells are largely opacified. A small right mastoid effusion is present. IMPRESSION: 1. No acute intracranial findings. 2. Largely opacified left mastoid air cells. A few opacified right mastoid air cells. ACT 112: Negative or not required by law. Electronically signed by: Uriel Byers M.D. 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 Patient unable to provide any history currently. Most of the history is obtained from patient's son, ER physician and old records. Patient was noted to be confused this afternoon and did not take her morning medications as per the caregiver. Patient's family reports that she was started on morphine and baclofen recently by her PCP. Please review HPI for complete details of presentation. Currently patient is alert, awake but seems to be lethargic and confused. She does not follow simple commands. CT head showed no acute intracranial abnormality. On exam patient is chronic ill-appearing, thin, frail, no apparent distress, normocephalic atraumatic, EOMI, pupils reactive to light, lungs-mildly decreased breath sounds, clear to auscultation, S1-S2, no murmur, abdomen soft, nontender, normal bowel sounds, alert, awake, confused, could not perform complete neurological exam given inability to follow commands, right ankle swelling noted,+RA Jts. Patient is admitted for management of altered mental status DD: Metabolic encephalopathy secondary to hypoxia, hypercapnia, medication induced. Will hold all sedative medications. CT head showed no acute intracranial abnormality. Will obtain ABG. Keep her n.p.o. for now. Check ammonia level. Aspiration, fall precautions. Agree with checking drug screen. Obtain urine analysis and culture if abnormal. Neurochecks ordered. Consider neurology consultation if no improvement. Leukocytosis noted on labs likely secondary to chronic prednisone use. Further management based on pending results. Will consider BiPAP if hypercarbia on ABG. I personally reviewed the record. Patient is interviewed and examined at bedside. Patient's care is coordinated with Ayde Estevez PA-C. Please refer to the documentation above for details of lexy escamilla's presentation and for discussion of other issues.
[2021-03-12] MEDS ORDERED: FUROSEMIDE 40 MG/4 ML VIAL IV STA (21:15)
[2021-03-12] MEDS ORDERED: FUROSEMIDE 10 MG in SYRINGE 0 ML IV ONE (21:30)
[2021-03-12] MEDS: methylPREDNISolone 20 MG in SYRINGE 0 ML IV SCH (21:56)
[2021-03-12] MEDS: HEPARIN SOD 5,000 UNIT/0.5 ML VIAL SQ SCH (21:57)
[2021-03-12 22:29] LABS: Base Excess ABG 2.7 mEq/L (-9-1.8); HCO3 ABG 29 mmol/L (19-24); Oxygen Saturation ABG 92.2 % (90-95); PCO2 ABG 50 mmHg (35-46); PO2 ABG 60 mmHg (80-95); pH ABG 7.38 (7.35-7.45)
[2021-03-12 22:36] LABS: Allen Test POS (Pos)
[2021-03-13] MEDS ORDERED: MoRPHine SULFATE 4 MG/ML 1 ML CARP\\VIAL IV STA ×3 (03:10→14:11)
[2021-03-13] MEDS: METOPROLOL TARTRATE 1 MG/ML VIAL IV PRN (03:12)
[2021-03-13] MEDS ORDERED: hydrALAZINE HCL 20 MG/ML VIAL IV STA (04:52)
[2021-03-13] MEDS ORDERED: KETOROLAC TROMETHAMINE 15 MG/ML VIAL IV ONE (05:28)
[2021-03-13] MEDS: ALBUT/IPRATROP 3MG/0.5MG NEB 3 ML VIAL NEB SCH ×2 (07:47→11:00)
[2021-03-13 08:35] LABS: BUN Creatinine Ratio 15.1 (10-20); Calcium 9.3 mg/dl (8.5-10.1); Creatinine Clr Calc Pharmacy 26.1 ml/min; Est GFR (African American) 39.9; Est GFR (Non-African American) 34.5; Potassium 4.2 mmol/L (3.5-5.1)
[2021-03-13 08:45] LABS: Basophils # (auto) 0.01 K/uL (0-0.2); Basophils % (auto) 0.1 %; Hematocrit (blood only) 42.1 % (37-47); Hemoglobin 14.1 g/dL (12.0-16.0); Immature Granulocytes # (auto) 0.04 K/uL (0.00-0.02); Immature Granulocytes % (auto) 0.2 %; Lymphocytes # (auto) 1.09 K/uL (1.2-3.4); Lymphocytes % (auto) 6.7 %; Mean Corpuscular Hemoglobin 31.8 pg (25-34); Mean Corpuscular Hgb Conc 33.5 g/dL (32-36); Mean Corpuscular Volume 94.8 fL (80-100); Mean Platelet Volume 11.9 fL (7.4-10.4); Monocytes # (auto) 0.71 K/uL (0.11-0.59); Monocytes % (auto) 4.4 %; Neutrophils # (auto) 14.33 K/uL (1.4-6.5); Neutrophils % (auto) 88.6 %; Platelet Count 297 K/uL (130-400); RDW Coefficient of Variation 13.9 % (11.5-14.5); Red Blood Count 4.44 M/uL (4.2-5.4); White Blood Count 16.18 K/uL (4.8-10.8)
[2021-03-13] MEDS: FLUTICASONE FUROATE 100MCG 14 PUFFS/INHALER INH SCH (08:55)
[2021-03-13] MEDS: methylPREDNISolone 20 MG in SYRINGE 0 ML IV SCH (08:55)
[2021-03-13] MEDS: HEPARIN SOD 5,000 UNIT/0.5 ML VIAL SQ SCH ×2 (08:56→21:37)
[2021-03-13] MEDS: UMECLIDINIUM/VILANTEROL 62.5/25MCG 7 PUFFS/INHALER INH SCH (08:56)
[2021-03-13] MEDS ORDERED: PANTOprazole 40 MG in SYRINGE 0 ML IV SCH (11:00)
[2021-03-13] MEDS ORDERED: oxyCODONE HCL IR 5 MG TAB (IMMEDIATE RELEASE) PO PRN (14:10)
[2021-03-13] MEDS ORDERED: ALBUTEROL HFA 8 GM INHALER INH PRN (14:13)
--- NOTE | 2021-03-13 14:15 | Hospitalist Progress Note ---
Date of Service March 13, 2021 Assessment & Plan (1) Altered mental status: Pt is Pt is 79 y/o F with PMH interstitial lung disease, COPD, on 3L oxygen via NC, pulmonary hypertension, diastolic heart failure, HTN, GERD, CKD III, RA, chronic back pain presented to ER for altered mental status today. Metabolic encephalopathy likely secondary to use of narcotics with muscle spasm medications and is complicated by hypoxia CT Head: no acute changes No source of infection, urine and chest x-ray have been negative Clinically much better since this morning Will need to restart pain medications to control severe pain that she is going through Decreased responsiveness on admission likely secondary to side effect of medications as mentioned earlier Was on n.p.o. on admission fall precautions, aspiration precautions Speech eval. Prior pt needed minced and moist Acute on chronic respiratory failure with hypoxia and hypercarbia Doubt any exacerbation COPD Receiving small dose of intravenous Solu-Medrol We will continue nebulized bronchodilator Acute on chronic diastolic heart failure CXR: Mild interstitial edema. Trace left pleural effusion. Received a small dose of intravenous Lasix Will continue her outpatient diuretics CHRONIC BACK PAIN/FRACTURES Has significant rheumatoid arthritis changes without any acute arthritis History of vertebral fractures remained stable as of scan in November No recent history of trauma and no history of radicular type of pain The PCP increase the pain medication recently with morphine 15 mg twice daily and oxycodone as needed Will need to have pain medications to control her pain We will hold off baclofen which may be causing altered mental status HTN BP stable Hold oral metoprolol succinate for now while NPO, Will put prn lopressor IV. Plan to resume oral metoprolol when more alert and can swallow CKD III: Cr: 1.29. Was 1.4 in 01/2021 Monitor renal functions MALNUTRITION Pt cachectic Teletype Adjuster consult GERD Hold oral PPI for now while NPO Will place for protonix IV for tomorrow and then re-evaluate pt's swallowing ab ilities DVT Prophylaxis -Heparin SQ DNR/DNI as per discussion with pt's son Follows with Dr Campos for routine care Patient has been almost bedbound and has 24-hour care at home PT and OT evaluation appreciated Likely be discharged when the pain is controlled Admission and Anticipated Discharge Date Admission Date: March 12, 2021 Subjective 03/13/2021 The patient was seen and examined in medical telemetry unit She was admitted with change in mental status likely secondary to use of narcotics and muscle spasm medication She was noted to be alert, awake and was asking pain medications since this morning Denies any increasing shortness of breath, any nausea and or vomiting, any fever and/or chills Review of Systems Review of Systems: All systems reviewed and are unremarkable except as noted below Physical Exam Physical Exam: Lying in bed with acute distress secondary to pain in multiple areas of the body Constitutional: + acute distress (Due to pain in multiple areas and joints), + ill appearing and + thin Eyes: PERRL, conjunctivae normal, anicteric sclerae ENMT: external ear and nose normal, oropharynx normal Neck: trachea midline, no thyromegaly Respiratory: no respiratory distress Auscultation: + diminished lung sounds and + crackles (Minimal crackles at the bases) Cardiovascular: Rate/Rhythm: regular rate and regular rhythm Heart Sounds: + murmur (2/6 precordial ejection systolic murmur) Extremities: no edema Gastrointestinal (Abdomen): Inspection/Auscultation: normal bowel sounds; abdomen not distended Percussion/Palpation: abdomen soft; abdomen nontender Musculoskeletal: Has arthralgias involving multiple joints but no acute arthritis Skin: Generalized skin bruising Neurologic: Alert and awake. Generally very weak and lethargic and is almost bedbound Lymphatic: no cervical or axillary lymphadenopathy Results & Data Results & Data ([facility]) Vital Signs (Past 12 Hours) Vital Signs Temp Pulse Pulse Resp BP BP BP 03/13/21 11:25 36.5 C 104 H 18 171/95 H 03/13/21 11:02 102 H 20 03/13/21 07:51 86 20 03/13/21 07:47 36.4 C L 91 H 20 159/87 H 03/13/21 07:30 79 03/13/21 04:46 36.4 C L 82 20 212/112 H 03/13/21 03:12 90 213/108 H 03/13/21 02:57 36.4 C L 90 20 209/113 H 211/144 H Pulse Ox 03/13/21 11:25 92 03/13/21 11:02 96 03/13/21 07:51 93 03/13/21 07:47 98 03/13/21 07:30 03/13/21 04:46 93 03/13/21 03:12 03/13/21 02:57 91 Laboratory Results Short CBC 03/12/21 03/13/21 Range/Units 16:53 07:59 WBC 13.25 H 16.18 H (4.8-10.8) K/uL Hgb 12.5 14.1 (12.0-16.0) g/dL Hct 39.4 42.1 (37-47) % Plt Count 233 297 (130-400) K/uL BMP 03/12/21 03/13/21 16:53 07:59 Sodium 142 140 Potassium 4.2 4.2 Chloride 108 H 105 Carbon Dioxide 29 27 BUN 14 22 H D Creatinine 1.29 H 1.44 H Glucose 87 113 H Calcium 8.5 9.3 Cardiac Enzymes 03/12/21 Range/Units 16:53 Troponin I < 0.015 (0-0.045) ng/ml Liver Function 03/12/21 Range/Units 16:53 Total Bilirubin 0.5 (0.2-1) mg/dl AST 16 (15-37) U/L ALT 11 L (12-78) U/L Alkaline Phosphatase 101 (45-117) U/L Albumin 2.9 L (3.4-5.0) gm/dl Medications Administered Current Inpatient Medications Acetaminophen (Acetaminophen 325 Mg Tab) 650 mg PO Q4H PRN PRN Reason: Pain or Fever Stop: 04/11/21 21:14 Albuterol (Albuterol 0.083% Nebu Soln 3 Ml Vial) 2.5 mg INH TIDR ALEX Stop: 04/12/21 20:59 Albuterol (Albuterol Hfa 8 Gm Inhaler) 2 puffs INH Q4R PRN PRN Reason: Cough/SOB or Wheezing Stop: 04/12/21 14:12 Cyanocobalamin (Cyanocobalamin 500 Mcg Tablet (Vitamin B-12)) 500 mcg PO QAM ALEX Stop: 04/13/21 08:59 Fluticasone Furoate (Fluticasone Furoate 100mcg 14 Puffs/Inhaler) 1 puffs INH DAILY ALEX Stop: 04/12/21 08:59 Last Admin: 03/13/21 08:55 Dose: 1 puffs Documented by: Fluticasone Propionate (Fluticasone Propionate Na Spr 16 Gm Btl) 2 sprays NA QAM ALEX Stop: 04/13/21 08:59 Furosemide (Furosemide 20 Mg Tab) 20 mg PO DAILY PRN PRN Reason: Edema Stop: 04/12/21 14:29 Heparin Sodium (Porcine) (Heparin Sod 5,000 Unit/0.5 Ml Vial) 5,000 units SQ Q12 ALEX Stop: 04/11/21 21:14 Last Admin: 03/13/21 08:56 Dose: 5,000 units Documented by: Pantoprazole Sodium 40 mg/ (Syringe) 10 mls @ 5 mls/min IV DAILY@1100 [facility] Stop: 03/14/21 10:59 Last Admin: 03/13/21 11:49 Dose: 5 mls/min Documented by: Methylprednisolone 20 mg/ (Syringe) 0.32 mls @ 1.5 mls/min IV DAILY [facility] Stop: 04/11/21 21:29 Last Admin: 03/13/21 08:55 Dose: 1.5 mls/min Documented by: Metoprolol Succinate (Metoprolol Succ 25mg Ext Rel Tab) 12.5 mg PO QPM [facility] Stop: 04/12/21 20:59 Metoprolol Tartrate (Metoprolol Tartrate 1 Mg/Ml Vial) 2.5 mg IV Q6 PRN PRN Reason: tachycardia Stop: 04/11/21 21:14 Last Admin: 03/13/21 03:12 Dose: 2.5 mg Documented by: Morphine Sulfate (Morphine Sulfate Cr 15 Mg Tabcr) 15 mg PO Q12 [facility] Stop: 03/27/21 14:14 Oxycodone HCl (Oxycodone Hcl Ir 5 Mg Tab (Immediate Release)) 5 mg PO BID PRN PRN Reason: Pain, Severe Stop: 03/27/21 14:09 Sertraline HCl (Sertraline Hcl 50 Mg Tablet) 25 mg PO QPM [facility] Stop: 04/12/21 20:59 Umeclidinium/Vilanterol (Umeclidinium/Vilanterol 62.5/25mcg 7 Puffs/Inhaler) 1 puffs INH DAILY ALEX Stop: 04/12/21 08:59 Last Admin: 03/13/21 08:56 Dose: 1 puffs Documented by:
[2021-03-13] MEDS ORDERED: FUROSEMIDE 20 MG TAB PO PRN (14:30)
[2021-03-13] MEDS: MoRPHine SULFATE CR 15 MG TABCR PO SCH (14:33)
[2021-03-13] MEDS: ALBUTEROL 0.083% NEBU SOLN 3 ML VIAL INH SCH (20:29)
[2021-03-13] MEDS: METOPROLOL SUCC 25MG EXT REL TAB PO SCH (21:37)
[2021-03-13] MEDS: SERTRALINE HCL 50 MG TABLET PO SCH (21:38)
--- NOTE | 2021-03-13 22:17 | Electrocardiogram Report ---
Test Reason : Blood Pressure : / mmHG Vent. Rate : 067 BPM Atrial Rate : 067 BPM P-R Int : 158 ms QRS Dur : 080 ms QT Int : 380 ms P-R-T Axes : -28 -22 019 degrees QTc Int : 401 ms Poor data quality, interpretation may be adversely affected Normal sinus rhythm Nonspecific T wave abnormality Abnormal ECG When compared with ECG of 28-DEC-2019 13:40, Nonspecific T wave abnormality is now Present Confirmed by Zeeshan Barahona ([id number]) on 03/13/2021 10:17:39 PM Referred By: REFERRED SELF Confirmed By:Zeeshan Barahona
[2021-03-14] MEDS: MoRPHine SULFATE CR 15 MG TABCR PO SCH (01:00)
[2021-03-14] MEDS: ACETAMINOPHEN 325 MG TAB PO PRN (05:36)
[2021-03-14] MEDS ORDERED: MoRPHine SULFATE 4 MG/ML 1 ML CARP\\VIAL IV STA (05:48)
[2021-03-14] MEDS: ALBUTEROL 0.083% NEBU SOLN 3 ML VIAL INH SCH ×5 (07:11→23:03)
[2021-03-14 08:01] LABS: Hematocrit (blood only) 41.8 % (37-47); Hemoglobin 13.6 g/dL (12.0-16.0); Mean Corpuscular Hemoglobin 31.2 pg (25-34); Mean Corpuscular Hgb Conc 32.5 g/dL (32-36); Mean Corpuscular Volume 95.9 fL (80-100); Mean Platelet Volume 12.2 fL (7.4-10.4); Platelet Count 279 K/uL (130-400); RDW Standard Deviation 49.3 fL (36.4-46.3); Red Blood Count 4.36 M/uL (4.2-5.4); White Blood Count 27.11 K/uL (4.8-10.8)
[2021-03-14] MEDS: methylPREDNISolone 20 MG in SYRINGE 0 ML IV SCH (08:22)
[2021-03-14] MEDS: UMECLIDINIUM/VILANTEROL 62.5/25MCG 7 PUFFS/INHALER INH SCH (08:22)
[2021-03-14] MEDS: FLUTICASONE PROPIONATE NA SPR 16 GM BTL SCH (08:23)
[2021-03-14] MEDS: FLUTICASONE FUROATE 100MCG 14 PUFFS/INHALER INH SCH (08:23)
[2021-03-14] MEDS: HEPARIN SOD 5,000 UNIT/0.5 ML VIAL SQ SCH ×2 (08:24→21:09)
[2021-03-14 08:38] LABS: Basophils # (auto) 0.01 K/uL (0-0.2); Eosinophils # (auto) 0.02 K/uL (0-0.5); Eosinophils % (auto) 0.1 %; Immature Granulocytes # (auto) 0.11 K/uL (0.00-0.02); Immature Granulocytes % (auto) 0.4 %; Lymphocytes % (auto) 4.8 %; Monocytes # (auto) 1.77 K/uL (0.11-0.59); Monocytes % (auto) 6.5 %; Neutrophils % (auto) 88.2 %
[2021-03-14 08:51] LABS: BUN Creatinine Ratio 20.3 (10-20); Calcium 9.1 mg/dl (8.5-10.1); Creatinine Clr Calc Pharmacy 16.6 ml/min; Est GFR (African American) 25.6; Est GFR (Non-African American) 22.1; Phosphorus 4.7 mg/dl (2.5-4.9)
[2021-03-14] MEDS ORDERED: NON-FORMULARY MEDICATION (Bacillus Coagulan-Calcium Carb [Digestive Advantage Probiotic] 2 PO SCH (09:00)
[2021-03-14] MEDS: CYANOCOBALAMIN 500 MCG TABLET (VITAMIN B-12) PO SCH (10:20)
[2021-03-14] MEDS: fentaNYL 12 MCG/HR TDSY TD SCH (10:20)
--- NOTE | 2021-03-14 13:13 | Hospitalist Progress Note ---
Date of Service March 14, 2021 Assessment & Plan (1) Altered mental status: Pt is Pt is 79 y/o F with PMH interstitial lung disease, COPD, on 3L oxygen via [place], pulmonary hypertension, diastolic heart failure, HTN, GERD, CKD III, RA, chronic back pain presented to ER for altered mental status today. Metabolic encephalopathy likely secondary to use of narcotics with muscle spasm medications and is complicated by hypoxia CT Head: no acute changes No source of infection, urine and chest x-ray have been negative Remains stable but has more shortness of breath No more acute confusion Decreased responsiveness on admission likely secondary to side effect of medications as mentioned earlier Was on n.p.o. on admission fall precautions, aspiration precautions Appreciate speech input and recommendation Continue to follow aspiration precautions Acute on chronic respiratory failure with hypoxia and hypercarbia Doubt any exacerbation COPD Receiving small dose of intravenous Solu-Medrol We will continue nebulized bronchodilator Has been requiring up to 10 L of oxygen to maintain saturation Will increase the frequency of nebulized bronchodilators and increase the dose of steroid to 40 mg twice daily Acute on chronic diastolic heart failure CXR: Mild interstitial edema. Trace left pleural effusion. Received a small dose of intravenous Lasix Will continue her outpatient diuretics Creatinine has been worsening and will not increase the dose of Lasix now CHRONIC BACK PAIN/FRACTURES Has significant rheumatoid arthritis changes without any acute arthritis History of vertebral fractures remained stable as of scan in November No recent history of trauma and no history of radicular type of pain The PCP increase the pain medication recently with morphine 15 mg twice daily and oxycodone as needed Will need to have pain medications to control her pain We will hold off baclofen which may be causing altered mental status Has been having difficulty in swallowing pills and will try fentanyl patch starting with 12 mcg HTN BP stable Hold oral metoprolol succinate for now while NPO, Will put prn lopressor IV. Plan to resume oral metoprolol when more alert and can swallow CKD III: Cr: 1.29. Was 1.4 in 01/2021 Monitor renal functions MALNUTRITION Pt cachectic [employer] consult GERD Hold oral PPI for now while NPO Will place for protonix IV for tomorrow and then re-evaluate pt's swallowing abilities DVT Prophylaxis -Heparin SQ DNR/DNI as per discussion with pt's son Follows with Dr Campos for routine care Patient has been almost bedbound and has 24-hour care at home PT and OT evaluation appreciated Discussed with the patient's son in detail and updated about the current requirements of more oxygen to maintain saturation Reassured that we will be giving every possible management to make her better She remains DNR/DNI Admission and Anticipated Discharge Date Admission Date: March 12, 2021 Subjective 03/13/2021 The patient was seen and examined in medical telemetry unit She was admitted with change in mental status likely secondary to use of narcotics and muscle spasm medication She was noted to be alert, awake and was asking pain medications since this morning Denies any increasing shortness of breath, any nausea and or vomiting, any fever and/or chills 03/14/2021 The patient was seen and examined in medical telemetry unit She has been noted to be more short of breath and complains to have pain mostly at the back She has not been eating or drinking enough and refusing her pills No fever and/or chills and no nausea and or vomiting Review of Systems Review of Systems: All systems reviewed and are unremarkable except as noted below Respiratory: + dyspnea Musculoskeletal: Has arthralgias and chronic back pain Neurologic: Alert and awake Physical Exam Physical Exam: Lying in bed with acute distress secondary to pain in multiple areas of the body Constitutional: + acute distress (Due to pain in multiple areas and joints), + ill appearing and + thin Eyes: PERRL, conjunctivae normal, anicteric sclerae ENMT: external ear and nose normal, oropharynx normal Neck: trachea midline, no thyromegaly Respiratory: + respiratory distress Auscultation: + diminished lung sounds and + crackles (Minimal crackles at the bases) Cardiovascular: Rate/Rhythm: regular rate and regular rhythm Heart Sounds: + murmur (2/6 precordial ejection systolic murmur) Extremities: no edema Gastrointestinal (Abdomen): Inspection/Auscultation: normal bowel sounds; abdomen not distended Percussion/Palpation: abdomen soft; abdomen nontender Musculoskeletal: Pain in most of the joints with severe rheumatoid changes. Acute on chronic back pain Neurologic: Alert and awake. Generally very weak and lethargic Lymphatic: no cervical or axillary lymphadenopathy Results & Data Results & Data ([facility]) Vital Signs (Past 12 Hours) Vital Signs Temp Pulse Pulse Resp BP Pulse Ox 03/14/21 12:00 36.6 C 99 H 20 111/69 95 03/14/21 08:45 87 03/14/21 07:30 36.3 C L 98 H 22 144/80 H 92 03/14/21 07:15 102 H 24 85 L 03/14/21 05:56 90 03/14/21 04:36 36.8 C 82 20 134/90 90 Laboratory Results Short CBC 03/14/21 Range/Units 07:24 WBC 27.11 H D (4.8-10.8) K/uL Hgb 13.6 (12.0-16.0) g/dL Hct 41.8 (37-47) % Plt Count 279 (130-400) K/uL BMP 03/14/21 03/14/21 07:24 08:59 Sodium 137 Potassium 4.0 Chloride 102 Carbon Dioxide 27 BUN 42 H D Creatinine 2.08 H D Glucose 103 H Calcium 9.1 Medications Administered Current Inpatient Medications Acetaminophen (Acetaminophen 325 Mg Tab) 650 mg PO Q4H PRN PRN Reason: Pain or Fever Stop: 04/11/21 21:14 Last Admin: 03/14/21 05:36 Dose: 650 mg Documented by: Albuterol (Albuterol Hfa 8 Gm Inhaler) 2 puffs INH Q4R PRN PRN Reason: Cough/SOB or Wheezing Stop: 04/12/21 14:12 Albuterol (Albuterol 0.083% Nebu Soln 3 Ml Vial) 2.5 mg INH Q4H [facility] Stop: 04/13/21 13:14 Cyanocobalamin (Cyanocobalamin 500 Mcg Tablet (Vitamin B-12)) 500 mcg PO QAM [facility] Stop: 04/13/21 08:59 Last Admin: 03/14/21 10:20 Dose: Not Given Documented by: Fentanyl (Fentanyl 12 Mcg/Hr Tdsy) 12 mcg TD Q3D@1000 [facility] Stop: 03/28/21 09:59 Last Admin: 03/14/21 10:20 Dose: 12 mcg Documented by: Fluticasone Furoate (Fluticasone Furoate 100mcg 14 Puffs/Inhaler) 1 puffs INH DAILY [facility] Stop: 04/12/21 08:59 Last Admin: 03/14/21 08:23 Dose: 1 puffs Documented by: Fluticasone Propionate (Fluticasone Propionate Na Spr 16 Gm Btl) 2 sprays NA QAM [facility] Stop: 04/13/21 08:59 Last Admin: 03/14/21 08:23 Dose: 2 sprays Documented by: Furosemide (Furosemide 20 Mg Tab) 20 mg PO DAILY PRN PRN Reason: Edema Stop: 04/12/21 14:29 Last Admin: 03/14/21 08:23 Dose: 20 mg Documented by: Heparin Sodium (Porcine) (Heparin Sod 5,000 Unit/0.5 Ml Vial) 5,000 units SQ Q12 [facility] Stop: 04/11/21 21:14 Last Admin: 03/14/21 08:24 Dose: 5,000 units Documented by: Methylprednisolone 40 mg/ (Syringe) 0.64 mls @ 1.5 mls/min IV BID [facility] Stop: 04/13/21 20:59 Methylprednisolone 20 mg/ (Syringe) 0.32 mls @ 1.5 mls/min IV NOW STA Stop: 03/14/21 13:04 Metoprolol Succinate (Metoprolol Succ 25mg Ext Rel Tab) 12.5 mg PO QPM [facility] Stop: 04/12/21 20:59 Last Admin: 03/13/21 21:37 Dose: 12.5 mg Documented by: Metoprolol Tartrate (Metoprolol Tartrate 1 Mg/Ml Vial) 2.5 mg IV Q6 PRN PRN Reason: tachycardia Stop: 04/11/21 21:14 Last Admin: 03/13/21 03:12 Dose: 2.5 mg Documented by: Miscellaneous (Fentanyl Patch Remove & Waste) 1 ea N/A Q3D@0959 [facility] Stop: 04/16/21 09:58 Miscellaneous (Check Fentanyl Patch Placement) 1 ea N/A QS [facility] Stop: 04/13/21 15:59 Morphine Sulfate (Morphine Sulfate Cr 15 Mg Tabcr) 15 mg PO Q12 [facility] Stop: 03/27/21 14:14 Last Admin: 03/14/21 01:00 Dose: 15 mg Documented by: Oxycodone HCl (Oxycodone Hcl Ir 5 Mg Tab (Immediate Release)) 5 mg PO BID PRN PRN Reason: Pain, Severe Stop: 03/27/21 14:09 Last Admin: 03/13/21 21:36 Dose: 5 mg Documented by: Sertraline HCl (Sertraline Hcl 50 Mg Tablet) 25 mg PO QPM [facility] Stop: 05/15/21 20:59 Last Admin: 03/13/21 21:38 Dose: 25 mg Documented by: Umeclidinium/Vilanterol (Umeclidinium/Vilanterol 62.5/25mcg 7 Puffs/Inhaler) 1 puffs INH DAILY [facility] Stop: 04/12/21 08:59 Last Admin: 03/14/21 08:22 Dose: 1 puffs Documented by:
[2021-03-14] MEDS ORDERED: ALBUTEROL 0.083% NEBU SOLN 3 ML VIAL INH SCH (13:15)
[2021-03-14] MEDS ORDERED: methylPREDNISolone 20 MG in SYRINGE 0 ML IV ONE (13:30)
[2021-03-14] MEDS: CHECK fentaNYL PATCH PLACEMENT SCH ×2 (16:54→23:32)
[2021-03-14] MEDS: METOPROLOL SUCC 25MG EXT REL TAB PO SCH (21:09)
[2021-03-14] MEDS: methylPREDNISolone 40 MG in SYRINGE 0 ML IV SCH (21:09)
[2021-03-14] MEDS: SERTRALINE HCL 50 MG TABLET PO SCH (21:10)
[2021-03-15] MEDS: ALBUTEROL 0.083% NEBU SOLN 3 ML VIAL INH SCH ×6 (03:28→22:08)
[2021-03-15] MEDS: CHECK fentaNYL PATCH PLACEMENT SCH ×2 (07:49→16:03)
[2021-03-15] MEDS: FLUTICASONE PROPIONATE NA SPR 16 GM BTL SCH (07:49)
[2021-03-15] MEDS: FLUTICASONE FUROATE 100MCG 14 PUFFS/INHALER INH SCH (07:50)
[2021-03-15] MEDS: UMECLIDINIUM/VILANTEROL 62.5/25MCG 7 PUFFS/INHALER INH SCH (07:50)
[2021-03-15] MEDS: methylPREDNISolone 40 MG in SYRINGE 0 ML IV SCH ×2 (07:52→20:10)
[2021-03-15] MEDS: HEPARIN SOD 5,000 UNIT/0.5 ML VIAL SQ SCH ×2 (07:53→20:10)
[2021-03-15] MEDS: CYANOCOBALAMIN 500 MCG TABLET (VITAMIN B-12) PO SCH (07:53)
[2021-03-15] MEDS: D5W AND 1/2NSS 1,000 ML IV SCH ×2 (10:15→23:01)
[2021-03-15] MEDS: MoRPHine SULFATE 5 MG/0.25 ML UDP PO PRN (10:27)
[2021-03-15] MEDS: METOPROLOL SUCC 25MG EXT REL TAB PO SCH (20:10)
[2021-03-15] MEDS: SERTRALINE HCL 50 MG TABLET PO SCH (20:10)
[2021-03-16] MEDS: CHECK fentaNYL PATCH PLACEMENT SCH ×4 (00:20→23:20)
[2021-03-16] MEDS: ALBUTEROL 0.083% NEBU SOLN 3 ML VIAL INH SCH ×6 (02:33→23:22)
[2021-03-16] MEDS: methylPREDNISolone 40 MG in SYRINGE 0 ML IV SCH ×2 (08:58→20:42)
[2021-03-16] MEDS: FLUTICASONE FUROATE 100MCG 14 PUFFS/INHALER INH SCH (08:59)
[2021-03-16] MEDS: FLUTICASONE PROPIONATE NA SPR 16 GM BTL SCH (08:59)
[2021-03-16] MEDS: UMECLIDINIUM/VILANTEROL 62.5/25MCG 7 PUFFS/INHALER INH SCH (08:59)
[2021-03-16] MEDS: HEPARIN SOD 5,000 UNIT/0.5 ML VIAL SQ SCH ×2 (09:00→20:43)
[2021-03-16] MEDS: CYANOCOBALAMIN 500 MCG TABLET (VITAMIN B-12) PO SCH (09:00)
--- NOTE | 2021-03-16 11:27 | Hospitalist Progress Note ---
Date of Service March 15, 2021 the bill for 03/15/2021 Assessment & Plan (1) Altered mental status: Pt is Pt is 79 y/o F with PMH interstitial lung disease, COPD, on 3L oxygen via [place], pulmonary hypertension, diastolic heart failure, HTN, GERD, CKD III, RA, chronic back pain presented to ER for altered mental status today. Metabolic encephalopathy likely secondary to use of narcotics with muscle spasm medications and is complicated by hypoxia CT Head: no acute changes No source of infection, urine and chest x-ray have been negative Remains stable but has more shortness of breath No more acute confusion Remains stable but critical Decreased responsiveness on admission likely secondary to side effect of medications as mentioned earlier Was on n.p.o. on admission fall precautions, aspiration precautions Appreciate speech input and recommendation Continue to follow aspiration precautions Back to her baseline Acute on chronic respiratory failure with hypoxia and hypercarbia Doubt any exacerbation COPD Receiving small dose of intravenous Solu-Medrol We will continue nebulized bronchodilator Has been requiring up to 10 L of oxygen to maintain saturation Will increase the frequency of nebulized bronchodilators and increase the dose of steroid to 40 mg twice daily Requiring high flow oxygen to maintain saturation Acute on chronic diastolic heart failure CXR: Mild interstitial edema. Trace left pleural effusion. Received a small dose of intravenous Lasix Will continue her outpatient diuretics Creatinine has been worsening and will not increase the dose of Lasix now CHRONIC BACK PAIN/FRACTURES Has significant rheumatoid arthritis changes without any acute arthritis History of vertebral fractures remained stable as of scan in November No recent history of trauma and no history of radicular type of pain The PCP increase the pain medication recently with morphine 15 mg twice daily and oxycodone as needed Will need to have pain medications to control her pain We will hold off baclofen which may be causing altered mental status Has been having difficulty in swallowing pills and will try fentanyl patch starting with 12 mcg HTN BP stable Hold oral metoprolol succinate for now while NPO, Will put prn lopressor IV. Plan to resume oral metoprolol when more alert and can swallow CKD III: Cr: 1.29. Was 1.4 in 01/2021 Monitor renal functions MALNUTRITION Pt cachectic [employer] consult GERD Hold oral PPI for now while NPO Will place for protonix IV for tomorrow and then re-evaluate pt's swallowing abilities DVT Prophylaxis -Heparin SQ DNR/DNI as per discussion with pt's son Follows with Dr Campos for routine care Patient has been almost bedbound and has 24-hour care at home PT and OT evaluation appreciated Discussed with the patient's son in detail and updated about the current requirements of more oxygen to maintain saturation Reassured that we will be giving every possible management to make her better She remains DNR/DNI We will discuss with the son Admission and Anticipated Discharge Date Admission Date: March 12, 2021 Subjective 03/13/2021 The patient was seen and examined in medical telemetry unit She was admitted with change in mental status likely secondary to use of narcotics and muscle spasm medication She was noted to be alert, awake and was asking pain medications since this morning Denies any increasing shortness of breath, any nausea and or vomiting, any fever and/or chills 03/14/2021 The patient was seen and examined in medical telemetry unit She has been noted to be more short of breath and complains to have pain mostly at the back She has not been eating or drinking enough and refusing her pills No fever and/or chills and no nausea and or vomiting 03/15/2021 The patient was seen and examined in medical telemetry unit She remains stable but very weak and frail Still requiring high flow oxygen to maintain saturation Review of Systems Review of Systems: All systems reviewed and are unremarkable except as noted below Respiratory: + dyspnea Physical Exam Physical Exam: Lying in bed with acute distress secondary to pain in multiple areas of the body Constitutional: + acute distress (Due to pain in multiple areas and joints), + ill appearing and + thin Eyes: PERRL, conjunctivae normal, anicteric sclerae ENMT: external ear and nose normal, oropharynx normal Neck: trachea midline, no thyromegaly Respiratory: + respiratory distress Auscultation: + diminished lung sounds and + crackles (Minimal crackles at the bases) Cardiovascular: Rate/Rhythm: regular rate and regular rhythm Heart Sounds: + murmur (2/6 precordial ejection systolic murmur) Extremities: no edema Gastrointestinal (Abdomen): Inspection/Auscultation: normal bowel sounds; abdomen not distended Percussion/Palpation: abdomen soft; abdomen nontender Neurologic: Alert, awake and oriented Lymphatic: no cervical or axillary lymphadenopathy Results & Data Results & Data ([facility]) Vital Signs (Past 12 Hours) Vital Signs Temp Pulse Pulse Pulse Resp BP Pulse Ox 03/16/21 11:09 36.8 C 62 20 124/72 93 03/16/21 07:20 80 18 93 03/16/21 07:13 36.2 C L 73 18 129/68 94 03/16/21 03:02 36.7 C 87 18 139/80 93 03/16/21 02:34 84 18 94 03/15/21 23:44 85
[2021-03-16] MEDS: D5W AND 1/2NSS 1,000 ML IV SCH (11:39)
--- NOTE | 2021-03-16 13:40 | Hospitalist Progress Note ---
Date of Service March 16, 2021 Assessment & Plan (1) Altered mental status: Pt is Pt is 79 y/o F with PMH interstitial lung disease, COPD, on 3L oxygen via [place], pulmonary hypertension, diastolic heart failure, HTN, GERD, CKD III, RA, chronic back pain presented to ER for altered mental status today. Metabolic encephalopathy likely secondary to use of narcotics with muscle spasm medications and is complicated by hypoxia CT Head: no acute changes No source of infection, urine and chest x-ray have been negative Remains stable but has more shortness of breath No more acute confusion Remains stable but critical Developed A. fib with RVR earlier this afternoon Not been complaining any symptoms EKG showed A. fib We will get CBC and PRP and electrolytes She will be given a small dose of Lopressor intravenously Decreased responsiveness on admission likely secondary to side effect of m edications as mentioned earlier Was on n.p.o. on admission fall precautions, aspiration precautions Appreciate speech input and recommendation Continue to follow aspiration precautions Back to her baseline Acute on chronic respiratory failure with hypoxia and hypercarbia Doubt any exacerbation COPD Receiving small dose of intravenous Solu-Medrol We will continue nebulized bronchodilator Has been requiring up to 10 L of oxygen to maintain saturation Will increase the frequency of nebulized bronchodilators and increase the dose of steroid to 40 mg twice daily Still requiring high flow oxygen to maintain saturation Acute on chronic diastolic heart failure CXR: Mild interstitial edema. Trace left pleural effusion. Received a small dose of intravenous Lasix Will continue her outpatient diuretics Creatinine has been worsening and will not increase the dose of Lasix now We will give a small dose of IV Lasix if creatinine is not that elevated CHRONIC BACK PAIN/FRACTURES Has significant rheumatoid arthritis changes without any acute arthritis History of vertebral fractures remained stable as of scan in November No recent history of trauma and no history of radicular type of pain The PCP increase the pain medication recently with morphine 15 mg twice daily and oxycodone as needed Will need to have pain medications to control her pain We will hold off baclofen which may be causing altered mental status Has been having difficulty in swallowing pills and will try fentanyl patch starting with 12 mcg HTN BP stable Hold oral metoprolol succinate for now while NPO, Will put prn lopressor IV. Plan to resume oral metoprolol when more alert and can swallow CKD III: Cr: 1.29. Was 1.4 in 01/2021 Monitor renal functions MALNUTRITION Pt cachectic [facility] [employer] [facility] consult GERD Hold oral PPI for now while NPO Will place for protonix IV for tomorrow and then re-evaluate pt's swallowing abilities DVT Prophylaxis -Heparin SQ DNR/DNI as per discussion with pt's son Follows with Dr Campos for routine care Patient has been almost bedbound and has 24-hour care at home PT and OT evaluation appreciated Discussed with the patient's son in detail and updated about the current require ments of more oxygen to maintain saturation Reassured that we will be giving every possible management to make her better She remains DNR/DNI We will discuss with the son #[phone] Admission and Anticipated Discharge Date Admission Date: March 12, 2021 Subjective 03/13/2021 The patient was seen and examined in medical telemetry unit She was admitted with change in mental status likely secondary to use of narcotics and muscle spasm medication She was noted to be alert, awake and was asking pain medications since this morning Denies any increasing shortness of breath, any nausea and or vomiting, any fever and/or chills 03/14/2021 The patient was seen and examined in medical telemetry unit She has been noted to be more short of breath and complains to have pain mostly at the back She has not been eating or drinking enough and refusing her pills No fever and/or chills and no nausea and or vomiting 03/15/2021 The patient was seen and examined in medical telemetry unit She remains stable but very weak and frail Still requiring high flow oxygen to maintain saturation 03/16/2021 The patient was seen and examined in medical telemetry unit She remains free of pain but extremely tired and lethargic Still requiring high flow oxygen to maintain saturation She developed A. fib with RVR early this afternoon Review of Systems Review of Systems: All systems reviewed and are unremarkable except as noted below Respiratory: + dyspnea Musculoskeletal: Has arthralgias and chronic back pain Neurologic: Alert and awake Physical Exam Physical Exam: Lying in bed with acute distress secondary to pain in multiple areas of the body Constitutional: + acute distress (Due to pain in multiple areas and joints), + ill appearing and + thin Eyes: PERRL, conjunctivae normal, anicteric sclerae ENMT: external ear and nose normal, oropharynx normal Neck: trachea midline, no thyromegaly Respiratory: + respiratory distress Auscultation: + diminished lung sounds and + crackles (Minimal crackles at the bases) Cardiovascular: Rate/Rhythm: regular rate and regular rhythm Heart Sounds: + murmur (2/6 precordial ejection systolic murmur) Extremities: no edema Gastrointestinal (Abdomen): Inspection/Auscultation: normal bowel sounds; abdomen not distended Percussion/Palpation: abdomen soft; abdomen nontender Musculoskeletal: Has arthralgia involving multiple joints but no acute arthritis in any joint Neurologic: Alert and awake. Pleasantly confused Lymphatic: no cervical or axillary lymphadenopathy Results & Data Results & Data ([facility]) Vital Signs (Past 12 Hours) Vital Signs Temp Pulse Pulse Pulse Resp BP Pulse Ox 03/16/21 12:25 127/67 03/16/21 11:09 36.8 C 62 20 124/72 93 03/16/21 08:00 74 03/16/21 07:20 80 18 93 03/16/21 07:13 36.2 C L 73 18 129/68 94 03/16/21 03:02 36.7 C 87 18 139/80 93 03/16/21 02:34 84 18 94
[2021-03-16] MEDS: METOPROLOL TARTRATE 1 MG/ML VIAL IV PRN ×2 (13:45→17:05)
[2021-03-16 14:19] LABS: Hematocrit (blood only) 39.3 % (37-47); Hemoglobin 12.7 g/dL (12.0-16.0); Immature Granulocytes # (auto) 0.03 K/uL (0.00-0.02); Immature Granulocytes % (auto) 0.2 %; Lymphocytes # (auto) 0.19 K/uL (1.2-3.4); Lymphocytes % (auto) 1.4 %; Mean Corpuscular Hemoglobin 31.1 pg (25-34); Mean Corpuscular Hgb Conc 32.3 g/dL (32-36); Mean Corpuscular Volume 96.1 fL (80-100); Mean Platelet Volume 12.1 fL (7.4-10.4); Monocytes % (auto) 6.5 %; Neutrophils % (auto) 91.9 %; Platelet Count 213 K/uL (130-400); RDW Coefficient of Variation 13.9 % (11.5-14.5); Red Blood Count 4.09 M/uL (4.2-5.4); White Blood Count 13.92 K/uL (4.8-10.8)
[2021-03-16 14:37] LABS: BUN Creatinine Ratio 24.6 (10-20); Calcium 8.1 mg/dl (8.5-10.1); Est GFR (African American) 16.4; Est GFR (Non-African American) 14.2; Magnesium 2.3 mg/dl (1.8-2.4); Potassium 4.8 mmol/L (3.5-5.1)
[2021-03-16] MEDS ORDERED: METOPROLOL TARTRATE 1 MG/ML VIAL IV STA (19:26)
[2021-03-16] MEDS: SODIUM CHLORIDE 0.9% 1000ML 1,000 ML IV SCH (19:39)
--- NOTE | 2021-03-16 19:53 | Electrocardiogram Report ---
Test Reason : Blood Pressure : / mmHG Vent. Rate : 106 BPM Atrial Rate : 081 BPM P-R Int : 000 ms QRS Dur : 086 ms QT Int : 296 ms P-R-T Axes : 000 -12 025 degrees QTc Int : 393 ms Sinus rhythm with frequent and conssecutive atrial ectopy Abnormal ECG When compared with ECG of 12-MAR-2021 15:46, There is now frequent atrial ectopy Vent. rate has increased BY 39 BPM Confirmed by Brad De La Cruz ([id number]) on 03/16/2021 7:53:35 PM Referred By: REFERRED SELF Confirmed By:Lucio De La Cruz
[2021-03-16] MEDS: SERTRALINE HCL 50 MG TABLET PO SCH (20:43)
[2021-03-16] MEDS: METOPROLOL SUCC 25MG EXT REL TAB PO SCH (20:45)
[2021-03-17] MEDS: ALBUTEROL 0.083% NEBU SOLN 3 ML VIAL INH SCH ×6 (03:41→23:05)
[2021-03-17] MEDS ORDERED: guaiFENesin/CODEINE 100MG/10MG 5ML UDC PO PRN (05:43)
[2021-03-17 07:39] LABS: BUN Creatinine Ratio 32.6 (10-20); Calcium 8.6 mg/dl (8.5-10.1); Creatinine Clr Calc Pharmacy 14.1 ml/min; Est GFR (African American) 21.4; Est GFR (Non-African American) 18.5; Potassium 4.9 mmol/L (3.5-5.1)
[2021-03-17] MEDS: SODIUM CHLORIDE 0.9% 1000ML 1,000 ML IV SCH (08:09)
--- NOTE | 2021-03-17 09:17 | XRay Report ---
XR chest 1V portable CLINICAL HISTORY: sob COMPARISON STUDY: 03/12/2021 FINDINGS: The heart is enlarged. There are increasing bilateral pleural effusions right greater than left. There is suspected pulmonary vascular congestion. There are developing right lung airspace opac ities, pulmonary edema versus pneumonia.[There is a prominent scoliosis IMPRESSION: 1. Cardiomegaly and increasing bilateral pleural effusions right greater than left 2. Pulmonary vascular congestion/fluid overload 3. Evolving right lung opacities, pulmonary edema versus pneumonia. ACT 112: Negative or not required by law. Electronically signed by: Erick Orosco M.D. 03/17/2021 9:16 AM
[2021-03-17] MEDS: CHECK fentaNYL PATCH PLACEMENT SCH ×2 (09:21→16:10)
[2021-03-17] MEDS: UMECLIDINIUM/VILANTEROL 62.5/25MCG 7 PUFFS/INHALER INH SCH (09:22)
[2021-03-17] MEDS: FLUTICASONE PROPIONATE NA SPR 16 GM BTL SCH (09:22)
[2021-03-17] MEDS: methylPREDNISolone 40 MG in SYRINGE 0 ML IV SCH ×2 (09:22→20:42)
[2021-03-17] MEDS: FLUTICASONE FUROATE 100MCG 14 PUFFS/INHALER INH SCH (09:22)
[2021-03-17] MEDS: CYANOCOBALAMIN 500 MCG TABLET (VITAMIN B-12) PO SCH (09:24)
[2021-03-17] MEDS: HEPARIN SOD 5,000 UNIT/0.5 ML VIAL SQ SCH ×2 (09:24→20:43)
[2021-03-17] MEDS: METOPROLOL SUCC 25MG EXT REL TAB PO SCH ×2 (09:24→20:42)
[2021-03-17] MEDS: fentaNYL 12 MCG/HR TDSY TD SCH (10:35)
--- NOTE | 2021-03-17 13:41 | XRay Report ---
XR chest 1V portable HISTORY: Shortness of breath. COMPARISON: Chest 03/17/2021. FINDINGS: There are low lung volumes. No pneumothorax. Small bilateral pleural effusions are again no cori. The heart is enlarged. Right greater than left interstitial thickening is not significant change d. There are old, healed left-sided rib fractures. IMPRESSION: 1. No change in the asymmetric interstitial airspace opacities, cardiomegaly, and small bilateral ple ural effusions. This favors asymmetric pulmonary edema. An atypical pneumonia could also have a simil ar appearance. 2. Low lung volumes. ACT 112: Negative or not required by law. Electronically signed by: Guillermo Galeana M.D. 03/17/2021 1:40 PM
--- NOTE | 2021-03-17 13:48 | Hospitalist Progress Note ---
Date of Service March 17, 2021 Assessment & Plan (1) Altered mental status: Pt is Pt is 79 y/o F with PMH interstitial lung disease, COPD, on 3L oxygen via [place], pulmonary hypertension, diastolic heart failure, HTN, GERD, CKD III, RA, chronic back pain presented to ER for altered mental status today. Metabolic encephalopathy likely secondary to use of narcotics with muscle spasm medications and is complicated by hypoxia CT Head: no acute changes No source of infection, urine and chest x-ray have been negative Remains stable but has more shortness of breath No more acute confusion Remains stable but critical Developed A. fib with RVR earlier this afternoon Not been complaining any symptoms EKG showed A. fib We will get CBC and PRP and electrolytes She will be given a small dose of Lopressor intravenously Her heart rate seems to be controlled Beta-heaven doses have been increased She is not a candidate for long-term anticoagulation Decreased responsiveness on admission likely secondary to side effect of medications as mentioned earlier Was on n.p.o. on admission fall precautions, aspiration precautions Appreciate speech input and recommendation Continue to follow aspiration precautions Back to her baseline Acute on chronic respiratory failure with hypoxia and hypercarbia Doubt any exacerbation COPD Receiving small dose of intravenous Solu-Medrol We will continue nebulized bronchodilator Has been requiring up to 10 L of oxygen to maintain saturation Will increase the frequency of nebulized bronchodilators and increase the dose of steroid to 40 mg twice daily Still requiring high flow oxygen to maintain saturation Acute on chronic diastolic heart failure CXR: Mild interstitial edema. Trace left pleural effusion. Received a small dose of intravenous Lasix Will continue her outpatient diuretics Creatinine has been worsening and will not increase the dose of Lasix now We will get a chest x-ray to evaluate volume status and also rule out pneumonia CHRONIC BACK PAIN/FRACTURES Has significant rheumatoid arthritis changes without any acute arthritis History of vertebral fractures remained stable as of scan in November No recent history of trauma and no history of radicular type of pain The PCP increase the pain medication recently with morphine 15 mg twice daily and oxycodone as needed Will need to have pain medications to control her pain We will hold off baclofen which may be causing altered mental status Has been having difficulty in swallowing pills and will try fentanyl patch starting with 12 mcg HTN BP stable Hold oral metoprolol succinate for now while NPO, Will put prn lopressor IV. Plan to resume oral metoprolol when more alert and can swallow ROBERTH with CKD CKD III: Cr: 1.29. Was 1.4 in 01/2021 Creatinine improved with cautious amount of intravenous fluid We will monitor PRP MALNUTRITION Pt cachectic [employer] consult GERD Hold oral PPI for now while NPO Will place for protonix IV for tomorrow and then re-evaluate pt's swallowing abilities DVT Prophylaxis -Heparin SQ DNR/DNI as per discussion with pt's son Follows with Dr Campos for routine care Patient has been almost bedbound and has 24-hour care at home PT and OT evaluation appreciated Discussed with the patient's son in detail and updated about the current requirements of more oxygen to maintain saturation Reassured that we will be giving every possible management to make her better She remains DNR/DNI We will discuss with the son #[phone] Her son is being updated daily Admission and Anticipated Discharge Date Admission Date: March 12, 2021 Subjective 03/13/2021 The patient was seen and examined in medical telemetry unit She was admitted with change in mental status likely secondary to use of narcotics and muscle spasm medication She was noted to be alert, awake and was asking pain medications since this morning Denies any increasing shortness of breath, any nausea and or vomiting, any fever and/or chills 03/14/2021 The patient was seen and examined in medical telemetry unit She has been noted to be more short of breath and complains to have pain mostly at the back She has not been eating or drinking enough and refusing her pills No fever and/or chills and no nausea and or vomiting 03/15/2021 The patient was seen and examined in medical telemetry unit She remains stable but very weak and frail Still requiring high flow oxygen to maintain saturation 03/16/2021 The patient was seen and examined in medical telemetry unit She remains free of pain but extremely tired and lethargic Still requiring high flow oxygen to maintain saturation She developed A. fib with RVR early this afternoon 03/17/2021 The patient was seen and examined in medical telemetry unit She remains weak and lethargic but denies any significant symptoms Her heart rate is controlled but is still requiring 10 L of oxygen to maintain saturation Review of Systems Review of Systems: All systems reviewed and are unremarkable except as noted below Respiratory: + dyspnea Musculoskeletal: Has arthralgias and chronic back pain Neurologic: Alert and awake Physical Exam Physical Exam: Lying in bed with acute distress secondary to pain in multiple areas of the body Constitutional: + acute distress (Due to pain in multiple areas and joints), + ill appearing and + thin Eyes: PERRL, conjunctivae normal, anicteric sclerae ENMT: external ear and nose normal, oropharynx normal Neck: trachea midline, no thyromegaly Respiratory: + respiratory distress Auscultation: + diminished lung sounds and + crackles (Minimal crackles at the bases) Cardiovascular: Rate/Rhythm: regular rate and regular rhythm Heart Sounds: + murmur (2/6 precordial ejection systolic murmur) Extremities: no edema Gastrointestinal (Abdomen): Inspection/Auscultation: normal bowel sounds; abdomen not distended Percussion/Palpation: abdomen soft; abdomen nontender Musculoskeletal: Has severe rheumatoid arthritis changes involving the hands and feet. Complains of severe back pain with any movement of the body as a whole. No acute arthritis involving any joint Lymphatic: no cervical or axillary lymphadenopathy Results & Data Results & Data ([facility]) Vital Signs (Past 12 Hours) Vital Signs Temp Pulse Pulse Resp BP Pulse Ox Pulse Ox 03/17/21 11:28 84 18 97 03/17/21 10:58 36.4 C L 82 14 147/86 H 92 03/17/21 08:00 85 03/17/21 07:49 86 18 93 03/17/21 07:26 36.3 C L 86 20 157/88 H 93 03/17/21 06:04 93 03/17/21 03:56 85 03/17/21 03:45 88 12 93 03/17/21 02:48 36.8 C 88 20 134/86 93 Laboratory Results Short CBC 03/16/21 Range/Units 14:12 WBC 13.92 H (4.8-10.8) K/uL Hgb 12.7 (12.0-16.0) g/dL Hct 39.3 (37-47) % Plt Count 213 (130-400) K/uL BMP 03/16/21 03/17/21 14:12 06:55 Sodium 137 137 Potassium 4.8 4.9 Chloride 102 105 Carbon Dioxide 26 25 BUN 74 H 79 H Creatinine 3.00 H 2.41 H D Glucose 131 H 106 H Calcium 8.1 L 8.6 Medications Administered Current Inpatient Medications Acetaminophen (Acetaminophen 325 Mg Tab) 650 mg PO Q4H PRN PRN Reason: Pain or Fever Stop: 04/11/21 21:14 Last Admin: 03/14/21 05:36 Dose: 650 mg Documented by: Albuterol (Albuterol Hfa 8 Gm Inhaler) 2 puffs INH Q4R PRN PRN Reason: Cough/SOB or Wheezing Stop: 04/12/21 14:12 Albuterol (Albuterol 0.083% Nebu Soln 3 Ml Vial) 2.5 mg INH Q4R [facility] Stop: 04/13/21 13:14 Last Admin: 03/17/21 11:27 Dose: 2.5 mg Documented by: Cyanocobalamin (Cyanocobalamin 500 Mcg Tablet (Vitamin B-12)) 500 mcg PO QAM [facility] Stop: 04/13/21 08:59 Last Admin: 03/17/21 09:24 Dose: 500 mcg Documented by: Fentanyl (Fentanyl 12 Mcg/Hr Tdsy) 12 mcg TD Q3D@1000 [facility] Stop: 03/28/21 09:59 Last Admin: 03/17/21 10:35 Dose: 12 mcg Documented by: Fluticasone Furoate (Fluticasone Furoate 100mcg 14 Puffs/Inhaler) 1 puffs INH DAILY [facility] Stop: 04/12/21 08:59 Last Admin: 03/17/21 09:22 Dose: 1 puffs Documented by: Fluticasone Propionate (Fluticasone Propionate Na Spr 16 Gm Btl) 2 sprays NA QAM [facility] Stop: 04/13/21 08:59 Last Admin: 03/17/21 09:22 Dose: 2 sprays Documented by: Furosemide (Furosemide 20 Mg Tab) 20 mg PO DAILY PRN PRN Reason: Edema Stop: 04/12/21 14:29 Last Admin: 03/14/21 08:23 Dose: 20 mg Documented by: Guaifenesin/Codeine Phosphate (Guaifenesin/Codeine 100mg/10mg 5ml Udc) 5 ml PO Q6H PRN PRN Reason: Cough Stop: 04/16/21 05:42 Heparin Sodium (Porcine) (Heparin Sod 5,000 Unit/0.5 Ml Vial) 5,000 units SQ Q12 [facility] Stop: 04/11/21 21:14 Last Admin: 03/17/21 09:24 Dose: 5,000 units Documented by: Methylprednisolone 40 mg/ (Syringe) 0.64 mls @ 1.5 mls/min IV BID [facility] Stop: 04/13/21 20:59 Last Admin: 03/17/21 09:22 Dose: 1.5 mls/min Documented by: Sodium Chloride (Nss 1000ml) 1,000 mls @ 80 mls/hr IV .[id number] [facility] Stop: 03/17/21 19:29 Last Admin: 03/17/21 08:09 Dose: 80 mls/hr Documented by: Metoprolol Succinate (Metoprolol Succ 25mg Ext Rel Tab) 12.5 mg PO BID [facility] Stop: 04/15/21 20:59 Last Admin: 03/17/21 09:24 Dose: 12.5 mg Documented by: Metoprolol Tartrate (Metoprolol Tartrate 1 Mg/Ml Vial) 2.5 mg IV Q6 PRN PRN Reason: tachycardia Stop: 04/11/21 21:14 Last Admin: 03/16/21 17:05 Dose: 2.5 mg Documented by: Miscellaneous (Fentanyl Patch Remove & Waste) 1 ea N/A Q3D@0959 [facility] Stop: 04/16/21 09:58 Last Admin: 03/17/21 10:35 Dose: 1 ea Documented by: Miscellaneous (Check Fentanyl Patch Placement) 1 ea N/A QS [facility] Stop: 04/13/21 15:59 Last Admin: 03/17/21 09:21 Dose: 1 ea Documented by: Morphine Sulfate (Morphine Sulfate Cr 15 Mg Tabcr) 15 mg PO Q12 [facility] Stop: 03/27/21 14:14 Last Admin: 03/14/21 01:00 Dose: 15 mg Documented by: Morphine Sulfate (Morphine Sulfate 5 Mg/0.25 Ml Udp) 2.5 mg PO Q4H PRN PRN Reason: Pain Stop: 03/29/21 09:26 Last Admin: 03/15/21 10:27 Dose: 2.5 mg Documented by: Sertraline HCl (Sertraline Hcl 50 Mg Tablet) 25 mg PO QPM [facility] Stop: 04/12/21 20:59 Last Admin: 03/16/21 20:43 Dose: 25 mg Documented by: Umeclidinium/Vilanterol (Umeclidinium/Vilanterol 62.5/25mcg 7 Puffs/Inhaler) 1 puffs INH DAILY [facility] Stop: 04/12/21 08:59 Last Admin: 03/17/21 09:22 Dose: 1 puffs Documented by:
[2021-03-17] MEDS: MoRPHine SULFATE 5 MG/0.25 ML UDP PO PRN (14:38)
[2021-03-17] MEDS: PANTOprazole 40 MG TAB PO SCH (18:51)
[2021-03-17] MEDS: SERTRALINE HCL 50 MG TABLET PO SCH (20:43)
[2021-03-17] MEDS ORDERED: METOPROLOL TARTRATE 1 MG/ML VIAL IV STA (23:56)
[2021-03-18] MEDS: CHECK fentaNYL PATCH PLACEMENT SCH ×4 (00:11→23:40)
[2021-03-18] MEDS ORDERED: cloNIDine HCL 0.1 MG TAB PO ONE (00:50)
[2021-03-18] MEDS: ALBUTEROL 0.083% NEBU SOLN 3 ML VIAL INH SCH ×6 (03:28→23:11)
[2021-03-18] MEDS: MoRPHine SULFATE 5 MG/0.25 ML UDP PO PRN ×3 (05:18→20:25)
[2021-03-18 05:51] LABS: Appearance Urine Cloudy (Clear); Bilirubin Urine Negative (Negative); Blood Urine Negative (Negative); Color Urine Yellow; Epithelial Cell Urine Auto >30 /lpf (0-5); Glucose Urine UA Negative (Negative); Ketones Urine Negative (Negative); Leukocyte Esterase Urine Trace (Negative); Nitrite Urine Negative (Negative); Protein Urine 1+ (Negative); Urobilinogen Urine Negative (Negative)
[2021-03-18 06:07] LABS: Amphetamines+Metham, Urine Neg (Neg); Barbiturates, Urine Neg (Neg); Benzodiazepine, Urine Neg (Neg); Cocaine, Urine Neg (Neg); MDMA (Ecstacy), Urine Neg (Neg); Methadone, Urine Neg (Neg); Opiate, Urine Pos (Neg); Phencyclidine, Urine Neg (Neg)
[2021-03-18 06:25] LABS: Bacteria Urine Automated 1+ (Negative); RBC Urine Automated 0-4 /hpf (0-4)
[2021-03-18] MEDS: FLUTICASONE FUROATE 100MCG 14 PUFFS/INHALER INH SCH (07:59)
[2021-03-18] MEDS: UMECLIDINIUM/VILANTEROL 62.5/25MCG 7 PUFFS/INHALER INH SCH (08:00)
[2021-03-18] MEDS: HEPARIN SOD 5,000 UNIT/0.5 ML VIAL SQ SCH ×2 (08:00→20:30)
[2021-03-18] MEDS: CYANOCOBALAMIN 500 MCG TABLET (VITAMIN B-12) PO SCH (08:00)
[2021-03-18] MEDS: FLUTICASONE PROPIONATE NA SPR 16 GM BTL SCH (08:00)
[2021-03-18] MEDS: methylPREDNISolone 40 MG in SYRINGE 0 ML IV SCH ×2 (08:00→20:30)
[2021-03-18] MEDS: PANTOprazole 40 MG TAB PO SCH (08:00)
[2021-03-18] MEDS: METOPROLOL SUCC 25MG EXT REL TAB PO SCH ×2 (08:00→20:29)
[2021-03-18] MEDS ORDERED: FUROSEMIDE 20 MG in SYRINGE 0 ML IV ONE (08:15)
--- NOTE | 2021-03-18 12:39 | Hospitalist Progress Note ---
Date of Service March 18, 2021 Assessment & Plan (1) Altered mental status: Pt is Pt is 79 y/o F with PMH interstitial lung disease, COPD, on 3L oxygen via [place], pulmonary hypertension, diastolic heart failure, HTN, GERD, CKD III, RA, chronic back pain presented to ER for altered mental status today. Metabolic encephalopathy likely secondary to use of narcotics with muscle spasm medications and is complicated by hypoxia CT Head: no acute changes No source of infection, urine and chest x-ray have been negative Remains stable but has more shortness of breath No more acute confusion Remains stable but critical Condition has not improved that much-we will talk to the son for possible invol vement of palliative care Developed A. fib with RVR earlier this afternoon Not been complaining any symptoms EKG showed A. fib We will get CBC and PRP and electrolytes She will be given a small dose of Lopressor intravenously Her heart rate seems to be controlled Beta-heaven doses have been increased She is not a candidate for long-term anticoagulation Her heart rate remains controlled Decreased responsiveness on admission likely secondary to side effect of medications as mentioned earlier Was on n.p.o. on admission fall precautions, aspiration precautions Appreciate speech input and recommendation Continue to follow aspiration precautions Back to her baseline Acute on chronic respiratory failure with hypoxia and hypercarbia Doubt any exacerbation COPD Receiving small dose of intravenous Solu-Medrol We will continue nebulized bronchodilator Has been requiring up to 10 L of oxygen to maintain saturation Will increase the frequency of nebulized bronchodilators and increase the dose of steroid to 40 mg twice daily Still requiring high flow oxygen to maintain saturation-still requiring about 6 to 7 L of nasal cannula oxygen to maintain saturation Acute on chronic diastolic heart failure CXR: Mild interstitial edema. Trace left pleural effusion. Received a small dose of intravenous Lasix Will continue her outpatient diuretics Creatinine has been worsening and will not increase the dose of Lasix now Repeat chest x-ray did show possible asymmetric pulmonary edema Will give 20 mg of intravenous Lasix today CHRONIC BACK PAIN/FRACTURES Has significant rheumatoid arthritis changes without any acute arthritis History of vertebral fractures remained stable as of scan in November No recent history of trauma and no history of radicular type of pain The PCP increase the pain medication recently with morphine 15 mg twice daily and oxycodone as needed Will need to have pain medications to control her pain We will hold off baclofen which may be causing altered mental status Has been having difficulty in swallowing pills and will try fentanyl patch starting with 12 mcg HTN BP stable Hold oral metoprolol succinate for now while NPO, Will put prn lopressor IV. Plan to resume oral metoprolol when more alert and can swallow ROBERTH with CKD CKD III: Cr: 1.29. Was 1.4 in 01/2021 Creatinine improved with cautious amount of intravenous fluid We will monitor PRP-creatinine is a little bit better at 2.4 as of 03/17/2021 MALNUTRITION Pt cachectic [employer] consult GERD Hold oral PPI for now while NPO Will place for protonix IV for tomorrow and then re-evaluate pt's swallowing abilities DVT Prophylaxis -Heparin SQ DNR/DNI as per discussion with pt's son Follows with Dr Campos for routine care Patient has been almost bedbound and has 24-hour care at home PT and OT evaluation appreciated Discussed with the patient's son in detail and updated about the current requirements of more oxygen to maintain saturation Reassured that we will be giving every possible management to make her better She remains DNR/DNI We will discuss with the son #[phone] Discussed with the son and he will visit her mom this afternoon at 4:30 PM Admission and Anticipated Discharge Date Admission Date: March 12, 2021 Subjective 03/13/2021 The patient was seen and examined in medical telemetry unit She was admitted with change in mental status likely secondary to use of narcotics and muscle spasm medication She was noted to be alert, awake and was asking pain medications since this morning Denies any increasing shortness of breath, any nausea and or vomiting, any fever and/or chills 03/14/2021 The patient was seen and examined in medical telemetry unit She has been noted to be more short of breath and complains to have pain mostly at the back She has not been eating or drinking enough and refusing her pills No fever and/or chills and no nausea and or vomiting 03/15/2021 The patient was seen and examined in medical telemetry unit She remains stable but very weak and frail Still requiring high flow oxygen to maintain saturation 03/16/2021 The patient was seen and examined in medical telemetry unit She remains free of pain but extremely tired and lethargic Still requiring high flow oxygen to maintain saturation She developed A. fib with RVR early this afternoon 03/17/2021 The patient was seen and examined in medical telemetry unit She remains weak and lethargic but denies any significant symptoms Her heart rate is controlled but is still requiring 10 L of oxygen to maintain saturation 03/18/2021 The patient was seen and examined in medical telemetry unit Her condition is deteriorating Requiring more oxygen to maintain saturation Has not been eating and drinking enough Pain seems to be reasonably controlled Review of Systems Review of Systems: All systems reviewed and are unremarkable except as noted below Respiratory: + dyspnea Musculoskeletal: Has arthralgias and chronic back pain Neurologic: Alert and awake Physical Exam Physical Exam: Lying in bed with acute distress secondary to pain in multiple areas of the body Constitutional: + acute distress (Due to pain in multiple areas and joints), + ill appearing and + thin Eyes: PERRL, conjunctivae normal, anicteric sclerae ENMT: external ear and nose normal, oropharynx normal Neck: trachea midline, no thyromegaly Respiratory: + respiratory distress Auscultation: + diminished lung sounds and + crackles (Mostly in the right side) Cardiovascular: Rate/Rhythm: regular rate and regular rhythm Heart Sounds: + murmur (2/6 precordial ejection systolic murmur) Extremities: no edema Gastrointestinal (Abdomen): Inspection/Auscultation: normal bowel sounds; abdomen not distended Percussion/Palpation: abdomen soft; abdomen nontender Musculoskeletal: Has severe rheumatoid and osteoarthritic changes in the hands and feet. Has severe back pain Neurologic: Alert and awake. Generally very weak and lethargic and is bedbound Lymphatic: no cervical or axillary lymphadenopathy Results & Data Results & Data ([facility]) Vital Signs (Past 12 Hours) Vital Signs Temp Pulse Pulse Resp BP BP Pulse Ox 03/18/21 11:11 36.5 C 86 20 169/67 H 97 03/18/21 10:14 86 24 93 03/18/21 08:53 88 168/89 H 03/18/21 08:16 36.4 C L 80 16 180/108 H 97 03/18/21 07:23 80 18 92 03/18/21 03:28 76 18 94 03/18/21 02:00 36.3 C L 73 14 135/74 96 03/18/21 00:46 190/95 H 03/18/21 00:45 182/109 H 152/101 H Laboratory Results Urine 03/18/21 Range/Units 05:30 Urine Color Yellow Urine Appearance Cloudy A (Clear) Urine pH 5.0 (4.5-7.5) Ur Specific [place] 1.020 (1.000-1.030) Urine Protein 1+ H (Negative) Urine Glucose (UA) Negative (Negative) Medications Administered Current Inpatient Medications Acetaminophen (Acetaminophen 325 Mg Tab) 650 mg PO Q4H PRN PRN Reason: Pain or Fever Stop: 04/11/21 21:14 Last Admin: 03/14/21 05:36 Dose: 650 mg Documented by: Albuterol (Albuterol Hfa 8 Gm Inhaler) 2 puffs INH Q4R PRN PRN Reason: Cough/SOB or Wheezing Stop: 04/12/21 14:12 Albuterol (Albuterol 0.083% Nebu Soln 3 Ml Vial) 2.5 mg INH Q4R [facility] Stop: 04/13/21 13:14 Last Admin: 03/18/21 10:13 Dose: 2.5 mg Documented by: Cyanocobalamin (Cyanocobalamin 500 Mcg Tablet (Vitamin B-12)) 500 mcg PO QAM [facility] Stop: 04/13/21 08:59 Last Admin: 03/18/21 08:00 Dose: 500 mcg Documented by: Fentanyl (Fentanyl 12 Mcg/Hr Tdsy) 12 mcg TD Q3D@1000 [facility] Stop: 03/28/21 09:59 Last Admin: 03/17/21 10:35 Dose: 12 mcg Documented by: Fluticasone Furoate (Fluticasone Furoate 100mcg 14 Puffs/Inhaler) 1 puffs INH DAILY [facility] Stop: 04/12/21 08:59 Last Admin: 03/18/21 07:59 Dose: 1 puffs Documented by: Fluticasone Propionate (Fluticasone Propionate Na Spr 16 Gm Btl) 2 sprays NA QAM [facility] Stop: 04/13/21 08:59 Last Admin: 03/18/21 08:00 Dose: 2 sprays Documented by: Furosemide (Furosemide 20 Mg Tab) 20 mg PO DAILY PRN PRN Reason: Edema Stop: 04/12/21 14:29 Last Admin: 03/14/21 08:23 Dose: 20 mg Documented by: Guaifenesin/Codeine Phosphate (Guaifenesin/Codeine 100mg/10mg 5ml Udc) 5 ml PO Q6H PRN PRN Reason: Cough Stop: 04/16/21 05:42 Heparin Sodium (Porcine) (Heparin Sod 5,000 Unit/0.5 Ml Vial) 5,000 units SQ Q12 [facility] Stop: 04/11/21 21:14 Last Admin: 03/18/21 08:00 Dose: 5,000 units Documented by: Methylprednisolone 40 mg/ (Syringe) 0.64 mls @ 1.5 mls/min IV BID [facility] Stop: 04/13/21 20:59 Last Admin: 03/18/21 08:00 Dose: 1.5 mls/min Documented by: Metoprolol Succinate (Metoprolol Succ 25mg Ext Rel Tab) 12.5 mg PO BID [facility] Stop: 04/15/21 20:59 Last Admin: 03/18/21 08:00 Dose: 12.5 mg Documented by: Metoprolol Tartrate (Metoprolol Tartrate 1 Mg/Ml Vial) 2.5 mg IV Q6 PRN PRN Reason: tachycardia Stop: 04/11/21 21:14 Last Admin: 03/16/21 17:05 Dose: 2.5 mg Documented by: Miscellaneous (Fentanyl Patch Remove & Waste) 1 ea N/A Q3D@0959 [facility] Stop: 04/16/21 09:58 Last Admin: 03/17/21 10:35 Dose: 1 ea Documented by: Miscellaneous (Check Fentanyl Patch Placement) 1 ea N/A QS [facility] Stop: 04/13/21 15:59 Last Admin: 03/18/21 08:01 Dose: 1 ea Documented by: Morphine Sulfate (Morphine Sulfate Cr 15 Mg Tabcr) 15 mg PO Q12 [facility] Stop: 03/27/21 14:14 Last Admin: 03/14/21 01:00 Dose: 15 mg Documented by: Morphine Sulfate (Morphine Sulfate 5 Mg/0.25 Ml Udp) 2.5 mg PO Q4H PRN PRN Reason: Pain Stop: 03/29/21 09:26 Last Admin: 03/18/21 09:42 Dose: 2.5 mg Documented by: Pantoprazole Sodium (Pantoprazole 40 Mg Tab) 40 mg PO QAM [facility] Stop: 04/16/21 17:44 Last Admin: 03/18/21 08:00 Dose: 40 mg Documented by: Sertraline HCl (Sertraline Hcl 50 Mg Tablet) 25 mg PO QPM [facility] Stop: 04/12/21 20:59 Last Admin: 03/17/21 20:43 Dose: 25 mg Documented by: Umeclidinium/Vilanterol (Umeclidinium/Vilanterol 62.5/25mcg 7 Puffs/Inhaler) 1 puffs INH DAILY [facility] Stop: 04/12/21 08:59 Last Admin: 03/18/21 08:00 Dose: 1 puffs Documented by:
--- NOTE | 2021-03-18 15:07 | Consultation Report ---
DATE OF CONSULTATION: 03/18/2021 HISTORY OF PRESENT ILLNESS: The patient is a 80-year-old white female who was admitted to the hospital with multiple medical problems and acute mental status change with a metabolic encephalopathy. She has a longstanding history of previous spinal fractures and osteoporosis for which she has had previous scans back in November. We are asked to consult regarding foot drop. PHYSICAL EXAMINATION: On clinical examination today, the patient was able to actively dorsiflex both feet to neutral. We will continue to follow along with her should there be any changes, it appears as though her foot drop may have been a transient foot drop and is resolving. At this point we will follow with you. ASSESSMENT: Transient foot drop. Follow up as needed.
[2021-03-18] MEDS: SERTRALINE HCL 50 MG TABLET PO SCH (20:29)
[2021-03-18] MEDS: METOPROLOL TARTRATE 1 MG/ML VIAL IV PRN (23:17)
[2021-03-19] MEDS: ACETAMINOPHEN 325 MG TAB PO PRN (00:14)
[2021-03-19] MEDS ORDERED: cloNIDine HCL 0.1 MG TAB PO ONE (00:26)
[2021-03-19] MEDS: ALBUTEROL 0.083% NEBU SOLN 3 ML VIAL INH SCH ×6 (03:18→23:00)
[2021-03-19] MEDS: UMECLIDINIUM/VILANTEROL 62.5/25MCG 7 PUFFS/INHALER INH SCH (07:50)
[2021-03-19] MEDS: CYANOCOBALAMIN 500 MCG TABLET (VITAMIN B-12) PO SCH (07:50)
[2021-03-19] MEDS: METOPROLOL SUCC 25MG EXT REL TAB PO SCH ×2 (07:50→20:41)
[2021-03-19] MEDS: FLUTICASONE PROPIONATE NA SPR 16 GM BTL SCH (07:50)
[2021-03-19] MEDS: HEPARIN SOD 5,000 UNIT/0.5 ML VIAL SQ SCH ×2 (07:50→21:11)
[2021-03-19] MEDS: methylPREDNISolone 40 MG in SYRINGE 0 ML IV SCH ×2 (07:50→21:10)
[2021-03-19] MEDS: PANTOprazole 40 MG TAB PO SCH (07:50)
[2021-03-19] MEDS: FLUTICASONE FUROATE 100MCG 14 PUFFS/INHALER INH SCH (07:51)
[2021-03-19] MEDS: CHECK fentaNYL PATCH PLACEMENT SCH (07:51)
--- NOTE | 2021-03-19 12:24 | Palliative Care Consultation ---
Date of Consultation March 19, 2021 Assessment & Plan (1) Palliative care encounter: I spoke with her son Ezio, on the phone and updated him. Unfortunately, she appears to be declining and her prognosis is poor. Ezio understands this but has seen her improve in the past and wants to make sure that we have done everything we can for her. He confirms that she is DNR/DNI but he would be agreeable to bipap if indicated. He shared with me that he had to make the decision to stop dialysis for his father two years ago and his father two weeks later. That continues to be a traumatic event for him. He tells me that he is not ready to make a decision to stop all her medications and make her comfort care only. He does want to ensure that she is comfortable and would want her to have opioids for pain as needed, knowing that this may affect her mental status. At this point, given her advanced pulmonary disease and relatively low dose of opioids, I do not believe that the possibility of respiratory depression exceeds her discomfort. Addendum: Rosemarie has had further desaturation and is no longer responding. Stat ABG and chest xray are pending. I called her son Ezio to come in and spoke with him at bedside. He does want to proceed with bipap but is adamant about no intubation. Discussed with Dr. Hernandez. (2) Chronic pain: Opioids on hold due to mental status change. She has fentanyl patch on however, given her cachexia, I doubt that it is effective and is the most long acting of the opioids that she had. Will discontinue this. She also has acute on chronic renal failure with GFR 28. Will discontinue morphine due to me tabolite toxicity. Order for oxycodone concentrate 5mg every four hours as needed. Chronic pain type: other chronic pain Qualified Code(s): G89.29 - Other chronic pain (3) Hypoxia: Progressive increase in oxygen requirement. Chest xray shows small bilateral pleural effusions with cardiomegaly and bilateral, right greater than left, interstitial opacities. She is on steroid and inhaler. Opioid will also relieve some of her air hunger. (4) Dysphagia: She has known esophageal dysfunction and coughs with sip of thin liquid during visit. Her son is aware of this. She does have pureed diet. (5) COPD (chronic obstructive pulmonary disease): COPD type: unspecified COPD Qualified Code(s): J44.9 - Chronic obstructive pulmonary disease, unspecified (6) Chronic respiratory failure: (7) Pulmonary fibrosis: History of Present Illness Reason for Consultation: goals of care Requesting Physician: Dr Lim Attending Physician: Rohini Dobson MD History of Present Illness 80 yo lady with interstitial lung disease, COPD , pulmonary hypertension and HFpEF who is on 3L O2 at baseline. She presented with hypoxia and encephalopathy. She has also been noted to afib with RVR. She is awake and able to answer questions but is very uncomfortable. She complains of difficulty breathing, pain and nausea. She had desaturation earlier this morning and oxygen flow was increased to 10L. Allergies Allergy/AdvReac Type Severity Reaction Status Date / Time ranitidine Allergy Intermediate Hives Verified 03/12/21 17:54 Estrogens Allergy Mild IRREGULAR Verified 03/12/21 17:54 HEART RATE lovastatin Allergy Unknown UNKNOWN Verified 03/12/21 17:54 zoledronic acid AdvReac Intermediate MUSCLE PAIN Verified 03/12/21 17:54 omeprazole AdvReac Mild ABD PAIN Verified 03/12/21 17:54 Quinolones AdvReac Mild 11/28/08--ITCHY Verified 03/12/21 17:54 ARM, HAS HAD IN PAST W/O RXN sulfamethoxazole AdvReac Mild NAUSEA/VOMI Verified 03/12/21 17:54 TING trimethoprim AdvReac Mild NAUSEA/VOMI Verified 03/12/21 17:54 TING Home Medications Medication Instructions Recorded Confirmed Type azithromycin 250 mg PO 3XWK 02/08/19 03/12/21 History cyanocobalamin (vitamin B-12) 500 mcg PO QAM 02/08/19 03/12/21 History [Vitamin B-12] fluticasone propionate 2 spray INTRANASAL QAM 02/08/19 03/12/21 History pantoprazole 40 mg PO BID 02/08/19 03/12/21 History albuterol sulfate [ProAir HFA] 2 puff INHALATION Q4H PRN 05/29/19 03/12/21 History prednisone 10 mg PO QAM 05/29/19 03/12/21 History Lactobacillus acidophilus 10,000 mmu cells PO DIRECTED 02/20/21 03/12/21 History [Probiotic] zruxralmqfl-watncketo-dqpoxigx 1 inh INHALATION DAILY 02/20/21 03/12/21 History [Trelegy Ellipta] furosemide 20 mg PO DAILY PRN 02/20/21 03/12/21 History metoprolol succinate 12.5 mg PO QPM 02/20/21 03/12/21 History oxycodone 5 mg PO BID PRN 02/20/21 03/12/21 History prednisone See Rx Instructions .ROUTE 02/20/21 03/12/21 History .COMPLEX PRN sertraline 25 mg PO QPM 02/20/21 03/12/21 History Bacillus coagulan-calcium carb 1 cap PO QAM 03/12/21 03/12/21 History [Digestive Advantage Probiotic] albuterol sulfate 2.5 mg INHALATION TID 03/12/21 03/12/21 History baclofen 10 mg PO TID 03/12/21 03/12/21 History morphine 15 mg PO Q12H 03/12/21 03/12/21 History sennosides 8.6 mg PO DAILY 03/12/21 03/12/21 History Patient History Medical History (Updated 03/19/21 @ 14:10 by Macarena Francis MD) Anxiety Chronic obstructive pulmonary disease Chronic respiratory failure Chronic steroid use CKD (chronic kidney disease), stage III Congestive heart failure hx of Degenerative disc disease Depression Diverticulitis GERD (gastroesophageal reflux disease) Hearing deficit Hiatal hernia Hx of central retinal vein occlusion Hyperlipidemia Hypertension On home oxygen therapy 3L N/C at all times Osteoarthritis Pulmonary fibrosis pt denies Rheumatoid arthritis Surgical History H/O colonoscopy H/O esophagogastroduodenoscopy History of bilateral cataract extraction History of dilatation and curettage History of left breast biopsy benign History of tooth extraction History of total hysterectomy with bilateral salpingo-oophorectomy (BSO) S/P cholecystectomy Family History Other Family history non-contributory No family history of adverse response to anesthesia Social History Smoking Status: Former smoker Tobacco Type: Cigarettes Second Hand Exposure: No; Do You Dip or Chew Tobacco: No; Tobacco Cessation Education Requested by Patient: No Hx Alcohol Use: No Hx Substance Use: No Preferred Language: Danish Communication Ability: Impaired Interactive Producer Required: No Beliefs That Will Affect Care: None marital status: Current Living Situation: Other Current Living Situation Comment: Lives home with caregiver current occupational status: retired Other Information That Helps Us Care for You: No Feels Safe at Home: Yes Safety Concerns: Feels Safe At This Time Assistive Devices: Oxygen - Continuous Review of Systems Review of Systems: Hulbert Symptom Assessment Scale Pain 2/3 Nausea 1/3 Dyspnea 2/3 Anxiety 2/3 Fatigue 3/3 Drowsiness 1/3 Palliative Performance Score 30% Physical Exam Constitutional: + ill appearing, + thin and + in distress ENMT: Mouth: + dry oral mucous membranes cough with swallowing sip of se mani Respiratory: + labored breathing and + uses accessory muscles Sat 90% on 10L Cardiovascular: Rate/Rhythm: + irregularly irregular Gastrointestinal (Abdomen): Percussion/Palpation: abdomen soft; abdomen nontender Musculoskeletal: Extremities: + muscle atrophy ulnar deviation bilaterally on hands, multiple joint deformities Neurologic: awake; not confused Psychiatric: Affect: + anxious affect Results & Data ([facility]) Vital Signs (Past 12 Hours) Vital Signs Temp Pulse Pulse Pulse Resp BP BP 03/19/21 11:04 79 18 03/19/21 08:50 177/109 H 03/19/21 07:58 97.9 F 86 16 183/102 H 03/19/21 07:14 82 20 03/19/21 03:37 97.2 F L 83 20 179/95 H 03/19/21 03:18 84 20 Pulse Ox 03/19/21 11:04 82 L 03/19/21 08:50 03/19/21 07:58 95 03/19/21 07:14 94 03/19/21 03:37 94 03/19/21 03:18 95 PG Care Time/CCT Total # of Minutes Spent Total Time Spent with Patient: Total time spent is greater than 50% in coordination of care (as documented) at patient's floor/unit and/or counseling patient: total time spent 80 minutes with more than 50% of time spent on goals of care, symptom management, family update and support, coordination of care Coding Level of Care Code 45237 Inpt Consult Level 4 Diagnoses Palliative care encounter Z51.5 Chronic pain G89.29 Chronic pain type: other chronic pain Hypoxia R09.02 Dysphagia R13.10 COPD (chronic obstructive pulmonary disease) J44.9 COPD type: unspecified COPD Chronic respiratory failure J96.10 Pulmonary fibrosis J84.10 Time Spent (min) 80
--- NOTE | 2021-03-19 12:24 | Hospitalist Progress Note ---
Date of Service March 19, 2021 Assessment & Plan (1) Altered mental status: Pt is Pt is 79 y/o F with PMH interstitial lung disease, COPD, on 3L oxygen via NC, pulmonary hypertension, diastolic heart failure, HTN, GERD, CKD III, RA, chronic back pain presented to ER for altered mental status. Acute on chronic respiratory failure with hypoxia and hypercarbia Currently on 6 L of nasal cannula. Does endorse shortness of breath. Continue with methylprednisone 40 mg twice daily. Acute on chronic diastolic heart failure CXR: Mild interstitial edema. Trace left pleural effusion. CXR on 03/17 revealed no change in the asymmetric interstitial airspace opacities, cardiomegaly, and small bilateral pleural effusions. Today patient does endorse shortness of breath. Possibly component of heart failure. Will obtain proBNP today. We will give IV Lasix 20 mg now. Metabolic encephalopathy in the setting of narcotics/hypoxia CT head was negative for any acute findings. Chest x-ray without any acute findings. Blood and urine cultures have been negative. Today patient was awake and alert. Oriented to place. Fall precautions. Continue aspiration precautions. A. fib with RVR -resolved Currently rate is controlled. Continue with 12.5 mg twice daily. Not a candidate for long-term anticoagulation. CHRONIC BACK PAIN/FRACTURES Has significant rheumatoid arthritis changes without any acute arthritis History of vertebral fractures remained stable as of scan in November No recent history of trauma and no history of radicular type of pain The PCP increase the pain medication recently with morphine 15 mg twice daily and oxycodone as needed Will need to have pain medications to control her pain We will hold off baclofen which may be causing altered mental status Has been having difficulty in swallowing pills and will try fentanyl patch starting with 12 mcg HTN BP stable Continue with Toprol-XL 12.5 mg twice daily. ROBERTH with CKD CKD III: Cr: 1.29. Was 1.4 in 01/2021 Obtain BMP in the morning. MALNUTRITION Pt cachectic Regional Business Manager consult GERD Continue with Protonix 40 mg daily. DVT Prophylaxis -Heparin SQ DNR/DNI as per discussion with pt's son Follows with Dr Campos for routine care Patient has been almost bedbound and has 24-hour care at home PT and OT evaluation appreciated She remains DNR/DNI son #[phone] Admission and Anticipated Discharge Date Admission Date: March 12, 2021 Subjective Patient was awake and alert. She was having breakfast. Patient was oriented to place only. Did endorse shortness of breath and nonproductive cough. Denies any chest pain, abdominal pain diarrhea or dysuria. Review of Systems Review of Systems: All systems reviewed & are unremarkable except as noted in HPI & below Physical Exam Physical Exam: General: Awake and alert, does not appear to be in any distress HENT: NCAT, MMM, EOMI Eyes: PERRLA Neck: Supple, normal range of motion CVS: normal rate and rhythm Resp: b/l coarse breath sounds Abdomen: Soft, nondistended and nontender Extremities: 2+ LE edema Neuro: face symmetric, no gross focal deficits appreciated Skin: warm and dry, no rashes/lesions/errythema Results & Data Results & Data ([facility]) Vital Signs (Past 12 Hours) Vital Signs Temp Pulse Pulse Pulse Resp BP BP 03/19/21 11:04 79 18 03/19/21 08:50 177/109 H 03/19/21 07:58 36.6 C 86 16 183/102 H 03/19/21 07:14 82 20 03/19/21 03:37 36.2 C L 83 20 179/95 H 03/19/21 03:18 84 20 03/19/21 00:15 94 H 176/101 H Pulse Ox 03/19/21 11:04 82 L 03/19/21 08:50 03/19/21 07:58 95 03/19/21 07:14 94 03/19/21 03:37 94 03/19/21 03:18 95 03/19/21 00:15
[2021-03-19] MEDS ORDERED: FUROSEMIDE 20 MG in SYRINGE 0 ML IV ONE (12:45)
[2021-03-19] MEDS: MoRPHine SULFATE 5 MG/0.25 ML UDP PO PRN (12:55)
[2021-03-19] MEDS ORDERED: oxyCODONE HCL SOLN 5 MG/5 ML UDC PO PRN (13:33)
[2021-03-19] MEDS ORDERED: ONDANSETRON INJ 2 MG/ML 2 ML VIAL IV PRN (14:03)
[2021-03-19] MEDS ORDERED: ONDANSETRON INJ 2 MG/ML 2 ML VIAL ONE (14:05)
--- NOTE | 2021-03-19 14:11 | XRay Report ---
XR chest 1V portable CLINICAL HISTORY: Hypoxia COMPARISON STUDY: 03/17/2021 FINDINGS: The heart remains enlarged. There are persistent bilateral pleural effusions with associate d basilar opacities. There are improving right lung interstitial opacities.[There is a 25 mm right ap ical opacity. As this was not visualized on the chest x-ray performed one week earlier, this is unlik santi to represent a pulmonary neoplasm. IMPRESSION: 1. Improving right lung interstitial opacities 2. Persistent bilateral pleural effusions with associated bibasilar airspace opacities likely atelect atic ACT 112: Negative or not required by law. Electronically signed by: Erick Orosco M.D. 03/19/2021 2:10 PM
[2021-03-19 14:13] LABS: Basophils # (auto) 0.01 K/uL (0-0.2); Basophils % (auto) 0.1 %; Hematocrit (blood only) 38.9 % (37-47); Hemoglobin 12.9 g/dL (12.0-16.0); Immature Granulocytes # (auto) 0.09 K/uL (0.00-0.02); Immature Granulocytes % (auto) 0.6 %; Lymphocytes # (auto) 1.57 K/uL (1.2-3.4); Lymphocytes % (auto) 10.4 %; Mean Corpuscular Hemoglobin 31.2 pg (25-34); Mean Corpuscular Volume 94.2 fL (80-100); Mean Platelet Volume 12.1 fL (7.4-10.4); Monocytes # (auto) 0.14 K/uL (0.11-0.59); Monocytes % (auto) 0.9 %; Neutrophils # (auto) 13.25 K/uL (1.4-6.5); Platelet Count 220 K/uL (130-400); RDW Coefficient of Variation 13.6 % (11.5-14.5); RDW Standard Deviation 47.3 fL (36.4-46.3); Red Blood Count 4.13 M/uL (4.2-5.4); White Blood Count 15.06 K/uL (4.8-10.8)
[2021-03-19 14:14] LABS: HCO3 ABG 25 mmol/L (19-24); Oxygen Saturation ABG 84.4 % (90-95); PCO2 ABG 41 mmHg (35-46); PO2 ABG 50 mmHg (80-95)
[2021-03-19 14:15] LABS: Allen Test Pos (Pos)
[2021-03-19 14:31] LABS: Alanine Aminotransferase 17 U/L (12-78); Albumin Level 2.7 gm/dl (3.4-5.0); Aspartate Aminotransferase 11 U/L (15-37); BUN Creatinine Ratio 41.9 (10-20); Blood Urea Nitrogen 76 mg/dl (7-18); Calcium 9.3 mg/dl (8.5-10.1); Carbon Dioxide 26 mmol/L (21-32); Chloride 110 mmol/L (98-107); Est GFR (African American) 30.5; Est GFR (Non-African American) 26.3; Glucose 137 mg/dl (70-99); Potassium 4.6 mmol/L (3.5-5.1); Sodium 142 mmol/L (136-145)
[2021-03-19 14:39] LABS: Albumin Globulin Ratio 0.7 (0.9-2); Alkaline Phosphatase 118 U/L (45-117); Bilirubin,Total 0.6 mg/dl (0.2-1); Globulin 3.7 gm/dl (2.5-4.0); NT Pro B Type Natriuretic Pept > 35000 pg/ml (0-1800); Total Protein 6.4 gm/dl (6.4-8.2); Troponin I 0.078 ng/ml (0-0.045)
[2021-03-19 15:03] LABS: Mean Corpuscular Hgb Conc 33.2 g/dL (32-36)
--- NOTE | 2021-03-19 17:18 | Cardiology Consultation ---
Date of Consultation March 19, 2021 Assessment & Plan (1) Elevated troponin I level: 80-year-old female with end-stage pulmonary disease progressive worsening and now in respiratory failure on BiPAP. Patient is not to be intubated per family Overall clinical course appears to be declining. Troponin minimally elevated as expected by demand issues. Findings do not suggest acute coronary syndrome but blood pressure significantly elevated Plan: Attempt to ease respiratory distress. Chest x-ray reflect increasing pleural effusions on the basis of hypoalbuminemia. Diuretics not previously tolerated well will reduce preload with topical nitrates 1/2 inch every 6 IV morphine 1 mg every 3 hours as needed respiratory distress given marked agony first dose given now Discussed with son overall prognosis poor with limited likelihood of meaningful recovery. Ultimately would shift towards comfort measures (2) Acute and chronic respiratory failure: (3) Altered mental status: History of Present Illness Reason for Consultation: Elevated troponin, respiratory failure Requesting Physician: Dr. Dobson Attending Physician: Rohini Dobson MD History of Present Illness Patient is a 80-year-old female with complex underlying issues including 1. End-stage chronic interstitial lung disease with chronic hypoxic respiratory failure and pulmonary hypertension 2. Prior apical ballooning cardiomyopathy in setting of acute respiratory distress 05/05/2010 with out obstructive coronary disease by cardiac catheterization 3. Longstanding hypertension with diastolic LV dysfunction Patient currently on BiPAP and unable to offer any information regarding clinical course. Information gained from review of records. Patient hospitalized on 03/07/2021 with worsening respiratory status, altered mental status, chronic pain poor p.o. intake and hypoalbuminemia. Patient transiently treated with IV diuretics with significant decline in renal function. Today has had progressive worsening in dyspnea now has resulted in being placed on BiPAP for respiratory support Patient unable to give any additional formation but currently markedly hypertensive, very uncomfortable. Son is at bedside concerned regarding her overall decline. Laboratory studies ordered today included blood gas with significant hypoxia on 15 L Mildly elevated troponin Allergies Allergy/AdvReac Type Severity Reaction Status Date / Time ranitidine Allergy Intermediate Hives Verified 03/12/21 17:54 Estrogens Allergy Mild IRREGULAR Verified 03/12/21 17:54 HEART RATE lovastatin Allergy Unknown UNKNOWN Verified 03/12/21 17:54 zoledronic acid AdvReac Intermediate MUSCLE PAIN Verified 03/12/21 17:54 omeprazole AdvReac Mild ABD PAIN Verified 03/12/21 17:54 Quinolones AdvReac Mild 11/28/08--ITCHY Verified 03/12/21 17:54 ARM, HAS HAD IN PAST W/O RXN sulfamethoxazole AdvReac Mild NAUSEA/VOMI Verified 03/12/21 17:54 TING trimethoprim AdvReac Mild NAUSEA/VOMI Verified 03/12/21 17:54 TING Home Medications Medication Instructions Recorded Confirmed Type azithromycin 250 mg PO 3XWK 02/08/19 03/12/21 History cyanocobalamin (vitamin B-12) 500 mcg PO QAM 02/08/19 03/12/21 History [Vitamin B-12] fluticasone propionate 2 spray INTRANASAL QAM 02/08/19 03/12/21 History pantoprazole 40 mg PO BID 02/08/19 03/12/21 History albuterol sulfate [ProAir HFA] 2 puff INHALATION Q4H PRN 05/29/19 03/12/21 History prednisone 10 mg PO QAM 05/29/19 03/12/21 History Lactobacillus acidophilus 10,000 mmu cells PO DIRECTED 02/20/21 03/12/21 History [Probiotic] yvhzladdxxl-vbzxtcuos-wzsmvkvj 1 inh INHALATION DAILY 02/20/21 03/12/21 History [Trelegy Ellipta] furosemide 20 mg PO DAILY PRN 02/20/21 03/12/21 History metoprolol succinate 12.5 mg PO QPM 02/20/21 03/12/21 History oxycodone 5 mg PO BID PRN 02/20/21 03/12/21 History prednisone See Rx Instructions .ROUTE 02/20/21 03/12/21 History .COMPLEX PRN sertraline 25 mg PO QPM 02/20/21 03/12/21 History Bacillus coagulan-calcium carb 1 cap PO QAM 03/12/21 03/12/21 History [Digestive Advantage Probiotic] albuterol sulfate 2.5 mg INHALATION TID 03/12/21 03/12/21 History baclofen 10 mg PO TID 03/12/21 03/12/21 History morphine 15 mg PO Q12H 03/12/21 03/12/21 History sennosides 8.6 mg PO DAILY 03/12/21 03/12/21 History Patient History Medical History (Updated 03/19/21 @ 17:35 by Usama Mcnamara MD) Anxiety Chronic obstructive pulmonary disease Chronic respiratory failure Chronic steroid use CKD (chronic kidney disease), stage III Congestive heart failure hx of Degenerative disc disease Depression Diverticulitis GERD (gastroesophageal reflux disease) Hearing deficit Hiatal hernia Hx of central retinal vein occlusion Hyperlipidemia Hypertension On home oxygen therapy 3L N/C at all times Osteoarthritis Pulmonary fibrosis pt denies Rheumatoid arthritis Surgical History H/O colonoscopy H/O esophagogastroduodenoscopy History of bilateral cataract extraction History of dilatation and curettage History of left breast biopsy benign History of tooth extraction History of total hysterectomy with bilateral salpingo-oophorectomy (BSO) S/P cholecystectomy Family History Other Family history non-contributory No family history of adverse response to anesthesia Social History Smoking Status: Former smoker Tobacco Type: Cigarettes Second Hand Exposure: No; Do You Dip or Chew Tobacco: No; Tobacco Cessation Education Requested by Patient: No Hx Alcohol Use: No Hx Substance Use: No Preferred Language: Spanish Communication Ability: Impaired Publisher Assistant Required: No Beliefs That Will Affect Care: None marital status: Current Living Situation: Other Current Living Situation Comment: Lives home with caregiver current occupational status: retired Other Information That Helps Us Care for You: No Feels Safe at Home: Yes Safety Concerns: Feels Safe At This Time Assistive Devices: Oxygen - Continuous Review of Systems Review of Systems: Unobtainable due to reduced consciousness Physical Exam Constitutional: + thin, + cachectic and + lethargic Eyes: + pinpoint pupils ENMT: external ear and nose normal, oropharynx normal Neck: trachea midline, no thyromegaly Respiratory: Auscultation: + diminished lung sounds Poor air movement Cardiovascular: Rate/Rhythm: regular rate and regular rhythm Vessels: no JVD Extremities: no edema Gastrointestinal (Abdomen): normal bowel sounds, soft, nontender, no hepatosplenomegaly Neurologic: Patient lethargic but responsive by movement only Results & Data ([facility]) Vital Signs (Past 12 Hours) Vital Signs Temp Pulse Pulse Pulse Pulse Resp BP 03/19/21 15:10 90 90 24 03/19/21 11:04 79 18 03/19/21 08:50 03/19/21 07:58 36.6 C 86 16 183/102 H 03/19/21 07:14 82 20 BP Pulse Ox 03/19/21 15:10 93 03/19/21 11:04 82 L 03/19/21 08:50 177/109 H 03/19/21 07:58 95 03/19/21 07:14 94 Laboratory Results Laboratory Results - last 24 hr 03/19/21 03/19/21 03/19/21 12:35 13:53 13:53 WBC 15.06 H RBC 4.13 L Hgb 12.9 Hct 38.9 MCV 94.2 MCH 31.2 MCHC 33.2 RDW Std Deviation 47.3 H RDW Coeff of Carmencita 13.6 Plt Count 220 MPV 12.1 H Immature Gran % (Auto) 0.6 Neut % (Auto) 88.0 Lymph % (Auto) 10.4 Lucas % (Auto) 0.9 Eos % (Auto) 0.0 Baso % (Auto) 0.1 Neut # (Auto) 13.25 H Lymph # (Auto) 1.57 Lucas # (Auto) 0.14 Eos # (Auto) 0.00 Baso # (Auto) 0.01 Immature Gran # (Auto) 0.09 H ABG pH ABG pCO2 ABG pO2 ABG HCO3 ABG O2 Saturation ABG Base Excess Grant Test Barometric Pressure Oxygen Given Sodium 142 Potassium 4.6 Chloride 110 H Carbon Dioxide 26 Anion Gap 6.0 BUN 76 H Creatinine 1.80 H Est Cr Clr Drug Dosing 20.0 Est GFR ( Amer) 30.5 Est GFR (Non-Af Amer) 26.3 BUN/Creatinine Ratio 41.9 H Glucose 137 H Calcium 9.3 Total Bilirubin 0.6 AST 11 L ALT 17 Alkaline Phosphatase 118 H Troponin I 0.078 H* NT-Pro-B Natriuret Pep > 64779 H > 72956 H Total Protein 6.4 Albumin 2.7 L Globulin 3.7 Albumin/Globulin Ratio 0.7 L 03/19/21 14:00 WBC RBC Hgb Hct MCV MCH MCHC RDW Std Deviation RDW Coeff of Carmencita Plt Count MPV Immature Gran % (Auto) Neut % (Auto) Lymph % (Auto) Lucas % (Auto) Eos % (Auto) Baso % (Auto) Neut # (Auto) Lymph # (Auto) Lucas # (Auto) Eos # (Auto) Baso # (Auto) Immature Gran # (Auto) ABG pH 7.40 ABG pCO2 41 ABG pO2 50 L ABG HCO3 25 H ABG O2 Saturation 84.4 L ABG Base Excess 0.0 Grant Test Pos Barometric Pressure 727.9 Oxygen Given 15L Sodium Potassium Chloride Carbon Dioxide Anion Gap BUN Creatinine Est Cr Clr Drug Dosing Est GFR ( Amer) Est GFR (Non-Af Amer) BUN/Creatinine Ratio Glucose Calcium Total Bilirubin AST ALT Alkaline Phosphatase Troponin I NT-Pro-B Natriuret Pep Total Protein Albumin Globulin Albumin/Globulin Ratio
[2021-03-19] MEDS ORDERED: MoRPHine SULFATE 2 MG/ML CARP IV STA (17:35)
[2021-03-19] MEDS ORDERED: MoRPHine SULFATE 2 MG/ML CARP IV PRN (17:35)
[2021-03-19] MEDS: NITROGLYCERIN 2% OINTMENT 30GM TUBE EXT SCH ×2 (17:57→22:21)
--- NOTE | 2021-03-19 20:40 | Communication Note ---
Date of Service: March 19, 2021 Was asked by nurse to speak to pt's son. He had questions about the meaning of comfort care measures. Discussed with son- Ezio as well as a family friend at bedside. We discussed pt's current condition and discussed her poor prognosis and likely continued decline. Discussed comfort measures and discussed how it is to help relieve symptoms and provide comfort to a patient at end of life. He reports understanding but he states that he isn't ready to make the decision to make her comfort care only at this time. He wants to continue Bipap and her currently prescribed medications throughout the night and wants to re-address comfort measures tomorrow.
[2021-03-19] MEDS: SERTRALINE HCL 50 MG TABLET PO SCH (20:42)
--- NOTE | 2021-03-19 21:54 | Death Pronouncement Note ---
Date of Service March 19, 2021 Pronouncement Note Admission Date Admission Date: March 12, 2021 Date and Time of Date of : 03/19/21 Time of : 22:00 Contributing Factors (1) Elevated troponin I level: (2) Acute and chronic respiratory failure: (3) Altered mental status: Summary Additional details: Discharge summary to be accomplished by Dr. Dobson. Additional Data Confirmation of : no pulse, no respirations, no heart sounds and pupils fixed and dilated Family: attempt made Attending/PCP notified?: No Attending physician: Rohini Dobson MD
--- NOTE | 2021-03-20 08:08 | Discharge Summary ---
Date of Service March 20, 2021 Admission HPI Per Admitting Provider Pt is Pt is 79 y/o F with PMH interstitial lung disease, COPD, on 3L oxygen via NC, pulmonary hypertension, diastolic heart failure, HTN, GERD, CKD III, RA, chronic back pain presented to ER for altered mental status. History obtained from pt's son as unable to obtain from pt currently. Pt's son reports that pt has a care management coordinator that lives with her who helps get pt out of bed and gives pt her medications. Today son was contacted by caregiver around 1PM that pt did not get out of bed today and when she checked on pt this afternoon pt seemed confused. Reported that pt did not take her medications today. Son reports that care management coordinator lays out pts meds and pt doesn't have access to her medications. He reports at baseline pt is weak and doesn't ambulate much and when does she holds on to furniture. Reports pt is oriented at baseline. on 03/10/21 pt had PCP visit and morphine 15mg BID was started. First dose taken evening of 03/10/21 and twice yesterday. Denies any morphine being given today or any other medications today. Pt's son reports that when he arrived pt was confused and did not know him. She was wearing her oxygen. States while in ER pt became more alert and seemed to recognize him however later during ER course was back to being confused and lethargic. He states yesterday pt was at her baseline. Does notice increased cough from her chronic cough over the past 3 weeks. Chronic clear sputum product ion. Unaware of any wheezing or noted respiratory distress. Is unaware if pt had any extremity edema. Pt has had poor appetite and hasn't been eating. He reports she drinks water. No known fever/chills, vomiting, diarrhea. Admission Exam Per Admitting Provider General: no acute distress, cachectic elderly female, pt does complain of pain upon palpation of chest, back, abdomen. No pain at rest (chronic back pain) Head: normocephalic, atraumatic Eyes: PERRL (approx 3mm diameter), limited EOM's testing secondary to pt's p articipation but appear intact, conjunctiva non-injected, anicteric ENT: normal inspection external ears, nose, mucous membranes moist Neck: supple, trachea midline Lungs: on 2.5L oxygen via mask with O2 sat 94%, R: 18 and non-labored, poor pt participation with deep inspiration, and lungs appear clear, no wheezing/rhonchi/rales noted at this time CV: RRR, no murmur, +trace edema ankles Abd: normal BS, soft, non-tender Ext: no cyanosis or erythema Neuro: Alert. Limited participation in exam. Initially pt stated in hospital and stated her first name. Is unaware of year, town, birthday. She was unable to say who her son was (who was in room at the time). +lethargic, generalized weakness, unable to do full testing Skin: warm, dry Principal Diagnosis Acute on chronic hypoxic/hypercapnic respiratory failure Discharge Exam General: Awake and alert, does not appear to be in any distress HENT: NCAT, MMM, EOMI Eyes: PERRLA Neck: Supple, normal range of motion CVS: normal rate and rhythm Resp: b/l coarse breath sounds Abdomen: Soft, nondistended and nontender Extremities: 2+ LE edema Neuro: face symmetric, no gross focal deficits appreciated Skin: warm and dry, no rashes/lesions/errythema Discharge Data Allergies Allergy/AdvReac Type Severity Reaction Status Date / Time ranitidine Allergy Intermediate Hives Verified 03/12/21 17:54 Estrogens Allergy Mild IRREGULAR Verified 03/12/21 17:54 HEART RATE lovastatin Allergy Unknown UNKNOWN Verified 03/12/21 17:54 zoledronic acid AdvReac Intermediate MUSCLE PAIN Verified 03/12/21 17:54 omeprazole AdvReac Mild ABD PAIN Verified 03/12/21 17:54 Quinolones AdvReac Mild 11/28/08--ITCHY Verified 03/12/21 17:54 ARM, HAS HAD IN PAST W/O RXN sulfamethoxazole AdvReac Mild NAUSEA/VOMI Verified 03/12/21 17:54 TING trimethoprim AdvReac Mild NAUSEA/VOMI Verified 03/12/21 17:54 TING Consultations 03/12/21 17:48 ED Decision to Admit Stat 03/18/21 08:00 Consult Orthopedic Surgery Routine 03/18/21 13:44 Consult Palliative Care Routine 03/19/21 14:55 Consult Cardiology Routine Ordered Studies 03/12/21 18:05 CT head/brain wo con Stat Hospital Course (1) Elevated troponin I level: (2) Acute and chronic respiratory failure: (3) Altered mental status: Pt is Pt is 79 y/o F with PMH interstitial lung disease, COPD, on 3L oxygen via [place], pulmonary hypertension, diastolic heart failure, HTN, GERD, CKD III, RA, chronic back pain presented to ER for altered mental status. Patient was also found to be in acute on chronic hypoxic/hypercarbic respiratory failure. There was also a possible component of acute on chronic diastolic heart failure. Her metabolic encephalopathy was likely due to use of narcotics and hypoxemia. Patient also had an episode of A. fib with RVR but resolved. On 03/19/2021 patient deteriorated rapidly. Her oxygen requirement increased significantly. Patient was found to have elevated troponins and significantly elevated proBNP. Palliative medicine was consulted. Meeting was held with the son on 03/19/2021 at bedside. He did not wanted to proceed with comfort care measures yet but wanted to try BiPAP and other conservative measures. Attempt was made to diurese the patient as well. Unfortunately patient's indices on 03/19/2021. Total Time Total Time Spent Total Time Spent (In Minutes): 35 Discharge Plan Discharge Items Patient Disposition:
[2021-03-20 09:36] LABS: Codeine Urine NEGATIVE ng/mL (<50); Hydrocodone Urine NEGATIVE ng/mL (<50); Hydromor Urine 112 ng/mL (<50); Morphine Urine 4760 ng/mL (<50); Norhydrocodone Conf Ur NEGATIVE ng/mL (<50); Noroxycodone Urine NEGATIVE ng/mL (<50); Oxycodone Urine NEGATIVE ng/mL (<50); Oxymorph Urine 78 ng/mL (<50)
== END 2021-03-19 23:15 | disposition expired | DRG 91 ==
LOC: ED 15:31 → 2N 19:14 → SUATTDRO 19:14 → 2N 20:32